=== PATIENT | male | born 1935 | race Caucasian/White ===

== ENCOUNTER 2024-11-14 14:21 | Observation (INO) | payer MEDICARE, OTHER, SELFPAY ==
[2024-11-14] VITALS (11 sets, daily range): BP systolic 178–214; BP diastolic 73–95; PULSE 60–62; RESP 16–22; TEMP 36.5–36.9; O2SAT 95–98; BMI 25.0; BMI 22.1
--- NOTE | 2024-11-14 14:29 | XR_ITS ---
FINAL REPORT CLINICAL HISTORY: CP FINDINGS: SINGLE VIEW CHEST There is mild cardiomegaly. Patient is status post median sternotomy. Left subclavian pacer is identified. There are chronic changes at the bases. The lungs are otherwise clear. There is no pneumothorax. IMPRESSION: No acute process. Reviewed, Interpreted and Dictated by Jimmie Murrell MD Transcribed by Lexi Dale Authenticated and [facility]
--- NOTE | 2024-11-14 14:29 | CT_ITS ---
FINAL REPORT TECHNIQUE: Multiple axial CT images were performed from the foramen magnum to the vertex without enhancement. Reconstructed images were obtained and reviewed. This study was performed with techniques to keep radiation doses as low as reasonably achievable, (ALARA). Individualized dose reduction techniques using automated exposure control or adjustment of mA and/or kV according to the patient's size were employed. CLINICAL HISTORY: Altered mental status FINDINGS: There is moderate atrophy with proportional ventriculomegaly. There are prominent dilated perivascular spaces in the basal ganglia.. There is no evidence of hemorrhage. No masses are identified. No extra-axial fluid is seen. The sinuses are normal. IMPRESSION: Atrophy without acute intracranial abnormality. Reviewed, Interpreted and Dictated by Jimmie Murrell MD Transcribed by Lexi Dale Authenticated and [facility]
--- NOTE | 2024-11-14 14:31 | ED_ITS ---
Discharge Plan Disposition Patient Disposition: Admitted Condition: Good Clinical Impressions Clinical Impression: Chest pain, Elevated troponin, Hx of heart artery stent, CAD (coronary artery disease), Presence of Watchman left atrial appendage closure device Discharge ED Provider: Dileep Webb Adult HPI <CAYETANO Leigh - Last Filed: 11/14/24 18:20> General Chief complaint: Nausea/Vomiting/Diarrhea Stated complaint: N/V, Chest tightness Time Seen by Provider: 11/14/24 14:21 Mode of Arrival: EMS Source of Information: Patient, Relative and EMS Limitations: No Limitations History of Present Illness HPI narrative: 89-year-old male presents to the emergency department via EMS for multitude of symptomatology, patient is somewhat of a poor historian, GCS of 14, disoriented to time, oriented to person and place, unsure of baseline as patient and family are not yet at the bedside, however additional history is obtained via EMS, patient originally called for left-sided chest pain that is nonradiating, the patient describes it as a pressure/tightness, however patient does endorse some radiation into the back , this been intermittently ongoing for the last 2 days, worsened today, describes it as a 5 out of 10, denies any shortness of breath with this, did have several episodes of nausea and vomiting today, which is new, as well as some diarrhea, denies any hematuria, hematochezia, hemoptysis, hematemesis, melena, patient denies any urinary type symptomatology, admits to abdominal pain, is any headache, fever chills, denies any lightheadedness, no dizziness. Patient denies any alcohol tobacco or drug use, patient has other past medical history upon chart review consistent with implantable pacemaker/defibrillator, hyperlipidemia, hypertension, patient takes baby aspirin daily, and was given 4 baby aspirin via EMS and route, as well as 4 mg of Zofran. Initial triage vitals are unremarkable. Also of note, EMS noted the patient to be quite hypertensive on the scene over 200 systolic. This is improved upon my examination at the patient. Note additional history obtained at the bedside via family members (daughter and ) at approximately 3:10 PM, they state that the patient is 2 years status post what sounds like bypass graft surgery, implantable defibrillator/pacemaker/watchman, for atrial fibrillation, previously on anticoagulation therapy with Xarelto, patient also has multiple coronary artery stents, approximately 4 according to at the bedside, patient noted some chest pain/back pain that started last night abruptly while playing cards , nausea vomiting and other pain persisted today as the patient and patient's family were passing through the area. Patient also has baseline ongoing memory disturbance/dementia, his current mentation is his baseline according to patient and family. Related Data Home Medications ?Medication ?Instructions ?Recorded ?Confirmed atorvastatin 40 mg tablet 20 mg PO HS 11/14/24 5 donepezil 10 mg tablet 10 mg PO HS 11/14/24 5 ezetimibe 10 mg tablet 10 mg PO DAILY 11/14/2411/05 aspirin 81 mg tablet 81 mg PO DAILY 11/15/2411/05 doxepin 10 mg capsule 10 mg PO HS 11/15/24 5 metoprolol succinate 25 mg 12.5 mg PO BID 11/15/2405/01 tablet,extended release 24 hr (Toprol XL) nitroglycerin 0.4 mg sublingual 0.4 mg sublingual Q5M PRN cp 11/15/24 11/15/24 tablet tamsulosin 0.4 mg capsule 0.4 mg PO DAILY 11/15/2405/01 Previous Rx's ?Medication ?Instructions ?Recorded clopidogrel 75 mg tablet 75 mg PO DAILY 30 days #30 t abs 11/15/24 isosorbide mononitrate 60 mg 60 mg PO DAILY 30 days #3 0 tabs 11/15/24 tablet,extended release 24 hr Allergies Allergy/AdvReac Type Severity Reaction Status Date / Time No Known Allergies Allergy Unverified 05/25/17 14:17 [facility] <CAYETANO Leigh - Last Filed: 11/14/24 18:20> [facility] Disclaimer: The information contained in this section may have been updated after the patient was seen, as this information can be updated by other users. Medical History CABG (coronary artery bypass graft) planned Family History Other No significant family history Social History Smoking Status: Never smoker alcohol intake: never current occupational status: other Travel in the last 8 weeks?: None Have you lived/traveled outside [place] in past 30 days?: No Contact w/someone who lives/traveled outside [place] past 30 days?: No Exposure to someone with infectious disease in past 14 days?: No Do you have a fever (greater than 100.4 F or 38 C)?: No Have you tested positive for COVID-19?: No Exposed to someone with COVID-19 in past 14 days?: No Do you have a sore throat?: No Do you have a cough?: No Do you have any weakness?: No Do you have any diarrhea?: No Are you experiencing any unusual bleeding?: No Do you have any muscle aches/pain?: No Do you have any abdominal pain?: No Are you experiencing loss of taste or smell?: No <CAYETANO Leigh - Last Filed: 11/14/24 18:20> ROS Obtained: Yes All systems reviewed & no additional complaints except as documented Physical Exam <CAYETANO Leigh - Last Filed: 11/14/24 18:20> General General appearance: alert and in no apparent distress Head Head exam: atraumatic and normocephalic Eye Eye exam: Present PERRL and EOMI ENT ENT exam: Present mucous membranes moist Neck Neck exam: Present normal inspection Chest Chest inspection: Present normal inspection and symmetric chest wall rise; Absent tenderness Respiratory Respiratory exam: Present normal lung sounds bilaterally; Absent respiratory distress, wheezes or stridor Cardiovascular Cardiovascular exam: Present regular rate and normal rhythm Abdominal Exam Abdominal exam: Present soft, distention and tenderness; Absent guarding, rebound or rigidity Abdominal tenderness: Present diffuse and mild Comment: Mild abdominal distention, mild diffuse abdominal pain to palpation, no focal pain to palpation Extremities Exam Extremities exam: Present normal inspection Neurological Exam Neurological exam: Present alert and other (GCS of 14, disoriented to time, oriented to person and place, unsure of baseline); Absent oriented X3 Psychiatric Psychiatric exam: Present normal affect Skin Skin exam: Present warm and dry Medical Decision Making <CAYETANO Leigh - Last Filed: 11/14/24 18:20> Medical Records Medical records reviewed: Yes I reviewed the patient's medical records. Screening: Per USPSTF and CDC recommendations, given the prevalence of disease in our region, it is our hospital?s policy to screen for HIV and viral Hepatitis for all patients aged 18 and over and those with ongoing risk factors. Zach Inquiry Pt receiving controlled substance: No Zcah was queried for this patient: No Vital Signs: 11/14/24 14:31 11/14/24 14:32 11/14/24 14:46 Temperature 98.2 F Temperature Source Oral Pulse Rate 60 60 Pulse Rate [Right Radial] 60 Respiratory Rate 21 19 22 Blood Pressure 198/89 H 195/95 H Blood Pressure [Right Arm] 192/88 H Blood Pressure Mean 128 Blood Pressure Mean [Right Arm] 122 Blood Pressure Source Blood Pressure Source [Right Arm] Automatic Cuff Blood Pressure Position Blood Pressure Position [Right Arm] Supine 02 Sat by Pulse Oximetry 97 98 95 Oxygen Delivery Method Room Air 11/14/24 15:46 11/14/24 16:01 11/14/24 16:36 Temperature Temperature Source Pulse Rate 62 60 60 Pulse Rate [Right Radial] Respiratory Rate 18 18 20 Blood Pressure 214/94 H 187/78 H 187/87 H Blood Pressure [Right Arm] Blood Pressure Mean 119 112 132 Blood Pressure Mean [Right Arm] Blood Pressure Source Blood Pressure Source [Right Arm] Blood Pressure Position Blood Pressure Position [Right Arm] 02 Sat by Pulse Oximetry 95 95 95 Oxygen Delivery Method 11/14/24 17:01 11/14/24 18:13 Temperature 98.4 F Temperature Source Oral Pulse Rate 60 60 Pulse Rate [Right Radial] Respiratory Rate 18 16 Blood Pressure 178/86 H 184/81 H Blood Pressure [Right Arm] Blood Pressure Mean 119 Blood Pressure Mean [Right Arm] Blood Pressure Source Automatic Cuff Blood Pressure Source [Right Arm] Blood Pressure Position Supine Blood Pressure Position [Right Arm] 02 Sat by Pulse Oximetry 95 Oxygen Delivery Method Room Air Lab Data Lab results reviewed: Yes I reviewed the patient's lab results. Lab Results 11/14/24 14:27: WBC 10.0, RBC 4.46 L, Hgb 15.2, Hct 43.9, MCV 98.4 H, MCH 34.1 H , MCHC 34.6, RDW 13.7, Plt Count 170, MPV 8.9, Neut % (Auto) 77.4, Lymph % (Auto) 14.9, Russell % (Auto) 6.7, Eos % (Auto) 0.4, Baso % (Auto) 0.3, Neut # (Auto) 7.7, Lymph # (Auto) 1.5, Russell # (Auto) 0.7, Eos # (Auto) 0.0, Baso # (Auto) 0.0, PT 10.6, INR 0.95, D-Dimer 0.92 H, Sodium 136, Potassium 5.0, Chloride 107, Carbon Dioxide 23, Anion Gap 11.0, BUN 22 H, Creatinine 1.30 H, Estimated Creat Clear 45, Estimated GFR 52 L, Est GFR ( Amer) 63, Glucose 146 H, Lactate 1.6, Calcium 9.0, Magnesium 2.0, Total Bilirubin 1.3, AST 66 H, ALT 51, Alkaline Phosphatase 118, Troponin I 0.05 H, NT-Pro-B Natriuret Pep 4150 H, Total Protein 8.0, Albumin 4.7, Globulin 3.3 H, Albumin/Globulin Ratio 1.4, Lipase 223 11/14/24 16:35: Urine Color Yellow, Urine Appearance Clear, Urine pH 6.0, Ur Specific [place] 1.010, Urine Protein Trace, Urine Glucose (UA) Negative, Urine Ketones Negative, Urine Blood Negative, Urine Nitrate Negative, Urine Bilirubin Negative, Urine Urobilinogen 0.2, Ur Leukocyte Esterase Negative, Urine RBC 5- 10, Urine WBC 5-10, Ur Squamous Epith Cells 3-5, Urine Bacteria Trace, Urine Mucus 1+ 11/14/24 17:27: Troponin I 0.06 H 11/15/24 06:20 11/15/24 06:20 Orders (Tests/Meds): ED MEDICATIONS Discontinued Medications Generic Name Dose Route Start Last Admin Trade Name Mumtaz PRN Reason Stop Dose Admin Aspirin 81 mg 11/15/24 11:45 11/15/24 12:13 Aspirin Ec 81mg Tablet PO 12/15/24 11:44 81 mg DAILY SUSAN Administration Atorvastatin Calcium 20 mg 11/15/24 21:00 Atorvastatin 20mg Tablet PO 12/15/24 20:59 HS [facility] Clopidogrel Bisulfate 300 mg 11/15/24 15:27 Clopidogrel 300mg Tablet PO 11/15/24 15:28 ONCE ONE Clopidogrel Bisulfate 75 mg 11/16/24 09:00 Clopidogrel 75mg Tab PO 12/16/24 08:59 DAILY [facility] Donepezil HCl 10 mg 11/15/24 21:00 Donepezil 10mg Tab PO 12/15/24 20:59 HS SUSAN Enoxaparin Sodium 80 mg 11/14/24 17:45 11/14/24 18:56 Enoxaparin 100mg/Ml Syringe 1 mg/kg (80 mg) 12/14/24 17:44 80 mg SUBCUT Administration Q12H SUSAN Enoxaparin Sodium 70 mg 11/15/24 06:00 11/15/24 06:16 Enoxaparin 80mg/0.8ml Syringe SUBCUT 12/15/24 05:59 Not Given Q12H SUSAN Enoxaparin Sodium 80 mg 11/15/24 21:00 Enoxaparin 80mg/0.8ml Syringe SUBCUT 12/15/24 20:59 Q12H SUSAN Furosemide 80 mg 11/14/24 17:45 11/14/24 18:55 Furosemide 40mg/4ml Vial IV 11/14/24 17:46 80 mg ONCE ONE Administration Iopamidol 80 ml 11/14/24 15:33 11/14/24 15:36 Iopamidol-370 (76%);100ml Bottle IV 11/14/24 15:34 80 ml ONCE ONE Administration Irbesartan 37.5 mg 11/14/24 18:25 11/14/24 18:56 Irbesartan 75mg Tablet PO 11/14/24 18:26 37.5 mg ONCE ONE Administration Isosorbide Mononitrate 60 mg 11/15/24 15:30 Isosorbide Russell 60mg Tab.Er.24h PO 12/15/24 15:29 DAILY SUSAN Labetalol HCl 20 mg 11/15/24 06:48 Labetalol 20mg/4ml Syringe IV 12/15/24 06:47 Q8HP PRN for SBP >160 Melatonin 5 mg 11/15/24 21:00 11/14/24 22:02 Melatonin 5mg Tablet PO 12/15/24 20:59 5 mg HS SUSAN Administration Methocarbamol 500 mg 11/15/24 00:03 11/15/24 00:56 Methocarbamol 500mg Tablet PO 12/15/24 08:59 500 mg BID PRN Administration spasm Methocarbamol 500 mg 11/15/24 07:11 Methocarbamol 500mg Tablet PO 12/15/24 00:02 BIDP PRN MUSCLE SPASMS Metoprolol Succinate 25 mg 06/11/25 11:45 11/15/24 12:13 Metoprolol Succinate Xl 25mg Tablet PO 12/15/24 11:44 25 mg DAILY SUSAN Administration Morphine Sulfate 2 mg 11/14/24 15:38 11/14/24 15:54 Morphine 2mg/Ml Syringe IV 11/14/24 15:39 2 mg ONCE ONE Administration Ondansetron HCl 4 mg 11/14/24 15:38 11/14/24 15:55 Ondansetron 4mg/2ml Vial IV 11/14/24 15:39 4 mg ONCE ONE Administration Ondansetron HCl 4 mg 11/15/24 06:37 11/15/24 06:43 Ondansetron 4mg/2ml Vial IV 12/15/24 06:36 4 mg Q6HP PRN Administration Nausea Sodium Chloride 40 ml 11/14/24 15:33 11/14/24 15:35 0.9 % Sodium Chloride 50 Ml Vial IV 11/14/24 15:34 40 ml ONCE ONE Administration Sodium Chloride 10 ml 11/14/24 15:33 11/14/24 15:36 Sodium Chloride 0.9% 10ml Syr (Rad Only) IV 11/14/24 15:34 10 ml ONCE ONE Administration ORDERS Category Date Time Status CT angio abdomen pelvis Stat Cat Scan 11/14/24 14:[address] head/brain wo con Stat Cat Scan 11/14/24 14:29 Completed CTA Chest [CT angio chest - dissection] Stat Cat Scan 11/14/24 14:32 Completed XR chest portable Stat Exams 11/14/24 14:29 Completed Complete Blood Count Auto Diff AMLAB Lab 11/15/24 06:20 Completed Complete Blood Count Auto Diff Stat Lab 11/14/24 14:27 Completed Comprehensive Metabolic Panel AMLAB Lab 11/15/24 06:20 Completed Comprehensive Metabolic Panel Stat Lab 11/14/24 14:27 Completed D-Dimer Stat Lab 11/14/24 14:27 Completed HIV Combo Stat Lab 11/14/24 20:51 Completed Hepatitis C Ab Qual. W/ RFX Stat Lab 11/14/24 20:51 Completed Lactic Acid Stat Lab 11/14/24 14:27 Completed Lipase Stat Lab 11/14/24 14:27 Completed Lipid Panel AMLAB Lab 11/15/24 06:20 Completed Magnesium AMLAB Lab 11/15/24 06:20 Completed Magnesium Stat Lab 11/14/24 14:27 Completed NT Pro Brain Natriuretic Pep. Stat Lab 11/14/24 14:27 Completed PT INR [Prothrombin Time INR] Stat Lab 11/14/24 14:27 Completed Troponin I Q3H Lab 11/14/24 17:27 Completed Troponin I Q3H Lab 11/14/24 20:51 Completed Troponin I Stat Lab 11/14/24 14:27 Completed Urinalysis and Microscopic Stat Lab 11/14/24 16:35 Completed ECG Request Routine Y 11/14/24 17:45 Ordered Medical Decision Narrative: 89-year-old male presents the emergency department with chest pain, nausea and vomiting, differential diagnose include but not limited to, PE, aortic dissection, AAA, pneumonia, ACS, cardiac arrhythmia, costochondritis, hypertensive urgency/emergency, small bowel obstruction, diverticulitis, pancreatitis among others. I discussed this case with attending physician Will obtain basic laboratory studies, d dimer , lactic acid level lipase level magnesium level proBNP PT/INR troponin urinalysis, EKG, CTA chest, CTA abdomen pelvis dissection protocol, CT head without contrast and chest x-ray for further evaluation/characterization. CBC is notable for mild MCV elevation at 98.4 otherwise unremarkable CBC Coags within normal limits CMP is notable for mild creatinine elevation at 1.3, mild BUN elevation at 22, no lactic acidosis, minimal AST elevation at 66, D-dimer elevated at 0.92. Troponin is minimally elevated at 0.05, proBNP is elevated at 4150 Will give patient 2 mg IV morphine and 4 mg IV Zofran additional dose. Reviewed the patient's chest x-ray along the corresponding radiologic report, no acute process. Urinalysis is unremarkable, negative nitrites negative leukocyte esterase. 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 Reviewed the patient's CT head without contrast along the corresponding radiologic report, atrophy without acute intracranial abnormality. Heart score is a 6. I discussed this patient's case with the hospitalist Dr. Chi at approximately 5:40 PM, he is agreement the current admission plan/treatment plan, for ongoing chest pain, elevated troponin, clinical reviewer consultation and possible formal echocardiogram. <Dileep Webb MD - Last Filed: 11/15/24 21:34> Vital Signs: 11/14/24 14:31 11/14/24 14:32 11/14/24 14:46 Temperature 98.2 F Temperature Source Oral Pulse Rate 60 60 Pulse Rate [Right Radial] 60 Respiratory Rate 21 19 22 Blood Pressure 198/89 H 195/95 H Blood Pressure [Right Arm] 192/88 H Blood Pressure Mean 128 Blood Pressure Mean [Right Arm] 122 Blood Pressure Source Blood Pressure Source [Right Arm] Automatic Cuff Blood Pressure Position Blood Pressure Position [Right Arm] Supine 02 Sat by Pulse Oximetry 97 98 95 Oxygen Delivery Method Room Air 11/14/24 15:46 11/14/24 16:01 11/14/24 16:36 Temperature Temperature Source Pulse Rate 62 60 60 Pulse Rate [Right Radial] Respiratory Rate 18 18 20 Blood Pressure 214/94 H 187/78 H 187/87 H Blood Pressure [Right Arm] Blood Pressure Mean 119 112 132 Blood Pressure Mean [Right Arm] Blood Pressure Source Blood Pressure Source [Right Arm] Blood Pressure Position Blood Pressure Position [Right Arm] 02 Sat by Pulse Oximetry 95 95 95 Oxygen Delivery Method 11/14/24 17:01 11/14/24 18:13 Temperature 98.4 F Temperature Source Oral Pulse Rate 60 60 Pulse Rate [Right Radial] Respiratory Rate 18 16 Blood Pressure 178/86 H 184/81 H Blood Pressure [Right Arm] Blood Pressure Mean 119 Blood Pressure Mean [Right Arm] Blood Pressure Source Automatic Cuff Blood Pressure Source [Right Arm] Blood Pressure Position Supine Blood Pressure Position [Right Arm] 02 Sat by Pulse Oximetry 95 Oxygen Delivery Method Room Air Lab Data Lab Results 11/14/24 14:27: WBC 10.0, RBC 4.46 L, Hgb 15.2, Hct 43.9, MCV 98.4 H, MCH 34.1 H , MCHC 34.6, RDW 13.7, Plt Count 170, MPV 8.9, Neut % (Auto) 77.4, Lymph % (Auto) 14.9, Russell % (Auto) 6.7, Eos % (Auto) 0.4, Baso % (Auto) 0.3, Neut # (Auto) 7.7, Lymph # (Auto) 1.5, Russell # (Auto) 0.7, Eos # (Auto) 0.0, Baso # (Auto) 0.0, PT 10.6, INR 0.95, D-Dimer 0.92 H, Sodium 136, Potassium 5.0, Chloride 107, Carbon Dioxide 23, Anion Gap 11.0, BUN 22 H, Creatinine 1.30 H, Estimated Creat Clear 45, Estimated GFR 52 L, Est GFR ( Amer) 63, Glucose 146 H, Lactate 1.6, Calcium 9.0, Magnesium 2.0, Total Bilirubin 1.3, AST 66 H, ALT 51, Alkaline Phosphatase 118, Troponin I 0.05 H, NT-Pro-B Natriuret Pep 4150 H, Total Protein 8.0, Albumin 4.7, Globulin 3.3 H, Albumin/Globulin Ratio 1.4, Lipase 223 11/14/24 16:35: Urine Color Yellow, Urine Appearance Clear, Urine pH 6.0, Ur Specific [place] 1.010, Urine Protein Trace, Urine Glucose (UA) Negative, Urine Ketones Negative, Urine Blood Negative, Urine Nitrate Negative, Urine Bilirubin Negative, Urine Urobilinogen 0.2, Ur Leukocyte Esterase Negative, Urine RBC 5- 10, Urine WBC 5-10, Ur Squamous Epith Cells 3-5, Urine Bacteria Trace, Urine Mucus 1+ 11/14/24 17:27: Troponin I 0.06 H Orders (Tests/Meds): ED MEDICATIONS Discontinued Medications Generic Name Dose Route Start Last Admin Trade Name Celestineq PRN Reason Stop Dose Admin Aspirin 81 mg 11/15/24 11:45 11/15/24 12:13 Aspirin Ec 81mg Tablet PO 12/15/24 11:44 81 mg DAILY SUSAN Administration Atorvastatin Calcium 20 mg 11/15/24 21:00 Atorvastatin 20mg Tablet PO 12/15/24 20:59 HS [facility] Clopidogrel Bisulfate 300 mg 11/15/24 15:27 Clopidogrel 300mg Tablet PO 11/15/24 15:28 ONCE ONE Clopidogrel Bisulfate 75 mg 11/16/24 09:00 Clopidogrel 75mg Tab PO 12/16/24 08:59 DAILY SUSAN Donepezil HCl 10 mg 11/15/24 21:00 Donepezil 10mg Tab PO 12/15/24 20:59 HS [facility] Enoxaparin Sodium 80 mg 11/14/24 17:45 11/14/24 18:56 Enoxaparin 100mg/Ml Syringe 1 mg/kg (80 mg) 12/14/24 17:44 80 mg SUBCUT Administration Q12H SUSAN Enoxaparin Sodium 70 mg 11/15/24 06:00 11/15/24 06:16 Enoxaparin 80mg/0.8ml Syringe SUBCUT 12/15/24 05:59 Not Given Q12H SUSAN Enoxaparin Sodium 80 mg 11/15/24 21:00 Enoxaparin 80mg/0.8ml Syringe SUBCUT 12/15/24 20:59 Q12H SUSAN Furosemide 80 mg 11/14/24 17:45 11/14/24 18:55 Furosemide 40mg/4ml Vial IV 11/14/24 17:46 80 mg ONCE ONE Administration Iopamidol 80 ml 11/14/24 15:33 11/14/24 15:36 Iopamidol-370 (76%);100ml Bottle IV 11/14/24 15:34 80 ml ONCE ONE Administration Irbesartan 37.5 mg 11/14/24 18:25 11/14/24 18:56 Irbesartan 75mg Tablet PO 11/14/24 18:26 37.5 mg ONCE ONE Administration Isosorbide Mononitrate 60 mg 11/15/24 15:30 Isosorbide Russell 60mg Tab.Er.24h PO 12/15/24 15:29 DAILY SUSAN Labetalol HCl 20 mg 11/15/24 06:48 Labetalol 20mg/4ml Syringe IV 12/15/24 06:47 Q8HP PRN for SBP >160 Melatonin 5 mg 11/15/24 21:00 11/14/24 22:02 Melatonin 5mg Tablet PO 12/15/24 20:59 5 mg HS SUSAN Administration Methocarbamol 500 mg 11/15/24 00:03 11/15/24 00:56 Methocarbamol 500mg Tablet PO 12/15/24 08:59 500 mg BID PRN Administration spasm Methocarbamol 500 mg 11/15/24 07:11 Methocarbamol 500mg Tablet PO 12/15/24 00:02 BIDP PRN MUSCLE SPASMS Metoprolol Succinate 25 mg 11/15/24 11:45 11/15/24 12:13 Metoprolol Succinate Xl 25mg Tablet PO 12/15/24 11:44 25 mg DAILY SUSAN Administration Morphine Sulfate 2 mg 11/14/24 15:38 11/14/24 15:54 Morphine 2mg/Ml Syringe IV 11/14/24 15:39 2 mg ONCE ONE Administration Ondansetron HCl 4 mg 11/14/24 15:38 11/14/24 15:55 Ondansetron 4mg/2ml Vial IV 11/14/24 15:39 4 mg ONCE ONE Administration Ondansetron HCl 4 mg 11/15/24 06:37 11/15/24 06:43 Ondansetron 4mg/2ml Vial IV 12/15/24 06:36 4 mg Q6HP PRN Administration Nausea Sodium Chloride 40 ml 11/14/24 15:33 11/14/24 15:35 0.9 % Sodium Chloride 50 Ml Vial IV 11/14/24 15:34 40 ml ONCE ONE Administration Sodium Chloride 10 ml 11/14/24 15:33 11/14/24 15:36 Sodium Chloride 0.9% 10ml Syr (Rad Only) IV 11/14/24 15:34 10 ml ONCE ONE Administration ORDERS Category Date Time Status CT angio abdomen pelvis Stat Cat Scan 11/14/24 14:[address] head/brain wo con Stat Cat Scan 11/14/24 14:29 Completed CTA Chest [CT angio chest - dissection] Stat Cat Scan 11/14/24 14:32 Completed XR chest portable Stat Exams 11/14/24 14:29 Completed Complete Blood Count Auto Diff AMLAB Lab 11/15/24 06:20 Completed Complete Blood Count Auto Diff Stat Lab 11/14/24 14:27 Completed Comprehensive Metabolic Panel AMLAB Lab 11/15/24 06:20 Completed Comprehensive Metabolic Panel Stat Lab 11/14/24 14:27 Completed D-Dimer Stat Lab 11/14/24 14:27 Completed HIV Combo Stat Lab 11/14/24 20:51 Completed Hepatitis C Ab Qual. W/ RFX Stat Lab 11/14/24 20:51 Completed Lactic Acid Stat Lab 11/14/24 14:27 Completed Lipase Stat Lab 11/14/24 14:27 Completed Lipid Panel AMLAB Lab 11/15/24 06:20 Completed Magnesium AMLAB Lab 11/15/24 06:20 Completed Magnesium Stat Lab 11/14/24 14:27 Completed NT Pro Brain Natriuretic Pep. Stat Lab 11/14/24 14:27 Completed PT INR [Prothrombin Time INR] Stat Lab 11/14/24 14:27 Completed Troponin I Q3H Lab 11/14/24 17:27 Completed Troponin I Q3H Lab 11/14/24 20:51 Completed Troponin I Stat Lab 11/14/24 14:27 Completed Urinalysis and Microscopic Stat Lab 11/14/24 16:35 Completed ECG Request Routine Y 11/14/24 17:45 Ordered Medical Decision Narrative: 89-year-old male presents the emergency department with chest pain, nausea and vomiting, differential diagnose include but not limited to, PE, aortic dissection, AAA, pneumonia, ACS, cardiac arrhythmia, costochondritis, hypertensive urgency/emergency, small bowel obstruction, diverticulitis, pancreatitis among others. I discussed this case with attending physician Will obtain basic laboratory studies, d dimer , lactic acid level lipase level magnesium level proBNP PT/INR troponin urinalysis, EKG, CTA chest, CTA abdomen pelvis dissection protocol, CT head without contrast and chest x-ray for further evaluation/characterization. CBC is notable for mild MCV elevation at 98.4 otherwise unremarkable CBC Coags within normal limits CMP is notable for mild creatinine elevation at 1.3, mild BUN elevation at 22, no lactic acidosis, minimal AST elevation at 66, D-dimer elevated at 0.92. Troponin is minimally elevated at 0.05, proBNP is elevated at 4150 Will give patient 2 mg IV morphine and 4 mg IV Zofran additional dose. Reviewed the patient's chest x-ray along the corresponding radiologic report, no acute process. Urinalysis is unremarkable, negative nitrites negative leukocyte esterase. 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 Reviewed the patient's CT head without contrast along the corresponding radiologic report, atrophy without acute intracranial abnormality. Heart score is a 6. I discussed this patient's case with the hospitalist Dr. Chi at approximately 5:40 PM, he is agreement the current admission plan/treatment plan, for ongoing chest pain, elevated troponin, clinical reviewer consultation and possible formal echocardiogram. I was consulted by the BRITTNEE, and we discussed the complexity of the problems being addressed.I approved the treatment and management plan for this patient?s care in the Emergency Department, thus performing a substantive portion of the medical decision making.Signed, Dileep Webb MD [facility] <CAYETANO Leigh - Last Filed: 11/14/24 18:20> Critical Care Time Critical Care Time: No
--- NOTE | 2024-11-14 14:32 | CT_ITS ---
FINAL REPORT TECHNIQUE: Postcontrast axial images of the chest were performed in a CTA protocol. This study was performed with techniques to keep radiation doses as low as reasonably achievable, (ALARA). Individualized dose reduction technique using automated exposure control or adjustment of mA and/or kV according to the patient's size were employed. CLINICAL HISTORY: Chest pain/back pain, N/V FINDINGS: Mediastinal wires are noted. There is a filling defect in the left atrial appendage seen on images 47-51 of series 6. Dense coronary artery calcifications are seen. The heart is normal in size. No adenopathy is identified. No pleural or pericardial effusion is identified. The thoracic aorta is normal in caliber with no focal aneurysm or dissection identified. There is no filling defect to suggest pulmonary embolism. There is chronic scarring at the lung bases. No lung infiltrate or mass is identified. IMPRESSION: No pulmonary embolism. Filling defect in the left atrial appendage. Recommend correlation with echocardiogram. Reviewed, Interpreted and Dictated by Jimmie Murrell MD Transcribed by Zora Hardin Authenticated and [facility]
--- NOTE | 2024-11-14 14:32 | CT_ITS ---
FINAL REPORT TECHNIQUE: Pre-and postcontrast images of the abdomen and pelvis were performed by computed tomography. Extensive 3-D reconstruction images were performed. A CTA was performed. This study was performed with techniques to keep radiation doses as low as reasonably achievable (ALARA). Individualized dose reduction techniques using automated exposure control or adjustment of mA and/or kV according to the patient''s size were employed. CLINICAL HISTORY: Abdominal pain, N/V, R/O dissection FINDINGS: ABDOMEN AND PELVIS: Precontrast images demonstrate no evidence of nephrolithiasis. The liver is fatty infiltrated. There is a large gallstone measuring 3.2 cm. A periampullary duodenal diverticulum is seen measuring 2.5 cm. No adrenal masses are identified. The spleen and pancreas are unremarkable. There is a small hiatal hernia. Streak artifact is seen from hip joint prosthesis. CTA: The abdominal aorta is proper caliber. Dense vascular calcification is seen at the origins of the celiac axis and SMA with high-grade stenosis present. There are patent, single renal arteries. Calcification is seen at the origin of the right renal artery and iliac vessels with less than 50% stenosis. 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 Large gallstone. No evidence of aneurysm or dissection. Reviewed, Interpreted and Dictated by Jimmie Murrell MD Transcribed by Zora Hardin Authenticated and . [facility]
--- NOTE | 2024-11-14 14:33 | ECG_ITS ---
APPROVED REPORT Exam: Resting ECG HR:62 bpm ECG Measurements Heart Rate 62 AXES QRSd 169 QRS 265 QT 504 T 73 QTc 509 Conclusion ELECTRONIC VENTRICULAR PACEMAKER ABNORMAL RHYTHM ECG UNCONFIRMED REPORT Electronically signed by : BINH PINA, 11/16/2024 01:16:47
--- OUTSIDE RECORDS SUMMARY | 2024-11-14 14:35 | XMS_ITS | Encounter Summary ---
Author Organization [facility] Address [address] [place] [address] Care Team Providers Care Kidney Trimmer Name Role Phone Mayo Kauffman MD Primary Care Provider [phone] Jason Canchola MD Primary Care Provider [phone] Mayo Kauffman MD Primary Care Provider [phone] Provider, Historical Unavailable Unavailable Francisco Reveles MD Unavailable Aidan Ferraro MD Primary Care Provider [phone] Lois Alaniz APRN Primary Care Provider [phone] Alexis Chamberlain MD Unavailable [phone] Aidan Ferraro MD Primary Care Provider [phone] Canelo Avery MD Unavailable [phone] Patricia Hernandez Unavailable Unavailable Jayla Rangel RN Unavailable Unavailable Enmanuel Kauffman DPM Unavailable [phone] Reason for Visit * Reason Onset Date Comments Other 09/30/2009 Encounter Details Date Type Department Care Team (Late st Contact Info) Description 09/30/[address] [place] [address] Mayo Kauffman MD [address] [place] [address] [phone] Other Social History Tobacco Use Types Packs/Day Years Used Date Smoking Tobacco: Never Alcohol Use Standard Drinks/Week Comments No 0 (1 standard drink = 0.6 oz pur e alcohol) Sex and Gender Information Value Date Recorded Sex Assigned at Male 09/06/2020 6:36 PM EDT Legal Sex Male 9:18 PM EST Gender Identity Male 09/06/2020 6:36 PM EDT Sexual Orientation Straight 09/06/2020 6: 36 PM EDT documented as of this encounter Miscellaneous Notes * Telephone Encounter - Sultana Hernandez - 09/30/2009 1:18 PM EDT Pt contacted and informed stress test was 05/14/10 - advised Cholesterol was 225 * Telephone Encounter - Abby Canas - 09/30/2009 1:07 PM EDT When is the date of his stress test? Also would like results of the blood work documented in this encounter Plan of Treatment Upcoming Encounters Date Type Department Care Team (Late st Contact Info) Description 12/11/2024 1:30 PM EDT Office Visit [facility] [address], [address] [place] [address] Jason Moya III, MD [address] [place] [address] Domenico Upton APRN [address] [place] [address] [place] [address] 01/11/2025 9:30 AM EDT Office Visit [facility] Care [address] [place] [address] [address], [address] [place] [address] Aidan Ferraro MD [address] [place] [address] 03/15/2025 11:00 AM EDT Office Visit [facility]IE[facility] Ferraro Alex Pinzon [address] [place] [address] [address] [place] [address] Aidan Ferraro MD [address] [place] [address] documented as of this encounter Visit Diagnoses Not on filedocumented in this encounter Additional Health Concerns Infection Onset Date Last Indicated Resolved Time Covid-19 (confirmed) Comment:Past Acute Phase 03/28/2020 03/28/2020 07/30/2020 9:22 AM EST Covid-19 (rule out) 07/03/2021 07/03/2021 07/03/19 22 9:44 PM EST Covid-19 (confirmed) 07/03/2021 07/03/2021 022 10:14 PM EDT documented as of this encounter Care Teams Kidney Trimmer Relationship Specialty Start Date End Date Mayo Kauffman MD [address] [place] [address] PCP - General 05/25/08 12/11/14 Jason Canchola MD [address] [place] [address] PCP - General 12/12/14 05/19/16 Mayo Kauffman MD [address] [place] [address] PCP - General Cardiology 05/20/16 11/01/17 Aidan Ferraro MD [address] [place] [address] PCP - General Family Medicine 11/02/17 02/22/18 Lois Alaniz APRN [address] [place] [address] PCP - General Family Practice 02/23/18 03/01/20 Aidan Ferraro MD [address] [place] [address] PCP - General Family Medicine 03/02/20 Provider, Historical 08/11/16 Francisco Reveles MD [address] [place] [address] Gastroenterology 08/17/16 Alexis Chamberlain MD [address] [place] [address] Orthopedic Surgery 09/08/18 Canelo Avery MD [address] [place] [address] Orthopedic Surgery 04/12/20 Patricia Hernandez 06/03/20 Jayla Rangel, ONI Registered Nurse Geriatric Social Work Professor 02/15/23 02/15/23 Enmanuel Kauffman DPM [address] [place] [address] Podiatry 05/25/23 documented as of this encounter
--- OUTSIDE RECORDS SUMMARY | 2024-11-14 14:35 | XMS_ITS | Encounter Summary ---
Author Organization [facility] Address [address] [place] [address] Care Team Providers Care Manager Interventional Name Role Phone Mayo Kauffman MD Primary Care Provider [phone] Jason Canchola MD Primary Care Provider [phone] Mayo Kauffman MD Primary Care Provider [phone] Provider, Historical Unavailable Unavailable Francisco Reveles MD Unavailable Aidan Ferraro MD Primary Care Provider [phone] Lois Alaniz APRN Primary Care Provider [phone] Alexis Chamberlain MD Unavailable [phone] Aidan Ferraro MD Primary Care Provider [phone] Canelo Avery MD Unavailable [phone] Patricia Hernandez Unavailable Unavailable Jayla Rangel RN Unavailable Unavailable Enmanuel Kauffman DPM Unavailable [phone] Encounter Details Date Type Department Care Team (Late st Contact Info) Description 11/15/2007 Historical Encounter Global Mayo Kauffman MD [address] [place] [address] Social History Tobacco Use Types Packs/Day Years Used Date Smoking Tobacco: Never Assessed Sex and Gender Information Value Date Recorded Sex Assigned at Male 09/06/2020 6:36 PM EDT Legal Sex Male 9:18 PM EST Gender Identity Male 09/06/2020 6:36 PM EDT Sexual Orientation Straight 09/06/2020 6: 36 PM EDT documented as of this encounter Plan of Treatment Upcoming Encounters Date Type Department Care Team (Late st Contact Info) Description 12/11/2024 1:30 PM EDT Office Visit [facility] [address] [address] Jason Moya III, MD [address] [place] [address] [phone] Domenico Upton APRN [address] [place] [address] 01/11/2025 9:30 AM EDT Office Visit [facility] [address] [address] Aidan Ferraro MD [address] [place] [address] [phone] 03/15/2025 11:00 AM EDT Office Visit [facility] [address] [address] Aidan Ferraro MD [address] [place] [address] [phone] documented as of this encounter Visit Diagnoses Not on filedocumented in this encounter Additional Health Concerns Infection Onset Date Last Indicated Resolved Time Covid-19 (confirmed) Comment:Past Acute Phase 03/28/2020 03/28/2020 07/30/2020 9:22 AM EST Covid-19 (rule out) 07/03/2021 07/03/202120 22 9:44 PM EST Covid-19 (confirmed) 07/03/2021 07/03/2021 022 10:14 PM EDT documented as of this encounter Care Teams Manager Interventional Relationship Specialty Start Date End Date Mayo Kauffman MD [address] [address] PCP - General 05/25/08 12/11/14 Jason Canchola MD [address] [place] [address] PCP - General 12/12/14 05/19/16 Mayo Kauffman MD [address] [place] [address] PCP - General Cardiology 05/20/16 11/01/17 Aidan Ferraro MD [address] [place] [address] PCP - General Family Medicine 11/02/17 02/22/18 Lois Alaniz APRN [address] [place] [address] PCP - General Family Practice 02/23/18 03/01/20 Aidan Ferraro MD [address] [place] [address] PCP - General Family Medicine 03/02/20 Provider, Historical 08/11/16 Francisco Reveles MD [address] [place] [address] Gastroenterology 08/17/16 Alexis Chamberlain MD [address] [facility] [address] [place] [address] Orthopedic Surgery 09/08/18 Canelo Avery MD [address] [address] [place] [address] Orthopedic Surgery 04/12/20 Patricia Hernandez 06/03/20 Jayla Rangel, RN Registered Nurse Reliability Manager 02/15/23 02/15/23 Enmanuel Kauffman DPM [address] [place] [address] [address] [place], [place] [phone] Podiatry 05/25/23 documented as of this encounter
--- OUTSIDE RECORDS SUMMARY | 2024-11-14 14:35 | XMS_ITS | Encounter Summary ---
Author Organization [facility] Address [address] [place] [address] Care Team Providers Care Liner Reroll Tender Name Role Phone Mayo Kauffman MD Primary Care Provider Provider, Historical Unavailable Unavailable Francisco Reveles MD Unavailable Aidan Ferraro MD Primary Care Provider Lois Alaniz APRN Primary Care Provider Alexis Chamberlain MD Unavailable [phone] Aidan Ferraro MD Primary Care Provider Canelo Avery MD Unavailable Patricia Hernandez Unavailable Unavailable Jayla Rangel RN Unavailable Unavailable Enmanuel Kauffman DPDebbie Unavailable [phone] Encounter Details Date Type Department Care Team (Late st Contact Info) Description 09/14/2016 Orders Only [facility] [place] [address] [place] [address] Mayo Kauffman MD [address] [place] [address] Enlarged prostate (Primary Dx); S/P coronary artery stent placement; Essential hypertension; Mixed hyperlipidemia Social History Tobacco Use Types Packs/Day Years Used Date Smoking Tobacco: Former Smokeless Tobacco: Never Alcohol Use Standard Drinks/Week Comments [...] Description 12/11/2024 1:30 PM EDT Office Visit [facility] [address] [address] Jason Moya III, MD [address] [place] [address] [phone] Domenico Upton APRN [address] [place] [address] [phone] 01/11/2025 9:30 AM EDT Office Visit [address] [address] Aidan Ferraro MD [address] [place] [address] [phone] 03/15/2025 11:00 AM EDT Office Visit [facility] [address] [address] Aidan Ferraro MD [address] [place] [address] [phone] documented as of this encounter Results * Lipid Panel (09/15/2016 7:04 AM EDT) [facility] Signature CHOLESTEROL 160 10 - 200 mg/dL 09/15/2016 1:57 PM EDT [facility] TRIGLYCERIDE 150 46 - 236 mg/dL 09/15/2016 1:57 PM EDT [facility] HDL 35.0 27.0 - 67.0 mg/dL 09/15/2016 1:57 PM EDT [facility] VLDL 30.0 mg/dL 09/15/2016 1:57 PM EDT [facility] LDL 95.0 mg/dL 09/15/2016 1:57 PM EDT [facility] Comment: CAP STANDARDIZED LDL-CHOLESTEROL VALUES <130-DESIRABLE 130-159 BORDERLINE/HIGH RISK >160-HIGH RISK RISK 1, MALE 4.57 09/15/2016 1:57 PM EDT [facility] Comment: TOTAL CHOL/HDL 1/2 AVERAGE 3.43 AVERAGE 4.97 2 X AVERAGE 9.55 3 X AVERAGE 23.39 RISK 2, MALE 2.71 09/15/2016 1:57 PM EDT [facility] Comment: LDL/HDL 1/2 AVERAGE 1.00 AVERAGE 3.55 2 X AVERAGE 6.25 3 X AVERAGE 7.99 RISK 1, FEMALE 4.57 09/15/2016 1:57 PM EDT [facility] Comment: TOTAL CHOL/HDL 1/2 AVERAGE 3.27 AVERAGE 4.44 2 X AVERAGE 7.05 3 X AVERAGE 11.04 RISK 2, FEMALE 2.71 09/15/2016 1:57 PM EDT [facility] Comment: LDL/HDL 1/2 AVERAGE 1.47 AVERAGE 3.22 2 X AVERAGE 5.03 3 X AVERAGE 6.14 09/15/2016 7:04 AM EDT 09/15/2016 1:31 PM EDT Narrative [facility] - 09/15/2016 1:57 PM EDT NO KNOWN ALLERGIES us Mayo Kauffman MD CHEMISTRY ORDERABLES Final Resul t [facility] [address] [place] [address] * (ABNORMAL) Comprehensive Metabolic Panel (09/15/2016 7:04 AM EDT) SODIUM 142 135 - 145 mmol/L 09/15/2016 1:57 PM EDT [facility] POTASSIUM 4.2 3.6 - 5.0 mmol/L 09/15/2016 1:57 PM EDT [facility] CHLORIDE 106 101 - 111 mmol/L 09/15/2016 1:57 PM EDT [facility] CO2 26 21 - 31 mmol/L 09/15/2016 1:57 PM EDT [facility] ANION GAP 10 09/15/2016 1:57 PM EDT [facility] GLUCOSE 103 70 - 110 mg/dL 09/15/2016 1:57 PM EDT [facility] CREATININE 1.3(H) 0.6 - 1.2 mg/dL 09/15/2016 1:57 PM EDT [facility] BUN 15 6 - 20 mg/dL 09/15/2016 1:57 PM EDT [facility] CALCIUM 9.9 8.5 - 10.5 mg/dL 09/15[facility]2016 [facility] TOTAL 7.5 6.7 - 8.2 g/dL 09/15/2016 1:57 PM EDT [facility] Albumin 4.5 3.2 - 5.0 g/dL 09/15/2016 1:57 PM EDT [facility] T BILIRUBIN 0.7 0.2 - 1.0 mg/dL 09/15/2016 1:57 PM EDT [facility] ALP 97 42 - 121 [iU]/L 09/15/2016 1:57 [facility] AST 28 10 - 42 [iU]/L 09/15/2016 1:57 PM [facility] ALT (SGPT) 30 10 - 60 [iU]/L 09/15/2016 1:57 PM [facility] OSMOLALITY 284 266 - 309 09/15/2016 1:57 PM [facility] A/G Ratio 1.5 09/15/2016 1:57 PM [facility] B/C 12 10 - 20 09/15/2016 1:57 PM [facility] ESTIMATED GFR 53 mL/min 09/15/2016 1:57 PM [facility] Comment: *The estimated Glomerular Filtration Rate(EGFR) may not be accurate for children under the age of 18 yrs. To estimate the GFR for -Americans multiply the result provided by 1.21. Stage 1 90 mL/min or greater Stage 2 60-89 mL/min Stage 3 30-59 mL/min Stage 4 15-29 mL/min Stage 5 14 mL/min or less 09/15/2016 7:04 AM EDT 09/15/2016 1:31 PM EDT Narrative [facility] - 09/15/2016 1:57 PM EDT NO KNOWN ALLERGIES us Mayo Kauffman MD CHEMISTRY ORDERABLES Final Resul t Performing Organization Address City/State/[facility] Co de Phone Number [facility] [address] [place] [address] * (ABNORMAL) CBC (09/15/2016 7:04 AM EDT) WBC 4.8 3.4 - 11.3 10*3/uL 09/15/2016 1:44 PM EDT [facility] RBC 4.23(L) 4.32 - 5.64 10*6/uL 09/15/2016 1:44 PM EDT [facility] HGB 13.7 13.0 - 16.7 g/dL 09/15/2016 1:44 PM EDT [facility] HCT 41.1 38.5 - 49.3 % 09/15/2016 1:44 PM EDT [facility] MCV 97.1(H) 82.3 - 94.1 fL 09/15/2016 1:44 PM EDT [facility] MCHC 33.4 32.6 - 34.9 g/dL 09/15/2016 1:44 PM EDT [facility] MCH 32.4(H) 27.0 - 31.1 pg 09/15/2016 1:44 PM EDT [facility] RDW 14.0 11.5 - 14.5 % 09/15/2016 1:44 PM EDT [facility] MPV 7.9 6.9 - 9.9 fL 09/15/2016 1:44 PM EDT [facility] Platelet Cnt 140(L) 146 - 374 10*3/uL 09/15/2016 1:44 PM EDT [facility] Differential Type Auto 017 1:44 PM EDT [facility] Neutrophils 56.3 48.8 - 75.9 % 09/15/2016 1:44 PM EDT [facility] Lymphocytes 33.1 16.3 - 43.9 % 09/15/2016 1:44 PM EDT [facility] Monocytes 8.7 2.1 - 13.3 % 09/15/2016 1:44 PM EDT [facility] Eosinophils 1.3 0.3 - 5.0 % 09/15/2016 1:44 PM EDT [facility] Basophils 0.6 0.0 - 1.1 % 09/15/2016 1:44 PM EDT [facility] Neutrophils Abs 2.7 1.6 - 8.5 10*3/uL 09/15/2016 1:44 PM EDT [facility] Lymphocytes Abs 1.6 0.6 - 4.9 10*3/uL 09/15/2016 1:44 PM EDT [facility] Monocytes Abs 0.4 0.0 - 1.4 10*3/uL 09/15/2016 1:44 PM EDT [facility] Eosinophils Abs 0.1 0.0 - 0.5 10*3/uL 09/15/2016 1:44 PM EDT [facility] Basophils Abs 0.0 0.0 - 0.1 10*3/uL 09/15/2016 1:44 PM EDT [facility] 09/15/2016 7:04 AM EDT 09/15/2016 1:44 PM EDT Narrative [facility] - 09/15/2016 1:44 PM EDT NO KNOWN ALLERGIES us Mayo Kauffman MD HEMATOLOGY ORDERABLES Final Resu lt Performing Organization Address City/[facility]/ZIP Co de Phone Number [facility] [address] [place] [address] * PSA, Diagnostic (09/15/2016 7:04 AM EDT) PSA <0.1 0.0 - 4.0 ng/mL 09/15/2016 3:17 PM EDT [facility] 09/15/2016 7:04 AM EDT 09/15/2016 1:41 PM EDT Narrative [facility] - 09/15/2016 3:17 PM EDT NO KNOWN ALLERGIES us Mayo Kauffman MD CHEMISTRY ORDERABLES Final Resul t Performing Organization Address City/[facility]/ZIP Co de Phone Number [facility] [address] [place] [address] documented in this encounter Visit Diagnoses Diagnosis Enlarged prostate- Primary Hypertrophy of prostate without urinary obstruction and other lower urinary tract symptoms (LUTS) S/P coronary artery stent placement Postsurgical percutaneous transluminal coronary angioplasty status Essential hypertension Unspecified essential hypertension Mixed hyperlipidemia documented in this encounter Additional Health Concerns Infection Onset Date Last Indicated Resolved Time Covid-19 (confirmed) Comment:Past Acute Phase 03/28/2020 03/28/2020 07/30/2020 9:22 AM EST Covid-19 (rule out) 07/03/2021 07/03/2021 07/03/19 22 9:44 PM EST Covid-19 (confirmed) 07/03/2021 07/03/2021 022 10:14 PM EDT documented as of this encounter Care Teams Liner Reroll Tender Relationship Specialty [place] [address] [place] [address] PCP - General Cardiology 05/20/16 11/01/17 Aidan Ferraro MD [address] [place] [address] PCP - General Family Medicine 11/02/17 02/22/18 Lois Alaniz APRN [address] [place] [address] PCP - General Family Practice 02/23/18 03/01/20 Aidan Ferraro MD [address] [place] [address] PCP - General Family Medicine 03/02/20 Provider, Historical 08/11/16 Francisco Reveles MD [address] [place] [address] Gastroenterology 08/17/16 Alexis Chamberlain MD [address] [place] [address] Orthopedic Surgery 09/08/18 Cnaelo Avery MD [address] [address] [place] [address] Orthopedic Surgery 04/12/20 Patricia Hernandez 06/03/20 Jayla Rangel RN Registered Nurse Supply Chain Associate 02/15/23 02/15/23 Enmanuel Kauffman DPM [address] [facility] [address] [place] [address] Podiatry 05/25/23 documented as of this encounter
--- OUTSIDE RECORDS SUMMARY | 2024-11-14 14:35 | XMS_ITS | Encounter Summary ---
Author Organization [facility] Address [address] [place] [address] Care Team Providers Care Fire Protection Engineering Technician Name Role Phone Provider, Historical Unavailable Unavailable Francisco Reveles MD Unavailable Alexis Chamberlain MD Unavailable [phone] Aidan Ferraro MD Primary Care Provider [phone] Canelo Avery MD Unavailable [phone] Patricia Hernandez Unavailable Unavailable Enmanuel Kauffman DPM Unavailable [phone] Reason for Visit * Reason Onset Date Comments Other 08/14/2024 WANTS DIFFERENT SLEEP MEDICATION Encounter Details Date Type Department Care Team (Late st Contact Info) Description 08/14/2024 Telephone [facility] Ferraro [address], [address] [place] [address] Aidan Ferraro MD [address] [place] [address] Other (WANTS DIFFERENT SLEEP MEDICATION ) Social History Tobacco Use Types Packs/Day Years Used Date Smoking Tobacco: Never Smokeless Tobacco: Never Alcohol Use Standard Drinks/Week Comments No 0 (1 standard drink = 0.6 oz pur e alcohol) [facility] Utilities Answer Date Recorded In the past 12 months has th e electric, gas, oil, or water company threatened to shut off services in your home? No 07/10/2024 Humiliation, Afraid, Rape, and Kick questionnair e Answer Date Recorded Within the last year, have y ou been afraid of your partner or ex-partner? No 07/10/2024 Within the last year, have y ou been humiliated or emotionally abused in other ways by your partner or ex-partner? No Within the last year, have y ou been kicked, hit, slapped, or otherwise physically hurt by your partner or ex-partner? No 07/10/2024 Within the last year, have y ou been raped or forced to have any kind of sexual activity by your partner or ex-partner? No 07/10/2024 PHQ-2 Answer Date Recorded PHQ-2 SCORE 0 07/10/2024 Hunger Vital Sign Answer Date Recorded Within the past 12 months, y ou worried that your food would run out before you got the money to buy more. Never true 07/10/19 25 Within the past 12 months, t he food you bought just didn't last and you didn't have money to get more. Never true 07/10/2024 PRAPARE - Transportation Answer Date Re corded In the past 12 months, has l ack of transportation kept you from medical appointments or from getting medications? No 08/2024 In the past 12 months, has l ack of transportation kept you from meetings, work, or from getting things needed for daily living? No 07/10/2024 Housing Stability Vital Sign Answer Roland e Recorded Unable to Pay for Housing in the Last Year Not o n file 01/06/2024 Number of Places Lived in the Last Year Not on f ile 01/06/2024 In the last 12 months, was t here a time when you did not have a steady place to sleep or slept in a long-term (including now)? No 01/06/2024 Housing Stability Vital Sign Answer Roland e Recorded In the last 12 months, was t here a time when you were not able to pay the mortgage or rent on time? No 07/10/2024 In the past 12 months, how m any times have you moved where you were living? 0 07/10/2024 At any time in the past 12 m [facility], were you homeless or living in a long-term (including now)? No 07/10/2024 Sex and Gender Information Value Date Recorded Sex Assigned at Male 09/06/2020 6:36 PM EDT Legal Sex Male 9:18 PM EST Gender Identity Male 09/06/2020 6:36 PM EDT Sexual Orientation Straight 09/06/2020 6: 36 PM EDT documented as of this encounter Miscellaneous Notes * Telephone Encounter - Aidan Ferraro MD - 08/21/2024 6:31 AM EDT Done * Telephone Encounter - Margaret Tobias MA - 08/16/2024 2:22 PM EDT Left pt a VM to call the office. * Telephone Encounter - Aidan Ferraro MD - 08/16/2024 7:01 AM EDT I will send greater dose of donepezil * Telephone Encounter - Marcos Brown - 08/14/2024 8:47 AM EDT Patient called in requesting a different sleep medication be called in, the donepezil 5mg tablet isnot helping.Would like a call back if something is called in. Thank you documented in this encounter Plan of Treatment Upcoming Encounters Date Type Department Care Team (Late st Contact Info) Description 12/11/2024 1:30 PM EDT Office Visit [facility] [address], [address] [place] [address] Jason Moya III, MD [address] [place] [address] [address] [place], [place] [id number] Domenico Upton APRN [address] [place] [address] 230 [place], [place] [id number] 01/11/2025 9:30 AM EDT Office Visit [address] [place] [address] Aidan Ferraro MD [address] [place] [id number] 03/15/2025 11:00 AM EDT Office Visit [address] [place] [address] Aidan Ferraro MD [address] [place], [place] [address] documented as of this encounter Visit Diagnoses Diagnosis 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, psychotic disturbance, mood disturbance, or anxiety ([facility]) documented in this encounter Care Teams Fire Protection Engineering Technician Relationship Specialty Start Date End Date Aidan Ferraro MD [address] [place] [address] PCP - General Family Medicine 03/02/20 Provider, Historical 08/11/16 Francisco Reveles MD [address] [place] [address] [address] [place] [address] Gastroenterology 08/17/16 Alexis Chamberlain MD [address] [place] [address] [address] [place] [address] Orthopedic Surgery 09/08/18 Canelo Avery MD 613 [address] [address] [place] [address] Orthopedic Surgery 04/12/20 Patricia Hernandez 06/03/20 Enmanuel Kauffman DPM 1000 [facility] [address] [place] [address] Podiatry 05/25/23 documented as of this encounter
--- OUTSIDE RECORDS SUMMARY | 2024-11-14 14:35 | XMS_ITS | Encounter Summary ---
Author Organization [facility] Address [address] [place] [address] Care Team Providers Care Plate Colorer Name Role Phone Mayo Kauffman MD Primary Care Provider [phone] Jason Canchola MD Primary Care Provider [phone] Mayo Kauffman MD Primary Care Provider [phone] Provider, Historical Unavailable Unavailable Francisco Reveles MD Unavailable Aidan Ferraro MD Primary Care Provider [phone] Lois Alaniz APRN Primary Care Provider [phone] Alexis Chamberlain MD Unavailable [phone] Aidan Ferraro MD Primary Care Provider [phone] Canelo Avery MD Unavailable [phone] Patricia Hernandez Unavailable Unavailable Jayla Rangel RN Unavailable Unavailable Enmanuel Kauffman DPM Unavailable [phone] Encounter Details Date Type Department Care Team (Late st Contact Info) Description 11/19/2011 Telephone [facility] [address] [place] [address] Mayo Kauffman MD [address] [address] Social History Tobacco Use Types Packs/Day Years [...] encounter Miscellaneous Notes * Telephone Encounter - Lynn Velez - 11/19/2011 9:08 AM EDT PT IS SUPPOSE TO HAVE A LIP & LFT DONE BEFORE HIS VISIT ON 11/30. COULD SOMEONE PLEASE PUT THE ORDERS IN. THANKS documented in this encounter Plan of Treatment Upcoming Encounters Date Type Department Care Team (Late st Contact Info) Description 12/11/2024 1:30 PM EDT Office Visit [facility] [address] [address] Jason Moya III, MD [address] [place] [address] Domenico Upton APRN [address] [place] [address] 01/11/2025 9:30 AM EDT Office Visit [facility] Care [address] [place] [phone] Aidan Ferraro MD [address] [place] [address] 03/15/2025 11:00 AM EDT Office Visit [facility] [address] [place] [address] 212 [place] [address] Aidan Ferraro MD [address] [place] [address] documented as of this encounter Visit Diagnoses Not on filedocumented in this encounter Additional Health Concerns Infection Onset Date Last Indicated Resolved Time Covid-19 (confirmed) Comment:Past Acute Phase 03/28/2020 03/28/2020 07/30/2020 9:22 AM EST Covid-19 (rule out) 07/03/2021 07/03/2021 07/03/19 22 9:44 PM EST Covid-19 (confirmed) 07/03/2021 07/03/2021 022 10:14 PM EDT documented as of this encounter Care Teams Plate Colorer Relationship Specialty Start Date End Date Mayo Kauffman MD [address] [place] [address] 230 [place] [address] PCP - General 05/25/08 12/11/14 Jason Canchola MD [address] [place] [address] PCP - General 12/12/14 05/19/16 Mayo Kauffman MD [address] [place] [address] PCP - General Cardiology 05/20/16 11/01/17 Aidan Ferraro MD [address] [place] [address] PCP - General Family Medicine 11/02/17 02/22/18 Lois Alaniz APRN [facility]0 [place] [address] PCP - General Family Practice 02/23/18 03/01/20 Aidan Ferraro MD [address] [facility] [place] [address] PCP - General Family Medicine 03/02/20 Provider, Historical 08/11/16 Francisco Reveles MD [address] [facility] [place] [address] Gastroenterology 08/17/16 Alexis Chamberlain MD 613 [address] [address] [place] [address] Orthopedic Surgery 09/08/18 Canelo Avery MD [address] [place] [address] [address] [place] [address] Orthopedic Surgery 04/12/20 Patricia Hernandez 06/03/20 Jayla Rangel, RN Registered Nurse Military Lawyer 02/15/23 02/15/23 Enmanuel Kauffman DPM 1000 [facility] [address] [place] [address] Podiatry 05/25/23 documented as of this encounter
--- OUTSIDE RECORDS SUMMARY | 2024-11-14 14:35 | XMS_ITS | Encounter Summary ---
Author Organization [facility] Address [address] [place] [address] Care Team Providers Care Medical Record Technician Name Role Phone Mayo Kauffman MD Primary Care Provider Provider, Historical Unavailable Unavailable Francisco Reveles MD Unavailable Aidan Ferraro MD Primary Care Provider Lois Alaniz APRN Primary Care Provider Alexis Chamberlain MD Unavailable [phone] Aidan Ferraro MD Primary Care Provider Canelo Avery MD Unavailable Patricia Hernandez Unavailable Unavailable Jayla Rangel RN Unavailable Unavailable Enmanuel Kauffman DPDebbie Unavailable [phone] Encounter Details Date Type Department Care Team (Late st Contact Info) Description 11/23/2016 Telephone [facility] [address] [place] [address] Jason Moya III, MD [address] [place] [address] Social History Tobacco Use Types Packs/Day Years [...] encounter Miscellaneous Notes * Telephone Encounter - Janina Lyons LPN - 11/23/2016 4:21 PM EDT Informed pt * Telephone Encounter - Jason Moya III, MD - 11/23/2016 4:16 PM EDT Needs to stay on both for 6 months then switch Brilinta to Plavix 75 mg daily. No aspirin * Telephone Encounter - Janina Lyons LPN - 11/23/2016 3:40 PM EDT Pt states he has noticed some blood in his saliva for the past 4 days, very lightly tinged. He had recent stent placed by , followed up with Jamari who transferred his care to you. Pt is on brilinta and Xarelto and was wondering if this is okay to cont. * Telephone Encounter - Debbie Singh - 11/23/2016 2:57 PM EDT Patient would like to speak to a concerning his medications, patient is spitting up blood. Please call to advise. documented in this encounter Plan of Treatment Upcoming Encounters Date Type Department Care Team (Late st Contact Info) Description 12/11/2024 1:30 PM EDT Office Visit [facility] [place] [address] [place] [address], [address] [place] [address] Jason Moya III, MD [address] [place] [address] [address] [place], [place] [phone] Domenico Upton APRN [address] [place] [address],[address] [place], [place] [phone] 01/11/2025 9:30 AM EDT Office Visit [facility] [address], [address] [place] [address] Aidan Ferraro MD [address] [place] [phone] 03/15/2025 11:00 AM EDT Office Visit [facility] Care [address] [place] [address], [address] [place] [phone] Aidan Ferraro MD [address] [place] [phone] documented as of this encounter Visit Diagnoses Not on filedocumented in this encounter Additional Health Concerns Infection Onset Date Last Indicated Resolved Time Covid-19 (confirmed) Comment:Past Acute Phase 03/28/2020 03/28/2020 07/30/2020 9:22 AM EST Covid-19 (rule out) 07/03/2021 07/03/2021 07/03/19 22 9:44 PM EST Covid-19 (confirmed) 07/03/2021 07/03/2021 022 10:14 PM EDT documented as of this encounter Care Teams Medical Record Technician Relationship Specialty Start Date End Date Mayo Kauffman MD [address] [place] [address] PCP - General Cardiology 05/20/16 11/01/17 Aidan Ferraro MD [address], [place] [address] PCP - General Family Medicine 11/02/17 02/22/18 Lois Alaniz APRN [address] [place] [address] PCP - General Family Practice 02/23/18 03/01/20 Aidan Ferraro MD [address], [place] [address] PCP - General Family Medicine 03/02/20 Provider, Historical 08/11/16 Francisco Reveles MD 613 [address] [address] [place] [address] Gastroenterology 08/17/16 Alexis Chamberlain MD 613 [address] [address] [place] [address] Orthopedic Surgery 09/08/18 Canelo Avery MD [address] [place] [address] [address] [place] [address] Orthopedic Surgery 04/12/20 Patricia Hernandez 06/03/20 Jayla Rangel, RN Registered Nurse Recovery Unit Operator 02/15/23 02/15/23 Enmanuel Kauffman DPM 1000 [facility] [address] [place] [address] Podiatry 05/25/23 documented as of this encounter
--- OUTSIDE RECORDS SUMMARY | 2024-11-14 14:35 | XMS_ITS | Encounter Summary ---
Author Organization [facility] Address [address] [place] [address] Care Team Providers Care Wire Stockkeeper Name Role Phone Mayo Kauffman MD Primary Care Provider [phone] Jason Canchola MD Primary Care Provider [phone] Mayo Kauffman MD Primary Care Provider [phone] Provider, Historical Unavailable Unavailable Francisco Reveles MD Unavailable Aidan Ferraro MD Primary Care Provider [phone] Lois Alaniz APRN Primary Care Provider [phone] Alexis Chamberlain MD Unavailable [phone] Aidan Ferraro MD Primary Care Provider [phone] Canelo Avery MD Unavailable [phone] Patricia Hernandez Unavailable Unavailable Jayla Rangel RN Unavailable Unavailable Enmanuel Kauffman DPM Unavailable [phone] Encounter Details Date Type Department Care Team (Late st Contact Info) Description 01/23/2005 Historical Encounter Global Mayo Kauffman MD [address] [place] [address] Social History Tobacco Use Types Packs/Day Years [...] Description 12/11/2024 1:30 PM EDT Office Visit [facility] CARDIOLOG[facility] [address] [address] Jason Moya III, MD [address] [place] [phone] Domenico Upton APRN [address] [place] [address] 01/11/2025 9:30 AM EDT Office Visit [facility] [address] [address] Aidan Ferraro MD [address] [place] [phone] 03/15/2025 11:00 AM EDT Office Visit [facility] [address] [address] Aidan Ferraro MD [address] [place] [phone] documented as of this encounter Visit Diagnoses Not on filedocumented in this encounter Additional Health Concerns Infection Onset Date Last Indicated Resolved Time Covid-19 (confirmed) Comment:Past Acute Phase 03/28/2020 03/28/2020 07/30/2020 9:22 AM EST Covid-19 (rule out) 07/03/2021 07/03/202120 22 9:44 PM EST Covid-19 (confirmed) 07/03/2021 07/03/2021 022 10:14 PM EDT documented as of this encounter Care Teams Wire Stockkeeper Relationship Specialty Start Date End Date Mayo Kauffman MD [address] [address] PCP - General 05/25/08 12/11/14 Jason Canchola MD [address] [place] [address] PCP - General 12/12/14 05/19/16 Mayo Kauffman MD [address] [place] [address] PCP - General Cardiology 05/20/16 11/01/17 Aidan Ferraro MD [address] [place] [address] PCP - General Family Medicine 11/02/17 02/22/18 Lois Alaniz APRN [address] [place] [address] PCP - General Family Practice 02/23/18 03/01/20 Aidan Ferraro MD [address] [place] [address] PCP - General Family Medicine 03/02/20 Provider, Historical 08/11/16 Francisco Reveles MD [address] [place] [address] Gastroenterology 08/17/16 Alexis Chamberlain MD [address] [facility] [address] [place] [address] Orthopedic Surgery 09/08/18 Canelo Avery MD 613 23[facility] [address] [place] [address] Orthopedic Surgery 04/12/20 Patricia Hernandez 06/03/20 Jayla Rangel, RN Registered Nurse Car Supplier 02/15/23 02/15/23 Enmanuel Kauffman DPM [address] [place] [address] [address] [place], [place] [phone] Podiatry 05/25/23 documented as of this encounter
--- OUTSIDE RECORDS SUMMARY | 2024-11-14 14:35 | XMS_ITS | Encounter Summary ---
Author Organization [facility] Address [address] [place] [address] Care Team Providers Care Welfare Eligibility Worker Name Role Phone Mayo Kauffman MD Primary Care Provider [phone] Jason Canchola MD Primary Care Provider [phone] Mayo Kauffman MD Primary Care Provider [phone] Provider, Historical Unavailable Unavailable Francisco Reveles MD Unavailable Aidan Ferraro MD Primary Care Provider [phone] Lois Alaniz APRN Primary Care Provider [phone] Alexis Chamberlain MD Unavailable [phone] Aidan Ferraro MD Primary Care Provider [phone] Canelo Avery MD Unavailable [phone] Patricia Hernandez Unavailable Unavailable Jayla Rangel RN Unavailable Unavailable Enmanuel Kauffman DPM Unavailable [phone] Encounter Details Date Type Department Care Team (Late st Contact Info) Description 06/14/2009 Telephone Oncology Spec [address] [facility] [place] [address] Jenna Harley, RT Social History Tobacco Use Types Packs/Day Years [...] encounter Miscellaneous Notes * Telephone Encounter - Jenna Harley RT - 06/17/2009 2:32 PM EST I spoke with Mr. Kauffman concerning his CXR 05/03/09. He is currently in [place] and plans to remain there until . He states that he will have a f/u CXR done there. 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 He verbalized importance of having f/u completed. documented in this encounter Plan of Treatment Upcoming Encounters Date Type Department Care Team (Late st Contact Info) Description 12/11/2024 1:30 PM EDT Office Visit [facility] CARDIOLOGY [address] [address] Jason Moya III, MD [address] [place] [address] Domenico Upton APRN [address] [place] [address] [address] [place] [address] 01/11/2025 9:30 AM EDT Office [facility] [address] [place] [address] Aidan Ferraro MD [address] [place] [address] 03/15/2025 11:00 AM EDT Office Visit [facility] Care [address] [place] [address] [address], [address] [place] [address] Aidan Ferraro MD [address] [place] [address] documented as of this encounter Visit Diagnoses Not on filedocumented in this encounter Additional Health Concerns Infection Onset Date Last Indicated Resolved Time Covid-19 (confirmed) Comment:Past Acute Phase 03/28/2020 03/28/2020 07/30/2020 9:22 AM EST Covid-19 (rule out) 07/03/2021 07/03/2021 07/03/19 9:44 PM EST Covid-19 (confirmed) 07/03/2021 07/03/2021 022 10:14 PM EDT documented as of this encounter Care Teams Welfare Eligibility Worker Relationship Specialty Start Date End Date Mayo aKuffman MD [address] [place] [address] 230 [place] [address] PCP - General 05/25/08 12/11/14 Jason Canchola MD [address] [place] [address] PCP - General 12/12/14 05/19/16 Mayo Kauffman MD [address] [place] [address] PCP - General Cardiology 05/20/16 11/01/17 Aidan Ferraro MD [address] [place] [address] PCP - General Family Medicine 11/02/17 02/22/18 Lois Alaniz APRN [address] [place] [address] PCP - General Family Practice 02/23/18 03/01/20 Aidan Ferraro MD [address] [facility] [place] [address] PCP - General Family Medicine 03/02/20 Provider, Historical 08/11/16 Francisco Reveles MD [address] [facility] [place] [address] Gastroenterology 08/17/16 Alexis Chamberlain MD 613 23[facility] [address] [place] [address] Orthopedic Surgery 09/08/18 Canelo Avery MD 613 23[facility] [address] [place] [address] Orthopedic Surgery 04/12/20 Patricia Hernandez 06/03/20 Jayla Rangel, RN Registered Nurse Heel Nail Rasper 02/15/23 02/15/23 Enmanuel Kauffman DPM 1000 [facility] [address] [place] [address] Podiatry 05/25/23 documented as of this encounter
--- OUTSIDE RECORDS SUMMARY | 2024-11-14 14:35 | XMS_ITS | Encounter Summary ---
Author Organization [facility] Address [address] [place] [address] Care Team Providers Care Off Premise Service Representative Name Role Phone Provider, Historical Unavailable Unavailable Francisco Reveles MD Unavailable Alexis Chamberlain MD Unavailable [phone] Aidan Ferraro MD Primary Care Provider [phone] Canelo Avery MD Unavailable [phone] Patricia Hernandez Unavailable Unavailable Jayla Rangel RN Unavailable Unavailable Enmanuel Kauffman DPM Unavailable [phone] Reason for Visit * Reason Onset Date Comments Results - Lab 05/13/2020 Encounter Details Date Type Department Care Team (Late st Contact Info) Description 05/13/2020 Telephone [facility] [address], [address] [place] [address] Jason Moya III, MD [address] [place] [address] [place] [address] Results - Lab Social History Tobacco Use Types Packs/Day Years [...] Orientation Straight 09/06/2020 6: 36 PM EDT COVID-19 Exposure Response Date Recorded In the last month, have you been in contact with someone who was confirmed or suspected to have Coronavirus / COVID-19? No / Unsure 04/18/2020 7:39 AM EST documented as of this encounter Miscellaneous Notes * Telephone Encounter - Tarsha Sumner RN - 05/13/2020 3:05 PM EST Patient advised labs are in normal range * Telephone Encounter - Wei Mena - 05/13/2020 12:53 PM EST Pt is calling asking for his lab results, please advise. #[phone] documented in this encounter Plan of Treatment Upcoming Encounters Date Type Department Care Team (Late st Contact Info) Description 12/11/2024 1:30 PM EDT Office Visit [facility] [address] [place] [address] Jason Moya III, MD [address] [place] [address] Domenico Upton APRN [address] [place], [place] [address] [place] [address] 01/11/2025 9:30 AM EDT Office Visit [facility] [address] [place] [address] Aidan Ferraro MD [address] [place] [address] 03/15/2025 11:00 AM EDT Office Visit [facility] [address] [place] [address], [facility] [address] [place] [address] Aidan Ferraro MD [address] [place] [address] documented as of this encounter Visit Diagnoses Not on filedocumented in this encounter Additional Health Concerns Infection Onset Date Last Indicated Resolved Time Covid-19 (confirmed) Comment:Past Acute Phase 03/28/2020 03/28/2020 07/30/2020 9:22 AM EST Covid-19 (rule out) 07/03/2021 07/03/2021 07/03/19 22 9:44 PM EST Covid-19 (confirmed) 07/03/2021 07/03/2021 022 10:14 PM EDT documented as of this encounter Care Teams Off Premise Service Representative Relationship Specialty Start Date End Date Aidan Ferraro MD [address] [place] [address] PCP - General Family Medicine 03/02/20 Provider, Historical 08/11/16 Francisco Reveles MD [address] [place] [address] Gastroenterology 08/17/16 Alxeis Chamberlain MD [address] [place] [address] Orthopedic Surgery 09/08/18 Canelo Avery MD [address] [place] [address] Orthopedic Surgery 04/12/20 Patricia Hernandez 06/03/20 Jayla Rangel, ONI Registered Nurse Hosiery Knitter 02/15/23 02/15/23 Enmanuel Kauffman DPM [address] [place] [address] Podiatry 05/25/23 documented as of this encounter
--- OUTSIDE RECORDS SUMMARY | 2024-11-14 14:35 | XMS_ITS | Encounter Summary ---
Author Organization [facility] Address [address] [place] [address] Care Team Providers Care Computer Systems Administrator Name Role Phone Provider, Historical Unavailable Unavailable Francisco Reveles MD Unavailable Alexis Chamberlain MD Unavailable [phone] Aidan Ferraro MD Primary Care Provider Canelo Avery MD Unavailable [phone] Patricia Hernandez Unavailable Unavailable Enmanuel Kauffman DPM Unavailable [phone] Encounter Details Date Type Department Care Team (Late st Contact Info) Description 10/15/2024 Treatment [facility] [address] [facility], [address] [place] [address] Wing Bella MD [address] [place] [address] [address] [place], [place] [phone] Pacemaker (Primary Dx) Social History Tobacco Use Types Packs/Day Years Used Date Smoking Tobacco: Never Smokeless Tobacco: Never Alcohol Use Standard Drinks/Week Comments No 0 (1 standard drink = 0.6 oz pur e alcohol) [facility] Utilities Answer Date Recorded In the past 12 months has [employer], [employer], or [employer] threatened to shut off services in your home? No 09/13/2024 Humiliation, Afraid, Rape, and Kick questionnair e Answer Date Recorded Within the last year, have y ou been afraid of your partner or ex-partner? No 09/13/2024 Within the last year, have y ou been humiliated or emotionally abused in other ways by your partner or ex-partner? No Within the last year, have y ou been kicked, hit, slapped, or otherwise physically hurt by your partner or ex-partner? No 09/13/2024 Within the last year, have y ou been raped or forced to have any kind of sexual activity by your partner or ex-partner? No 09/13/2024 PHQ-2 Answer Date Recorded PHQ-2 SCORE 2 09/13/2024 Hunger Vital Sign Answer Date Recorded Within the past 12 months, y ou worried that your food would run out before you got the money to buy more. Never true 09/14/19 25 Within the past 12 months, t he food you bought just didn't last and you didn't have money to get more. Never true 09/13/2024 PRAPARE - Transportation Answer Date Re corded In the past 12 months, has l ack of transportation kept you from medical appointments or from getting medications? No 02/2025 In the past 12 months, has l ack of transportation kept you from meetings, work, or from getting things needed for daily living? No 09/13/2024 Housing Stability Vital Sign Answer Roland e Recorded Unable to Pay for Housing in the Last Year Not o n file 01/06/2024 Number of Places Lived in the Last Year Not on f ile 01/06/2024 In the last 12 months, was t here a time when you did not have a steady place to sleep or slept in a [place] facility (including now)? No 01/06/2024 Housing Stability Vital Sign Answer Roland e Recorded In the last 12 months, was t here a time when you were not able to pay the mortgage or rent on time? No 09/13/2024 In the past 12 months, how m any times have you moved where you were living? 0 09/13/2024 At any time in the past 12 m [facility], were you homeless or living in a [place] facility (including now)? No 09/13/2024 Sex and Gender Information Value Date Recorded Sex Assigned at Male 09/06/2020 6:36 PM EDT Legal Sex Male 9:18 PM EST Gender Identity Male 09/06/2020 6:36 PM EDT Sexual Orientation Straight 09/06/2020 6: 36 PM EDT documented as of this encounter Progress Notes * Lou Solo LPN - 10/15/2024 11:59 PM EDT Home Remote Interrogation Device Company: [employer] Device Type: Single PPM Battery: 10.8 yr Anticoagulant: no LAAC: no Alerts: no documented in this encounter Plan of Treatment Upcoming Encounters Date Type Department Care Team (Late st Contact Info) Description 12/11/2024 1:30 PM EDT Office Visit [facility] [address] [address] Jason Moya III, MD [address] [place] [address] Domenico Upton APRN [address] [place], [place] [address] [place] [address] 01/11/2025 9:30 AM EDT Office Visit [facility] [address] [address] Aidan Ferraro MD [address] [place] [address] 03/15/2025 11:00 AM EDT Office Visit [facility] [address] [address] Aidan Ferraro MD [address] [place] [address] documented as of this encounter Visit Diagnoses Diagnosis Pacemaker- Primary Cardiac pacemaker in situ documented in this encounter Care Teams Computer Systems Administrator Relationship Specialty Start Date End Date Aidan Ferraro MD [address] [facility] [place] [address] PCP - General Family Medicine 03/02/20 Provider, Historical 08/11/16 Francisco Reveles MD [address] [place] [address] Gastroenterology 08/17/16 Alexis Chamberlain MD [address] [facility] [address] [place] [address] Orthopedic Surgery 09/08/18 Canelo Avery MD [address] [address] [place] [address] Orthopedic Surgery 04/12/20 Patricia Hernandez 06/03/20 Enmanuel Kauffman DPM [address] [place] [address] [address] [place] [address] Podiatry 05/25/23 documented as of this encounter
--- OUTSIDE RECORDS SUMMARY | 2024-11-14 14:35 | XMS_ITS | Encounter Summary ---
Author Organization [facility] Address [address] [place] [address] Care Team Providers Care Marine Welder Name Role Phone Jason Canchola MD Primary Care Provider Mayo Kauffman MD Primary Care Provider Provider, Historical Unavailable Unavailable Francisco Reveles MD Unavailable Aidan Ferraro MD Primary Care Provider [phone] Lois Alaniz APRN Primary Care Provider Alexis Chamberlain MD Unavailable [phone] Aidan Ferraro MD Primary Care Provider [phone] Canelo Avery MD Unavailable [phone] Patricia Hernandez Unavailable Unavailable Jayla Rangel RN Unavailable Unavailable Enmanuel Kauffman DPM Unavailable [phone] Encounter Details Date Type Department Care Team (Late st Contact Info) Description 09/17/2015 Telephone [facility] [place] [address] [place] [address] Mayo Kauffman MD [address] [place] [address] Social History Tobacco Use Types [...] Description 12/11/2024 1:30 PM EDT Office [facility] [address] [address] Jason Moya III, MD [address] [place] [address] [phone] Domenico Upton APRN [address] [place] [address] [phone] 01/11/2025 9:30 AM EDT Office Visit [facility] [address] [address] Aidan Ferraro MD [address] [place] [address] [phone] 03/15/2025 11:00 AM EDT Office Visit [facility] [address] [address] Aidan Ferraro MD [address] [place] [address] [phone] documented as of this encounter Visit Diagnoses Not on filedocumented in this encounter Additional Health Concerns Infection Onset Date Last Indicated Resolved Time Covid-19 (confirmed) Comment:Past Acute Phase 03/28/2020 03/28/202007/3007/30/2020 9:22 AM EST Covid-19 (rule out) 07/03/2021 07/03/2021 07/03/19 22 9:44 PM EST Covid-19 (confirmed) 07/03/2021 07/03/2021 022 10:14 PM EDT documented as of this encounter Care Teams Marine Welder Relationship Specialty Start Date End Date Jason Canchola MD [address] [place] [address] PCP - General 12/12/14 05/19/16 Mayo Kauffman MD [address] [place] [address] PCP - General Cardiology 05/20/16 11/01/17 Aidan Ferraro MD [address] [place] [address] PCP - General Family Medicine 11/02/17 02/22/18 Lois Alaniz APRN [address] [place] [address] PCP - General Family Practice 02/23/18 03/01/20 Aidan Ferraro MD [address] [place] [address] PCP - General Family Medicine 03/02/20 Provider, Historical 08/11/16 Francisco Reveles MD [address] [address] Gastroenterology 08/17/16 Alexis Chamberlain MD [address] [place] [address] [address] [place] [address] Orthopedic Surgery 09/08/18 Canelo Avery MD [address] [address] [place] [address] Orthopedic Surgery 04/12/20 Patricia Hernandez 06/03/20 Jayla Rangel RN Registered Nurse Clinical Support Manager 02/15/23 02/15/23 Enmanuel Kauffman DPM [address] [place] [address] [address] [place] [address] Podiatry 05/25/23 documented as of this encounter
--- OUTSIDE RECORDS SUMMARY | 2024-11-14 14:35 | XMS_ITS | Encounter Summary ---
Author Organization [facility] Address [address] [place] [address] Care Team Providers Care Returning Officer Name Role Phone Mayo Kauffman MD Primary Care Provider [phone] Jason Canchola MD Primary Care Provider [phone] Mayo Kauffman MD Primary Care Provider [phone] Provider, Historical Unavailable Unavailable Francisco Reveles MD Unavailable Aidan Ferraro MD Primary Care Provider [phone] Lois Alaniz APRN Primary Care Provider [phone] Alexis Chamberlain MD Unavailable [phone] Aidan Ferraro MD Primary Care Provider [phone] Canelo Avery MD Unavailable [phone] Patricia Hernandez Unavailable Unavailable Jayla Rangel RN Unavailable Unavailable Enmanuel Kauffman DPM Unavailable [phone] Reason for Visit * Reason Onset Date Comments Results - Lab 04/15/2011 Encounter Details Date Type Department Care Team (Late st Contact Info) Description 04/15/[address] [place] [address] Mayo Kauffman MD [address] [place] [address] [address] [place] [address] Results - Lab Social History Tobacco Use [...] * Telephone Encounter - Sultana Hernandez - 04/16/2011 12:12 PM EST Called home # - no answer Called cell # - [email or web address] * Telephone Encounter - Janet Rodríguez LPN - 04/16/2011 8:13 AM EST Attempted to call pt NA. * Telephone Encounter - Isabell Prakash NP - 04/16/2011 7:56 AM EST All labs are good * Telephone Encounter - Sultana Hernandez - 04/15/2011 4:13 PM EST Please advise * Telephone Encounter - María Rodríguez - 04/15/2011 3:32 PM EST Patient called for Lab results for 03/06/11 labs, documented in this encounter Plan of Treatment Upcoming Encounters Date Type Department Care Team (Late st Contact Info) Description 12/11/2024 1:30 PM EDT Office Visit [facility] [address], [address] [address] Jason Moya III, MD [address] [place] [address] Domenico Upton APRN [address] [place] [phone] 01/11/2025 9:30 AM EDT Office Visit [facility] [address] [place] [address] Aidan Ferraro MD [address] [place] [address] [phone] 03/15/2025 11:00 AM EDT Office Visit [facility] [address] [place] [address] Aidan Ferraro MD [address] [place] [address] [phone] documented as of this encounter Visit Diagnoses Not on filedocumented in this encounter Additional Health Concerns Infection Onset Date Last Indicated Resolved Time Covid-19 (confirmed) Comment:Past Acute Phase 03/28/2020 03/28/2020 07/30/2020 9:22 AM EST Covid-19 (rule out) 07/03/2021 07/03/2021 07/03/19 22 9:44 PM EST Covid-19 (confirmed) 07/03/2021 07/03/2021 022 10:14 PM EDT documented as of this encounter Care Teams Returning Officer Relationship Specialty Start Date End Date Mayo Kauffman MD [address] [place] [address] [id number] PCP - General 05/25/08 12/11/14 Jason Canchola MD [address] [place] [address] PCP - General 12/12/14 05/19/16 Mayo Kauffman MD [address] [place] [address] PCP - General Cardiology 05/20/16 11/01/17 Aidan Ferraro MD [address], [place] [address] PCP - General Family Medicine 11/02/17 02/22/18 Lois Alaniz APRN [address] [place] [address] PCP - General Family Practice 02/23/18 03/01/20 Aidan Ferraro MD [address], [place] [address] PCP - General Family Medicine 03/02/20 Provider, Historical 08/11/16 Francisco Reveles MD [address] [address] Gastroenterology 08/17/16 Alexis Chamberlain MD [address] [facility] [address] [address] Orthopedic Surgery 09/08/18 Canelo Avery MD [address] [address] Orthopedic Surgery 04/12/20 Patricia Hernandez 06/03/20 Jayla Rangel, RN Registered Nurse Cushion Worker 02/15/23 02/15/23 Enmanuel Kauffman DPM [address] [place] [address] Podiatry 05/25/23 documented as of this encounter
--- OUTSIDE RECORDS SUMMARY | 2024-11-14 14:35 | XMS_ITS | Encounter Summary ---
Author Organization [facility] Address [address] [place] [address] Care Team Providers Care Visual Journalist Name Role Phone Mayo Kauffman MD Primary Care Provider [phone] Jason Canchola MD Primary Care Provider [phone] Mayo Kauffman MD Primary Care Provider [phone] Provider, Historical Unavailable Unavailable Francisco Reveles MD Unavailable Aidan Ferraro MD Primary Care Provider [phone] Lois Alaniz APRN Primary Care Provider [phone] Alexis Chamberlain MD Unavailable [phone] Aidan Ferraro MD Primary Care Provider [phone] Canelo Avery MD Unavailable [phone] Patricia Hernandez Unavailable Unavailable Jayla Rangel RN Unavailable Unavailable Enmanuel Kauffman DPM Unavailable [phone] Encounter Details Date Type Department Care Team (Late st Contact Info) Description 01/19/2007 Historical Encounter Global Mayo Kauffman MD [address] [place] [address] Social History Tobacco Use Types Packs/Day Years [...] Description 12/11/2024 1:30 PM EDT Office Visit [facility] [address] [address] Jason Moya III, MD [address] [place] [address] [phone] Domenico Upton APRN [address] [place] [address] 01/11/2025 9:30 AM EDT Office Visit [facility] [address] [address] Aidan Ferraro MD [address] [place] [address] [phone] 03/15/2025 11:00 AM EDT Office Visit [facility] [address] [address] Aidan Ferraro MD [address] [place] [address] [phone] documented as of this encounter Visit Diagnoses Not on filedocumented in this encounter Additional Health Concerns Infection Onset Date Last Indicated Resolved Time Covid-19 (confirmed) Comment:Past Acute Phase 03/28/2020 03/28/2020 07/30/2020 9:22 AM EST Covid-19 (rule out) 07/03/2021 07/03/202120 22 9:44 PM EST Covid-19 (confirmed) 07/03/2021 07/03/2021 022 10:14 PM EDT documented as of this encounter Care Teams Visual Journalist Relationship Specialty Start Date End Date Mayo Kauffman MD [address] [address] PCP - General 05/25/08 12/11/14 Jason Canchola MD [address] [place] [address] PCP - General 12/12/14 05/19/16 Mayo Kauffman MD [address] [place] [address] PCP - General Cardiology 05/20/16 11/01/17 Aidan Ferraro MD [address] [place] [address] PCP - General Family Medicine 11/02/17 02/22/18 Lois Alaniz APRN [address] [place] [address] PCP - General Family Practice 02/23/18 03/01/20 Aidan Ferraro MD [address] [place] [address] PCP - General Family Medicine 03/02/20 Provider, Historical 08/11/16 Francisco Reveles MD [address] [place] [address] Gastroenterology 08/17/16 Alexis Chamberlain MD [address] [facility] [address] [place] [address] Orthopedic Surgery 09/08/18 Canelo Avery MD [address] [address] [place] [address] Orthopedic Surgery 04/12/20 Patricia Hernandez 06/03/20 Jayla Rangel, RN Registered Nurse Stapler Coil Unit 02/15/23 02/15/23 Enmanuel Kauffman DPM [address] [place] [address] [address] [place], [place] [phone] Podiatry 05/25/23 documented as of this encounter
--- OUTSIDE RECORDS SUMMARY | 2024-11-14 14:35 | XMS_ITS | Encounter Summary ---
Author Organization [facility] Address [address] [place] [address] Care Team Providers Care Charge Lpn Name Role Phone Mayo Kauffman MD Primary Care Provider [phone] Jason Canchola MD Primary Care Provider [phone] Mayo Kauffman MD Primary Care Provider [phone] Provider, Historical Unavailable Unavailable Francisco Reveles MD Unavailable Aidan Ferraro MD Primary Care Provider [phone] Lois Alaniz APRN Primary Care Provider [phone] Alexis Chamberlain MD Unavailable [phone] Aidan Ferraro MD Primary Care Provider [phone] Canelo Avery MD Unavailable [phone] Patricia Hernandez Unavailable Unavailable Jayla Rangel RN Unavailable Unavailable Enmanuel Kauffman DPM Unavailable [phone] Reason for Visit * Reason Onset Date Comments Medications Refill 11/20/2009 Encounter Details Date Type Department Care Team (Late st Contact Info) Description 11/20/2009 [address] [facility] [address] [place] [address] Mayo Kauffman MD [address] [place] [address] [address] [place] [address] Medications Refill Social History Tobacco Use Types Packs/Day Years [...] encounter Miscellaneous Notes * Telephone Encounter - Abby Canas - 11/22/2009 9:44 AM EDT Pt called again and he said he does not have a family Dr - said that Dr Kauffman has given them to him before - pt said that [facility] mailed 2 of the 3 but he doesn't know which ones - asked that nurse check w/ Dr. Isaac about ambien * Telephone Encounter - Reji Loo - 11/20/2009 11:42 AM EDT Will have to get ambien from family physician. Other meds sent to provider for approval. * Telephone Encounter - Abby Canas - 11/20/2009 10:37 AM EDT Refills for 90-d for the following: NADOLOL 40 mg tablet 1x plavix 75 mg 1x pravastatin (PRAVACHOL) 20 mg tablet 1x ambien generic zolpidem tartrate 10 mg documented in this encounter Plan of Treatment Upcoming Encounters Date Type Department Care Team (Late st Contact Info) Description 12/11/2024 1:30 PM EDT Office Visit [facility] [address], [address] [place] [address] Jason Moya III, MD [address] [place] [address] [phone] Domenico Upton APRN [address] [place] [address] [address] [place], [place] [phone] 01/11/2025 9:30 AM EDT Office Visit [address] [phone] Aidan Ferraro MD [address] [place], [place] [phone] 03/15/2025 11:00 AM EDT Office Visit [address] [phone] Aidan Ferraro MD [address] [place], [place] [phone] documented as of this encounter Visit Diagnoses Not on filedocumented in this encounter Additional Health Concerns Infection Onset Date Last Indicated Resolved Time Covid-19 (confirmed) Comment:Past Acute Phase 03/28/2020 03/28/2020 07/30/2020 9:22 AM EST Covid-19 (rule out) 07/03/2021 07/03/2021 07/03/19 22 9:44 PM EST Covid-19 (confirmed) 07/03/2021 07/03/2021 022 10:14 PM EDT documented as of this encounter Care Teams Charge Lpn Relationship Specialty Start Date End Date Mayo Kauffman MD [address] [place] [phone] PCP - General 05/25/08 12/11/14 Jason Canchola MD [address] [place] [address] PCP - General 12/12/14 05/19/16 [place] [address] [place] [address] PCP - General Cardiology 05/20/16 11/01/17 Aidan Ferraro MD [address] [place] [address] PCP - General Family Medicine 11/02/17 02/22/18 Lois Alaniz APRN [address] [place] [address] PCP - General Family Practice 02/23/18 03/01/20 Aidan Ferraro MD [address] [place] [address] PCP - General Family Medicine 03/02/20 Provider, Historical 08/11/16 Francisco Reveles MD [address] [place] [address] Gastroenterology 08/17/16 Alexis Chamberlain MD [address] [place] [address] Orthopedic Surgery 09/08/18 Canelo Avery MD [address] [place] [address] Orthopedic Surgery 04/12/20 Patricia Hernandez 06/03/20 Jayla Rangel, ONI Registered Nurse Data Center Technician 02/15/23 02/15/23 Enmanuel Kauffman DPM [address] [place] [address] Podiatry 05/25/23 documented as of this encounter
--- OUTSIDE RECORDS SUMMARY | 2024-11-14 14:35 | XMS_ITS | Clinical Summary ---
Author Organization [facility] 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 Social History Tobacco Use Types Packs/Day Years Used Date Smoking Tobacco: Never Assessed Sex and Gender Information Value Date Recorded Sex Assigned at Not on file Legal Sex Male 2:02 PM EST Gender Identity Not on file Sexual Orientation Not on file Last Filed Vital Signs Vital Sign Reading Time Taken Comments Blood Pressure 106/68 11/22/2018 2:22 PM EDT Pulse 59 11/22/2018 2:22 PM EDT Temperature - - Respiratory Rate - - Oxygen Saturation - - Inhaled Oxygen Concentration - - Weight 78.9 kg (174 lb) 11/22/2018 2:22 PM EDT Height 177.8 cm (5' 10 ) 11/22/2018 2:22 PM EDT Body Mass Index 24.97 11/22/2018 2:22 PM EDT Plan of Treatment Not on file Care Teams Rehab Spec Relationship Specialty Start Date End Date Mayo Kauffman MD [address] [place] [address] PCP - General 01/12/14
--- OUTSIDE RECORDS SUMMARY | 2024-11-14 14:35 | XMS_ITS ---
Author Name [facility] Organization Unknown Care Team Organization Name Specialty Phone Email Start Date End [facility]
--- OUTSIDE RECORDS SUMMARY | 2024-11-14 14:35 | XMS_ITS | Encounter Summary ---
Author Organization [facility] Address [address] [place] [address] Care Team Providers Care Cardiology Consultants Name Role Phone Mayo Kauffman MD Primary Care Provider [phone] Jason Canchola MD Primary Care Provider [phone] Mayo Kauffman MD Primary Care Provider [phone] Provider, Historical Unavailable Unavailable Francisco Reveles MD Unavailable Aidan Ferraro MD Primary Care Provider [phone] Lois Alaniz APRN Primary Care Provider [phone] Alexis Chamberlain MD Unavailable [phone] Aidan Ferraro MD Primary Care Provider [phone] Canelo Avery MD Unavailable [phone] Patricia Hernandez Unavailable Unavailable Jayla Rangel RN Unavailable Unavailable Enmanuel Kauffman DPM Unavailable [phone] Encounter Details Date Type Department Care Team (Late st Contact Info) Description 01/26/2003 Historical Encounter Global Francisco Reveles MD [address] [place] [address] Social History Tobacco Use Types Packs/Day Years [...] Description 12/11/2024 1:30 PM EDT Office Visit [facility] [address] [address] Jason Moya III, MD [address] [place] [phone] Domenico Upton APRN [address] [place] [address] 01/11/2025 9:30 AM EDT Office Visit [facility] [address] [address] Aidan Ferraro MD [address] [place] [address] 03/15/2025 11:00 AM EDT Office Visit [facility] [address] [phone] Aidan Ferraro MD [address] [place] [address] [phone] documented as of this encounter Visit Diagnoses Not on filedocumented in this encounter Additional Health Concerns Infection Onset Date Last Indicated Resolved Time Covid-19 (confirmed) Comment:Past Acute Phase 03/28/2020 03/28/2020 07/30/2020 9:22 AM EST Covid-19 (rule out) 07/03/2021 07/03/2021 07/03/19 22 9:44 PM EST Covid-19 (confirmed) 07/03/2021 07/03/2021 022 10:14 PM EDT documented as of this encounter Care Teams Cardiology Consultants Relationship Specialty Start Date End Date Mayo Kauffman MD [address] [facility] [address] [place] [address] PCP - General 05/25/08 12/11/14 Jason Canchola MD [facility] [place] [address] PCP - General 12/12/14 05/19/16 [place] [address] [place] [address] PCP - General Cardiology 05/20/16 11/01/17 Aidan Ferraro MD [address] [place] [address] PCP - General Family Medicine 11/02/17 02/22/18 Lois Alaniz APRN [address] [place] [address] PCP - General Family Practice 02/23/18 03/01/20 Aidan Ferraro MD [address] [place] [address] PCP - General Family Medicine 03/02/20 Provider, Historical 08/11/16 Francisco Reveles MD [address] [facility] [address] [place] [address] Gastroenterology 08/17/16 Alexis Chamberlain MD [address] [facility] [address] [place] [address] Orthopedic Surgery 09/08/18 Canelo Avery MD [address] [address] [place], [place] [address] Orthopedic Surgery 04/12/20 Patricia Hernandez 06/03/20 Jayla Rangel, RN Registered Nurse Skein Inspector 02/15/23 02/15/23 Enmanuel Kauffman DPM [address] [place] [address] [address] [place], [place] [phone] Podiatry 05/25/23 documented as of this encounter
--- OUTSIDE RECORDS SUMMARY | 2024-11-14 14:35 | XMS_ITS | Clinical Summary ---
Author Organization Healthcare Address [address] [place] [address] Care Team Providers Care Video Clerk Name Role Phone Mayo Kauffman MD Primary Care Provider [phone] Family History Medical History Relation Name Comments Conversions - Other Father Stroke Father Conversions - Other Mother Heart attack Mother Relation Name Status Comments Father Mother Social History Tobacco Use Types Packs/Day Years Used Date Smoking Tobacco: Never Alcohol Use Standard Drinks/Week Comments No 0 (1 standard drink = 0.6 oz pur e alcohol) Sex and Gender Information Value Date Recorded Sex Assigned at Not on file Legal Sex Male 8:52 PM EDT Gender Identity Not on file Sexual Orientation Not on file Last Filed Vital Signs Vital Sign Reading Time Taken Comments Blood Pressure - - Pulse - - Temperature - - Respiratory Rate - - Oxygen Saturation - - Inhaled Oxygen Concentration - - Weight 79 kg (174 lb 2.3 oz) 01/17/2015 11:23 AM EDT Height 177.8 cm (5' 10 ) 01/17/2015 11:23 AM EDT Body Mass Index 24.99 01/17/2015 11:23 AM EDT Plan of Treatment Not on file Care Teams Video Clerk Relationship Specialty Start Date End Date Mayo Kauffman MD [address] [address] PCP - General 10/18/20
--- OUTSIDE RECORDS SUMMARY | 2024-11-14 14:35 | XMS_ITS | Encounter Summary ---
Author Organization [facility] Address [address] [place] [address] Care Team Providers Care Stoker Erector Name Role Phone Mayo Kauffman MD Primary Care Provider [phone] Jason Canchola MD Primary Care Provider [phone] Mayo Kauffman MD Primary Care Provider [phone] Provider, Historical Unavailable Unavailable Francisco Reveles MD Unavailable Aidan Ferraro MD Primary Care Provider [phone] Lois Alaniz APRN Primary Care Provider [phone] Alexis Chamberlain MD Unavailable [phone] Aidan Ferraro MD Primary Care Provider [phone] Canelo Avery MD Unavailable [phone] Patricia Hernandez Unavailable Unavailable Jayla Rangel RN Unavailable Unavailable Enmanuel Kauffman DPM Unavailable [phone] Encounter Details Date Type Department Care Team (Late st Contact Info) Description 03/04/2006 Historical Encounter Global Mayo Kauffman MD [address] [place] [address] Social History Tobacco Use Types Packs/Day Years [...] Office Visit [facility] [address] [address] Jason Moya III, MD [address] [place] [address] [phone] Domenico Upton APRN [address] [place] [address] 01/11/2025 9:30 AM EDT Office Visit [facility] [address] [address] Aidan Ferraro MD [address] [place] [address] [phone] 03/15/2025 11:00 AM EDT Office Visit [facility] [address] [address] Aidan Ferraro MD [address] [place] [address] [phone] documented as of this encounter Visit Diagnoses Not on filedocumented in this encounter Additional Health Concerns Infection Onset Date Last Indicated Resolved Time Covid-19 (confirmed) Comment:Past Acute Phase 03/28/2020 03/28/2020 07/30/2020 9:22 AM EST Covid-19 (rule out) 07/03/2021 07/03/202120 22 9:44 PM EST Covid-19 (confirmed) 07/03/2021 07/03/2021 022 10:14 PM EDT documented as of this encounter Care Teams Stoker Erector Relationship Specialty Start Date End Date Mayo Kauffman MD [address] [address] PCP - General 05/25/08 12/11/14 Jason Canchola MD [address] [place] [address] PCP - General 12/12/14 05/19/16 Mayo Kauffman MD [address] [place] [address] PCP - General Cardiology 05/20/16 11/01/17 Aidan Ferraro MD [address] [place] [address] PCP - General Family Medicine 11/02/17 02/22/18 Lois Alaniz APRN [address] [place] [address] PCP - General Family Practice 02/23/18 03/01/20 Aidan Ferraro MD [address] [place] [address] PCP - General Family Medicine 03/02/20 Provider, Historical 08/11/16 Francisco Reveles MD [address] [place] [address] Gastroenterology 08/17/16 Alexis Chamberlain MD [address] [facility] [address] [place] [address] Orthopedic Surgery 09/08/18 Canelo Avery MD [address] [address] [place] [address] Orthopedic Surgery 04/12/20 Patricia Hernandez 06/03/20 Jayla Rangel, RN Registered Nurse Hereditary Cancer Program Coordinator 02/15/23 02/15/23 Enmanuel Kauffman DPM [address] [place] [address] [address] [place], [place] [phone] Podiatry 05/25/23 documented as of this encounter
--- OUTSIDE RECORDS SUMMARY | 2024-11-14 14:35 | XMS_ITS | Encounter Summary ---
Author Organization [facility] Address [address] [place] [address] Care Team Providers Care Nuclear Station Operator Name Role Phone Mayo Kauffman MD Primary Care Provider [phone] Provider, Historical Unavailable Unavailable Francisco Reveles MD Unavailable Aidan Ferraro MD Primary Care Provider Lois Alaniz APRN Primary Care Provider Alexis Chamberlain MD Unavailable [phone] Aidan Ferraro MD Primary Care Provider [phone] Canelo Avery MD Unavailable [phone] Patricia Hernandez Unavailable Unavailable Jayla Rangel RN Unavailable Unavailable Enmanuel Kauffman DPM Unavailable [phone] Reason for Visit * Reason Onset Date Comments Phone Advice For Symptoms 09/03/2016 Encounter Details Date Type Department Care Team (Late st Contact Info) Description 09/03/2016 Telephone [facility] [address] [place] [address] [address] [place] [address] Francisco Reveles MD [address] [place] [address] [address] [place] [address] Phone Advice For Symptoms Social History Tobacco Use Types Packs/Day Years [...] encounter Miscellaneous Notes * Telephone Encounter - Ana Martinez LPN - 09/03/2016 1:38 PM EDT Called to pharmacy. * Telephone Encounter - Elizabeth Haywood - 09/03/2016 1:28 PM EDT Please call in suprep documented in this encounter Plan of Treatment Upcoming Encounters Date Type Department Care Team (Late st Contact Info) Description 12/11/2024 1:30 PM EDT Office Visit [facility] [address] [place] [address] Jason Moya III, MD [address] [place] [address] 230 [place] [address] Domenico Upton, MAURO [address] [place], [place] [address] [place] [address] 01/11/2025 9:30 AM EDT Office Visit [facility] [address] [place] [address] Aidan Ferraro MD [address] [place] [address] 03/15/2025 11:00 AM EDT Office Visit [facility] [address] [place] [phone] Aidan Ferraro MD [address] [place] [address] documented as of this encounter Visit Diagnoses Not on filedocumented in this encounter Additional Health Concerns Infection Onset Date Last Indicated Resolved Time Covid-19 (confirmed) Comment:Past Acute Phase 03/28/2020 03/28/2020 07/30/2020 9:22 AM EST Covid-19 (rule out) 07/03/2021 07/03/2021 07/03/19 22 9:44 PM EST Covid-19 (confirmed) 07/03/2021 07/03/2021 022 10:14 PM EDT documented as of this encounter Care Teams Nuclear Station Operator Relationship Specialty Start Date End Date Mayo Kauffman MD [address] [place] [address] PCP - General Cardiology 05/20/16 11/01/17 Aidan Ferraro MD [address] [place] [address] PCP - General Family Medicine 11/02/17 02/22/18 Lois Alaniz APRN [address] [place] [address] PCP - General Family Practice 02/23/18 03/01/20 Aidan Ferraro MD [address] [place] [address] PCP - General Family Medicine 03/02/20 Provider, Historical 08/11/16 Francisco Reveles MD [address] [place], [place] [address] [address] Gastroenterology 08/17/16 Alexis Chamberlain MD [address] [place] [address] [address] [place], [place] [phone] Orthopedic Surgery 09/08/18 Canelo Avery MD [address] [place] [address] [address] [place], [place] [phone] Orthopedic Surgery 04/12/20 Patricia Hernandez 06/03/20 Jayla Rangel, ONI Registered Nurse Partner Cco 02/15/23 02/15/23 Enmanuel Kauffman DPM [address] [place] [address] [address] [place], [place] [phone] Podiatry 05/25/23 documented as of this encounter
--- OUTSIDE RECORDS SUMMARY | 2024-11-14 14:35 | XMS_ITS | Encounter Summary ---
Author Organization [facility] Address [address] [place] [address] Care Team Providers Care Neon Glass Bender Name Role Phone Provider, Historical Unavailable Unavailable Francisco Reveles MD Unavailable Alexis Chamberlain MD Unavailable [phone] Aidan Ferraro MD Primary Care Provider [phone] Canelo Avery MD Unavailable Patricia Hernandez Unavailable Unavailable Jayla Rangel RN Unavailable Unavailable Enmanuel Kauffman DPM Unavailable [phone] Reason for Visit * Reason Onset Date Comments Medications Refill 05/22/2020 JACKELINE 07/17/19 F OV None Encounter Details Date Type Department Care Team (Late st Contact Info) Description 05/22/2020 Refill [facility] [address] [place] [address] [address] [place] [address] Aidan Ferraro MD [address] [place] [address] Primary insomnia Social History Tobacco Use Types Packs/Day Years [...] have Coronavirus / COVID-19? No / Unsure 05/23/2020 9:10 AM EST documented as of this encounter Miscellaneous Notes * Telephone Encounter - Aidan Ferraro MD - 05/23/2020 7:02 AM EST His last visit with us was January 2019, and he did not show for his July follow-up. He will need appointment to discuss this medication going forward * Telephone Encounter - Aidan Ferraro MD - 05/22/2020 11:55 AM EST Need HAYLEE documented in this encounter Plan of Treatment Upcoming Encounters Date Type Department Care Team (Late st Contact Info) Description 12/11/2024 1:30 PM EDT Office Visit [facility] [address] [place] [address] Jason Moya III, MD [address] [place] [address] Domenico Upton APRN [address] [place], [place] [address] [place] [address] 01/11/2025 9:30 AM EDT Office Visit [facility] [address], [address] [place] [address] Aidan Ferraro MD [address] [place] [address] 03/15/2025 11:00 AM EDT Office Visit [facility] [address] [place] [address], [address] [place] [phone] Aidan Ferraro MD [address] [place] [address] documented as of this encounter Visit Diagnoses Diagnosis 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 documented in this encounter Additional Health Concerns Infection Onset Date Last Indicated Resolved Time Covid-19 (confirmed) Comment:Past Acute Phase 03/28/2020 03/28/2020 07/30/2020 9:22 AM EST Covid-19 (rule out) 07/03/2021 07/03/2021 07/03/19 22 9:44 PM EST Covid-19 (confirmed) 07/03/2021 07/03/2021 022 10:14 PM EDT documented as of this encounter Care Teams Neon Glass Bender Relationship Specialty Start Date End Date Aidan Ferraro MD [address] [place] [address] PCP - General Family Medicine 03/02/20 Provider, Historical 08/11/16 Francisco Reveles MD [address] [place] [address] Gastroenterology 08/17/16 Alexis Chamberlain MD [address] [place] [address] Orthopedic Surgery 09/08/18 Canelo Avery MD [address] [place] [address] Orthopedic Surgery 04/12/20 Patricia Hernandez 06/03/20 Jayla Rangel, RN Registered Nurse Firer Boiler 02/15/23 02/15/23 Enmanuel Kauffman DPM [address] [place] [address] Podiatry 05/25/23 documented as of this encounter
--- OUTSIDE RECORDS SUMMARY | 2024-11-14 14:35 | XMS_ITS | Encounter Summary ---
Author Organization [facility] Address [address] [place] [address] Care Team Providers Care Dental Hygiene Teacher Name Role Phone Provider, Historical Unavailable Unavailable Francisco Reveles MD Unavailable Alexis Chamberlain MD Unavailable [phone] Aidan Ferraro MD Primary Care Provider [phone] Canelo Avery MD Unavailable [phone] Patricia Hernandez Unavailable Unavailable Jayla Rangel RN Unavailable Unavailable Enmanuel Kauffman DPM Unavailable [phone] Encounter Details Date Type Department Care Team (Late st Contact Info) Description 05/16/2020 Orders Only Pre-Admission Testing [address] [place] [address] Evert Farnsworth LPN Pre-op testing (Primary Dx) Social History Tobacco Use Types [...] AM EST documented as of this encounter Plan of Treatment Upcoming Encounters Date Type Department Care Team (Late st Contact Info) Description 12/11/2024 1:30 PM EDT Office Visit [facility] [place] [phone] Jason Moya III, MD [address] [place] [phone] Domenico Upton APRN [address] [place] [address] 230 [place] [address] 01/11/2025 9:30 AM EDT Office Visit [facility] [place] [phone] Aidan Ferraro MD [address] [place] [address] 03/15/2025 11:00 AM EDT Office Visit [facility] [address] [phone] Aidan Ferraro MD [address] [place], [place] [phone] Scheduled Orders Name Type Priority Associated Diagnoses Orde r Schedule SARS-CoV-2, QL, PCR (Routine/Outpatien t) Microbiology Routine Pre-op testing 1 Occurrences starting 05/16/2020 until 05/16/2021 documented as of this encounter Visit Diagnoses Diagnosis Pre-op testing- Primary Preoperative examination, unspecified documented in this encounter Additional Health Concerns Infection Onset Date Last Indicated Resolved Time Covid-19 (confirmed) Comment:Past Acute Phase 03/28/2020 03/28/2020 07/30/2020 9:22 AM EST Covid-19 (rule out) 07/03/2021 07/03/2021 07/03/19 22 9:44 PM EST Covid-19 (confirmed) 07/03/2021 07/03/2021 022 10:14 PM EDT documented as of this encounter Care Teams Dental Hygiene Teacher Relationship Specialty Start Date End Date Aidan Ferraro MD [address] [place] [address] PCP - General Family Medicine 03/02/20 Provider, Historical 08/11/16 Francisco Reveles MD [address] [place] [address] Gastroenterology 08/17/16 Alexis Chamberlain MD [address] [place], [place] [address] [place] [address] Orthopedic Surgery 09/08/18 Canelo Avery MD [address] [place] [address] Orthopedic Surgery 04/12/20 Patricia Hernandez 06/03/20 Jayla Rangel, ONI Registered Nurse Industry Segment Specialist 02/15/23 02/15/23 Enmanuel Kauffman DPM [address] [place] [address] 302 [place] [address] Podiatry 05/25/23 documented as of this encounter
--- OUTSIDE RECORDS SUMMARY | 2024-11-14 14:35 | XMS_ITS | Encounter Summary ---
Author Organization [facility] Address [address] [place] [address] Care Team Providers Care Environmental Engineer Name Role Phone Mayo Kauffman MD Primary Care Provider [phone] Jason Canchola MD Primary Care Provider [phone] Mayo Kauffman MD Primary Care Provider [phone] Provider, Historical Unavailable Unavailable Francisco Reveles MD Unavailable Aidan Ferraro MD Primary Care Provider [phone] Lois Alaniz APRN Primary Care Provider [phone] Alexis Chamberlain MD Unavailable [phone] Aidan Ferraro MD Primary Care Provider [phone] Canelo Avery MD Unavailable [phone] Patricia Hernandez Unavailable Unavailable Jayla Rangel RN Unavailable Unavailable Enmanuel Kauffman DPM Unavailable [phone] Encounter Details Date Type Department Care Team (Late st Contact Info) Description 01/05/2006 Historical Encounter Global Mayo Kauffman MD [address] [place] [address] Social History Tobacco Use Types Packs/Day Years [...] Description 12/11/2024 1:30 PM EDT Office [facility] [address] [address] Jason Moya III, MD [address] [place] [address] [phone] Domenico Upton APRN [address] [place] [address] 01/11/2025 9:30 AM EDT Office Visit [facility] [address] [address] Aidan Ferraro MD [address] [place] [address] [phone] 03/15/2025 11:00 AM EDT Office Visit [facility] [address] [address] Aidan Ferraro MD [address] [place] [address] [phone] documented as of this encounter Visit Diagnoses Not on filedocumented in this encounter Additional Health Concerns Infection Onset Date Last Indicated Resolved Time Covid-19 (confirmed) Comment:Past Acute Phase 03/28/2020 03/28/2020 07/30/2020 9:22 AM EST Covid-19 (rule out) 07/03/2021 07/03/202120 22 9:44 PM EST Covid-19 (confirmed) 07/03/2021 07/03/2021 022 10:14 PM EDT documented as of this encounter Care Teams Environmental Engineer Relationship Specialty Start Date End Date Mayo Kauffman MD [address] [address] PCP - General 05/25/08 12/11/14 Jason Canchola MD [address] [place] [address] PCP - General 12/12/14 05/19/16 Mayo Kauffman MD [address] [place] [address] PCP - General Cardiology 05/20/16 11/01/17 Aidan Ferraro MD [address] [place] [address] PCP - General Family Medicine 11/02/17 02/22/18 Lois Alaniz APRN [address] [place] [address] PCP - General Family Practice 02/23/18 03/01/20 Aidan Ferraro MD [address] [place] [address] PCP - General Family Medicine 03/02/20 Provider, Historical 08/11/16 Francisco Reveles MD [address] [place] [address] Gastroenterology 08/17/16 Alexis Chamberlain MD [address] [facility] [address] [place] [address] Orthopedic Surgery 09/08/18 Canelo Avery MD [address] [address] [place] [address] Orthopedic Surgery 04/12/20 Patricia Hernandez 06/03/20 Jayla Rangel, RN Registered Nurse Director Of Informatics 02/15/23 02/15/23 Enmanuel Kauffman DPM [address] [place] [address] [address] [place], [place] [phone] Podiatry 05/25/23 documented as of this encounter
--- OUTSIDE RECORDS SUMMARY | 2024-11-14 14:35 | XMS_ITS | Encounter Summary ---
Author Organization [facility] Address [address] [place] [address] Care Team Providers Care Frame Pulley Mortising Machine Operator Name Role Phone Mayo Kauffman MD Primary Care Provider Provider, Historical Unavailable Unavailable Francisco Reveles MD Unavailable Aidan Ferraro MD Primary Care Provider [phone] Lois Alaniz APRN Primary Care Provider Alexis Chamberlain MD Unavailable [phone] Aidan Ferraro MD Primary Care Provider Canelo Avery MD Unavailable [phone] Patricia Hernandez Unavailable Unavailable Jayla Rangel RN Unavailable Unavailable Enmanuel Kauffman DPDebbie Unavailable [phone] Reason for Visit * Reason Onset Date Comments Schedule Procedure 09/14/2016 Encounter Details Date Type Department Care Team (Late st Contact Info) Description 09/14/2016 Telephone [facility] [address] [place] [address] Mayo Kauffman MD [address] [place] [address] Schedule Procedure Social History Tobacco Use Types Packs/Day Years [...] encounter Miscellaneous Notes * Telephone Encounter - Brianne Sharp LPN - 09/14/2016 9:52 AM EDT Pt informed orders placed for labs * Telephone Encounter - Tova Gutiérrez - 09/14/2016 8:23 AM EDT Patient needs an order for his bloodwork, also include checking his PSA. documented in this encounter Plan of Treatment Upcoming Encounters Date Type Department Care Team (Late st Contact Info) Description 12/11/2024 1:30 PM EDT Office Visit [facility] [address] [place] [address] Jason Moya III, MD [address] [place] [address] Domenico Upton APRN [address] [place], [place] [address] [place] [address] 01/11/2025 9:30 AM EDT Office Visit [facility] [address] [place] [address] Aidan Ferraro MD [address] [place] [address] 03/15/2025 11:00 AM EDT Office Visit [facility] [address] [place] [address] [address] [place] [address] Aidan Ferraro MD [address] [place] [address] documented as of this encounter Visit Diagnoses Not on filedocumented in this encounter Additional Health Concerns Infection Onset Date Last Indicated Resolved Time Covid-19 (confirmed) Comment:Past Acute Phase 03/28/2020 03/28/2020 07/30/2020 9:22 AM EST Covid-19 (rule out) 07/03/2021 07/03/2021 07/03/19 22 9:44 PM EST Covid-19 (confirmed) 07/03/2021 07/03/2021 022 10:14 PM EDT documented as of this encounter Care Teams Frame Pulley Mortising Machine Operator Relationship Specialty Start Date End Date Mayo Kauffman MD [address] [place] [address] PCP - General Cardiology 05/20/16 11/01/17 Aidan Ferraro MD [address] [place] [address] PCP - General Family Medicine 11/02/17 02/22/18 Lois Alaniz APRN [address] [place] [address] PCP - General Family Practice 02/23/18 03/01/20 Aidan Ferraro MD [address] [place] [address] PCP - General Family Medicine 03/02/20 Provider, Historical 08/11/16 Francisco Reveles MD [address] [place] [address] [place] [id number] Gastroenterology 08/17/16 Alexis Chamberlain MD [address] [address] [place] [address] Orthopedic Surgery 09/08/18 Canelo Avery MD [address] [address] [place], [place] [address] Orthopedic Surgery 04/12/20 Patricia Hernandez 06/03/20 Jayla Rangel, ONI Registered Nurse Synthetic Gem Press Operator 02/15/23 02/15/23 Enmanuel Kauffman DPM [address] [place] [address] 302 [place], [place] 29[address] Podiatry 05/25/23 documented as of this encounter
--- OUTSIDE RECORDS SUMMARY | 2024-11-14 14:35 | XMS_ITS | Encounter Summary ---
Author Organization [facility] Address [address] [place] [address] Care Team Providers Care Tuber Machine Operator Helper Name Role Phone Mayo Kauffman MD Primary Care Provider [phone] Jason Canchola MD Primary Care Provider [phone] Mayo Kauffman MD Primary Care Provider [phone] Provider, Historical Unavailable Unavailable Francisco Reveles MD Unavailable Aidan Ferraro MD Primary Care Provider [phone] Lois Alaniz APRN Primary Care Provider [phone] Alexis Chamberlain MD Unavailable [phone] Aidan Ferraro MD Primary Care Provider [phone] Canelo Avery MD Unavailable [phone] Patricia Hernandez Unavailable Unavailable Jayla Rangel RN Unavailable Unavailable Enmanuel Kauffman DPM Unavailable [phone] Encounter Details Date Type Department Care Team (Late st Contact Info) Description 06/04/2009 Telephone Oncology Spec [address] [facility] [place] [address] Jenna Har[place], RT Social History [...] Telephone Encounter - Jenna Harley RT - 06/04/2009 4:00 PM EST Lung Health-Certified letter was mailed to last known address to inform patient of a possible abnormal finding on their report from a CXR completed on 05/03/09 which recommended additional F/U to be considered. Assistance was offered with scheduling a F/U appointment, answering questions and/or providing support in addition to providing contact information for the Lung Health Advocate. Jenna Harley WAREHOUSE HANDLER documented in this encounter Plan of Treatment Upcoming Encounters Date Type Department Care Team (Late st Contact Info) Description 12/11/2024 1:30 PM EDT Office Visit [facility] [address] [place] [address] Jason Moya III, MD [address] [place] [address] Domenico Upton APRN [address] [place] [address],[address] [place] [address] 01/11/2025 9:30 AM EDT Office Visit [facility] [place] [address] [place] [address] 212 [place] [address] Aidan Ferraro MD [address] [place] [address] 03/15/2025 11:00 AM EDT Office Visit [facility]zon [address] [place] [address] 212 [place] [address] Aidan Ferraro MD [address] [place] [address] documented as of this encounter Visit Diagnoses Not on filedocumented in this encounter Additional Health Concerns Infection Onset Date Last Indicated Resolved Time Covid-19 (confirmed) Comment:Past Acute Phase 03/28/2020 03/28/2020 07/30/2020 9:22 AM EST Covid-19 (rule out) 07/03/2021 07/03/2021 07/03/19 9:44 PM EST Covid-19 (confirmed) 07/03/2021 07/03/2021 022 10:14 PM EDT documented as of this encounter Care Teams Tuber Machine Operator Helper Relationship Specialty Start Date End Date Mayo Kauffman MD [address] [place] [address] PCP - General 05/25/08 12/11/14 Jason Canchola MD [address] [place] [address] PCP - General 12/12/14 05/19/16 Mayo Kauffman MD [address] [place] [address] PCP - General Cardiology 05/20/16 11/01/17 Aidan Ferraro MD [address] [place] [address] PCP - General Family Medicine 11/02/17 02/22/18 Lois Alaniz APRN [facility] [place] [address] PCP - General Family Practice 02/23/18 03/01/20 Aidan Ferraro MD [address] [place] [address] PCP - General Family Medicine 03/02/20 Provider, Historical 08/11/16 Francisco Reveles MD [address] [place] [address] [address] [place] [address] Gastroenterology 08/17/16 Alexis Chamberlain MD [address] [place], [place] [address] [place] [address] Orthopedic Surgery 09/08/18 Canelo Avery MD [address] [place], [place] [address] [place] [address] Orthopedic Surgery 04/12/20 Patricia Hernandez 06/03/20 Jayla Rangel, ONI Registered Nurse Director Life Sciences 02/15/23 02/15/23 Enmanuel Kauffman DPM [address] [place] [address] [address] [place] [address] Podiatry 05/25/23 documented as of this encounter
--- OUTSIDE RECORDS SUMMARY | 2024-11-14 14:35 | XMS_ITS | Encounter Summary ---
Author Organization [facility] Address [address] [place] [address] Care Team Providers Care Outdoor Education Teacher Name Role Phone Mayo Kauffman MD Primary Care Provider Provider, Historical Unavailable Unavailable Francisco Reveles MD Unavailable Aidan Ferraro MD Primary Care Provider Lois Alaniz APRN Primary Care Provider Alexis Chamberlain MD Unavailable Aidan Ferraro MD Primary Care Provider Canelo Avery MD Unavailable Patricia Hernandez Unavailable Unavailable Jayla Rangel RN Unavailable Unavailable Enmanuel Kauffman DPDebbie Unavailable [phone] Encounter Details Date Type Department Care Team (Late st Contact Info) Description 02/05/2017 Telephone [facility] [address] [place] [address] Jason Moya III, MD [address] [place] [address] [address] [place] [address] Social History Tobacco Use Types [...] Notes * Telephone Encounter - Tarsha Sum[place] LPN - 02/09/2017 10:00 AM EDT Informed patient that he culd have labs done before next appointment * Telephone Encounter - Jason Moya III, MD - 02/09/2017 7:04 AM EDT It is ordered * Telephone Encounter - Debbie Mathur - 02/05/2017 9:32 AM EDT Pt would like to have a lipid panel ordered before seeing jvd. Please advise. documented in this encounter Plan of Treatment Upcoming Encounters Date Type Department Care Team (Late st Contact Info) Description 12/11/2024 1:30 PM EDT Office Visit [facility] [address], [address] [place] [address] Jason Moya III, MD [address] [place] [address] Domenico Upton APRN [address] [place] [address] 01/11/2025 9:30 AM EDT Office Visit [facility] [address] [place] [address] Aidan Ferraro MD [address] [place] [address] 03/15/2025 11:00 AM EDT Office Visit [facility] [address] [place] [address], [address] [place] [address] Aidan Ferraro MD [address] [place] [address] documented as of this encounter Results * Lipid Panel (02/10/2017 7:28 AM EDT) [facility] CHOLESTEROL 117 10 - 200 mg/dL 02/10/2017 1:50 PM EDT [facility] TRIGLYCERIDE 151 46 - 236 mg/dL 02/10/2017 1:50 PM EDT [facility] HDL 34.0 27.0 - 67.0 mg/dL 02/10/2017 1:50 PM EDT [facility] VLDL 30.2 mg/dL 02/10/2017 1:50 PM EDT [facility] LDL 52.8 mg/dL 02/10/2017 1:50 PM EDT [facility] Comment: CAP STANDARDIZED LDL-CHOLESTEROL VALUES <130-DESIRABLE 130-159 BORDERLINE/HIGH RISK >160-HIGH RISK RISK 1, MALE 3.44 02/10/2017 1:50 PM EDT [facility] Comment: TOTAL CHOL/HDL 1/2 AVERAGE 3.43 AVERAGE 4.97 2 X AVERAGE 9.55 3 X AVERAGE 23.39 RISK 2, MALE 1.55 02/10/2017 1:50 PM EDT [facility] Comment: LDL/HDL 1/2 AVERAGE 1.00 AVERAGE 3.55 2 X AVERAGE 6.25 3 X AVERAGE 7.99 RISK 1, FEMALE 3.44 02/10/2017 1:50 PM EDT [facility] Comment: TOTAL CHOL/HDL 1/2 AVERAGE 3.27 AVERAGE 4.44 2 X AVERAGE 7.05 3 X AVERAGE 11.04 RISK 2, FEMALE 1.55 02/10/2017 1:50 PM EDT [facility] Comment: LDL/HDL 1/2 AVERAGE 1.47 AVERAGE 3.22 2 X AVERAGE 5.03 3 X AVERAGE 6.14 02/10/2017 7:28 AM EDT 02/10/2017 1:29 PM EDT Narrative [facility] - 02/10/2017 1:50 PM EDT NO KNOWN ALLERGIES Jason Moya III, MD CHEMISTRY ORDERABLES Fi nal Result [facility] [address] [place] [address] documented in this encounter Visit Diagnoses Diagnosis Mixed hyperlipidemia- Primary documented in this encounter Additional Health Concerns Infection Onset Date Last Indicated Resolved Time Covid-19 (confirmed) Comment:Past Acute Phase 03/28/2020 03/28/2020 07/30/2020 9:22 AM EST Covid-19 (rule out) 07/03/2021 07/03/2021 07/03/19 22 9:44 PM EST Covid-19 (confirmed) 07/03/2021 07/03/2021 022 10:14 PM EDT documented as of this encounter Care Teams Outdoor Education Teacher Relationship Specialty Start Date End Date Mayo Kauffman MD [address] [place] [address] PCP - General Cardiology 05/20/16 11/01/17 Aidan Ferraro MD [address] [place] [address] PCP - General Family Medicine 11/02/17 02/22/18 Lois Alaniz APRN [address] [place] [address] PCP - General Family Practice 02/23/18 03/01/20 Aidan Ferraro MD [address] [place] [address] PCP - General Family Medicine 03/02/20 Provider, Historical 08/11/16 Francisco Reveles MD [address] [place], [place] [address] Gastroenterology 08/17/16 Alexis Chamberlain MD [address] [address] [place], [place] [address] Orthopedic Surgery 09/08/18 Canelo Avery MD [address] [address] [place] [address] Orthopedic Surgery 04/12/20 Patricia Hernandez 06/03/20 Jayla Rangel, RN Registered Nurse Periodicals Library Assistant 02/15/23 02/15/23 Enmanuel Kauffman DPM [address] [place] [address] [address] [place], [place] [address] Podiatry 05/25/23 documented as of this encounter
--- OUTSIDE RECORDS SUMMARY | 2024-11-14 14:35 | XMS_ITS | Encounter Summary ---
Author Organization [facility] Address [address] [place] [address] Care Team Providers Care Grain Elevator Operator Name Role Phone Mayo Kauffman MD Primary Care Provider [phone] Jason Canchola MD Primary Care Provider [phone] Mayo Kauffman MD Primary Care Provider [phone] Provider, Historical Unavailable Unavailable Francisco Reveles MD Unavailable Aidan Ferraro MD Primary Care Provider [phone] Lois Alaniz APRN Primary Care Provider [phone] Alexis Chamberlain MD Unavailable [phone] Aidan Ferraro MD Primary Care Provider [phone] Canelo Avery MD Unavailable [phone] Patricia Hernandez Unavailable Unavailable Jayla Rangel RN Unavailable Unavailable Enmanuel Kauffman DPM Unavailable Encounter Details Date Type Department Care Team (Late st Contact Info) Description 02/19/2003 Historical Encounter Global Mayo Kauffman MD [address] [place] [address] Social History Tobacco Use Types Packs/Day Years [...] 1:30 PM EDT Office Visit [facility] [address] [address] Jason Moya III, MD [address] [place] [address] 70[address] Domenico Upton APRN [address] [place] [address] 01/11/2025 9:30 AM EDT Office Visit [facility] [address] [address] Aidan Ferraro MD [address] [place] [phone] 03/15/2025 11:00 AM EDT Office Visit [facility] [address] [address] Aidan Ferraro MD [address] [place] [phone] documented as of this encounter Visit Diagnoses Not on filedocumented in this encounter Additional Health Concerns Infection Onset Date Last Indicated Resolved Time Covid-19 (confirmed) Comment:Past Acute Phase 03/28/2020 03/28/2020 07/30/2020 9:22 AM EST Covid-19 (rule out) 07/03/2021 07/03/202120 22 9:44 PM EST Covid-19 (confirmed) 07/03/2021 07/03/2021 022 10:14 PM EDT documented as of this encounter Care Teams Grain Elevator Operator Relationship Specialty Start Date End Date Mayo Kauffman MD [address] [address] PCP - General 05/25/08 12/11/14 Jason Canchola MD [address] [place] [address] PCP - General 12/12/14 05/19/16 Mayo Kauffman MD [address] [place] [address] PCP - General Cardiology 05/20/16 11/01/17 Aidan Ferraro MD [address] [place] [address] PCP - General Family Medicine 11/02/17 02/22/18 Lois Alaniz APRN [address] [place] [address] PCP - General Family Practice 02/23/18 03/01/20 Aidan Ferraro MD [address] [place] [address] PCP - General Family Medicine 03/02/20 Provider, Historical 08/11/16 Francisco Reveles MD [address] [place] [address] Gastroenterology 08/17/16 Alexis Chamberlain MD [address] [facility] [address] [place] [address] Orthopedic Surgery 09/08/18 Canelo Avery MD 613 [address] [address] [place] [address] Orthopedic Surgery 04/12/20 Patricia Hernandez 06/03/20 Jayla Rangel, RN Registered Nurse Pencil Maker 02/15/23 02/15/23 Enmanuel Kauffman DPM [address] [place] [address] [address] [place], [place] [address] Podiatry 05/25/23 documented as of this encounter
--- OUTSIDE RECORDS SUMMARY | 2024-11-14 14:35 | XMS_ITS | Encounter Summary ---
Author Organization [facility] Address [address] [place] [address] Care Team Providers Care Paper Cone Grader Name Role Phone Mayo Kauffman MD Primary Care Provider Provider, Historical Unavailable Unavailable Francisco Reveles MD Unavailable Aidan Ferraro MD Primary Care Provider [phone] Lois Alaniz APRN Primary Care Provider Alexis Chamberlain MD Unavailable [phone] Aidan Ferraro MD Primary Care Provider [phone] Canelo Avery MD Unavailable [phone] Patricia Hernandez Unavailable Unavailable Jayla Rangel RN Unavailable Unavailable Enmanuel Kauffman DPM Unavailable [phone] Reason for Visit * Reason Onset Date Comments Medications Refill 09/03/2016 Encounter Details Date Type Department Care Team (Late st Contact Info) Description 09/03/2016 Refill [facility] [place] [address] [place] [address] Mayo Kauffman MD [address] [place] [address] Medications Refill Social History Tobacco Use Types [...] Telephone Encounter - Brianne Sharp LPN - 09/07/2016 9:54 AM EDT Pt informed of rx sent to pharmacy * Telephone Encounter - Brianne Sharp LPN - 09/07/2016 8:47 AM EDT Phone busy * Telephone Encounter - Nevin Pagan - 09/03/2016 1:00 PM EDT Pt is calling wanting to know if the Restoril was reordered? documented in this encounter Plan of Treatment Upcoming Encounters Date Type Department Care Team (Late st Contact Info) Description 12/11/2024 1:30 PM EDT Office Visit [facility] [address], [address] [place] [address] Jason Moya III, MD [address] [place] [address] Domenico Upton APRN [address] [place], [place] [address] [place] [address] 01/11/2025 9:30 AM EDT Office Visit [facility] [address] [place] [address], [address] [place] [address] Aidan Ferraro MD [address] [place] [phone] 03/15/2025 11:00 AM EDT Office Visit [facility] [address], [address] [place] [address] Aidan Ferraro MD [address] [place] [address] documented as of this encounter Visit Diagnoses Not on filedocumented in this encounter Additional Health Concerns Infection Onset Date Last Indicated Resolved Time Covid-19 (confirmed) Comment:Past Acute Phase 03/28/2020 03/28/2020 07/30/2020 9:22 AM EST Covid-19 (rule out) 07/03/2021 07/03/2021 07/03/19 22 9:44 PM EST Covid-19 (confirmed) 07/03/2021 07/03/2021 022 10:14 PM EDT documented as of this encounter Care Teams Paper Cone Grader Relationship Specialty [place] [address] [place] [address] PCP - General Cardiology 05/20/16 11/01/17 Aidan Ferraro MD [address] [place] [address] PCP - General Family Medicine 11/02/17 02/22/18 Lois Alaniz APRN [address] [place] [address] PCP - General Family Practice 02/23/18 03/01/20 Aidan Ferraro MD [address] [place] [address] PCP - General Family Medicine 03/02/20 Provider, Historical 08/11/16 Francisco Reveles MD [address] [place] [address] [address] [place] [address] Gastroenterology 08/17/16 Alexis Chamberlain MD [address] [place] [address] [address] [place] [address] Orthopedic Surgery 09/08/18 Canelo Avery MD [address] [place], [place] [address] [place] [address] Orthopedic Surgery 04/12/20 Patricia Hernandez 06/03/20 Jayla Rangel, ONI Registered Nurse Coal Miner 02/15/23 02/15/23 Enmanuel Kauffman DPM [address] [place] [address] [address] [place] [address] Podiatry 05/25/23 documented as of this encounter
--- OUTSIDE RECORDS SUMMARY | 2024-11-14 14:35 | XMS_ITS | Encounter Summary ---
Author Organization [facility] Address [address] [place] [address] Care Team Providers Care Woodworking Machine Setter Name Role Phone Mayo Kauffman MD Primary Care Provider [phone] Jason Canchola MD Primary Care Provider [phone] Mayo Kauffman MD Primary Care Provider [phone] Provider, Historical Unavailable Unavailable Francisco Reveles MD Unavailable Aidan Ferraro MD Primary Care Provider [phone] Lois Alaniz APRN Primary Care Provider [phone] Alexis Chamberlain MD Unavailable [phone] Aidan Ferraro MD Primary Care Provider [phone] Canelo Avery MD Unavailable [phone] Patricia Hernandez Unavailable Unavailable Jayla Rangel RN Unavailable Unavailable Enmanuel Kauffman DPM Unavailable [phone] Encounter Details Date Type Department Care Team (Late st Contact Info) Description 02/26/2006 Historical Encounter Global Mayo Kauffman MD [address] [place] [address] Social History Tobacco Use Types Packs/Day Years [...] Description 12/11/2024 1:30 PM EDT Office Visit [facility] C[facility] [address] [address] Jason Moya III, MD [address] [place] [address] Domenico Upton APRN [address] [place] [address] 01/11/2025 9:30 AM EDT Office Visit [facility] [address] [address] Aidan Ferraro MD [address] [place] [address] [phone] 03/15/2025 11:00 AM EDT Office Visit [facility] [address] [address] Aidan Ferraro MD [address] [place] [address] [phone] documented as of this encounter Visit Diagnoses Not on filedocumented in this encounter Additional Health Concerns Infection Onset Date Last Indicated Resolved Time Covid-19 (confirmed) Comment:Past Acute Phase 03/28/2020 03/28/2020 07/30/2020 9:22 AM EST Covid-19 (rule out) 07/03/2021 07/03/202120 22 9:44 PM EST Covid-19 (confirmed) 07/03/2021 07/03/2021 022 10:14 PM EDT documented as of this encounter Care Teams Woodworking Machine Setter Relationship Specialty Start Date End Date Mayo Kauffman MD [address] [address] PCP - General 05/25/08 12/11/14 Jaosn Canchola MD [address] [place] [address] PCP - General 12/12/14 05/19/16 Mayo Kauffman MD [address] [place] [address] PCP - General Cardiology 05/20/16 11/01/17 Aidan Ferraro MD [address] [place] [address] PCP - General Family Medicine 11/02/17 02/22/18 Lois Alaniz APRN [address] [place] [address] PCP - General Family Practice 02/23/18 03/01/20 Aidan Ferraro MD [address] [place] [address] PCP - General Family Medicine 03/02/20 Provider, Historical 08/11/16 Francisco Reveles MD [address] [place] [address] Gastroenterology 08/17/16 Alexis Chamberlain MD [address] [facility] [address] [place] [address] Orthopedic Surgery 09/08/18 Canelo Avery MD 613 [address] [address] [place] [address] Orthopedic Surgery 04/12/20 Patricia Hernandez 06/03/20 Jayla Rangel, RN Registered Nurse Director Of Extension Work 02/15/23 02/15/23 Enmanuel Kauffman DPM [address] [place] [address] [address] [place], [place] [phone] Podiatry 05/25/23 documented as of this encounter
--- OUTSIDE RECORDS SUMMARY | 2024-11-14 14:35 | XMS_ITS | Encounter Summary ---
Author Organization [facility] Address [address] [place] [address] Care Team Providers Care Glost Kiln Placer Name Role Phone Provider, Historical Unavailable Unavailable Francisco Reveles MD Unavailable Alexis Chamberlain MD Unavailable [phone] Aidan Ferraro MD Primary Care Provider [phone] Canelo Avery MD Unavailable [phone] Patricia Hernandez Unavailable Unavailable Enmanuel Kauffman DPM Unavailable [phone] Reason for Visit * Reason Onset Date Comments Medications Refill 08/17/2024 Encounter Details Date Type Department Care Team (Late st Contact Info) Description 08/17/2024 Refill [facility] [address], [address] [place] [address] Margaret Tobias MA Benign prostatic hyperplasia with nocturia Social History Tobacco Use Types Packs/Day Years Used Date Smoking Tobacco: Never Smokeless Tobacco: Never Alcohol Use Standard Drinks/Week Comments No 0 (1 standard drink = 0.6 oz pur e alcohol) [facility] Utilities Answer Date Recorded In the past 12 months has [employer] electric, gas, oil, or water company threatened [...] place to sleep or slept in a fpc (including now)? No 01/06/2024 Housing Stability Vital Sign Answer Roland e Recorded In the last 12 months, was t here a time when you were not able to pay the mortgage or rent on time? No 07/10/2024 In the past 12 months, how m any times have you moved where you were living? 0 07/10/2024 At any time in the past [address] [facility], were you homeless or living in a fpc (including now)? No 07/10/2024 Sex and Gender [...] Visit [facility] [address] [address] Jason Moya III, MD [address] [place] [address] [phone] Domenico Upton APRN [address] [place] [address] [phone] 01/11/2025 9:30 AM EDT Office Visit [facility] [address] [phone] Aidan Ferraro MD [address] [place] [address] 03/15/2025 11:00 AM EDT Office Visit [facility] [address] [phone] Aidan Ferraro MD [address] [place] [address] documented as of this encounter Visit Diagnoses Diagnosis Benign prostatic hyperplasia with nocturia documented in this encounter Care Teams Glost Kiln Placer Relationship Specialty Start Date End Date Aidan Ferraro MD [address] [place] [address] PCP - General Family Medicine 03/02/20 Provider, Historical 08/11/16 Francisco Reveles MD [address] [place] [address] Gastroenterology 08/17/16 Alexis Chamberlain MD [address] [facility] [address] [place] [address] Orthopedic Surgery 09/08/18 Canelo Avery MD [address] [place] [address] Orthopedic Surgery 04/12/20 Patricia Hernandez 06/03/20 Enmanuel Kauffman DPM [address] [place] [address] [address] [place], [place] [id number] Podiatry 05/25/23 documented as of this encounter
--- OUTSIDE RECORDS SUMMARY | 2024-11-14 14:35 | XMS_ITS | Encounter Summary ---
Author Organization [facility] Address [address] [place] [address] Care Team Providers Care Trouble Locator Test Desk Name Role Phone Mayo Kauffman MD Primary Care Provider Provider, Historical Unavailable Unavailable Francisco Reveles MD Unavailable Aidan Ferraro MD Primary Care Provider Lois Alaniz APRN Primary Care Provider Alexis Chamberlain MD Unavailable [phone] Aidan Ferraro MD Primary Care Provider Canelo Avery MD Unavailable [phone] Patricia Hernandez Unavailable Unavailable Jayla Rangel RN Unavailable Unavailable Enmanuel Kauffman DPM Unavailable [phone] Encounter Details Date Type Department Care Team (Late st Contact Info) Description 10/27/2016 Telephone [facility] [place] [address] [place] [address] Mayo Kauffman MD [address] [place] [address] Social History Tobacco Use Types [...] Telephone Encounter - Brianne Sharp LPN - 10/27/2016 9:04 AM EDT [facility] 20 mg daily D/c corgard , and plavix- per susan ov note * Telephone Encounter - Debbie Singh - 10/27/2016 8:56 AM EDT Patient needs to speak to Alex, states [facility] and he's at the pharmacy and no meds were called in. Please call patient to let him know what medication was [facility] and if it was called in. documented in this encounter Plan of Treatment Upcoming Encounters Date Type Department Care Team (Late st Contact Info) Description 12/11/2024 1:30 PM EDT Office Visit [facility] [address], [address] [place] [address] Jason Moya III, MD [address] [place] [address] [phone] Domenico Upton APRN [address] [place] [address] [place] [address] 01/11/2025 9:30 AM EDT Office Visit [facility] [address], [address] [place] [address] Aidan Ferraro MD [address] [place] [address] 03/15/2025 11:00 AM EDT Office Visit [facility] [address] [place] [address], [address] [place] [address] Aidan Ferraro MD [address] [place], [place] [phone] documented as of this encounter Visit Diagnoses Not on filedocumented in this encounter Additional Health Concerns Infection Onset Date Last Indicated Resolved Time Covid-19 (confirmed) Comment:Past Acute Phase 03/28/2020 03/28/2020 07/30/2020 9:22 AM EST Covid-19 (rule out) 07/03/2021 07/03/2021 07/03/19 22 9:44 PM EST Covid-19 (confirmed) 07/03/2021 07/03/2021 022 10:14 PM EDT documented as of this encounter Care Teams Trouble Locator Test Desk Relationship Specialty Start Date End Date Mayo Kauffman MD [address] [place] [address] PCP - General Cardiology 05/20/16 11/01/17 Aidan Ferraro MD [address] [place] [address] PCP - General Family Medicine 11/02/17 02/22/18 Lois Alaniz APRN [address] [place] [address] PCP - General Family Practice 02/23/18 03/01/20 Aidan Ferraro MD [address] [place] [address] PCP - General Family Medicine 03/02/20 Provider, Historical 08/11/16 Francisco Reveles MD [address] [place] [address] Gastroenterology 08/17/16 Alexis Chamberlain MD [address] [place] [address] [address] [place] [address] Orthopedic Surgery 09/08/18 Canelo Avery MD [address] [place] [address] [address] [place] [address] Orthopedic Surgery 04/12/20 Patricia Hernandez 06/03/20 Jayla Rangel, ONI Registered Nurse Pierogi Maker 02/15/23 02/15/23 Enmanuel Kauffman DPM [address] [place] [address] [address] [place] [address] Podiatry 05/25/23 documented as of this encounter
--- OUTSIDE RECORDS SUMMARY | 2024-11-14 14:35 | XMS_ITS | Clinical Summary ---
Author Organization [facility] Address [address] [place] [address] Care Team Providers Care Nut Sheller Name Role Phone Provider, Historical Unavailable Unavailable Francisco Reveles MD Unavailable Alexis Chamberlain MD Unavailable [phone] Aidan Ferraro MD Primary Care Provider Canelo Avery MD Unavailable [phone] Patricia Hernandez Unavailable Unavailable Enmanuel Kauffman DPM Unavailable [phone] Allergies No known active allergies Medications aspirin 81 mg chewable tablet Take 1 Tab by mouth Daily. 30 Tab 3 Active tamsulosin (FLOMAX) 0.4 mg capsuleIndications :Benign prostatic hyperplasia with nocturia Take 1 Capsule by mouth Once Daily. 90 Capsule 3 03/25/20 23 Active metoprolol (TOPROL-XL) 25 mg XL tabletIndications: Coronary artery disease involving emmonak coronary artery of emmonak heart without angina pectoris,S/P CABG x 2 Take 0.5 Tabs by mouth Twice a day. 90 Tablet 3 12/14/19 24 Active nitroglycerin (NITROSTAT) 0.4 mg SL tablet Take 1 Tablet sublingually Every 5 minutes as needed for Chest pain. X 3 DOSES 25 Tablet 1 12/14/19 24 Active Donepezil (ARICEPT) 10 mg TabIndications:Mod erate vascular dementia without behavioral disturbance, psychotic disturbance, mood disturbance, or anxiety (CMS/HCC) Take 10 mg by mouth At bedtime. 90 Tablet 3 08/22/19 25 Active atorvastatin (LIPITOR) 40 mg tabletIndications: Mixed hyperlipidemia Take 0.5 Tabs by mouth At bedtime. 90 Tablet 3 09/05/19 25 Active ezetimibe (ZETIA) 10 mg tablet Take 1 Tablet by mouth Once Daily. 30 Tablet 5 09/05/19 25 Active doxepin (SINEQUAN) 10 mg capsuleIndications :Primary insomnia Take 1 Capsule by mouth At bedtime. For sleep 90 Capsule 1 09/14/19 25 Active Active Problems Problem Noted Date Diagnosed Date S/P CABG x2, DICKINSON-LAD, SVG-O M; left atrial appendage ligation with atricure clip EF 62% (01/10/23) 01/10/2023 NSTEMI (non-ST elevated myocardial infarction) 0 01/07/2023 Assessment & Plan (01/10/2023 12:46 PM EDT): Description of the Problem/Progression: severe. Trops >9k Sustained VT. Second episode of VT overnight. amio given x1. Tele personally reviewed with family. pAfib Plan: - [facility] performed, severe disease. CT surgery consulted. Surgery planned for tomorrow - tele - EP / cards consulted - heparin gtt - amio bolus given. amio gtt held due to bradycardia after - nitro gtt on A/c diastolic hf. cxr with mild pulm edema. On 4L O2 - iv lasix 20 qd for now per ct surgery - na restriction - nephrology on as well ckd 3b. Creat improved some to 1.2. used ivf around [facility]. - nephrology involved given above Assessment & Plan (01/09/2023 11:27 AM EDT): Description of the Problem/Progression: severe. Trops >9k Sustained VT. Second episode of VT overnight. amio given x1. Tele personally reviewed with family. pAfib Plan: - [facility] performed, severe disease. CT surgery consulted. Surgery planned wednesday - tele - EP / cards consulted - heparin gtt - amio bolus given. amio gtt held due to bradycardia after - nitro gtt on A/c diastolic hf. cxr with mild pulm edema. On 4L O2 - iv lasix 20 qd for now per ct surgery - na restriction - nephrology on as well ckd 3b. Creat increased 1.4 today - ivf - repeat creat stat - nephrology involved given above Assessment & Plan (01/08/2023 10:08 AM EDT): Description of the Problem/Progression: severe. Trops >9k Sustained VT pAfib Plan: - [facility] today - tele - EP / cards consulted - heparin gtt ckd 3b. 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 Continue PT/OT/rehabilitation options. garage worker involved. Symptomatic pain and nausea control. Tolerating physical therapy well and wanted to go home today Coronary artery disease-on aspirin and statin. EKG reviewed. Continue telemetry Persistent atrial fibrillation-oral anti-coagulation restarted as per orthopedics. EKG reviewed. Will monitor for slow ventricular response. Patient was advised to follow-up with cardiology after the discharge in regards to adjustment of his medications if necessary. Currently patient says that he is doing fine without any dizziness or palpitations Hypertension-stable on home medications. Will monitor for any hypotension episodes.. Chronic kidney disease stage III-Will monitor daily labs. Currently on IV fluids. Seems to be dehydrated advised to drink fluids more and continue fluids until the time of the discharge later today Dizziness-as per patient he is not having any episodes right now . continue Antivert and IV fluids. Fall precautions. Denies any chest discomfort or pleuritic type of discomfort or calf tenderness. Will need to follow with cardiology as an outpatient. If dizziness persists will get echocardiogram. currently patient says that he does not have any dizzy spells. Advised to follow with Dr. Moya as an outpatient with his regular appointment Medically stable for discharge and DC med reconciliation done Assessment & Plan (07/30/2020 3:22 PM EST): . 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 Coronary artery disease Resolved Problems Problem Noted Date Diagnosed Date Resolved Date PAF (paroxysmal atrial fibrillation) 11/18/2016 05/05/2018 Myalgia and myositis 10/01/2015 016 Drug side effects 10/01/2015 05/05/2018 Symptomatic hypotension 11/07/201404/08 Elevated troponin 11/07/2014 05/05/2018 Syncope and collapse 11/07/2014 018 Macrocytic anemia 11/07/2014 05/05/2018 Heart attack 05/05/2018 Overview (09/19/2009): [facility] High Cholesterol 05/05/2018 Enlarged prostate 05/05/2018 Overview (09/19/2009): FREQUENCY Coronary stent 05/05/2018 Encounters Date Type Department Care Team Description 10/15/2024 Treatment [facility] [place] [id number] [place] [address], [address] [place] [address] Wing Bella MD Pacemaker (Primary Dx) 09/13/2024 11:45 AM EDT Office Visit [facility] [address], [address] [place] [address] Aidan Ferraro MD Erectile dysfunction, unspecified erectile dysfunction type (Primary Dx); Essential hypertension; Mixed hyperlipidemia; Coronary artery disease involving emmonak coronary artery of emmonak heart without angina pectoris; 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, psychotic disturbance, mood disturbance, or anxiety; Primary insomnia 09/13/2024 Travel 09/04/2024 1:30 PM EDT Office Visit [facility] [place] [address] [place] [address], [address] [place] [address] Jason Moya III, MD Davis, Brian, APRN PAF (paroxysmal atrial fibrillation) (Primary Dx); Coronary artery disease involving emmonak coronary artery of emmonak heart without angina pectoris; S/P CABG x2, DICKINSON-LAD, SVG-OM; left atrial appendage ligation with atricure clip EF 62% (01/10/23); S/P coronary artery stent placement; SSS (sick sinus syndrome); Cardiac pacemaker in situ; Essential hypertension; Mixed hyperlipidemia 09/04/2024 Travel 08/17/2024 Refill [facility] [address] [place] [address], [address] [place] [address] Margaret Tobias MA Benign prostatic hyperplasia with nocturia 08/14/2024 Telephone [facility] [address], [address] [place] [address] Aidan Ferraro MD Other (WANTS DIFFERENT SLEEP MEDICATION ) from Last 3 Months Immunizations Immunization Administration Dates Next Due 20-VALENT Pneumococcal CONJUGATE 01/06/2024 LZG214 Fluzone 0.7ml QS Flu Vaccine 65yr+ Sds High-dose 04/03/2021 Influenza (whole) 03/07/2018 Moderna SARS-COV-2 Vaccination Full Dose 021,06/22/2020 Moderna SARS-COV-2 Vaccine Booster Half Dose 0.2 5mL 04/12/2021 Family History Medical History Relation Name Comments Stroke Father Ulcer Father Tuberculosis Maternal Aunt Heart Attack Maternal Grandfather Tuberculosis Maternal Grandmother Heart Attack Mother Heart Disease Mother Heart Attack Paternal Grandfather Alzheimer's Disease Paternal Grandmother Relation Name Status Comments Father Maternal Aunt Maternal Grandfather Maternal Grandmother Mother Paternal Grandfather Paternal Grandmother Social History Tobacco Use Types Packs/Day Years Used Date Smoking Tobacco: Never Smokeless Tobacco: Never Tobacco Cessation:Counseling Given: Not Answered Alcohol Use Standard Drinks/Week Comments No 0 (1 standard drink = 0.6 oz pur e alcohol) [facility] Utilities Answer Date Recorded In the past 12 months has th e [employer], gas, oil, or water [employer] threatened to shut off services in your [...] place to sleep or slept in a detention (including now)? No 01/06/2024 Housing Stability Vital Sign Answer Roland e Recorded In the last 12 months, was t here a time when you were not able to pay the mortgage or rent on time? No 09/13/2024 In the past 12 months, how m any times have you moved where you were living? 0 09/13/2024 At any time in the past 12 [facility], were you homeless or living in a detention (including now)? No 09/13/2024 Sex and Gender Information Value Date Recorded Sex Assigned at Male 09/06/2020 6:36 PM EDT Legal Sex Male 9:18 PM EST Gender Identity Male 09/06/2020 6:36 PM EDT Sexual Orientation Straight 09/06/2020 6: 36 PM EDT Last Filed Vital Signs Vital Sign Reading Time Taken Comments Blood Pressure 138/76 09/13/2024 11:37 AM EDT Pulse 60 09/13/2024 11:37 AM EDT Temperature 36.4 C (97.5 F) 09/13/2024 11:37 AM EDT Respiratory Rate 18 09/13/2024 11:37 AM EDT Oxygen Saturation 97% 09/13/2024 11:37 AM EDT Inhaled Oxygen Concentration - - Weight 73.9 kg (163 lb) 09/13/2024 11:37 AM EDT Height 177.8 cm (5' 10 ) 09/13/2024 11:37 AM EDT Body Mass Index 23.39 09/13/2024 11:37 AM EDT Plan of Treatment Upcoming Encounters Date Type Department Care Team (Late st Contact Info) Description 12/11/2024 1:30 PM EDT Office Visit [facility] [address], [address] [place] [address] Jason Moya III, MD [address] [place] [address] [address] [place], [place] [phone] Domenico Upton APRN [address] [place] [address],[address] [place] [address] 01/11/2025 9:30 AM EDT Office Visit [address], [address] [address] Aidan Ferraro MD [address] [place] [address] 03/15/2025 11:00 AM EDT Office Visit [facility] [address] [place] [address], [address] [place] [address] Aidan Ferraro MD [address] [place] [address] Health Maintenance Due Date Last Done Comments DTAP/TDAP/TD VACCINE (1 - Tdap) 1954 Shingles Vaccine (Shingrix) (1 of 2) 1987 COVID-19 Vaccine ( season) 2024 04/12/2021, 07/20/2020, 06/22/2020 ANNUAL WELLNESS EXAM 01/06/2025 01/06/2024 INFLUENZA VACCINE (Season Ended) 2025 04/03/2021, 04/10/2019, 03/21/2018, Additional history exists PNEUMOCOCCAL VACCINE 65+ YEARS Completed 01/06/2024, 05/14/2015 HEP A VACCINE Aged Out No longer elig ible based on patient's age to complete this topic HIB VACCINE Aged Out No longer eligi ble based on patient's age to complete this topic ROTOVIRUS VACCINE Aged Out No longer eligible based on patient's age to complete this topic Medical Devices Implanted Type Area Elementary Tutor Device Identifier Shelf Expiration Date Model / Serial / Lot Size 6 Accolade Ii 132 Deg Implanted:Qty: 1 on 07/30/2020 by Canelo Avery MD at [facility] Left: Hip ANSELMO 02/07/2025 [id number] / / [id number] Cocr Lfit Head 36mm/0 Implanted:Qty: 1 on 07/30/2020 by Canelo Avery MD at [facility] Left: Hip ANSELMO 03/11/2024 [id number] / / [id number] Trident Ii Clusterhole Briggs 52e 742-11-52e Implanted:Qty: 1 on 07/30/2020 by Canelo Avery MD at [facility] Left: Hip ANSELMO 08/11/2023 742-11-52E / / [id number] Trident 0 X3 Insert 36mm Id Implanted:Qty: 1 on 07/30/2020 by Canelo Avery MD at [facility] Left: Hip ANSELMO 04/11/2025 623-00-36E / / [id number] 6.5mm Low Profile Hex Screw 25 Ancillary Bone Screws Implanted:Qty: 1 on 07/30/2020 by Canelo Avery MD at [facility] Left: Hip ANSELMO 01/26/2024 [id number] / / [id number] Ligaclip Titan Extra Med Lg Pkg/6 - S- Implanted:Qty: 2 on 01/10/2023 by Ameya Mora MD at [facility] N/A: Chest ETHICON 05/06/2027 LT300 / - / [id number] Suture Stainless Steel Sternum #6 Ms/4 Oh Bx/12 - S- Implanted:Qty: 2 on 01/10/2023 by Ameya Mora MD at [facility] N/A: Chest ETHICON 05/06/2027 [id number] / - / [id number] Pledget - S- Implanted:Qty: 2 on 01/10/2023 by Ameya Mora MD at [facility] N/A: Chest TELEFLEX 10/06/2024 L705 / - / [id number] Atriclip Flex Handle 35mm Clip [id number] - S- Implanted:Qty: 1 on 01/10/2023 by Ameya Mora MD at [facility] N/A: Chest ATRICURE 09/05/2025 [id number] / - / [id number] Hemostase Bx5 - S- Implanted:Qty: 1 on 01/10/2023 by Ameya Mora MD at [facility] N/A: Chest MEDISAFE 06/03/2027 [id number] / - / [id number] Nuknit Surgicel 3x4 Abs Hemo Cs/24 - S- Implanted:Qty: 1 on 01/10/2023 by Ameya Mora MD at [facility] N/A: Chest DEPUY 01/04/2026 1943 / - / [id number] Surgifoam Gel Sponge 1974 Bx/6 - S- Implanted:Qty: 1 on 01/10/2023 by Ameya Mora MD at [facility] N/A: Chest ETHICON 09/17/2026 1974 / - / [id number] Pacing Myowire 2-0 24mm 06/08 Or Bx/24 - S- Implanted:Qty: 2 on 01/10/2023 by Ameya Mora MD at [facility] N/A: Chest ARTERIAL VASCULAR 05/07/2026 025-200 / - / [id number] Ligating Clip Cartridge Small - S- Implanted:Qty: 3 on 01/10/2023 by Ameya Mora MD at [facility] N/A: Chest ETHICON ENDO 11/05/2027 LT102 / - / [id number] Ligating Clip Cartridge Med - S- Implanted:Qty: 2 on 01/10/2023 by Ameya Mora MD at [facility] N/A: Chest ETHICON ENDO 10/05/2027 LT202 / - / [id number] Assurity Mri Pacemaker - [id number] Implanted:Qty: 1 on 01/15/2023 by Wing Bella MD at [facility] GAYLE [id number] / [id number] / Tendril Rv Lead /58 - [id number] Implanted:Qty: 1 on 01/15/2023 by Wing Bella MD at [facility] / 8 / [id number] / Insurance MEDICARE Member Subscriber Plan / Payer (Ef fective 2002-Present) Name:Gabino Kauffman Member ID:[id number] Relation to Subscriber:Self Name:Gabino Kauffman Subscriber ID:[id number] Payer ID:Not on file Group ID:Not on file Type:Not on file Address: [address] [place] MEDICARE Member Subscriber Plan / Payer ( fective 2002-Present) Name:Gabino Kauffman Member ID:[id number] Relation to Subscriber:Self Name:Gabino Kauffman Subscriber ID:[id number] Payer ID:Not on file Group ID:Not on file Type:Not on file Address: [address] [place] MEDICARE [employer] [place] [employer] [place] MED[employer] MUTUAL KIRK ANDERS Advance Directives * Full Code (Latest Code Status on File) Date Activated Date Inactivated Comments 01/07/2023 3:19 PM 01/17/2023 5:41 PM * Full Code Date Activated Date Inactivated Comments 07/30/2020 7:00 AM 07/31/2020 9:44 PM * Full Code Date Activated Date Inactivated Comments 11/04/2016 7:46 PM 11/06/2016 2:39 PM * Full Code Date Activated Date Inactivated Comments 11/25/2010 7:06 AM 11/25/2010 5:33 PM Care Teams Nut Sheller Relationship Specialty Start Date End Date Aidan Ferraro MD [address] [address] PCP - General Family Medicine 03/02/20 Provider, Historical 08/11/16 Francisco Reveles MD [address] [address] [facility] [place] [address] Gastroenterology 08/17/16 Alexis Chamberlain MD 613 [address] [address] [place] [address] Orthopedic Surgery 09/08/18 Canelo Avery MD [address] [place] [address] [address] [place] [address] Orthopedic Surgery 04/12/20 Patricia Hrenandez 06/03/20 Enmanuel Kauffman DPM [address] [place] [address] [address] [place] [address] Podiatry 05/25/23
--- OUTSIDE RECORDS SUMMARY | 2024-11-14 14:35 | XMS_ITS | Encounter Summary ---
Author Organization [facility] Address [address] [place] [address] Care Team Providers Care Clinical Resource Coordinator Name Role Phone Mayo Kauffman MD Primary Care Provider [phone] Jason Canchola MD Primary Care Provider [phone] Mayo Kauffman MD Primary Care Provider [phone] Provider, Historical Unavailable Unavailable Francisco Reveles MD Unavailable Aidan Ferraro MD Primary Care Provider [phone] Lois Alaniz APRN Primary Care Provider [phone] Alexis Chamberlain MD Unavailable [phone] Aidan Ferraro MD Primary Care Provider [phone] Canelo Avery MD Unavailable [phone] Patricia Hernandez Unavailable Unavailable Jayla Rangel RN Unavailable Unavailable Enmanuel Kauffman DPM Unavailable Encounter Details Date Type Department Care Team (Late st Contact Info) Description 01/16/2004 Historical Encounter Global Mayo Kauffman MD [address] [place] [address] Social History Tobacco Use Types Packs/Day Years [...] Description 12/11/2024 1:30 PM EDT Office Visit [facility] [address] [address] Jason Moya III, MD [address] [place] [address] Domenico Upton APRN [address] [place] [address] 01/11/2025 9:30 AM EDT Office Visit [facility] [address] [address] Aidan Ferraro MD [address] [place] [address] [phone] 03/15/2025 11:00 AM EDT Office Visit [facility] [address] [address] Aidan Ferraro MD [address] [place] [address] [phone] documented as of this encounter Visit Diagnoses Not on filedocumented in this encounter Additional Health Concerns Infection Onset Date Last Indicated Resolved Time Covid-19 (confirmed) Comment:Past Acute Phase 03/28/2020 03/28/2020 07/30/2020 9:22 AM EST Covid-19 (rule out) 07/03/2021 07/03/202120 22 9:44 PM EST Covid-19 (confirmed) 07/03/2021 07/03/2021 022 10:14 PM EDT documented as of this encounter Care Teams Clinical Resource Coordinator Relationship Specialty Start Date End Date Mayo Kauffman MD [address] [address] PCP - General 05/25/08 12/11/14 Jason Canchola MD [address] [place] [address] PCP - General 12/12/14 05/19/16 Mayo Kauffman MD [address] [place] [address] PCP - General Cardiology 05/20/16 11/01/17 Aidan Ferraro MD [address] [place] [address] PCP - General Family Medicine 11/02/17 02/22/18 Lois Alaniz APRN [address] [place] [address] PCP - General Family Practice 02/23/18 03/01/20 Aidan Ferraro MD [address] [place] [address] PCP - General Family Medicine 03/02/20 Provider, Historical 08/11/16 Francisco Reveles MD [address] [place] [address] Gastroenterology 08/17/16 Alexis Chamberlain MD [address] [facility] [address] [place] [address] Orthopedic Surgery 09/08/18 Canelo Avery MD [address] [facility] [address] [place] [address] Orthopedic Surgery 04/12/20 Patricia Hernandez 06/03/20 Jayla Rangel, RN Registered Nurse Paper Cone Grader 02/15/23 02/15/23 Enmanuel Kauffman DPM [address] [place] [address] [address] [place], [place] [phone] Podiatry 05/25/23 documented as of this encounter
--- OUTSIDE RECORDS SUMMARY | 2024-11-14 14:35 | XMS_ITS | Encounter Summary ---
Author Organization [facility] Address [address] [place] [address] Care Team Providers Care Negative Notcher Name Role Phone Mayo Kauffman MD Primary Care Provider [phone] Jason Canchola MD Primary Care Provider [phone] Mayo Kauffman MD Primary Care Provider [phone] Provider, Historical Unavailable Unavailable Francisco Reveles MD Unavailable Aidan Ferraro MD Primary Care Provider [phone] Lois Alaniz APRN Primary Care Provider [phone] Alexis Chamberlain MD Unavailable [phone] Aidan Ferraro MD Primary Care Provider [phone] Canelo Avery MD Unavailable [phone] Patricia Hernandez Unavailable Unavailable Jayla Rangel RN Unavailable Unavailable Enmanuel Kauffman DPM Unavailable [phone] Encounter Details Date Type Department Care Team (Late st Contact Info) Description 10/08/2004 Historical Encounter Global Kyle Logan MD [address] [id number] Social History Tobacco Use Types Packs/Day Years [...] Description 12/11/2024 1:30 PM EDT Office Visit [facility] [address] [address] Jason Moya III, MD [address] [place] [address] [phone] Domenico Upton APRN [address] [place] [address] 01/11/2025 9:30 AM EDT Office Visit [facility] [address] [phone] Aidan Ferraro MD [address] [place] [address] 03/15/2025 11:00 AM EDT Office Visit [facility] [address] [phone] Aidan Ferraro MD [address] [place] [address] documented as of this encounter Visit Diagnoses Not on filedocumented in this encounter Additional Health Concerns Infection Onset Date Last Indicated Resolved Time Covid-19 (confirmed) Comment:Past Acute Phase 03/28/2020 03/28/2020 07/30/2020 9:2 2 AM EST Covid-19 (rule out) 07/03/2021 07/03/2021 01/27/20 22 9:44 PM EST Covid-19 (confirmed) 07/03/2021 07/03/2021 022 10:14 PM EDT documented as of this encounter Care Teams Negative Notcher Relationship Specialty Start Date End Date Mayo Kauffman MD [address] [address] PCP - General 05/25/08 12/11/14 Jason Canchola MD [address] [place] [address] PCP - General 12/12/14 05/19/16 [place] [address] [place] [address] PCP - General Cardiology 05/20/16 11/01/17 Aidan Ferraro MD [address] [place] [address] PCP - General Family Medicine 11/02/17 02/22/18 Lois Alaniz APRN [address] [place] [address] PCP - General Family Practice 02/23/18 03/01/20 Aidan Ferraro MD [address] [place] [address] PCP - General Family Medicine 03/02/20 Provider, Historical 08/11/16 Francisco Reveles MD [address] [address] Gastroenterology 08/17/16 Alexis Chamberlain MD [address] [address] [place] [address] Orthopedic Surgery 09/08/18 Canelo Avery MD [address] [address] [place] [address] Orthopedic Surgery 04/12/20 Patricia Hernandez 06/03/20 Jayla Rangel, RN Registered Nurse City Route Driver 02/15/23 02/15/23 Enmanuel Kauffman DPM [address] [place] [address] [address] [place], [place] [phone] Podiatry 05/25/23 documented as of this encounter
--- OUTSIDE RECORDS SUMMARY | 2024-11-14 14:35 | XMS_ITS | Encounter Summary ---
Author Organization [facility] Address [address] [place] [address] Care Team Providers Care Forming Machine Operator Name Role Phone Mayo Kauffman MD Primary Care Provider [phone] Jason Canchola MD Primary Care Provider [phone] Mayo Kauffman MD Primary Care Provider [phone] Provider, Historical Unavailable Unavailable Francisco Reveles MD Unavailable Aidan Ferraro MD Primary Care Provider [phone] Lois Alaniz APRN Primary Care Provider [phone] Alexis Chamberlain MD Unavailable Aidan Ferraro MD Primary Care Provider [phone] Canelo Avery MD Unavailable [phone] Patricia Hernandez Unavailable Unavailable Jayla Rangel RN Unavailable Unavailable Enmanuel Kauffman DPM Unavailable [phone] Encounter Details Date Type Department Care Team (Late st Contact Info) Description 12/13/2003 Historical Encounter Global Mayo Kauffman MD [address] [place] [address] Social History Tobacco Use Types Packs/Day Years [...] Description 12/11/2024 1:30 PM EDT Office Visit [facility] [address] [address] Jason Moya III, MD [address] [place] [address] [phone] Domenico Upton APRN [address] [place] [address] 01/11/2025 9:30 AM EDT Office Visit [facility] [address] [address] Aidan Ferraro MD [address] [place] [address] [phone] 03/15/2025 11:00 AM EDT Office Visit [facility] [address] [address] Aidan Ferraro MD [address] [place] [address] [phone] documented as of this encounter Visit Diagnoses Not on filedocumented in this encounter Additional Health Concerns Infection Onset Date Last Indicated Resolved Time Covid-19 (confirmed) Comment:Past Acute Phase 03/28/2020 03/28/2020 07/30/2020 9:22 AM EST Covid-19 (rule out) 07/03/2021 07/03/202120 22 9:44 PM EST Covid-19 (confirmed) 07/03/2021 07/03/2021 022 10:14 PM EDT documented as of this encounter Care Teams Forming Machine Operator Relationship Specialty Start Date End Date Mayo Kauffman MD [address] [address] PCP - General 05/25/08 12/11/14 Jason Canchola MD [address] [place] [address] PCP - General 12/12/14 05/19/16 Mayo Kauffman MD [address] [place] [address] PCP - General Cardiology 05/20/16 11/01/17 Aidan Ferraro MD [address] [place] [address] PCP - General Family Medicine 11/02/17 02/22/18 oLis Alaniz APRN [address] [place] [address] PCP - General Family Practice 02/23/18 03/01/20 Aidan Ferraro MD [address] [place] [address] PCP - General Family Medicine 03/02/20 Provider, Historical 08/11/16 Francisco Reveles MD [address] [place] [address] Gastroenterology 08/17/16 Alexis Chamberlain MD [address] [facility] [address] [place] [address] Orthopedic Surgery 09/08/18 Canelo Avery MD [address] [address] [place] [address] Orthopedic Surgery 04/12/20 Patricia Hernandez 06/03/20 Jayla Rangel, RN Registered Nurse Partition Assembler 02/15/23 02/15/23 Enmanuel Kauffman DPM [address] [place] [address] [address] [place], [place] [phone] Podiatry 05/25/23 documented as of this encounter
--- OUTSIDE RECORDS SUMMARY | 2024-11-14 14:35 | XMS_ITS | Encounter Summary ---
Author Organization [facility] Address [address] [place] [address] Care Team Providers Care Intern Product Marketing Manager Name Role Phone Mayo Kauffman MD Primary Care Provider [phone] Jason Canchola MD Primary Care Provider [phone] Mayo Kauffman MD Primary Care Provider [phone] Provider, Historical Unavailable Unavailable Francisco Reveles MD Unavailable Aidan Ferraro MD Primary Care Provider [phone] Lois Alaniz APRN Primary Care Provider [phone] Alexis Chamberlain MD Unavailable [phone] Aidan Ferraro MD Primary Care Provider [phone] Canelo Avery MD Unavailable [phone] Patricia Hernandez Unavailable Unavailable Jayla Rangel RN Unavailable Unavailable Enmanuel Kauffman DPM Unavailable [phone] Encounter Details Date Type Department Care Team (Late st Contact Info) Description 01/30/2002 Historical Encounter Global Mayo Kauffman MD [address] [place] [address] Social History Tobacco Use Types Packs/Day Years [...] Description 12/11/2024 1:30 PM EDT Office Visit [facility] [address] [address] Jason Moya III, MD [address] [place] [address] [phone] Domenico Upton APRN [address] [place] [address] 01/11/2025 9:30 AM EDT Office Visit [facility] [address] [address] Aidan Ferraro MD [address] [place] [address] [phone] 03/15/2025 11:00 AM EDT Office Visit [facility] [address] [address] Aidan Ferraro MD [address] [place] [address] [phone] documented as of this encounter Visit Diagnoses Not on filedocumented in this encounter Additional Health Concerns Infection Onset Date Last Indicated Resolved Time Covid-19 (confirmed) Comment:Past Acute Phase 03/28/2020 03/28/2020 07/30/2020 9:22 AM EST Covid-19 (rule out) 07/03/2021 07/03/202120 22 9:44 PM EST Covid-19 (confirmed) 07/03/2021 07/03/2021 022 10:14 PM EDT documented as of this encounter Care Teams Intern Product Marketing Manager Relationship Specialty Start Date End Date Mayo Kauffman MD [address] [address] PCP - General 05/25/08 12/11/14 Jason Canchola MD [address] [place] [address] PCP - General 12/12/14 05/19/16 Mayo Kauffman MD [address] [place] [address] PCP - General Cardiology 05/20/16 11/01/17 Aidan Ferraro MD [address] [place] [address] PCP - General Family Medicine 11/02/17 02/22/18 Lois Alaniz APRN [address] [place] [address] PCP - General Family Practice 02/23/18 03/01/20 Aidan Ferraro MD [address] [place] [address] PCP - General Family Medicine 03/02/20 Provider, Historical 08/11/16 Francisco Reveles MD [address] [place] [address] Gastroenterology 08/17/16 Alexis Chamberlain MD [address] [facility] [address] [place] [address] Orthopedic Surgery 09/08/18 Canelo Avery MD [address] [address] [place] [address] Orthopedic Surgery 04/12/20 Patricia Hrenandez 06/03/20 Jayla Rangel, RN Registered Nurse Sleeve Ironer 02/15/23 02/15/23 Enmanuel Kauffman DPM [address] [place] [address] [address] [place], [place] [phone] Podiatry 05/25/23 documented as of this encounter
--- OUTSIDE RECORDS SUMMARY | 2024-11-14 14:35 | XMS_ITS | Encounter Summary ---
Author Organization [facility] Address [address] [place] [address] Care Team Providers Care Biodiesel Plant Operations Engineer Name Role Phone Provider, Historical Unavailable Unavailable Francisco Reveles MD Unavailable Alexis Chamberlain MD Unavailable [phone] Aidan Ferraro MD Primary Care Provider [phone] Canelo Avery MD Unavailable [phone] Patricia Hernandez Unavailable Unavailable Jayla Rangel RN Unavailable Unavailable Enmanuel Kauffman DPM Unavailable [phone] Reason for Referral * Auth/Cert (Routine) - New Request Specialty Diagnoses / Procedures Referred By Ranjeet t Referred To Contact Diagnoses Arthritis of left hip Procedures Surgical Case Request: LEFT TOTAL HIP ARTHROPLASTY, ANSELMO MA TOTAL HIP ARTHROPLASTY Canelo Avery MD [address] [place] [id number] Phone: tel: fax: Referral ID Status Reason Start Date Expiration Date V isits Requested Visits Authorized [id number] New Request 04/29/2020 04/29/2021 1 1 Encounter Details Date Type Department Care Team (Latest Contact Info) Description 04/29/2020 Transcribe Orders [facility] [address] [place] [address] [address] [place] [address] Canelo Avery MD [address] [place] [address] [address] [place], [place] [phone] Arthritis of left hip (Primary Dx) Social History Tobacco Use Types [...] Encounters Date Type Department Care Team (Late Contact Info) Description 12/11/2024 1:30 PM EDT Office Visit [facility] [address], [address] [place] [address] Jason Moya III, MD [address] [place] [address] [address] [place], [place] [phone] Domenico Upton APRN [address] [place], [place] [address] [place] [address] 01/11/2025 9:30 AM EDT [facility] [address] [place] [address], [address] [place] [address] Aidan Ferraro MD [address] [place] [address] 03/15/2025 11:00 AM EDT Office Visit [facility] [address] [place] [address], [facility] [address] [place] [address] Aidan Ferraro MD [address] [place] [address] documented as of this encounter Visit Diagnoses Diagnosis Arthritis of left hip- Primary documented in this encounter Additional Health Concerns Infection Onset Date Last Indicated Resolved Time Covid-19 (confirmed) Comment:Past Acute Phase 03/28/2020 03/28/2020 07/30/2020 9:22 AM EST Covid-19 (rule out) 07/03/2021 07/03/2021 07/03/19 22 9:44 PM EST Covid-19 (confirmed) 07/03/2021 07/03/2021 022 10:14 PM EDT documented as of this encounter Care Teams Biodiesel Plant Operations Engineer Relationship Specialty Start Date End Date Aidan Ferraro MD [address] [place] [address] PCP - General Family Medicine 03/02/20 Provider, Historical 08/11/16 Francisco Reveles MD [address] [place] [address] Gastroenterology 08/17/16 Alexis Chamberlain MD [address] [place] [address] Orthopedic Surgery 09/08/18 Canelo Avery MD [address] [place] [address] Orthopedic Surgery 04/12/20 Patricia Hernandez 06/03/20 Jayla Rangel, ONI Registered Nurse Stranding Machine Operator Helper 02/15/23 02/15/23 Enmanuel Kauffman DPM [address] [place] [address] Podiatry 05/25/23 documented as of this encounter
[2024-11-14 14:36] LABS: Basophils % 0.3 % (0.1-2.0); Eosinophils % 0.4 % (0.1-12.0); Hematocrit 43.9 % (42.0-52.0); Hemoglobin 15.2 g/dL (14.1-18.0); Immature Granulocytes # 0.03 10^3uL; Immature Granulocytes % 0.3 %; Lymphocytes # 1.5 K/mm3 (0.7-4.5); Lymphocytes % 14.9 % (10-50); Mean Corpuscular HGB Conc 34.6 g/dL (31.8-35.4); Mean Corpuscular Hemoglobin 34.1 pg (27.0-31.2); Mean Corpuscular Volume 98.4 fl (80-94); Mean Platelet Volume 8.9 fl (7.4-10.4); Monocytes # 0.7 K/mm3 (0.1-1.0); Monocytes % 6.7 % (1.7-9.3); Neutrophils # 7.7 K/mm3 (1.8-7.8); Neutrophils % 77.4 % (37.0-80.0); Nucleated Red Blood Cells # 0 10^3/uL; Nucleated Red Blood Cells % 0 %; Platelet Count 170 K/mm3 (142-424); Red Blood Count 4.46 M/mm3 (4.60-6.20); Red Cell Distribution Width 13.7 % (11.5-17.5)
--- OUTSIDE RECORDS SUMMARY | 2024-11-14 14:36 | XMS_ITS | Encounter Summary ---
Author Organization [facility] Address [address] [place] [address] Care Team Providers Care Furniture Dipper Name Role Phone Provider, Historical Unavailable Unavailable Francisco Reveles MD Unavailable Lois Alaniz APRN Primary Care Provider [phone] Alexis Chamberlain MD Unavailable [phone] Aidan Ferraro MD Primary Care Provider [phone] Canelo Avery MD Unavailable [phone] Patricia Hernandez Unavailable Unavailable Jayla Rangel RN Unavailable Unavailable Enmanuel Kauffman DPM Unavailable [phone] Encounter Details Date Type Department Care Team (Late st Contact Info) Description 01/17/2020 Orders Only [facility] [address], [address] [place] [address] Tarsha Marquez RN Dizziness; Postural dizziness with presyncope; PAF (paroxysmal atrial fibrillation) Social History Tobacco Use Types Packs/Day Years [...] Description 12/11/2024 1:30 PM EDT Office Visit [facility] [address] [address] Jason Moya III, MD [address] [place] [address] Domenico Upton APRN [address] [place] [address] 01/11/2025 9:30 AM EDT Office Visit [facility] [address] [phone] Aidan Ferraro MD [address] [place] [address] 03/15/2025 11:00 AM EDT Office Visit [facility] [address] [phone] Aidan Ferraro MD [address] [place] [address] documented as of this encounter Procedures Procedure Name Priority Date/Time Associated Diagnosis Comments CARDIAC EVENT MONITOR Routine 01/22/2020 12:35 PM EDT Dizziness Postural dizziness with presyncope PAF (paroxysmal atrial fibrillation) documented in this encounter Results * Cardiac Event Monitor (01/22/2020 12:35 PM EDT) Anatomical Region Laterality Modality Other Impressions 01/22/2020 12:35 PM EDT : Atrial fibrillation with predominately controlled ventricular response and several pauses up to 2.9 seconds during waking hours. JOB #[id number] JV/ac Narrative 01/22/2020 12:35 PM EDT 12-DAY MOBILE CARDIAC TELEMETRY FINDINGS: Patient was monitored from 01/02/2028 to 01/14/2020. Predominant rhythm was atrial fibrillation with controlled ventricular response. Slowest rate was 35 beats per minute and fastest rate was 121 beats per minute. Large majority of heart rates were less than 100 beats per minute. There were several pauses in the patient's atrial fibrillation up to 2.9 seconds at 11:20 in the morning. Ventricular ectopy was rare. There were five brief runs of accelerated idioventricular rhythm. The longest was 10 beats at 9:15 a.m. at a rate of about 80 beats per minute. There were rare ventricular couplets and no true ventricular tachycardia. Domenico Upton APRN CARD NONINVASIVE ORDERABLES F inal Result documented in this encounter Visit Diagnoses Diagnosis Dizziness Dizziness and giddiness Postural dizziness with presyncope PAF (paroxysmal atrial fibrillation) Atrial fibrillation documented in this encounter Additional Health Concerns Infection Onset Date Last Indicated Resolved Time Covid-19 (confirmed) Comment:Past Acute Phase 03/28/2020 03/28/2020 07/30/2020 9:22 AM EST Covid-19 (rule out) 07/03/2021 07/03/2021 07/03/19 22 9:44 PM EST Covid-19 (confirmed) 07/03/2021 07/03/2021 022 10:14 PM EDT documented as of this encounter Care Teams Furniture Dipper Relationship Specialty Start Date End Date Lois Alaniz APRN [address] [place] [address] PCP - General Family Practice 02/23/18 03/01/20 Aidan Ferraro MD [address] [place] [address] PCP - General Family Medicine 03/02/20 Provider, Historical 08/11/16 Francisco Reveles MD [address] [place] [address] Gastroenterology 08/17/16 Alexis Chamberlain MD [address] [place] [address] [address] [place] [address] Orthopedic Surgery 09/08/18 Canelo Avery MD [address] [place] [address] [address] [place], [place] [phone] Orthopedic Surgery 04/12/20 Patricia Hernandez 06/03/20 Jayla Rangel, ONI Registered Nurse Party Plan Sales Unit Advisor 02/15/23 02/15/23 Enmanuel Kauffman DPM [address] [place] [address] 302 [place], [place] [phone] Podiatry 05/25/23 documented as of this encounter
--- OUTSIDE RECORDS SUMMARY | 2024-11-14 14:36 | XMS_ITS | Encounter Summary ---
Author Organization [facility] Address [address] [place] [address] Care Team Providers Care Fuel Technician Name Role Phone Mayo Kauffman MD Primary Care Provider [phone] Jason Canchola MD Primary Care Provider [phone] Mayo Kauffman MD Primary Care Provider [phone] Provider, Historical Unavailable Unavailable Francisco Reveles MD Unavailable Aidan Ferraro MD Primary Care Provider [phone] Lois Alaniz APRN Primary Care Provider [phone] Alexis Chamberlain MD Unavailable [phone] Aidan Ferraro MD Primary Care Provider [phone] Canelo Avery MD Unavailable [phone] Patricia Hernandez Unavailable Unavailable Jayla Rangel RN Unavailable Unavailable Enmanuel Kauffman DPM Unavailable Reason for Visit * Reason Onset Date Comments Medications Refill 10/12/2014 Encounter Details Date Type Department Care Team (Late st Contact Info) Description 10/12/2014 Telephone [facility] [address] [place] [address] Mayo Kauffman MD [address] [place] [address] Medications Refill Social History Tobacco Use Types [...] encounter Miscellaneous Notes * Telephone Encounter - Loren Porter - 10/12/2014 9:11 AM EDT Patient wants Dr Kauffman to call him in [facility], States Dr Kauffman prescribes a sleep aide alreadyfor him. He wants it called into [facility]. Please call [phone]. documented in this encounter Plan of Treatment Upcoming Encounters Date Type Department Care Team (Late st Contact Info) Description 12/11/2024 1:30 PM EDT Office Visit [facility] [address] [address] Jason Moya III, MD [address] [place] [address] Domenico Upton APRN [address] [place], [place] [address] [place] [address] 01/11/2025 9:30 AM EDT Office Visit [facility] Ferraro [address] [address] Aidan Ferraro MD [address] [place] [phone] 03/15/2025 11:00 AM EDT Office Visit [facility] [address] [place] [address] 212 [place] [address] Aidan Ferraro MD [address] [place] [address] documented as of this encounter Visit Diagnoses Not on filedocumented in this encounter Additional Health Concerns Infection Onset Date Last Indicated Resolved Time Covid-19 (confirmed) Comment:Past Acute Phase 03/28/2020 03/28/2020 07/30/2020 9:22 AM EST Covid-19 (rule out) 07/03/2021 07/03/2021 07/03/19 22 9:44 PM EST Covid-19 (confirmed) 07/03/2021 07/03/2021 022 10:14 PM EDT documented as of this encounter Care Teams Fuel Technician Relationship Specialty Start Date End Date Mayo Kauffman MD [address] [place] [address] PCP - General 05/25/08 12/11/14 Jason Canchola MD [facility] [place] [address] PCP - General 12/12/14 05/19/16 Mayo Kauffman MD [address] [place] [address] PCP - General Cardiology 05/20/16 11/01/17 Aidan Ferraro MD [address] [place] [address] PCP - General Family Medicine 11/02/17 02/22/18 Lois Alaniz APRN [address] [place] [address] PCP - General Family Practice 02/23/18 03/01/20 Aidan Ferraro MD 617 [address] [place] [address] PCP - General Family Medicine 03/02/20 Provider, Historical 08/11/16 Francisco Reveles MD 613 [address] [address] [place] [address] Gastroenterology 08/17/16 Alexis Chamberlain MD [address] [place] [address] [address] [place] [address] Orthopedic Surgery 09/08/18 Canelo Avery MD [address] [place] [address] [address] [place] [address] Orthopedic Surgery 04/12/20 Patricia Hernandez 06/03/20 Jayla Rangel, RN Registered Nurse Manager Storage 02/15/23 02/15/23 Enmanuel Kauffman DPM [address] [place] [address] 302 [place] [address] Podiatry 05/25/23 documented as of this encounter
--- OUTSIDE RECORDS SUMMARY | 2024-11-14 14:36 | XMS_ITS | Encounter Summary ---
Author Organization [facility] Address [address] [place] [address] Care Team Providers Care Paint Supervisor Name Role Phone Jason Canchola MD Primary Care Provider Mayo Kauffman MD Primary Care Provider Provider, Historical Unavailable Unavailable Francisco Reveles MD Unavailable Aidan Ferraro MD Primary Care Provider [phone] Lois Alaniz APRN Primary Care Provider Alexis Chamberlain MD Unavailable [phone] Aidan Ferraro MD Primary Care Provider [phone] Canelo Avery MD Unavailable [phone] Patricia Hernandez Unavailable Unavailable Jayla Rangel RN Unavailable Unavailable Enmanuel Kauffman DPM Unavailable [phone] Encounter Details Date Type Department Care Team (Late st Contact Info) Description 04/24/2016 Telephone [facility] [address] [place] [address] Mayo Kauffman MD [address] [place] [address] Social History Tobacco Use Types [...] Telephone Encounter - Brianne Sharp LPN - 04/27/2016 8:09 AM EST Called informed lab orders placed - voiced understanding * Telephone Encounter - Nevin Pagan - 04/24/2016 2:48 PM EST Pt is calling to see if Dr. Kauffman will put in orders so he can get his Cholesterol check, and some other blood work done. He was told by another dr to contact his PCP but pt states he does not haveone and he wants Dr. Kauffman to put this in for him. He would like a call back as soon as possible. documented in this encounter Plan of Treatment Upcoming Encounters Date Type Department Care Team (Late st Contact Info) Description 12/11/2024 1:30 PM EDT Office Visit [facility] [address] [place] [address] Jason Moya III, MD [address] [place] [address] [place] [address] Domenico Upton APRN [address] [place] [address],[address] [place] [address] 01/11/2025 9:30 AM EDT Office Visit [facility] [address], [address] [address] Aidan Ferraro MD [address] [place] [phone] 03/15/2025 11:00 AM EDT Office Visit [facility] [address] [place] [address], [address] [address] Aidan Ferraro MD [address] [place] [address] documented as of this encounter Visit Diagnoses Not on filedocumented in this encounter Additional Health Concerns Infection Onset Date Last Indicated Resolved Time Covid-19 (confirmed) Comment:Past Acute Phase 03/28/2020 03/28/2020 07/30/2020 9:22 AM EST Covid-19 (rule out) 07/03/2021 07/03/2021 07/03/19 22 9:44 PM EST Covid-19 (confirmed) 07/03/2021 07/03/2021 022 10:14 PM EDT documented as of this encounter Care Teams Paint Supervisor Relationship Specialty Start Date End Date Jason Canchola MD [address] [place] [address] PCP - General 12/12/14 05/19/16 Mayo Kauffman MD [address] [place] [address] PCP - General Cardiology 05/20/16 11/01/17 Aidan Ferraro MD [address] [place] [address] PCP - General Family Medicine 11/02/17 02/22/18 Lois Alaniz APRN [address] [place], [place] [address] PCP - General Family Practice 02/23/18 03/01/20 Aidan Ferraro MD [address] [place] [address] PCP - General Family Medicine 03/02/20 Provider, Historical 08/11/16 Francisco Reveles MD [address] [place] [address] 430 [place] [address] Gastroenterology 08/17/16 Alexis Chamberlain MD [address] [place], [place] [address] [place] [address] Orthopedic Surgery 09/08/18 Canelo Avery MD [address] [place], [place] [address] [place] [address] Orthopedic Surgery 04/12/20 Patricia Hernandez 06/03/20 Jayla Rangel, ONI Registered Nurse Solar Project Manager 02/15/23 02/15/23 Enmanuel Kauffman DPM [address] [place] [address] 302 [place] [address] Podiatry 05/25/23 documented as of this encounter
--- OUTSIDE RECORDS SUMMARY | 2024-11-14 14:36 | XMS_ITS | Encounter Summary ---
Author Organization [facility] Address [address] [place] [address] Care Team Providers Care Out Of Town Collection Clerk Name Role Phone Mayo Kauffman MD Primary Care Provider [phone] Jason Canchola MD Primary Care Provider [phone] Mayo Kauffman MD Primary Care Provider [phone] Provider, Historical Unavailable Unavailable Francisco Reveles MD Unavailable Aidan Ferraro MD Primary Care Provider [phone] Lois Alaniz APRN Primary Care Provider [phone] Alexis Chamberlain MD Unavailable [phone] Aidan Ferraro MD Primary Care Provider [phone] Canelo Avery MD Unavailable [phone] Patricia Hernandez Unavailable Unavailable Jayla Rangel RN Unavailable Unavailable Enmanuel Kauffman DPM Unavailable [phone] Encounter Details Date Type Department Care Team (Late st Contact Info) Description 09/12/2014 Transcribe Orders [facility] [address] [place] [address] [place], [place] [phone] Prostate cancer (Primary Dx) Social History Tobacco Use Types [...] Description 12/11/2024 1:30 PM EDT Office Visit [facility] [address] [address] Jason Moya III, MD [address] [place] [phone] Domenico Upton APRN [address] [place] [address] 01/11/2025 9:30 AM EDT Office Visit [address] [address] Aidan Ferraro MD [address] [place] [phone] 03/15/2025 11:00 AM EDT Office Visit [facility] [address] [address] Aidan Ferraro MD [address] [place] [address] documented as of this encounter Results * PSA Screening (09/12/2014 7:10 AM EDT) PSA SCREENING <0.1 0.0 - 4.0 ng/mL 09/12/2014 3:06 PM EDT [facility] 09/12/2014 7:10 AM EDT 09/12/2014 2:18 PM EDT Narrative [facility] - 09/12/2014 3:06 PM EDT fx [phone] [facility] CHEMISTRY ORDERABLES Final Result [facility] [address] [place] [address] documented in this encounter Visit Diagnoses Diagnosis Prostate cancer- Primary Malignant neoplasm of prostate documented in this encounter Additional Health Concerns Infection Onset Date Last Indicated Resolved Time Covid-19 (confirmed) Comment:Past Acute Phase 03/28/2020 03/28/2020 07/30/2020 9:22 AM EST Covid-19 (rule out) 07/03/2021 07/03/2021 07/03/19 22 9:44 PM EST Covid-19 (confirmed) 07/03/2021 07/03/2021 022 10:14 PM EDT documented as of this encounter Care Teams Out Of Town Collection Clerk Relationship Specialty Start Date End Date Mayo Kauffman MD [address] [place] [address] PCP - General 05/25/08 12/11/14 Jason Canchola MD [address] [place] [address] PCP - General 12/12/14 05/19/16 [place] [address] [place] [address] PCP - General Cardiology 05/20/16 11/01/17 Aidan Ferraro MD [address] [place] [address] PCP - General Family Medicine 11/02/17 02/22/18 Lois Alaniz APRN [address] [place] [address] PCP - General Family Practice 02/23/18 03/01/20 Aidan Ferraro MD [address] [place] [address] PCP - General Family Medicine 03/02/20 Provider, Historical 08/11/16 Francisco Reveles MD [address] [place] [address] Gastroenterology 08/17/16 Alexis Chamberlain MD [address] [place] [address] Orthopedic Surgery 09/08/18 Canelo Avery MD [address] [place] [address] Orthopedic Surgery 04/12/20 Patricia Hernandez 06/03/20 Jayla Rangel, ONI Registered Nurse Vehicle Damage Appraiser 02/15/23 02/15/23 Enmanuel Kauffman DPM [address] [place] [address] Podiatry 05/25/23 documented as of this encounter
--- OUTSIDE RECORDS SUMMARY | 2024-11-14 14:36 | XMS_ITS | Encounter Summary ---
Author Organization [facility] Address [address] [place] [address] Care Team Providers Care Coupon Clerk Name Role Phone Provider, Historical Unavailable Unavailable Francisco Reveles MD Unavailable Alexis Chamberlain MD Unavailable [phone] Aidan Ferraro MD Primary Care Provider Canelo Avery MD Unavailable Patricia Hernandez Unavailable Unavailable Jayla Rangel RN Unavailable Unavailable Enmanuel Kauffman DPM Unavailable [phone] Encounter Details Date Type Department Care Team (Late st Contact Info) Description 03/26/2020 Telephone [facility] [address], [address] [place] [address] Jason Moya III, MD [address] [place] [address] [place] [address] Social History Tobacco Use Types Packs/Day [...] or suspected to have Coronavirus / COVID-19? Yes 03/26/2020 4:56 PM EDT documented as of this encounter Miscellaneous Notes * Telephone Encounter - Huma Duque - 03/26/2020 10:17 AM EDT Pt called stating he needs PSA added to his lab order. Please advise. [phone] documented in this encounter Plan of Treatment Upcoming Encounters Date Type Department Care Team (Late st Contact Info) Description 12/11/2024 1:30 PM EDT Office Visit [facility] [address] [phone] Jason Moya III, MD [address] [place] [address] Domenico Upton APRN [address] [place] [address] 01/11/2025 9:30 AM EDT Office Visit [facility] [address] [address] Aidan Ferraro MD [address] [place] [address] 03/15/2025 11:00 AM EDT Office Visit [facility] [address] [address] Aidan Ferraro MD [address] [place] [address] documented as of this encounter Results * PSA Screening (04/18/2020 7:41 AM EST) PSA SCREENING 0.1 0.0 - 4.0 ng/mL 04/18/2020 3:49 PM EST [facility] 04/18/2020 7:41 AM EST 04/18/2020 2:16 PM EST Narrative [facility] - 04/18/2020 3:49 PM EST NO KNOWN ALLERGIES us Shirley Porter THREAT ANALYST CHEMISTRY ORDERABLES Final Result [facility] [address] [place] [address] [facility] [address] [place] [address] documented in this encounter Visit Diagnoses Diagnosis H/O prostate cancer- Primary documented in this encounter Additional Health Concerns Infection Onset Date Last Indicated Resolved Time Covid-19 (confirmed) Comment:Past Acute Phase 03/28/2020 03/28/2020 07/30/2020 9:22 AM EST Covid-19 (rule out) 07/03/2021 07/03/2021 07/03/19 22 9:44 PM EST Covid-19 (confirmed) 07/03/2021 07/03/2021 022 10:14 PM EDT documented as of this encounter Care Teams Coupon Clerk Relationship Specialty Start Date End Date Aidan Ferraro MD [address] [place] [address] PCP - General Family Medicine 03/02/20 Provider, Historical 08/11/16 Francisco Reveles MD [address] [address] Gastroenterology 08/17/16 Alexis Chamberlain MD 613 [address] [address] [place] [address] Orthopedic Surgery 09/08/18 Canelo Avery MD [address] [place] [address] [address] [place] [address] Orthopedic Surgery 04/12/20 Patricia Hernandez 06/03/20 Jayla Rangel RN Registered Nurse Willower 02/15/23 02/15/23 Enmanuel Kauffman DPM [address] [place] [address] 302 [place] [address] Podiatry 05/25/23 documented as of this encounter
--- OUTSIDE RECORDS SUMMARY | 2024-11-14 14:36 | XMS_ITS | Encounter Summary ---
Author Organization [facility] Address [address] [place] [address] Care Team Providers Care Steam Pipe Fitter Name Role Phone Provider, Historical Unavailable Unavailable Francisco Reveles MD Unavailable Lois Alaniz APRN Primary Care Provider [phone] Alexis Chamberlain MD Unavailable [phone] Aidan Ferraro MD Primary Care Provider [phone] Canelo Avery MD Unavailable [phone] Patricia Hernandez Unavailable Unavailable Jayla Rangel RN Unavailable Unavailable Enmanuel Kauffman DPDebbie Unavailable [phone] Reason for Visit * Reason Onset Date Comments Medications Refill 03/23/2019 Encounter Details Date Type Department Care Team (Late st Contact Info) Description 03/23/2019 Refill [facility] [address] [place] [address] Shirley Christensen, ONI Medications Refill Social History Tobacco Use Types [...] Description 12/11/2024 1:30 PM EDT Office Visit [facility] [address] [address] Jason Moya III, MD [address] [place] [address] Domenico Upton APRN [address] [place] [address] 01/11/2025 9:30 AM EDT Office Visit [facility] [address] [address] Aidan Ferraro MD [address] [place] [address] 03/15/2025 11:00 AM EDT Office Visit [facility] [address] [address] Aidan Ferraro MD [address] [place] [address] documented as of this encounter Visit Diagnoses Diagnosis PAF (paroxysmal atrial fibrillation) Atrial fibrillation documented in this encounter Additional Health Concerns Infection Onset Date Last Indicated Resolved Time Covid-19 (confirmed) Comment:Past Acute Phase 03/28/2020 03/28/2020 07/30/2020 9:22 AM EST Covid-19 (rule out) 07/03/2021 07/03/2021 07/03/19 9:44 PM EST Covid-19 (confirmed) 07/03/2021 07/03/2021 022 10:14 PM EDT documented as of this encounter Care Teams Steam Pipe Fitter Relationship Specialty Start Date End Date Lois Alaniz APRN [address] [place] [phone] PCP - General Family Practice 02/23/18 03/01/20 Aidan Ferraro MD [address] [place] [address] PCP - General Family Medicine 03/02/20 Provider, Historical 08/11/16 Francisco Reveles MD [address] [place] [address] Gastroenterology 08/17/16 Alexis Chamberlain MD [address] [place] [address] Orthopedic Surgery 09/08/18 Canelo Avery MD [address] [place] [address] Orthopedic Surgery 04/12/20 Patricia Hernandez 06/03/20 Jayla Rangel, ONI Registered Nurse Surface Grinder 02/15/23 02/15/23 Enmanuel Kauffman DPM [address] [place] [address] 302 [place] [address] Podiatry 05/25/23 documented as of this encounter
--- OUTSIDE RECORDS SUMMARY | 2024-11-14 14:36 | XMS_ITS | Encounter Summary ---
Author Organization [facility] Address [address] [place] [address] Care Team Providers Care Youth Nutritional Monitor Name Role Phone Mayo Kauffman MD Primary Care Provider [phone] Jason Canchola MD Primary Care Provider [phone] Mayo Kauffman MD Primary Care Provider [phone] Provider, Historical Unavailable Unavailable Francisco Reveles MD Unavailable Aidan Ferraro MD Primary Care Provider [phone] Lois Alaniz APRN Primary Care Provider [phone] Alexis Chamberlain MD Unavailable [phone] Aidan Ferraro MD Primary Care Provider [phone] Canelo Avery MD Unavailable [phone] Patricia Hernandez Unavailable Unavailable Jayla Rangel RN Unavailable Unavailable Enmanuel Kauffman DPM Unavailable [phone] Encounter Details Date Type Department Care Team (Late st Contact Info) Description 10/12/2014 Orders Only Cardiac Power Hammer Operator [address] [place] [address] Mayo Kauffman MD [address] [place] [address] Social History Tobacco Use Types Packs/Day Years [...] Description 12/11/2024 1:30 PM EDT Office Visit [facility] [address] [phone] Jason Moya III, MD [address] [place] [phone] Domenico Upton APRN [address] [place] [address] [phone] 01/11/2025 9:30 AM EDT Office Visit [facility] [address] [address] Aidan Ferraro MD [address] [place] [phone] 03/15/2025 11:00 AM EDT Office Visit [facility] [address] [address] Aidan Ferraro MD [address] [place] [address] [phone] documented as of this encounter Visit Diagnoses Not on filedocumented in this encounter Additional Health Concerns Infection Onset Date Last Indicated Resolved Time Covid-19 (confirmed) Comment:Past Acute Phase 03/28/2020 03/28/2020 07/30/2020 9:22 AM EST Covid-19 (rule out) 07/03/2021 07/03/2021 07/03/19 22 9:44 PM EST Covid-19 (confirmed) 07/03/2021 07/03/2021 022 10:14 PM EDT documented as of this encounter Care Teams Youth Nutritional Monitor Relationship Specialty Start Date End Date Mayo Kauffman MD [address] [place] [address] PCP - General 05/25/08 12/11/14 Jason Canchola MD [address] [place] [address] PCP - General 12/12/14 05/19/16 Mayo Kauffman MD [address] [place], [place] [phone] PCP - General Cardiology 05/20/16 11/01/17 Aidan Ferraro MD [address] [place] [address] PCP - General Family Medicine 11/02/17 02/22/18 Lois Alaniz APRN [address] [place] [address] PCP - General Family Practice 02/23/18 03/01/20 Aidan Ferraro MD [address] [place] [address] PCP - General Family Medicine 03/02/20 Provider, Historical 08/11/16 Francisco Reveles MD [address] [place] [address] [place], [place] [phone] Gastroenterology 08/17/16 Alexis Chamberlain MD [address] [place] [address] [address] [place] [address] Orthopedic Surgery 09/08/18 Canelo Avery MD [address] [place] [address] [address] [place], [place] [phone] Orthopedic Surgery 04/12/20 Patricia Hernandez 06/03/20 Jayla Rangel, ONI Registered Nurse Electrical Instrumentation Technician 02/15/23 02/15/23 Enmanuel Kauffman DPM [address] [place] [address] 302 [place], [place] [phone] Podiatry 05/25/23 documented as of this encounter
--- OUTSIDE RECORDS SUMMARY | 2024-11-14 14:36 | XMS_ITS | Encounter Summary ---
Author Organization [facility] Address [address] [place] [address] Care Team Providers Care Oracle Fusion Developer Name Role Phone Jason Canchola MD Primary Care Provider [phone] Mayo Kauffman MD Primary Care Provider [phone] Provider, Historical Unavailable Unavailable Francisco Reveles MD Unavailable Aidan Ferraro MD Primary Care Provider [phone] Lois Alaniz APRN Primary Care Provider Alexis Chamberlain MD Unavailable [phone] Aidan Ferraro MD Primary Care Provider [phone] Canelo Avery MD Unavailable [phone] Patricia Hernandez Unavailable Unavailable Jayla Rangel RN Unavailable Unavailable Enmanuel Kauffman DPDebbie Unavailable [phone] Reason for Visit * Reason Onset Date Comments Other 04/27/2016 Encounter Details Date Type Department Care Team (Late st Contact Info) Description 04/27/2016 Telephone [facility] [place] [address] [place] [address] Mayo Kauffman MD [address] [place] [address] Other Social History Tobacco Use Types Packs/Day [...] encounter Miscellaneous Notes * Telephone Encounter - Debbie Sinhg - 04/27/2016 9:55 AM EST Patient wants to know if Dr Kauffman will put in an order for a PSA to be done on the same day as his other labs. Please call patient to let him know if the order was OK'd and put in. documented in this encounter Plan of Treatment Upcoming Encounters Date Type Department Care Team (Late st Contact Info) Description 12/11/2024 1:30 PM EDT Office Visit [facility] [address] [address] Jason Moya III, MD [address] [place] [address] Domenico Upton APRN [address] [place], [place] [address] [place] [address] 01/11/2025 9:30 AM EDT Office Visit [facility] [address] [phone] Aidan Ferraro MD [address] [place] [address] 03/15/2025 11:00 AM EDT Office Visit MATTHIEU Ferraro [facility] [address] [place] [address], [address] [place] [address] Aidan Ferraro MD [address] [place] [address] documented as of this encounter Visit Diagnoses Not on filedocumented in this encounter Additional Health Concerns Infection Onset Date Last Indicated Resolved Time Covid-19 (confirmed) Comment:Past Acute Phase 03/28/2020 03/28/2020 07/30/2020 9:22 AM EST Covid-19 (rule out) 07/03/2021 07/03/2021 07/03/19 9:44 PM EST Covid-19 (confirmed) 07/03/2021 07/03/2021 022 10:14 PM EDT documented as of this encounter Care Teams Oracle Fusion Developer Relationship Specialty Start Date End Date Jason Canchola MD [address] [place] [address] PCP - General 12/12/14 05/19/16 Mayo Kauffman MD [address] [place] [address] PCP - General Cardiology 05/20/16 11/01/17 Aidan Ferraro MD [address] [place] [address] PCP - General Family Medicine 11/02/17 02/22/18 Lois Alaniz APRN [address] [place] [address] PCP - General Family Practice 02/23/18 03/01/20 Aidan Ferraro MD [address] [place] [address] PCP - General Family Medicine 03/02/20 Provider, Historical 08/11/16 Francisco Reveles MD [address] [place] [address] [address] [place] [address] Gastroenterology 08/17/16 Alexis Chamberlain MD [address] [place], [place] [address] [place] [address] Orthopedic Surgery 09/08/18 Canelo Avery MD [address] [place], [place] [address] [place] [address] Orthopedic Surgery 04/12/20 Patricia Hernandez 06/03/20 Jayla Rangel RN Registered Nurse Air Traffic Coordinator 02/15/23 02/15/23 Enmanuel Kauffman DPM [address] [place] [address] [address] [place] [address] Podiatry 05/25/23 documented as of this encounter
--- OUTSIDE RECORDS SUMMARY | 2024-11-14 14:36 | XMS_ITS | Encounter Summary ---
Author Organization [facility] Address [address] [place] [address] Care Team Providers Care Network Architect Manager Name Role Phone Provider, Historical Unavailable Unavailable Francisco Reveles MD Unavailable Alexis Chamberlain MD Unavailable [phone] Aidan Ferraro MD Primary Care Provider [phone] Canelo Avery MD Unavailable [phone] Patricia Hernandez Unavailable Unavailable Enmanuel Kauffman DPM Unavailable [phone] Encounter Details Date Type Department Care Team (Late st Contact Info) Description 02/23/[address], [address] [place] [address] Ameya Mora MD [address] [place] [address] [address] [place] [address] Social History Tobacco Use Types Packs/Day Years Used Date Smoking Tobacco: Never Smokeless Tobacco: Never Alcohol Use Standard Drinks/Week Comments No 0 (1 standard drink = 0.6 oz pur e alcohol) Humiliation, Afraid, Rape, and Kick questionnair e Answer Date Recorded Within the last year, have y ou been afraid of your partner or ex-partner? No 01/07/2023 Emotionally Abused Not on file 01/07/2023 Physically Abused Not on file 01/07/2023 Sexually Abused Not on file 01/07/2023 Hunger Vital Sign Answer Date Recorded Worried About Running Out of Food in the Last Ye ar Not on file 01/07/2023 Within the past 12 months, t he food you bought just didn't last and you didn't have money to get more. Never true 01/07/2023 PRAPARE - Transportation Answer Date Re corded In the past 12 months, has l ack of transportation kept you from medical appointments or from getting medications? No 01/07/2023 Lack of Transportation (Non-Medical) Not on file 01/07/2023 Housing Stability Vital Sign Answer Roland e Recorded Unable to Pay for Housing in the Last Year Not o n file 01/07/2023 Number of Places Lived in the Last Year Not on f ile 01/07/2023 In the last 12 months, was t here a time when you did not have a steady place to sleep or slept in a retirement (including now)? No 01/07/2023 Sex and Gender Information Value Date Recorded Sex Assigned at Male 09/06/2020 6:36 PM EDT Legal Sex Male 9:18 PM EST Gender Identity Male 09/06/2020 6:36 PM EDT Sexual Orientation Straight 09/06/2020 6: 36 PM EDT documented as of this encounter Miscellaneous Notes * Telephone Encounter - Nika Albarado - 02/23/2023 11:39 AM EDT Michelle the home health nurse called to make Dr. Mora aware that she will be discharging patient from home health today. Due to him no longer being homebound. She stated concerns about the patient driving with some issues the patient had including dizzy spells , Low BP/ HR. He is oriented but still has some confusion. She was just wanting to make the dr aware. She is not requesting a call back however if the dr wishes to speak to her please call [phone] documented in this encounter Plan of Treatment Upcoming Encounters Date Type Department Care Team (Late st Contact Info) Description 12/11/2024 1:30 PM EDT Office Visit [facility] [place] [phone] Jason Moya III, MD [address] [place] [address] [phone] Domenico Upton APRN [address] [place] [phone] 01/11/2025 9:30 AM EDT Office Visit [facility] [address] [address] Aidan Ferraro MD [address] [place], [place] [phone] 03/15/2025 11:00 AM EDT Office Visit [facility] [address] [address] Aidan Ferraro MD [address] [place] [phone] documented as of this encounter Visit Diagnoses Not on filedocumented in this encounter Care Teams Network Architect Manager Relationship Specialty Start Date End Date Aidan Ferraro MD [address] [place] [address] PCP - General Family Medicine 03/02/20 Provider, Historical 08/11/16 Francisco Reveles MD [address] [place] [address] Gastroenterology 08/17/16 Alexis Chamberlain MD [address] [address] [place] [address] Orthopedic Surgery 09/08/18 Canelo Avery MD [address] [address] [place] [address] Orthopedic Surgery 04/12/20 Patricia Hernandez 06/03/20 Enmanuel Kauffman DPM [address] [place] [address] [address] [place], [place] [id number] Podiatry 05/25/23 documented as of this encounter
--- OUTSIDE RECORDS SUMMARY | 2024-11-14 14:36 | XMS_ITS | Encounter Summary ---
Author Organization [facility] Address [address] [place] [address] Care Team Providers Care Pipe Fitter Gas Pipe Name Role Phone Jason Canchola MD Primary Care Provider Mayo Kauffman MD Primary Care Provider [phone] Provider, Historical Unavailable Unavailable Francisco Reveles MD Unavailable Aidan Ferraro MD Primary Care Provider [phone] Lois Alaniz APRN Primary Care Provider Alexis Chamberlain MD Unavailable [phone] Aidan Ferraro MD Primary Care Provider [phone] Canelo Avery MD Unavailable [phone] Patricia Hernandez Unavailable Unavailable Jayla Rangel RN Unavailable Unavailable Enmanuel Kauffman DPM Unavailable [phone] Encounter Details Date Type Department Care Team (Late st Contact Info) Description 05/12/2016 Telephone [facility] [place] [address] [place] [address] Mayo Kauffman MD [address] [place] [address] Social History Tobacco Use Types [...] Telephone Encounter - Brianne Sharp LPN - 05/12/2016 2:16 PM EST Pt informed order placed documented in this encounter Plan of Treatment Upcoming Encounters Date Type Department Care Team (Late st Contact Info) Description 12/11/2024 1:30 PM EDT Office Visit [facility] [address] [address] Jason Moya III, MD [address] [place] [phone] Domenico Upton APRN [address] [place] [address] 01/11/2025 9:30 AM EDT Office Visit [facility] [address] [address] Aidan Ferraro MD [address] [place] [address] 03/15/2025 11:00 AM EDT Office Visit [facility] [address] [address] Aidan Ferraro MD [address] [place] [address] documented as of this encounter Visit Diagnoses Not on filedocumented in this encounter Additional Health Concerns Infection Onset Date Last Indicated Resolved Time Covid-19 (confirmed) Comment:Past Acute Phase 03/28/2020 03/28/2020 07/30/2020 9:22 AM EST Covid-19 (rule out) 07/03/2021 07/03/2021 07/03/19 22 9:44 PM EST Covid-19 (confirmed) 07/03/2021 07/03/2021 022 10:14 PM EDT documented as of this encounter Care Teams Pipe Fitter Gas Pipe Relationship Specialty Start Date End Date Jason Canchola MD [facility] [place] [address] PCP - General 12/12/14 05/19/16 Mayo Kauffman MD [address] [place] [address] PCP - General Cardiology 05/20/16 11/01/17 Aidan Ferraro MD [address] [place] [address] PCP - General Family Medicine 11/02/17 02/22/18 Lois Alaniz APRN [address] [place] [address] PCP - General Family Practice 02/23/18 03/01/20 Aidan Ferraro MD [address] [place] [address] PCP - General Family Medicine 03/02/20 Provider, Historical 08/11/16 Francisco Reveles MD [address] [place] [address] [phone] Gastroenterology 08/17/16 Alexis Chamberlain MD 613 [address] [address] [place] [address] Orthopedic Surgery 09/08/18 Canelo Avery MD 613 [address] [address] [place] [address] Orthopedic Surgery 04/12/20 Patricia Hernandez 06/03/20 Jayla Rangel, RN Registered Nurse Senior Software Architect 02/15/23 02/15/23 Enmanuel Kauffman DPM [address] [place] [address] [address] [place] [address] Podiatry 05/25/23 documented as of this encounter
--- OUTSIDE RECORDS SUMMARY | 2024-11-14 14:36 | XMS_ITS | Encounter Summary ---
Author Organization [facility] Address [address] [place] [address] Care Team Providers Care Security Analyst Name Role Phone Mayo Kauffman MD Primary Care Provider [phone] Jason Canchola MD Primary Care Provider [phone] Mayo Kauffman MD Primary Care Provider [phone] Provider, Historical Unavailable Unavailable Francisco Reveles MD Unavailable Aidan Ferraro MD Primary Care Provider [phone] Lois Alaniz APRN Primary Care Provider [phone] Alexis Chamberlain MD Unavailable [phone] Aidan Ferraro MD Primary Care Provider [phone] Canelo Avery MD Unavailable [phone] Patricia Hernandez Unavailable Unavailable Jayla Rangel RN Unavailable Unavailable Enmanuel Kauffman DPM Unavailable [phone] Reason for Visit * Reason Onset Date Comments Phone Advice For Symptoms 11/05/2014 Encounter Details Date Type Department Care Team (Late st Contact Info) Description 11/05/2014 Telephone [facility] [place] [address] [place] [address] Mayo Kauffman MD [address] [place] [address] Phone Advice For Symptoms Social History Tobacco [...] Telephone Encounter - Brianne Sharp LPN - 11/05/2014 2:59 PM EDT Called and informed pt of orders placed * Telephone Encounter - Brianne Sharp LPN - 11/05/2014 2:58 PM EDT Orders placed for fasting lipid panel & CMP ----- Message ----- From: Brianne Sharp LPN Sent: 11/05/2014 2:24 PM To: Mayo Kauffman MD * Telephone Encounter - Brianne Sharp LPN - 11/05/2014 2:24 PM EDT appt 11/13/14 * Telephone Encounter - Debbie Mathur - 11/05/2014 2:13 PM EDT PT CALLED LIKE TO HAVE A LIPID PANEL ENTERED INTO [email or web address]. PLEASE ADVISE. documented in this encounter Plan of Treatment Upcoming Encounters Date Type Department Care Team (Late st Contact Info) Description 12/11/2024 1:30 PM EDT Office Visit [facility] [address], [address] [place] [address] Jason Moya III, MD [address] [place] [address] Domenico Upton APRN [address] [place], [place] [address] [place] [address] [phone] 01/11/2025 9:30 AM EDT Office Visit [facility] [address] [address] Aidan Ferraro MD [address] [place] [phone] 03/15/2025 11:00 AM EDT Office Visit [facility] [address] [address] Aidan Ferraro MD [address] [place] [address] [phone] documented as of this encounter Visit Diagnoses Not on filedocumented in this encounter Additional Health Concerns Infection Onset Date Last Indicated Resolved Time Covid-19 (confirmed) Comment:Past Acute Phase 03/28/2020 03/28/2020 07/30/2020 9:22 AM EST Covid-19 (rule out) 07/03/2021 07/03/2021 07/03/19 22 9:44 PM EST Covid-19 (confirmed) 07/03/2021 07/03/2021 022 10:14 PM EDT documented as of this encounter Care Teams Security Analyst Relationship Specialty Start Date End Date Mayo Kauffman MD [address] [place] [id number] PCP - General 05/25/08 12/11/14 Jason Canchola MD [address] [place] [address] PCP - General 12/12/14 05/19/16 Mayo Kauffman MD [address] [place] [address] PCP - General Cardiology 05/20/16 11/01/17 Aidan Ferraro MD [address] [address] PCP - General Family Medicine 11/02/17 02/22/18 Lois Alaniz APRN [address] [place] [address] PCP - General Family Practice 02/23/18 03/01/20 Aidan Ferraro MD [address] [address] PCP - General Family Medicine 03/02/20 Provider, Historical 08/11/16 Francisco Reveles MD [address] [place] [address] Gastroenterology 08/17/16 Alexis Chamberlain MD [address] [facility] [address] [address] Orthopedic Surgery 09/08/18 Canelo Avery MD [address] [address] Orthopedic Surgery 04/12/20 Patricia Hernandez 06/03/20 Jayla Rangel, RN Registered Nurse Geriatric Care Manager 02/15/23 02/15/23 Enmanuel Kauffman DPM [address] [place] [address] Podiatry 05/25/23 documented as of this encounter
--- OUTSIDE RECORDS SUMMARY | 2024-11-14 14:36 | XMS_ITS | Encounter Summary ---
Author Organization [facility] Address [address] [place] [address] Care Team Providers Care Computer Builder Name Role Phone Mayo Kauffman MD Primary Care Provider [phone] Jason Canchola MD Primary Care Provider [phone] Mayo Kauffman MD Primary Care Provider [phone] Provider, Historical Unavailable Unavailable Francisco Reveles MD Unavailable Aidan Ferraro MD Primary Care Provider [phone] Lois Alaniz APRN Primary Care Provider [phone] Alexis Chamberlain MD Unavailable [phone] Aidan Ferraro MD Primary Care Provider [phone] Canelo Avery MD Unavailable [phone] Patricia Hernandez Unavailable Unavailable Jayla Rangel RN Unavailable Unavailable Enmanuel Kauffman DPM Unavailable [phone] Encounter Details Date Type Department Care Team (Late st Contact Info) Description 11/03/2012 Telephone MED ASSESSMENT SUITE Jacklyn Mallory, RN Social History Tobacco Use Types Packs/Day Years [...] encounter Miscellaneous Notes * Telephone Encounter - Jacklyn Mallory RN - 11/03/2012 3:45 PM EDT Attempted call pertaining to cardiac procedure. Unavailable, (not home.) documented in this encounter Plan of Treatment Upcoming Encounters Date Type Department Care Team (Late st Contact Info) Description 12/11/2024 1:30 PM EDT Office Visit [facility] [address] [address] Jason Moya III, MD [address] [place] [address] Domenico Upton APRN [address] [place], [place] [address] [place] [address] 01/11/2025 9:30 AM EDT Office Visit [facility] [address] [address] Aidan Ferraro MD [address] [place] [address] 03/15/2025 11:00 AM EDT Office Visit [facility] [address] [address] Aidan Ferraro MD [address] [place] [address] documented as of this encounter Visit Diagnoses Not on filedocumented in this encounter Additional Health Concerns Infection Onset Date Last Indicated Resolved Time Covid-19 (confirmed) Comment:Past Acute Phase 03/28/2020 03/28/2020 07/30/2020 9:22 AM EST Covid-19 (rule out) 07/03/2021 07/03/2021 07/03/19 22 9:44 PM EST Covid-19 (confirmed) 07/03/2021 07/03/2021 022 10:14 PM EDT documented as of this encounter Care Teams Computer Builder Relationship Specialty Start Date End Date Mayo Kauffman MD [address] [address] PCP - General 05/25/08 12/11/14 Jason Canchola MD [address] [place] [address] PCP - General 12/12/14 05/19/16 Mayo Kauffman MD [address] [place] [address] PCP - General Cardiology 05/20/16 11/01/17 Aidan Ferarro MD [address] [place] [address] PCP - General Family Medicine 11/02/17 02/22/18 Lois Alaniz APRN [address] [place] [address] PCP - General Family Practice 02/23/18 03/01/20 Aidan Ferraro MD [address] [place] [address] PCP - General Family Medicine 03/02/20 Provider, Historical 08/11/16 Francisco Reveles MD [address] [place] [address] Gastroenterology 08/17/16 Alexis Chamberlain MD [address] [facility] [address] [place] [address] Orthopedic Surgery 09/08/18 Canelo Avery MD [address] [address] [place] [address] Orthopedic Surgery 04/12/20 Patricia Hernandez 06/03/20 Jayla Rangel, RN Registered Nurse Broom Maker 02/15/23 02/15/23 Enmanuel Kauffman DPM [address] [place] [address] [address] [place], [place] [phone] Podiatry 05/25/23 documented as of this encounter
--- OUTSIDE RECORDS SUMMARY | 2024-11-14 14:36 | XMS_ITS | Encounter Summary ---
Author Organization [facility] Address [address] [place] [address] Care Team Providers Care Magazine Designer Name Role Phone Provider, Historical Unavailable Unavailable Francisco Reveles MD Unavailable Alexis Chamberlain MD Unavailable [phone] Aidan Ferraro MD Primary Care Provider Canelo Avery MD Unavailable [phone] Patricia Hernandez Unavailable Unavailable Jayla Rangel RN Unavailable Unavailable Enmanuel Kauffman DPM Unavailable Encounter Details Date Type Department Care Team (Late st Contact Info) Description 06/03/2020 Telephone [facility] Orthopedics 613 [address], [address] [place] [address] Patricia Hernandez Social History Tobacco Use Types Packs/Day Years [...] encounter Miscellaneous Notes * Telephone Encounter - Patricia Hernandez - 06/03/2020 2:39 PM EST Patients sx (total) on 06/11/20 was cx due to hospital not allowing patients to be admitted after sx at this time. Once the hospital lifts this policy we will put him back on the sx schedule. documented in this encounter Plan of Treatment Upcoming Encounters Date Type Department Care Team (Late st Contact Info) Description 12/11/2024 1:30 PM EDT Office Visit [facility] [address] [address] Jason Moya III, MD [address] [place] [address] Domenico Upton APRN [address] [place] [address] 01/11/2025 9:30 AM EDT Office Visit [facility] [place] [address] [phone] Aidan Ferraro MD [address] [place] [address] 03/15/2025 11:00 AM EDT Office Visit [facility] [place] [address] [address] Aidan Ferraro MD [address] [place] [address] documented as of this encounter Visit Diagnoses Not on filedocumented in this encounter Additional Health Concerns Infection Onset Date Last Indicated Resolved Time Covid-19 (confirmed) Comment:Past Acute Phase 03/28/2020 03/28/2020 07/30/2020 9:22 AM EST Covid-19 (rule out) 07/03/2021 07/03/2021 07/03/19 22 9:44 PM EST Covid-19 (confirmed) 07/03/2021 07/03/2021 022 10:14 PM EDT documented as of this encounter Care Teams Magazine Designer Relationship Specialty Start Date End Date Aidan Ferraro MD [address] [address] PCP - General Family Medicine 03/02/20 Provider, Historical 08/11/16 Francisco Reveles MD [address] [place] [address] [address] [place] [address] Gastroenterology 08/17/16 Alexis Chamberlain MD [address] [place] [address] Orthopedic Surgery 09/08/18 Canelo Avery MD [address] [place] [address] Orthopedic Surgery 04/12/20 Patricia Hernandez 06/03/20 Jayla Rangel, RN Registered Nurse Icer Machine 02/15/23 02/15/23 Enmanuel Kauffman DPM [address] [place] [address] [address] [place] [address] Podiatry 05/25/23 documented as of this encounter
--- OUTSIDE RECORDS SUMMARY | 2024-11-14 14:36 | XMS_ITS | Encounter Summary ---
Author Organization [facility] Address [address] [place] [address] Care Team Providers Care Interactive Account Manager Name Role Phone Mayo Kauffman MD Primary Care Provider [phone] Jason Canchola MD Primary Care Provider [phone] Mayo Kauffman MD Primary Care Provider [phone] Provider, Historical Unavailable Unavailable Francisco Reveles MD Unavailable Aidan Ferraro MD Primary Care Provider [phone] Lois Alaniz APRN Primary Care Provider [phone] Alexis Chamberlain MD Unavailable [phone] Aidan Ferraro MD Primary Care Provider [phone] Canelo Avery MD Unavailable [phone] Patricia Hernandez Unavailable Unavailable Jayla Rangel RN Unavailable Unavailable Enmanuel Kauffman DPM Unavailable [phone] Encounter Details Date Type Department Care Team (Latest Contact Info) Description 11/28/2013 Transcribe Orders [facility] [address] [place] [address] Chano Villeda MD [address] [place] [address] Abnormal PSA (Primary Dx) Social History Tobacco Use Types [...] 1:30 PM EDT Office Visit [facility] [address] [address] Jason Moya III, MD [address] [place] [address] [phone] Domenico Upton APRN [address] [place] [address] 01/11/2025 9:30 AM EDT Office Visit [facility] [address] [address] Aidan Ferraro MD [address] [place] [address] [phone] 03/15/2025 11:00 AM EDT Office Visit [facility] [address] [address] Aidan Ferraro MD [address] [place] [address] documented as of this encounter Results * (ABNORMAL) PSA, Diagnostic (11/28/2013 7:15 AM EDT) PSA 8.1(H) 0.0 - 4.0 ng/mL 11/28/2013 2:32 PM EDT [facility] 11/28/2013 7:15 AM EDT 11/28/2013 1:53 PM EDT Narrative [facility] - 11/28/2013 2:32 PM EDT Fax to [phone] us Chano Villeda MD CHEMISTRY ORDERABLES Fi nal Result [facility] [address] [place] [address] documented in this encounter Visit Diagnoses Diagnosis Abnormal PSA- Primary Elevated prostate specific antigen (PSA) documented in this encounter Additional Health Concerns Infection Onset Date Last Indicated Resolved Time Covid-19 (confirmed) Comment:Past Acute Phase 03/28/2020 03/28/2020 07/30/2020 9:22 AM EST Covid-19 (rule out) 07/03/2021 07/03/2021 07/03/19 22 9:44 PM EST Covid-19 (confirmed) 07/03/2021 07/03/2021 022 10:14 PM EDT documented as of this encounter Care Teams Interactive Account Manager Relationship Specialty Start Date End Date Mayo Kauffman MD [address] [place] [address] PCP - General 05/25/08 12/11/14 Jason Canchola MD [facility] [place] [address] PCP - General 12/12/14 05/19/16 Mayo Kauffman MD [address] [place] [address] PCP - General Cardiology 05/20/16 11/01/17 Aidan Ferraro MD [address], [place] [address] PCP - General Family Medicine 11/02/17 02/22/18 Lois Alaniz APRN [address] [place] [address] PCP - General Family Practice 02/23/18 03/01/20 Aidan Ferraro MD [address] [place] [address] PCP - General Family Medicine 03/02/20 Provider, Historical 08/11/16 Francisco Reveles MD [address] [address] [place] [address] Gastroenterology 08/17/16 Alexis Chamberlain MD [address] [place] [address] [address] [place] [address] Orthopedic Surgery 09/08/18 Canelo Avery MD [address] [place], [place] [address] [place] [address] Orthopedic Surgery 04/12/20 Patricia Hernandez 06/03/20 Jayla Rangel, RN Registered Nurse Physicist Acoustics 02/15/23 02/15/23 Enmanuel Kauffman DPM 1000 [facility] 302 [place] [address] Podiatry 05/25/23 documented as of this encounter
--- OUTSIDE RECORDS SUMMARY | 2024-11-14 14:36 | XMS_ITS | Encounter Summary ---
Author Organization [facility] Address [address] [place] [address] Care Team Providers Care Mechanical Door Repairer Name Role Phone Jason Canchola MD Primary Care Provider [phone] Mayo Kauffman MD Primary Care Provider [phone] Provider, Historical Unavailable Unavailable Francisco Reveles MD Unavailable Aidan Ferraro MD Primary Care Provider [phone] Lois Alnaiz APRN Primary Care Provider Alexis Chamberlain MD Unavailable [phone] Aidan Ferraro MD Primary Care Provider [phone] Canelo Avery MD Unavailable [phone] Patricia Hernandez Unavailable Unavailable Jayla Rangel RN Unavailable Unavailable Enmanuel Kauffman DPM Unavailable [phone] Reason for Visit * Reason Onset Date Comments Results - Lab 10/08/2015 told pt his cret up. send to evelio [id number] Encounter Details Date Type Department Care Team (Late st Contact Info) Description 10/08/2015 Telephone [facility] [address] [place] [address] [place] [address] Rafael Mcbride MD [address] [place] [address] Results - Lab (told pt his cret up. send to hugo [id number]) Social History Tobacco Use Types Packs/Day Years [...] Description 12/11/2024 1:30 PM EDT Office Visit [facility] [address] [address] Jason Moya III, MD [address] [place] [address] Domenico Upton APRN [address] [place] [address] 01/11/2025 9:30 AM EDT Office Visit [facility] [address] [address] Aidan Ferraro MD [address] [place] [address] [phone] 03/15/2025 11:00 AM EDT Office Visit [facility] [place] [address] [phone] Aidan Ferraro MD [address] [place] [address] [phone] documented as of this encounter Visit Diagnoses Not on filedocumented in this encounter Additional Health Concerns Infection Onset Date Last Indicated Resolved Time Covid-19 (confirmed) Comment:Past Acute Phase 03/28/2020 03/28/2020 07/30/2020 9:22 AM EST Covid-19 (rule out) 07/03/2021 07/03/2021 07/03/19 22 9:44 PM EST Covid-19 (confirmed) 07/03/2021 07/03/2021 022 10:14 PM EDT documented as of this encounter Care Teams Mechanical Door Repairer Relationship Specialty Start Date End Date Jason Canchola MD [facility] [place] [address] PCP - General 12/12/14 05/19/16 [place] [address] [place] [address] PCP - General Cardiology 05/20/16 11/01/17 Aidan Ferraro MD [address] [place] [address] PCP - General Family Medicine 11/02/17 02/22/18 Lois Alaniz APRN [address] [place] [address] PCP - General Family Practice 02/23/18 03/01/20 Aidan Ferraro MD [address] [place] [address] PCP - General Family Medicine 03/02/20 Provider, Historical 08/11/16 Francisco Reveles MD [address] [address] Gastroenterology 08/17/16 Alexis Chamberlain MD 613 [address] [address] [place], [place] [phone] Orthopedic Surgery 09/08/18 Canelo Avery MD [address] [place] [address] Orthopedic Surgery 04/12/20 Patricia Hernandez 06/03/20 Jayla Rangel, RN Registered Nurse Adult Specialist 02/15/23 02/15/23 Enmanuel Kauffman DPM [address] [place] [address] [address] [place], [place] [phone] Podiatry 05/25/23 documented as of this encounter
--- OUTSIDE RECORDS SUMMARY | 2024-11-14 14:36 | XMS_ITS | Encounter Summary ---
Author Organization [facility] Address [address] [place] [address] Care Team Providers Care Spreader Box Operator Name Role Phone Jason Canchola MD Primary Care Provider [phone] Mayo Kauffman MD Primary Care Provider [phone] Provider, Historical Unavailable Unavailable Francisco Reveles MD Unavailable Aidan Ferraro MD Primary Care Provider [phone] Lois Alaniz APRN Primary Care Provider Alexis Chamberlain MD Unavailable [phone] Aidan Ferraro MD Primary Care Provider [phone] Canelo Avery MD Unavailable [phone] Patricia Hernandez Unavailable Unavailable Jayla Rangel RN Unavailable Unavailable Enmanuel Kauffman DPM Unavailable [phone] Encounter Details Date Type Department Care Team (Late st Contact Info) Description 05/12/2016 Orders Only [facility] [place] [address] [place] [address] Mayo Kauffman MD [address] [place] [address] Enlarged prostate (Primary Dx) Social History Tobacco Use Types [...] Description 12/11/2024 1:30 PM EDT Office Visit [facility] [address] [address] Jason Moya III, MD [address] [place] [address] [phone] Domenico Upton APRN [address] [place] [address] [phone] 01/11/2025 9:30 AM EDT Office Visit [facility] [address] [address] Aidan Ferraro MD [address] [place] [address] [phone] 03/15/2025 11:00 AM EDT Office Visit [facility] [address] Aidan Ferraro MD [address] [place] [address] documented as of this encounter Results * PSA, Diagnostic (05/13/2016 7:04 AM EST) PSA <0.1 0.0 - 4.0 ng/mL 05/13/2016 3:12 PM EST [facility] 05/13/2016 7:04 AM EST 05/13/2016 2:32 PM EST Narrative [facility] - 05/13/2016 3:12 PM EST NO KNOWN ALLERGIES Mayo Kauffman MD CHEMISTRY ORDERABLES Final Resul t Performing Organization Address [facility] de Phone Number [facility] [address] [place] [address] * PSA Free (05/13/2016 7:04 AM EST) PSA, TOTAL <0.1 0.0 - 4.0 ng/mL 05/13/2016 4:53 PM EST [facility] PSA, FREE 0.0 ng/mL 05/13/2016 4:53 PM EST [facility] Comment: Ratio is not calculated because clinical usefulness is not defined except in the range of total PSA 4-10 ng/mL. Corrected result;Previously reported as 0.0, by JRA at 16:53 on 05/13/16 05/13/2016 7:04 AM EST 05/13/2016 2:32 PM EST Narrative [facility] - 05/13/2016 4:53 PM EST NO KNOWN ALLERGIES Mayo Kauffman MD LAB SEND OUT ORDERABLES Edited R esult - Final Performing Organization Address [facility] de Phone Number [facility] [address] [place] [address] documented in this encounter Visit Diagnoses Diagnosis Enlarged prostate- Primary Hypertrophy of prostate without urinary obstruction and other lower urinary tract symptoms (LUTS) documented in this encounter Additional Health Concerns Infection Onset Date Last Indicated Resolved Time Covid-19 (confirmed) Comment:Past Acute Phase 03/28/2020 03/28/2020 07/30/2020 9:22 AM EST Covid-19 (rule out) 07/03/2021 07/03/2021 07/03/19 22 9:44 PM EST Covid-19 (confirmed) 07/03/2021 07/03/202108/21/ 022 10:14 PM EDT documented as of this encounter Care Teams Spreader Box Operator Relationship Specialty Start Date End Date Jason Canchola MD [address] [place] [address] PCP - General 12/12/14 05/19/16 [place] [address] [place] [address] PCP - General Cardiology 05/20/16 11/01/17 Aidan Ferraro MD [address] [place] [address] PCP - General Family Medicine 11/02/17 02/22/18 Lois Alaniz APRN [address] [place] [address] PCP - General Family Practice 02/23/18 03/01/20 Aidan Ferraro MD [address] [address] PCP - General Family Medicine 03/02/20 Provider, Historical 08/11/16 Francisco Reveles MD 613 [address] [address] [place] [address] Gastroenterology 08/17/16 Alexis Chamberlain MD [address] [address] [address] Orthopedic Surgery 09/08/18 Canelo Avery MD [address] [address] Orthopedic Surgery 04/12/20 Patricia Hernandez 06/03/20 Jayla Rangel, ONI Registered Nurse Manager Mechanical Maintenance 02/15/23 02/15/23 Enmanuel Kauffman DPM [address] [place] [address] Podiatry 05/25/23 documented as of this encounter
--- OUTSIDE RECORDS SUMMARY | 2024-11-14 14:36 | XMS_ITS | Encounter Summary ---
Author Organization [facility] Address [address] [place] [address] Care Team Providers Care Process Project Engineer Name Role Phone Jason Canchola MD Primary Care Provider [phone] Mayo Kauffman MD Primary Care Provider [phone] Provider, Historical Unavailable Unavailable Francisco Reveles MD Unavailable Aidan Ferraro MD Primary Care Provider [phone] Lois Alaniz APRN Primary Care Provider Alexis Chamberlain MD Unavailable [phone] Aidan Ferraro MD Primary Care Provider [phone] Canelo Avery MD Unavailable [phone] Patricia Hernandez Unavailable Unavailable Jayla Rangel RN Unavailable Unavailable Enmanuel Kauffman DPDebbie Unavailable [phone] Encounter Details Date Type Department Care Team (Late st Contact Info) Description 04/27/2016 Orders Only [facility] [place] [address] [place] [address] Isabell Prakash, FERNY 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) Social History Tobacco Use Types [...] Description 12/11/2024 1:30 PM EDT Office Visit [facility] [address] [address] Jason Moya III, MD [address] [place] [address] [phone] Domenico Upton APRN [address] [place] [address] 01/11/2025 9:30 AM EDT Office Visit [facility] [address] Aidan Ferraro MD [address] [place] [address] 03/15/2025 11:00 AM EDT Office Visit [facility] [address] [address] Aidan Ferraro MD [address] [place] [address] [phone] documented as of this encounter Visit Diagnoses Diagnosis Benign non-nodular prostatic hyperplasia with lower urinary tract symptoms- Primary documented in this encounter Additional Health Concerns Infection Onset Date Last Indicated Resolved Time Covid-19 (confirmed) Comment:Past Acute Phase 03/28/2020 03/28/2020 07/30/2020 9:22 AM EST Covid-19 (rule out) 07/03/2021 07/03/2021 07/03/19 22 9:44 PM EST Covid-19 (confirmed) 07/03/2021 07/03/2021 022 10:14 PM EDT documented as of this encounter Care Teams Process Project Engineer Relationship Specialty Start Date End Date Jason Canchola MD [address] [place] [address] PCP - General 12/12/14 05/19/16 [place] [address] [place] [address] PCP - General Cardiology 05/20/16 11/01/17 Aidan Ferraro MD [address] [place] [address] PCP - General Family Medicine 11/02/17 02/22/18 Lois Alaniz APRN [address] [place] [address] PCP - General Family Practice 02/23/18 03/01/20 Aidan Ferraro MD [address] [address] PCP - General Family Medicine 03/02/20 Provider, Historical 08/11/16 Francisco Reveles MD [address] [address] Gastroenterology 08/17/16 Alexis Chamberlain MD [address] [facility] [address] [place] [address] Orthopedic Surgery 09/08/18 Canelo Avery MD 613 [address] [address] [place], [place] [phone] Orthopedic Surgery 04/12/20 Patricia Hernandez 06/03/20 Jayla Rangel RN Registered Nurse Dealer Card Room 02/15/23 02/15/23 Enmanuel Kauffman DPM [address] [place] [address] [address] [place], [place] [phone] Podiatry 05/25/23 documented as of this encounter
--- OUTSIDE RECORDS SUMMARY | 2024-11-14 14:36 | XMS_ITS | Encounter Summary ---
Author Organization [facility] Address [address] [place] [address] Care Team Providers Care Grocery Deliverer Name Role Phone Jason Canchola MD Primary Care Provider [phone] Mayo Kauffman MD Primary Care Provider [phone] Provider, Historical Unavailable Unavailable Francisco Reveles MD Unavailable Aidan Ferraro MD Primary Care Provider [phone] Lois Alaniz APRN Primary Care Provider Alexis Chamberlain MD Unavailable [phone] Aidan Ferraro MD Primary Care Provider [phone] Canelo Avery MD Unavailable [phone] Patricia Hernandez Unavailable Unavailable Jayla Rangel RN Unavailable Unavailable Enmanuel Kauffman DPDebbie Unavailable [phone] Reason for Visit * Reason Onset Date Comments Medications Refill 04/08/2015 Encounter Details Date Type Department Care Team (Late st Contact Info) Description 04/08/2015 Refill [facility] [address] [place] [address] Rosita Nolen LPN Medications Refill Social History Tobacco Use Types [...] [facility] [address] [address] Jason Moya III, MD [address] [place] [address] Domenico Upton APRN [address] [place] [address] 01/11/2025 9:30 AM EDT Office Visit [facility] [address] [phone] Aidan Ferraro MD [address] [place] [address] 03/15/2025 11:00 AM EDT Office Visit [facility] [address] [place] [phone] Aidan Ferraro MD [address] [place] [phone] documented as of this encounter Visit Diagnoses Not on filedocumented in this encounter Additional Health Concerns Infection Onset Date Last Indicated Resolved Time Covid-19 (confirmed) Comment:Past Acute Phase 03/28/2020 03/28/2020 07/30/2020 9:22 AM EST Covid-19 (rule out) 07/03/2021 07/03/2021 07/03/19 22 9:44 PM EST Covid-19 (confirmed) 07/03/2021 07/03/2021 022 10:14 PM EDT documented as of this encounter Care Teams Grocery Deliverer Relationship Specialty Start Date End Date Jason Canchola MD [address] [place] [address] PCP - General 12/12/14 05/19/16 Mayo Kauffman MD [address] [place] [address] PCP - General Cardiology 05/20/16 11/01/17 Aidan Ferraro MD [address] [address] PCP - General Family Medicine 11/02/17 02/22/18 Lois Alaniz APRN [address] [place] [address] PCP - General Family Practice 02/23/18 03/01/20 Aidan Ferraro MD [address] [address] PCP - General Family Medicine 03/02/20 Provider, Historical 08/11/16 Francisco Reveles MD [address] [address] Gastroenterology 08/17/16 Alexis Chamberlain MD [address] [facility] [address] [place] [address] Orthopedic Surgery 09/08/18 Canelo Avery MD [address] 23[facility] [address] [place], [place] 20[address] Orthopedic Surgery 04/12/20 Patricia Hernandez 06/03/20 Jayla Rangel RN Registered Nurse Sap Director 02/15/23 02/15/23 Enmanuel Kauffman DPM [address] [place] [address] [address] [place], [place] [phone] Podiatry 05/25/23 documented as of this encounter
--- OUTSIDE RECORDS SUMMARY | 2024-11-14 14:36 | XMS_ITS | Encounter Summary ---
Author Organization [facility] Address [address] [place] [address] Care Team Providers Care Retort Loader Name Role Phone Jason Canchola MD Primary Care Provider [phone] Mayo Kauffman MD Primary Care Provider Provider, Historical Unavailable Unavailable Francisco Reveles MD Unavailable Aidan Ferraro MD Primary Care Provider [phone] Lois Alaniz APRN Primary Care Provider Alexis Chamberlain MD Unavailable [phone] Aidan Ferraro MD Primary Care Provider [phone] Canelo Avery MD Unavailable [phone] Patricia Hernandez Unavailable Unavailable Jayla Rangel RN Unavailable Unavailable Enmanuel Kauffman DPDebbie Unavailable [phone] Encounter Details Date Type Department Care Team (Late st Contact Info) Description 04/24/2016 Orders Only [facility] [address] [place] [address] Mayo Kauffman MD [address] [place] [address] Coronary artery disease involving [place] coronary artery of [place] heart without angina pectoris; Mixed hyperlipidemia; Essential hypertension Social History Tobacco Use Types Packs/Day Years [...] Description 12/11/2024 1:30 PM EDT Office Visit [facility] [address] [address] Jason Moya III, MD [address] [place] [address] [phone] Domenico Upton APRN [address] [place] [address] 01/11/2025 9:30 AM EDT Office Visit [address] [address] Aidan Ferraro MD [address] [place] [address] [phone] 03/15/2025 11:00 AM EDT Office Visit [address] [address] Aidan Ferraro MD [address] [place] [address] [phone] documented as of this encounter Results * (ABNORMAL) Lipid Panel (05/13/2016 7:04 AM EST) CHOLESTEROL 250(H) 10 - 200 mg/dL 05/13/2016 2:51 PM EST [facility] TRIGLYCERIDE 356(H) 46 - 236 mg/dL 05/13/2016 2:51 PM EST [facility] HDL 35.0 27.0 - 67.0 mg/dL 05/13/2016 2:51 PM EST [facility] VLDL 71.2 mg/dL 05/13/2016 2:51 PM EST [facility] LDL 143.8 mg/dL 05/13/2016 2:51 PM EST [facility] Comment: CAP STANDARDIZED LDL-CHOLESTEROL VALUES <130-DESIRABLE 130-159 BORDERLINE/HIGH RISK >160-HIGH RISK RISK 1, MALE 7.14 05/13/2016 2:51 PM EST [facility] Comment: TOTAL CHOL/HDL 1/2 AVERAGE 3.43 AVERAGE 4.97 2 X AVERAGE 9.55 3 X AVERAGE 23.39 RISK 2, MALE 4.11 05/13/2016 2:51 PM EST [facility] Comment: LDL/HDL 1/2 AVERAGE 1.00 AVERAGE 3.55 2 X AVERAGE 6.25 3 X AVERAGE 7.99 RISK 1, FEMALE 7.14 05/13/2016 2:51 PM EST [facility] Comment: TOTAL CHOL/HDL 1/2 AVERAGE 3.27 AVERAGE 4.44 2 X AVERAGE 7.05 3 X AVERAGE 11.04 RISK 2, FEMALE 4.11 05/13/2016 2:51 PM EST [facility] Comment: LDL/HDL 1/2 AVERAGE 1.47 AVERAGE 3.22 2 X AVERAGE 5.03 3 X AVERAGE 6.14 05/13/2016 7:04 AM EST 05/13/2016 2:32 PM EST Narrative [facility] - 05/13/2016 2:51 PM EST NO KNOWN ALLERGIES us Mayo Kauffman MD CHEMISTRY ORDERABLES Final Resul t [facility] [address] [place] [address] * (ABNORMAL) Comprehensive Metabolic Panel (05/13/2016 7:04 AM EST) SODIUM 141 135 - 145 mmol/L 05/13/2016 2:51 PM EST [facility] POTASSIUM 4.4 3.6 - 5.0 mmol/L 05/13/2016 2:51 PM EST [facility] CHLORIDE 104 101 - 111 mmol/L 05/13/2016 2:51 PM EST [facility] CO2 29 21 - 31 mmol/L 05/13/2016 2:51 PM EST [facility] ANION GAP 8 05/13/2016 2:51 PM EST [facility] GLUCOSE 103 70 - 110 mg/dL 05/13/2016 2:51 PM EST [facility] CREATININE 1.3(H) 0.6 - 1.2 mg/dL 05/13/2016 2:51 PM EST [facility] BUN 16 6 - 20 mg/dL 05/13/2016 2:51 PM EST [facility] CALCIUM 9.9 8.5 - 10.5 mg/dL 05/13/2016 2:51 PM EST [facility] PROTEIN TOTAL 7.3 6.7 - 8.2 g/dL 05/13/2016 2:51 PM EST [facility] Albumin 4.3 3.2 - 5.0 g/dL 05/13/2016 2:51 PM EST [facility] T BILIRUBIN 0.4 0.2 - 1.0 mg/dL 05/13/2016 2:51 PM EST [facility] ALP 109 42 - 121 [iU]/L 05/13/2016 2:51 PM EST [facility] AST 29 10 - 42 [iU]/L 05/13/2016 2:51 PM EST [facility] ALT (SGPT) 47 10 - 60 [iU]/L 05/13/2016 2:51 PM EST [facility] OSMOLALITY 283 266 - 309 05/13/2016 2:51 PM EST [facility] A/G Ratio 1.4 05/13/2016 2:51 PM EST [facility] B/C 12 10 - 20 05/13/2016 2:51 PM EST [facility] ESTIMATED GFR 53 mL/min 05/13/2016 2:51 PM EST [facility] Comment: *The estimated Glomerular Filtration Rate(EGFR) may not be accurate for children under the age of 18 yrs. To estimate the GFR for -Americans multiply the result provided by 1.21. Stage 1 90 mL/min or greater Stage 2 60-89 mL/min Stage 3 30-59 mL/min Stage 4 15-29 mL/min Stage 5 14 mL/min or less 05/13/2016 7:04 AM EST 05/13/2016 2:32 PM EST Narrative [facility] - 05/13/2016 2:51 PM EST NO KNOWN ALLERGIES us Mayo Kauffman MD CHEMISTRY ORDERABLES Final Resul t [facility] [address] [place] [address] * (ABNORMAL) CBC (05/13/2016 7:04 AM EST) WBC 4.6 3.4 - 11.3 10*3/uL 05/13/2016 2:40 PM EST [facility] RBC 4.11(L) 4.32 - 5.64 10*6/uL 05/13/2016 2:40 PM EST [facility] HGB 13.7 13.0 - 16.7 g/dL 05/13/2016 2:40 PM EST [facility] HCT 39.8 38.5 - 49.3 % 05/13/2016 2:40 PM EST [facility] MCV 96.8(H) 82.3 - 94.1 fL 05/13/2016 2:40 PM EST [facility] MCHC 34.5 32.6 - 34.9 g/dL 05/13/2016 2:40 PM EST [facility] MCH 33.4(H) 27.0 - 31.1 pg 05/13/2016 2:40 PM EST [facility] RDW 13.2 11.5 - 14.5 % 05/13/2016 2:40 PM EST [facility] MPV 7.2 6.9 - 9.9 fL 05/13/2016 2:40 PM EST [facility] Platelet Cnt 197 146 - 374 10*3/uL 05/13/2016 2:40 PM EST [facility] Differential Type Auto 016 2:40 PM EST [facility] Neutrophils 48.0(L) 48.8 - 75.9 % 05/13/2016 2:40 PM EST [facility] Lymphocytes 38.6 16.3 - 43.9 % 05/13/2016 2:40 PM EST [facility] Monocytes 10.0 2.1 - 13.3 % 05/13/2016 2:40 PM EST [facility] Eosinophils 2.7 0.3 - 5.0 % 05/13/2016 2:40 PM EST [facility] Basophils 0.7 0.0 - 1.1 % 05/13/2016 2:40 PM EST [facility] Neutrophils Abs 2.2 1.6 - 8.5 10*3/uL 05/13/2016 2:40 PM EST [facility] Lymphocytes Abs 1.8 0.6 - 4.9 10*3/uL 05/13/2016 2:40 PM EST [facility] Monocytes Abs 0.5 0.0 - 1.4 10*3/uL 05/13/2016 2:40 PM EST [facility] Eosinophils Abs 0.1 0.0 - 0.5 10*3/uL 05/13/2016 2:40 PM EST [facility] Basophils Abs 0.0 0.0 - 0.1 10*3/uL 05/13/2016 2:40 PM EST [facility] 05/13/2016 7:04 AM EST 05/13/2016 2:32 PM EST Narrative [facility] - 05/13/2016 2:40 PM EST NO KNOWN ALLERGIES us Mayo Kauffman MD HEMATOLOGY ORDERABLES Final Resu lt [facility] [address] [place] [address] documented in this encounter Visit Diagnoses Diagnosis Coronary artery disease involving [place] coronary artery of [place] heart without angina pectoris Mixed hyperlipidemia Essential hypertension Unspecified essential hypertension documented in this encounter Additional Health Concerns Infection Onset Date Last Indicated Resolved Time Covid-19 (confirmed) Comment:Past Acute Phase 03/28/2020 03/28/2020 07/30/2020 9:22 AM EST Covid-19 (rule out) 07/03/2021 07/03/2021 07/03/19 22 9:44 PM EST Covid-19 (confirmed) 07/03/2021 07/03/2021 022 10:14 PM EDT documented as of this encounter Care Teams Retort Loader Relationship Specialty Start Date End Date Jason Canchola MD [address] [place] [address] PCP - General 12/12/14 05/19/16 Mayo Kauffman MD [address] [place] [address] PCP - General Cardiology 05/20/16 11/01/17 Aidan Ferraro MD [address], [place] [address] PCP - General Family Medicine 11/02/17 02/22/18 Lois Alaniz APRN [address] [place] [address] PCP - General Family Practice 02/23/18 03/01/20 Aidan Ferraro MD [address], [place] [address] PCP - General Family Medicine 03/02/20 Provider, Historical 08/11/16 Francisco Reveles MD [address] [address] Gastroenterology 08/17/16 Alexis Chamberlain MD [address] [place] [address] Orthopedic Surgery 09/08/18 Canelo Avery MD [address] [place] [address] Orthopedic Surgery 04/12/20 Patricia Hernandez 06/03/20 Jayla Rangel, ONI Registered Nurse Real Estate Photographer 02/15/23 02/15/23 Enmanuel Kauffman DPM [address] [place] [address] Podiatry 05/25/23 documented as of this encounter
--- OUTSIDE RECORDS SUMMARY | 2024-11-14 14:36 | XMS_ITS | Encounter Summary ---
Author Organization [facility] Address [address] [place] [address] Care Team Providers Care Bridal Sales Consultant Name Role Phone Provider, Historical Unavailable Unavailable Francisco Reveles MD Unavailable Lois Alaniz APRN Primary Care Provider [phone] Alexis Chamberlain MD Unavailable [phone] Aidan Ferraro MD Primary Care Provider [phone] Canelo Avery MD Unavailable [phone] Patricia Hernandez Unavailable Unavailable Jayla Rangel RN Unavailable Unavailable Enmanuel Kauffman DPDebbie Unavailable [phone] Encounter Details Date Type Department Care Team (Late st Contact Info) Description 09/04/2019 Refill [facility] [address], [address] [place] [address] Brianne Sharp LPN Social History Tobacco Use Types Packs/Day Years [...] Description 12/11/2024 1:30 PM EDT Office Visit [facility] [address] [address] Jason Moya III, MD [address] [place] [address] Domenico Upton APRN [address] [place] [address] [phone] 01/11/2025 9:30 AM EDT Office Visit [facility] [address] [address] Aidan Ferraro MD [address] [place] [address] 03/15/2025 11:00 AM EDT Office Visit [facility] [address] [phone] Aidan Ferraro MD [address] [place] [address] [phone] documented as of this encounter Visit Diagnoses Diagnosis Essential hypertension Unspecified essential hypertension documented in this encounter Additional Health Concerns Infection Onset Date Last Indicated Resolved Time Covid-19 (confirmed) Comment:Past Acute Phase 03/28/2020 03/28/2020 07/30/2020 9:22 AM EST Covid-19 (rule out) 07/03/2021 07/03/2021 07/03/19 22 9:44 PM EST Covid-19 (confirmed) 07/03/2021 07/03/202108/21/ 022 10:14 PM EDT documented as of this encounter Care Teams Bridal Sales Consultant Relationship Specialty Start Date End Date Lois Alaniz APRN [facility] [place] [address] PCP - General Family Practice 02/23/18 03/01/20 Aidan Ferraro MD [address] [address] PCP - General Family Medicine 03/02/20 Provider, Historical 08/11/16 Francisco Reveles MD 613 [address] [address] [place] [address] Gastroenterology 08/17/16 Alexis Chamberlain MD [address] [place] [address] Orthopedic Surgery 09/08/18 Canelo Avery MD [address] [place] [address] Orthopedic Surgery 04/12/20 Patricia Hernnadez 06/03/20 Jayla Rangel, ONI Registered Nurse Mover 02/15/23 02/15/23 Enmanuel Kauffman DPM [address] [place] [address] [address] [place] [address] Podiatry 05/25/23 documented as of this encounter
--- OUTSIDE RECORDS SUMMARY | 2024-11-14 14:36 | XMS_ITS | Encounter Summary ---
Author Organization [facility] Address [address] [place] [address] Care Team Providers Care Help Desk Associate Name Role Phone Mayo Kauffman MD Primary Care Provider [phone] Jason Canchola MD Primary Care Provider [phone] Mayo Kauffman MD Primary Care Provider [phone] Provider, Historical Unavailable Unavailable Francisco Reveles MD Unavailable Aidan Ferraro MD Primary Care Provider [phone] Lois Alaniz APRN Primary Care Provider [phone] Alexis Chamberlain MD Unavailable [phone] Aidan Ferraro MD Primary Care Provider [phone] Canelo Avery MD Unavailable [phone] Patricia Hernandez Unavailable Unavailable Jayla Rangel RN Unavailable Unavailable Enmanuel Kauffman DPM Unavailable [phone] Encounter Details Date Type Department Care Team (Latest Contact Info) Description 11/28/2013 Transcribe Orders [facility] [address] [place] [address] Chano Villeda MD [address] [place] [address] Abnormal PSA (Primary Dx) Social History Tobacco [...] Description 12/11/2024 1:30 PM EDT Office Visit [facility] [address] [address] Jason Moya III, MD [address] [place] [address] [phone] Domenico Upton APRN [address] [place] [address] 01/11/2025 9:30 AM EDT Office Visit [facility] [address] [address] Aidan Ferraro MD [address] [place] [address] [phone] 03/15/2025 11:00 AM EDT [facility] [address] [address] Aidan Ferraro MD [address] [place] [address] documented as of this encounter Visit Diagnoses Diagnosis Abnormal PSA- Primary Elevated prostate specific antigen (PSA) documented in this encounter Additional Health Concerns Infection Onset Date Last Indicated Resolved Time Covid-19 (confirmed) Comment:Past Acute Phase 03/28/2020 03/28/2020 07/30/2020 9:22 AM EST Covid-19 (rule out) 07/03/2021 07/03/2021 07/03/19 22 9:44 PM EST Covid-19 (confirmed) 07/03/2021 07/03/2021 022 10:14 PM EDT documented as of this encounter Care Teams Help Desk Associate Relationship Specialty Start Date End Date Mayo Kauffman MD [address] [place] [address] PCP - General 05/25/08 12/11/14 Jason Canchola MD [address] [place] [address] PCP - General 12/12/14 05/19/16 [place] [address] [place] [address] PCP - General Cardiology 05/20/16 11/01/17 Aidan Ferraro MD [address] [place] [address] PCP - General Family Medicine 11/02/17 02/22/18 Lois Alaniz APRN [facility] [place] [address] PCP - General Family Practice 02/23/18 03/01/20 Aidan Ferraro MD [address] [place] [address] PCP - General Family Medicine 03/02/20 Provider, Historical 08/11/16 Francisco Reveles MD [address] [place], [place] [phone] Gastroenterology 08/17/16 Alexis Chamberlain MD [address] [address] [place], [place] [phone] Orthopedic Surgery 09/08/18 Canelo Avery MD [address] [place] [address] [address] [place] [address] Orthopedic Surgery 04/12/20 Patricia Hernandez 06/03/20 Jayla Rangel, RN Registered Nurse Optical Designer 02/15/23 02/15/23 Enmanuel Kauffman DPM [address] [place] [address] [address] [place], [place] [phone] Podiatry 05/25/23 documented as of this encounter
--- OUTSIDE RECORDS SUMMARY | 2024-11-14 14:36 | XMS_ITS | Encounter Summary ---
Author Organization [facility] Address [address] [place] [address] Care Team Providers Care Photo Producer Name Role Phone Provider, Historical Unavailable Unavailable Francisco Reveles MD Unavailable Lois Alaniz APRN Primary Care Provider [phone] Alexis Chamberlain MD Unavailable [phone] Aidan Ferraro MD Primary Care Provider [phone] Canelo Avery MD Unavailable [phone] Patricia Hernandez Unavailable Unavailable Jayla Rangel RN Unavailable Unavailable Enmanuel Kauffman DPDebbie Unavailable [phone] Reason for Visit * Reason Onset Date Comments Other 01/17/2019 Encounter Details Date Type Department Care Team (Late st Contact Info) Description 01/17/2019 Telephone [facility] [address], [address] [place] [address] Jason Moya III, MD [address] [place] [address] [address] [place] [address] Other Social History Tobacco Use [...] Telephone Encounter - Tarsha Sumner LPN - 01/19/2019 3:37 PM EDT Faxed to ortho - attempted to call patient - no answer * Telephone Encounter - Wei Mena - 01/17/2019 4:16 PM EDT Pt is calling asking about holding medication, pt is having hip surgery 01/24, Pt needs to know if he can have cardiac clearance and which medications he needs to hold and for how long. Dr. Barrett isdoing the procedure. Please advise. Pt # [phone] documented in this encounter Plan of Treatment Upcoming Encounters Date Type Department Care Team (Late st Contact Info) Description 12/11/2024 1:30 PM EDT Office Visit [facility] [address] [place] [address] Jason Moya III, MD [address] [place] [address] Domenico Upton APRN [address] [place], [place] [address] [address] [place] [address] 01/11/2025 9:30 AM EDT Office Visit [facility]IE[facility] Ferraro [address] [place] [address] Aidan Ferraro MD [address] [place] [address] [phone] 03/15/2025 11:00 AM EDT Office Visit [facility] [address] [place] [address], [address] [place] [address] Aidan Ferraro MD [address] [place] [address] documented as of this encounter Visit Diagnoses Not on filedocumented in this encounter Additional Health Concerns Infection Onset Date Last Indicated Resolved Time Covid-19 (confirmed) Comment:Past Acute Phase 03/28/2020 03/28/2020 07/30/2020 9:2 2 AM EST Covid-19 (rule out) 07/03/2021 07/03/2021 07/03/19 22 9:44 PM EST Covid-19 (confirmed) 07/03/2021 07/03/2021 022 10:14 PM EDT documented as of this encounter Care Teams Photo Producer Relationship Specialty Start Date End Date Lois Alaniz APRN [address] [place] [address] PCP - General Family Practice 02/23/18 03/01/20 Aidan Ferraro MD [address] [place] [address] PCP - General Family Medicine 03/02/20 Provider, Historical 08/11/16 Francisco Reveles MD [address] [place] [address] [address] [place] [address] Gastroenterology 08/17/16 Alexis Chamberlain MD [address] [place] [address] [address] [place] [address] Orthopedic Surgery 09/08/18 Canelo Avery MD [address] [address] [place] [address] Orthopedic Surgery 04/12/20 Patricia Hernandez 06/03/20 Jayla Rangel, RN Registered Nurse Dryerman/Woman 02/15/23 02/15/23 Enmanuel Kaufmfan DPM [address] [place] [address] [address] [place], [place] [phone] Podiatry 05/25/23 documented as of this encounter
--- OUTSIDE RECORDS SUMMARY | 2024-11-14 14:36 | XMS_ITS | Encounter Summary ---
Author Organization [facility] Address [address] [place] [address] Care Team Providers Care Patient Office Rep Name Role Phone Provider, Historical Unavailable Unavailable Francisco Reveles MD Unavailable Alexis Chamberlain MD Unavailable [phone] Aidan Ferraro MD Primary Care Provider [phone] Canelo Avery MD Unavailable [phone] Patricia Hernandez Unavailable Unavailable Jayla Rangel RN Unavailable Unavailable Enmanuel Kauffman DPM Unavailable [phone] Reason for Visit * Reason Onset Date Comments Results - Lab 02/11/2023 Encounter Details Date Type Department Care Team (Late st Contact Info) Description 02/11/2023 Telephone [facility] [address], [address] [place] [address] Kanchan Bee LPN Results - Lab Social History Tobacco Use [...] place to sleep or slept in a custodial (including now)? No 01/07/2023 Sex and Gender Information Value Date Recorded Sex Assigned at Male 09/06/2020 6:36 PM EDT Legal Sex Male 9:18 PM EST Gender Identity Male 09/06/2020 6:36 PM EDT Sexual Orientation Straight 09/06/2020 6: 36 PM EDT documented as of this encounter Miscellaneous Notes * Telephone Encounter - Nory Coelho LPN - 02/11/2023 2:49 PM EDT Patient's daughter advised of providers recommendations; voiced understanding. * Telephone Encounter - Aidan Ferraro MD - 02/11/2023 2:32 PM EDT He needs to take 40 mg Lasix today and then st art daily weights as discussed during our office visit today * Telephone Encounter - Kanchan Bee LPN - 02/11/2023 2:26 PM EDT Gabino Kauffman Test Name: BNP Results: 551 02/11/2023 Time: 142 Received from: Anabelle Cardoza/Amarilis by: kanchan bee Physician: Dr. Ferraro notified 02/11/2023 Time: 1428 Notified: yes documented in this encounter Plan of Treatment Upcoming Encounters Date Type Department Care Team (Late st Contact Info) Description 12/11/2024 1:30 PM EDT Office Visit [facility] C[facility]IOLOG[facility] [address] [address] Jason Moya III, MD [address] [place] [address] [phone] Domenico Upton APRN [address] [place] [address] [phone] 01/11/2025 9:30 AM EDT [facility] [address] [address] Aidan Ferraro MD [address] [place] [address] 03/15/2025 11:00 AM EDT Office Visit [facility] [address] [address] Aidan Ferraro MD [address] [place] [address] documented as of this encounter Visit Diagnoses Not on filedocumented in this encounter Care Teams Patient Office Rep Relationship Specialty Start Date End Date Aidan Ferraro MD [address] [place] [address] PCP - General Family Medicine 03/02/20 Provider, Historical 08/11/16 Francisco Reveles MD [address] [address] [place] [address] Gastroenterology 08/17/16 Alexis Chamberlain MD [address] [address] [place] [address] Orthopedic Surgery 09/08/18 Canelo Avery MD [address] [place], [place] [address] [place] [address] Orthopedic Surgery 04/12/20 Patricia Hernandez 06/03/20 Jayla Rangel, ONI Registered Nurse Engineer [employer] 02/15/23 02/15/23 Enmanuel Kauffman DPM [address] [place] [address] [address] [place], [place] [phone] Podiatry 05/25/23 documented as of this encounter
--- OUTSIDE RECORDS SUMMARY | 2024-11-14 14:36 | XMS_ITS | Encounter Summary ---
Author Organization [facility] Address [address] [place] [address] Care Team Providers Care Senior Bi Architect Name Role Phone Provider, Historical Unavailable Unavailable Francisco Reveles MD Unavailable Alexis Chamberlain MD Unavailable [phone] Aidan Ferraro MD Primary Care Provider [phone] Canelo Avery MD Unavailable [phone] Patricia Hernandez Unavailable Unavailable Jayla Rangel RN Unavailable Unavailable Enmanuel Kauffman DPM Unavailable [phone] Reason for Visit * Reason Onset Date Comments Medications Refill 03/18/2020 Encounter Details Date Type Department Care Team (Late st Contact Info) Description 03/18/2020 Refill [facility] [address], [address] [place] [address] Phuong Hayden, RN Medications Refill Social History Tobacco Use Types [...] Description 12/11/2024 1:30 PM EDT Office Visit [facility] [place] [address] [place] [phone] Jason Moya III, MD [address] [place] [address] [phone] Domenico Upton APRN [address] [place] [address] [phone] 01/11/2025 9:30 AM EDT Office Visit [facility] [address] [phone] Aidan Ferraro MD [address] [place] [address] 03/15/2025 11:00 AM EDT Office Visit [facility] [address] [phone] Aidan Ferraro MD [address] [place] [address] documented as of this encounter Visit Diagnoses Diagnosis Essential hypertension Unspecified essential hypertension documented in this encounter Additional Health Concerns Infection Onset Date Last Indicated Resolved Time Covid-19 (confirmed) Comment:Past Acute Phase 03/28/2020 03/28/2020 07/30/2020 9:22 AM EST Covid-19 (rule out) 07/03/2021 07/03/2021 07/03/19 22 9:44 PM EST Covid-19 (confirmed) 07/03/2021 07/03/202108/21/ 022 10:14 PM EDT documented as of this encounter Care Teams Senior Bi Architect Relationship Specialty Start Date End Date Detherage, Aidan M, MD [address] [facility] [address] PCP - General Family Medicine 03/02/20 Provider, Historical 08/11/16 Francisco Reveles MD [address] [facility] [place] [address] Gastroenterology 08/17/16 Alexis Chamberlain MD [address] [facility] [address] [place] [address] Orthopedic Surgery 09/08/18 Canelo Avery MD 613 [address] [address] [place] [address] Orthopedic Surgery 04/12/20 Patricia Hernandez 06/03/20 Jayla Rangel, RN Registered Nurse Telephone Service Adviser 02/15/23 02/15/23 Enmanuel Kauffman DPM [address] [place] [address] [address] [place] [address] Podiatry 05/25/23 documented as of this encounter
--- OUTSIDE RECORDS SUMMARY | 2024-11-14 14:36 | XMS_ITS | Encounter Summary ---
Author Organization [facility] Address [address] [place] [address] Care Team Providers Care Part Time Flexible Clerk Name Role Phone Mayo Kauffman MD Primary Care Provider [phone] Jason Canchola MD Primary Care Provider [phone] Mayo Kauffman MD Primary Care Provider [phone] Provider, Historical Unavailable Unavailable Francisco Reveles MD Unavailable Aidan Ferraro MD Primary Care Provider [phone] Lois Alaniz APRN Primary Care Provider [phone] Alexis Chamberlain MD Unavailable [phone] Aidan Ferraro MD Primary Care Provider [phone] Canelo Avery MD Unavailable [phone] Patricia Hernandez Unavailable Unavailable Jayla Rangel RN Unavailable Unavailable Enmanuel Kauffman DPM Unavailable [phone] Reason for Visit * Reason Onset Date Comments Other 09/19/2014 Encounter Details Date Type Department Care Team (Late st Contact Info) Description 09/19/2014 Telephone [facility] [address] [place] [phone] Danielle Rodriguez LPN Other Social History Tobacco Use Types Packs/Day [...] encounter Miscellaneous Notes * Telephone Encounter - Yesi Mandujano LPN - 09/19/2014 10:35 AM EDT Pt called and needed me to fax lab results to [facility] to dr. West. At . Got confirmation fax was received. documented in this encounter Plan of Treatment Upcoming Encounters Date Type Department Care Team (Late st Contact Info) Description 12/11/2024 1:30 PM EDT Office Visit [facility] [address] [address] Jason Moya III, MD [address] [place] [address] Domenico Upton APRN [address] [place], [place] [address] [place] [address] 01/11/2025 9:30 AM EDT Office Visit [facility] [address] [place] [phone] Aidan Ferraro MD [address] [place] [address] 03/15/2025 11:00 AM EDT Office Visit [facility] [address] [place] [address] [address] [place] [address] Aidan Ferraro MD [address] [place] [address] documented as of this encounter Visit Diagnoses Not on filedocumented in this encounter Additional Health Concerns Infection Onset Date Last Indicated Resolved Time Covid-19 (confirmed) Comment:Past Acute Phase 03/28/2020 03/28/2020 07/30/2020 9:22 AM EST Covid-19 (rule out) 07/03/2021 07/03/2021 07/03/19 9:44 PM EST Covid-19 (confirmed) 07/03/2021 07/03/2021 022 10:14 PM EDT documented as of this encounter Care Teams Part Time Flexible Clerk Relationship Specialty Start Date End Date Mayo Kauffman MD [address] [place] [address] 230 [place] [address] PCP - General 05/25/08 12/11/14 Jason Canchola MD [address] [place] [address] PCP - General 12/12/14 05/19/16 Mayo Kauffman MD [address] [place] [address] PCP - General Cardiology 05/20/16 11/01/17 Aidan Ferraro MD [address] [place] [address] PCP - General Family Medicine 11/02/17 02/22/18 Lois Alaniz APRN [address] [place] [address] PCP - General Family Practice 02/23/18 03/01/20 Aidan Ferraro MD [address] [facility] [place] [phone] PCP - General Family Medicine 03/02/20 Provider, Historical 08/11/16 Francisco Reveles MD [address] [facility] [address] Gastroenterology 08/17/16 Alexis Chamberlain MD [address] [address] [place] [address] Orthopedic Surgery 09/08/18 Canelo Avery MD [address] [facility] [address] [place] [address] Orthopedic Surgery 04/12/20 Patricia Hernandez 06/03/20 Jayla Rangel, RN Registered Nurse Dining Room Attendant Cafeteria 02/15/23 02/15/23 Enmanuel Kauffman DPM [address] [place] [address] [address] [place] [address] Podiatry 05/25/23 documented as of this encounter
--- OUTSIDE RECORDS SUMMARY | 2024-11-14 14:36 | XMS_ITS | Encounter Summary ---
Author Organization [facility] Address [address] [place] [address] Care Team Providers Care Parts Room Assistant Name Role Phone Mayo Kauffman MD Primary Care Provider [phone] Jason Canchola MD Primary Care Provider [phone] Mayo Kauffman MD Primary Care Provider [phone] Provider, Historical Unavailable Unavailable Francisco Reveles MD Unavailable Aidan Ferraro MD Primary Care Provider [phone] Lois Alaniz APRN Primary Care Provider [phone] Alexis Chamberlain MD Unavailable [phone] Aidan Ferraro MD Primary Care Provider [phone] Canelo Avery MD Unavailable [phone] Patricia Hernandez Unavailable Unavailable Jayla Rangel RN Unavailable Unavailable Enmanuel Kauffman DPM Unavailable [phone] Encounter Details Date Type Department Care Team (Late st Contact Info) Description 11/05/2014 Orders Only [facility] [place] [address] [place] [address] Mayo Kauffman MD [address] [address] CAD (coronary artery disease) (Primary Dx); High Cholesterol; HTN (hypertension) Social History Tobacco Use Types Packs/Day Years [...] Upcoming Encounters Date Type Department Care Team ([facility] Contact Info) Description 12/11/2024 1:30 PM EDT Office Visit [facility] [address] [phone] Jason Moya III, MD [address] [place] [address] [phone] Domenico Upton APRN [address] [place] [address] [phone] 01/11/2025 9:30 AM EDT Office Visit [address] [address] Aidan Ferraro MD [address] [place] [address] [phone] 03/15/2025 11:00 AM EDT Office Visit [address] [address] Aidan Ferraro MD [address] [place] [address] [phone] documented as of this encounter Results * Comprehensive Metabolic Panel (11/15/2014 7:13 AM EDT) SODIUM 140 135 - 145 mmol/L 11/15/2014 2:08 PM EDT [facility] POTASSIUM 4.0 3.6 - 5.0 mmol/L 11/15/2014 2:08 PM EDT [facility] CHLORIDE 106 101 - 111 mmol/L 11/15/2014 2:08 PM EDT [facility] CO2 27 21 - 31 mmol/L 11/15/2014 2:08 PM EDT [facility] ANION GAP 7 11/15/2014 2:08 PM EDT [facility] GLUCOSE 95 70 - 110 mg/dL 11/15/2014 2:08 PM EDT [facility] CREATININE 1.2 0.6 - 1.2 mg/dL 11/15/2014 2:08 PM EDT [facility] BUN 19 6 - 20 mg/dL 11/15/2014 2:08 PM EDT [facility] CALCIUM 9.4 8.5 - 10.5 mg/dL 11/15/2014 2:08 PM EDT [facility] PROTEIN TOTAL 6.9 6.7 - 8.2 g/dL 11/15/2014 2:08 PM EDT [facility] Albumin 4.1 3.2 - 5.0 g/dL 11/15/2014 2:08 PM EDT [facility] T BILIRUBIN 0.7 0.2 - 1.0 mg/dL 11/15/2014 2:08 PM EDT [facility] ALP 89 42 - 121 [iU]/L 11/15/2014 2:08 PM EDT [facility] AST 28 10 - 42 [iU]/L 11/15/2014 2:08 PM EDT [facility] ALT (SGPT) 34 10 - 60 [iU]/L 11/15/2014 2:08 PM EDT [facility] OSMOLALITY 281 266 - 309 11/15/2014 2:08 PM EDT [facility] A/G Ratio 1.5 11/15/2014 2:08 PM EDT [facility] B/C 16 10 - 20 11/15/2014 2:08 PM EDT [facility] ESTIMATED GFR 59 mL/min 11/15/2014 2:08 PM EDT [facility] Comment: *The estimated Glomerular Filtration Rate(EGFR) may not be accurate for children under the age of 18 yrs. To estimate the GFR for -Americans multiply the result provided by 1.21. Stage 1 90 mL/min or greater Stage 2 60-89 mL/min Stage 3 30-59 mL/min Stage 4 15-29 mL/min Stage 5 14 mL/min or less 11/15/2014 7:13 AM EDT 11/15/2014 1:38 PM EDT us Mayo Kauffman MD CHEMISTRY ORDERABLES Final Resul t [facility] [address] [place] [address] * Lipid Panel (11/15/2014 7:13 AM EDT) CHOLESTEROL 164 10 - 200 mg/dL 11/15/2014 2:08 PM EDT [facility] TRIGLYCERIDE 183 46 - 236 mg/dL 11/15/2014 2:08 PM EDT [facility] HDL 33.0 27.0 - 67.0 mg/dL 11/15/2014 2:08 PM EDT [facility] VLDL 36.6 mg/dL 11/15/2014 2:08 PM EDT [facility] LDL 94.4 mg/dL 11/15/2014 2:08 PM EDT [facility] Comment: CAP STANDARDIZED LDL-CHOLESTEROL VALUES <130-DESIRABLE 130-159 BORDERLINE/HIGH RISK >160-HIGH RISK RISK 1, MALE 4.97 11/15/2014 2:08 PM EDT [facility] Comment: TOTAL CHOL/HDL 1/2 AVERAGE 3.43 AVERAGE 4.97 2 X AVERAGE 9.55 3 X AVERAGE 23.39 RISK 2, MALE 2.86 11/15/2014 2:08 PM EDT [facility] Comment: LDL/HDL 1/2 AVERAGE 1.00 AVERAGE 3.55 2 X AVERAGE 6.25 3 X AVERAGE 7.99 RISK 1, FEMALE 4.97 11/15/2014 2:08 PM EDT [facility] Comment: TOTAL CHOL/HDL 1/2 AVERAGE 3.27 AVERAGE 4.44 2 X AVERAGE 7.05 3 X AVERAGE 11.04 RISK 2, FEMALE 2.86 11/15/2014 2:08 PM EDT [facility] Comment: LDL/HDL 1/2 AVERAGE 1.47 AVERAGE 3.22 2 X AVERAGE 5.03 3 X AVERAGE 6.14 11/15/2014 7:13 AM EDT 11/15/2014 1:38 PM EDT Mayo Kauffman MD CHEMISTRY ORDERABLES Final Resul t [facility] [address] [place] [phone] documented in this encounter Visit Diagnoses Diagnosis CAD (coronary artery disease)- Primary Coronary atherosclerosis of unspecified type of vessel, [place] or graft High Cholesterol Pure hypercholesterolemia HTN (hypertension) Unspecified essential hypertension documented in this encounter Additional Health Concerns Infection Onset Date Last Indicated Resolved Time Covid-19 (confirmed) Comment:Past Acute Phase 03/28/2020 03/28/2020 07/30/2020 9:22 AM EST Covid-19 (rule out) 07/03/2021 07/03/2021 07/03/19 22 9:44 PM EST Covid-19 (confirmed) 07/03/2021 07/03/2021 022 10:14 PM EDT documented as of this encounter Care Teams Parts Room Assistant Relationship Specialty Start Date End Date Mayo Kauffman MD [address] [place] [address] PCP - General 05/25/08 12/11/14 Jason Canchola MD [address] [place] [address] PCP - General 12/12/14 05/19/16 Mayo Kauffman MD [address] [place] [phone] PCP - General Cardiology 05/20/16 11/01/17 Aidan Ferraro MD [address] [place] [address] PCP - General Family Medicine 11/02/17 02/22/18 Lois Alaniz APRN [address] [place] [address] PCP - General Family Practice 02/23/18 03/01/20 Aidan Ferraro MD [address] [facility] [place] [address] PCP - General Family Medicine 03/02/20 Provider, Historical 08/11/16 Francisco Reveles MD [address] [place] [address] Gastroenterology 08/17/16 Alexis Chamberlain MD [address] [address] [place] [address] Orthopedic Surgery 09/08/18 Canelo Avery MD [address] [address] [place] [address] Orthopedic Surgery 04/12/20 Patricia Hernandez 06/03/20 Jayla Rangel, RN Registered Nurse Title I Coordinator 02/15/23 02/15/23 Enmanuel Kauffman DPM [address] [place] [address] [address] [place] [address] Podiatry 05/25/23 documented as of this encounter
--- OUTSIDE RECORDS SUMMARY | 2024-11-14 14:36 | XMS_ITS | Encounter Summary ---
Author Organization [facility] Address [address] [place] [address] Care Team Providers Care Catshovel Driver Name Role Phone Provider, Historical Unavailable Unavailable Francisco Reveles MD Unavailable Lois Alaniz APRN Primary Care Provider [phone] Alexis Chamberlain MD Unavailable [phone] Aidan Ferraro MD Primary Care Provider [phone] Canelo Avery MD Unavailable [phone] Patricia Hernandez Unavailable Unavailable Jayla Rangel RN Unavailable Unavailable Enmanuel Kauffman DPDebbie Unavailable [phone] Reason for Visit * Reason Onset Date Comments Medications Refill 09/06/2019 Encounter Details Date Type Department Care Team (Late st Contact Info) Description 09/06/2019 Refill [facility] [address], [address] [place] [address] Jason Moya III, MD [address] [place] [address] [address] [place] [address] Medications Refill Social History Tobacco [...] Description 12/11/2024 1:30 PM EDT Office Visit [facility] [address] [address] Jason Moya III, MD [address] [place] [address] [phone] Domenico Upton APRN [address] [place] [address] 01/11/2025 9:30 AM EDT Office [facility] Det[facility] [address] [address] Aidan Ferraro MD [address] [place] [address] [phone] 03/15/2025 11:00 AM EDT Office Visit [facility] [address] [address] Aidan Ferraro MD [address] [place] [address] [phone] documented as of this encounter Visit Diagnoses Diagnosis PAF (paroxysmal atrial fibrillation) Atrial fibrillation Essential hypertension Unspecified essential hypertension Mixed hyperlipidemia documented in this encounter Additional Health Concerns Infection Onset Date Last Indicated Resolved Time Covid-19 (confirmed) Comment:Past Acute Phase 03/28/2020 03/28/2020 07/30/2020 9:22 AM EST Covid-19 (rule out) 07/03/2021 07/03/2021 07/03/19 22 9:44 PM EST Covid-19 (confirmed) 07/03/2021 07/03/2021 022 10:14 PM EDT documented as of this encounter Care Teams Catshovel Driver Relationship Specialty Start Date End Date Lois Alaniz APRN [address] [place] [address] PCP - General Family Practice 02/23/18 03/01/20 Aidan Ferraro MD [address], [place] [address] PCP - General Family Medicine 03/02/20 Provider, Historical 08/11/16 Francisco Rveeles MD [address] [place] [address] Gastroenterology 08/17/16 Alexis Chamberlain MD [address] [place] [address] Orthopedic Surgery 09/08/18 Canelo Avery MD [address] [place] [address] Orthopedic Surgery 04/12/20 Patricia Hernandez 06/03/20 Jayla Rangel, RN Registered Nurse Credit Support Specialist 02/15/23 02/15/23 Enmanuel Kauffman DPM [address] [place] [address] Podiatry 05/25/23 documented as of this encounter
--- OUTSIDE RECORDS SUMMARY | 2024-11-14 14:36 | XMS_ITS | Encounter Summary ---
Author Organization [facility] Address [address] [place] [address] Care Team Providers Care Senior Advisory Name Role Phone Provider, Historical Unavailable Unavailable Francisco Reveles MD Unavailable Alexis Chamberlain MD Unavailable [phone] Aidan Ferraro MD Primary Care Provider Canelo Avery MD Unavailable Patricia Hernandez Unavailable Unavailable Jayla Rangel RN Unavailable Unavailable Enmanuel Kauffman DPM Unavailable [phone] Encounter Details Date Type Department Care Team (Late st Contact Info) Description 06/14/2020 Orders Only [facility] [address] [place] [address] Aidan Ferraro MD [address] [place] [address] Social History Tobacco Use Types [...] 1:30 PM EDT Office Visit [facility] [address] [address] Jason Moya III, MD [address] [place] [address] Domenico Upton APRN [address] [place] [address] 01/11/2025 9:30 AM EDT Office Visit [facility] Dether[facility] [address] [phone] Aidan Ferraro MD [address] [place] [address] 03/15/2025 11:00 AM EDT Office Visit [facility] Det[facility] Care [address] [place] [phone] Aidan Ferraro MD [address] [place] [address] documented as of this encounter Visit Diagnoses Not on filedocumented in this encounter Additional Health Concerns Infection Onset Date Last Indicated Resolved Time Covid-19 (confirmed) Comment:Past Acute Phase 03/28/2020 03/28/2020 07/30/2020 9:22 AM EST Covid-19 (rule out) 07/03/2021 07/03/2021 07/03/19 22 9:44 PM EST Covid-19 (confirmed) 07/03/2021 07/03/2021 022 10:14 PM EDT documented as of this encounter Care Teams Senior Advisory Relationship Specialty Start Date End Date Aidan Ferraro MD [address] [facility] [place] [address] PCP - General Family Medicine 03/02/20 Provider, Historical 08/11/16 Francisco Reveles MD [address] [place] [address] Gastroenterology 08/17/16 Alexis Chamberlain MD [address] [address] [place] [address] Orthopedic Surgery 09/08/18 Canelo Avery MD [address] [place] [address] [address] [place] [address] Orthopedic Surgery 04/12/20 Patricia Hernandez 06/03/20 Jayla Rangel, RN Registered Nurse Marzipan Molder 02/15/23 02/15/23 Enmanuel Kauffman DPM [address] [place] [address] [address] [place] [address] Podiatry 05/25/23 documented as of this encounter
--- OUTSIDE RECORDS SUMMARY | 2024-11-14 14:36 | XMS_ITS | Encounter Summary ---
Author Organization [facility] Address [address] [place] [address] Care Team Providers Care Tinning Equipment Tender Name Role Phone Provider, Historical Unavailable Unavailable Francisco Reveles MD Unavailable Lois Alaniz APRN Primary Care Provider [phone] Alexis Chamberlain MD Unavailable [phone] Aidan Ferraro MD Primary Care Provider [phone] Canelo Avery MD Unavailable [phone] Patricia Hernandez Unavailable Unavailable Jayla Rangel RN Unavailable Unavailable Enmanuel Kauffman DPDebbie Unavailable [phone] Reason for Visit * Reason Onset Date Comments Other 01/01/2020 Encounter Details Date Type Department Care Team (Late st Contact Info) Description 01/01/2020 Telephone [facility] [address], [address] [place] [address] Jason Moya III, MD [address] [place] [address] [address] [place] [address] Other Social History Tobacco Use [...] Telephone Encounter - Tarsha Sumner LPN - 01/01/2020 11:10 AM EDT Attempted to call patient - line is still busy * Telephone Encounter - Jason Correia MD - 01/01/2020 10:40 AM EDT Needs to go to ER or urgent care. EP clinic is not a walk in service * Telephone Encounter - Wei Mena - 01/01/2020 8:17 AM EDT Pt is calling stating that he's vomiting, dizziness and pain in his right arm. We advised him to see his family doctor, pt states that he wants to see Dr [place] wyman. Please advise. # [phone] documented in this encounter Plan of Treatment Upcoming Encounters Date Type Department Care Team (Late st Contact Info) Description 12/11/2024 1:30 PM EDT Office Visit [facility] [address], [address] [place] [address] Jason Moya III, MD [address] [place] [address] [phone] Domenico Upton APRN [address] [place] [address],[address] [place] [address] 01/11/2025 9:30 AM EDT Office Visit MATTHIEU Ferraro [facility] Care [address] [place] [phone] Aidan Ferraro MD [address] [place] [address] [phone] 03/15/2025 11:00 AM EDT Office Visit MATTHIEU Ferraro [facility] Care [address] [place] [phone] Aidan Ferraro MD [address] [place] [address] documented as of this encounter Visit Diagnoses Not on filedocumented in this encounter Additional Health Concerns Infection Onset Date Last Indicated Resolved Time Covid-19 (confirmed) Comment:Past Acute Phase 03/28/2020 03/28/2020 07/30/2020 9:22 AM EST Covid-19 (rule out) 07/03/2021 07/03/2021 07/03/19 22 9:44 PM EST Covid-19 (confirmed) 07/03/2021 07/03/2021 022 10:14 PM EDT documented as of this encounter Care Teams Tinning Equipment Tender Relationship Specialty Start Date End Date Lois Alaniz APRN [address] [place] [address] PCP - General Family Practice 02/23/18 03/01/20 Aidan Ferraro MD [address] [place] [address] PCP - General Family Medicine 03/02/20 Provider, Historical 08/11/16 Francisco Reveles MD [address] [place] [address] Gastroenterology 08/17/16 Alexis Chamberlain MD [address] [facility] [address] [place], [place] [phone] Orthopedic Surgery 09/08/18 Canelo Avery MD [address] [place], [place] [phone] Orthopedic Surgery 04/12/20 Patricia Hernandez 06/03/20 Jayla Rangel, RN Registered Nurse Field Adjuster 02/15/23 02/15/23 Enmanuel Kauffman DPM [address] [place] [address] [address] [place], [place] [phone] Podiatry 05/25/23 documented as of this encounter
--- OUTSIDE RECORDS SUMMARY | 2024-11-14 14:36 | XMS_ITS | Encounter Summary ---
Author Organization [facility] Address [address] [place] [address] Care Team Providers Care Manager Internet Retails Sales Name Role Phone Mayo Kauffman MD Primary Care Provider [phone] Provider, Historical Unavailable Unavailable Francisco Reveles MD Unavailable Aidan Ferraro MD Primary Care Provider Lois Alaniz APRN Primary Care Provider Alexsi Chamberlain MD Unavailable [phone] Aidan Ferraro MD Primary Care Provider Canelo Avery MD Unavailable [phone] Patricia Hernandez Unavailable Unavailable Jayla Rangel RN Unavailable Unavailable Enmanuel Kauffman DPM Unavailable [phone] Reason for Visit * Reason Onset Date Comments Schedule Procedure 08/17/2016 Encounter Details Date Type Department Care Team (Late st Contact Info) Description 08/17/2016 Telephone [facility] [address] [place] [address] 350 [place] [address] Francisco Reveles MD [address] [place] [address] [address] [place] [address] Schedule Procedure Social History Tobacco [...] encounter Miscellaneous Notes * Telephone Encounter - Rosibel Martinez - 09/01/2016 4:56 PM EDT Patient scheduled for colonoscopy on 09/09/16. Patient notified. * Telephone Encounter - Rosibel Martinez - 08/19/2016 4:29 PM EDT No answer. * Telephone Encounter - Elizabeth Haywood - 08/17/2016 1:09 PM EDT Patient would like a call to schedule screening colonoscopy documented in this encounter Plan of Treatment Upcoming Encounters Date Type Department Care Team ([facility] st Contact Info) Description 12/11/2024 1:30 PM EDT Office Visit [facility] [address], [address] [place] [phone] Jason Moya III, MD [address] [place] [address] Domenico Upton APRN [address] [place], [place] [address] [place] [address] 01/11/2025 9:30 AM EDT Office Visit [facility] [address] [place], [address] [place] [address] Aidan Ferraro MD [address] [place], [place] [phone] 03/15/2025 11:00 AM EDT Office Visit [facility] [address], [address] [address] Aidan Ferraro MD [address] [place] [phone] documented as of this encounter Visit Diagnoses Not on filedocumented in this encounter Additional Health Concerns Infection Onset Date Last Indicated Resolved Time Covid-19 (confirmed) Comment:Past Acute Phase 03/28/2020 03/28/2020 07/30/2020 9:22 AM EST Covid-19 (rule out) 07/03/2021 07/03/2021 07/03/19 22 9:44 PM EST Covid-19 (confirmed) 07/03/2021 07/03/2021 022 10:14 PM EDT documented as of this encounter Care Teams Manager Internet Retails Sales Relationship Specialty [place] [address] [place] [address] PCP - General Cardiology 05/20/16 11/01/17 Aidan Ferraro MD [address] [place] [address] PCP - General Family Medicine 11/02/17 02/22/18 Lois Alaniz APRN [address] [place] [address] PCP - General Family Practice 02/23/18 03/01/20 Aidan Ferraro MD [address] [place] [address] PCP - General Family Medicine 03/02/20 Provider, Historical 08/11/16 Francisco Reveles MD [address] [place] [address] [address] [place] [address] Gastroenterology 08/17/16 Alexis Chamberlain MD [address] [place] [address] [address] [place] [address] Orthopedic Surgery 09/08/18 Canelo Avery MD [address] [place], [place] [address] [place] [address] Orthopedic Surgery 04/12/20 Patricia Hernandez 06/03/20 Jayla Rangel, ONI Registered Nurse Community Center Coordinator 02/15/23 02/15/23 Enmanuel Kauffman DPM [address] [place] [address] 302 [place] [address] Podiatry 05/25/23 documented as of this encounter
--- OUTSIDE RECORDS SUMMARY | 2024-11-14 14:36 | XMS_ITS | Encounter Summary ---
Author Organization [facility] Address [address] [place] [address] Care Team Providers Care Technical Support Specialist Name Role Phone Mayo Kauffman MD Primary Care Provider Provider, Historical Unavailable Unavailable Francisco Reveles MD Unavailable Aidan Ferraro MD Primary Care Provider Lois Alaniz APRN Primary Care Provider Alexis Chamberlain MD Unavailable [phone] Aidan Ferraro MD Primary Care Provider [phone] Canelo Avery MD Unavailable [phone] Patricia Hernandez Unavailable Unavailable Jayla Rangel RN Unavailable Unavailable Enmanuel Kauffman DPM Unavailable [phone] Reason for Visit * Reason Onset Date Comments Medications Refill 09/01/2016 Encounter Details Date Type Department Care Team (Late st Contact Info) Description 09/01/2016 Refill [facility] [place] [address] [place] [address] Mayo Kauffman MD [address] [place] [address] Medications Refill Social History Tobacco [...] Description 12/11/2024 1:30 PM EDT Office Visit [facility] [address] [address] Jason Moya III, MD [address] [place] [address] [phone] Domenico Upton APRN [address] [place] [phone] 01/11/2025 9:30 AM EDT Office Visit [facility] [address] [address] Aidan Ferraro MD [address] [place] [phone] 03/15/2025 11:00 AM EDT Office Visit [facility] [address] [address] Aidan Ferraro MD [address] [place] [address] [phone] documented as of this encounter Visit Diagnoses Diagnosis Insomnia, unspecified type- Primary documented in this encounter Additional Health Concerns Infection Onset Date Last Indicated Resolved Time Covid-19 (confirmed) Comment:Past Acute Phase 03/28/2020 03/28/2020 07/30/2020 9:22 AM EST Covid-19 (rule out) 07/03/2021 07/03/2021 07/03/19 9:44 PM EST Covid-19 (confirmed) 07/03/2021 07/03/2021 022 10:14 PM EDT documented as of this encounter Care Teams Technical Support Specialist Relationship Specialty [place] [address] [place] [address] PCP - General Cardiology 05/20/16 11/01/17 Aidan Ferraro MD [address] [place] [address] PCP - General Family Medicine 11/02/17 02/22/18 Lois Alaniz APRN [address] [place] [address] PCP - General Family Practice 02/23/18 03/01/20 Aidan Ferraro MD [address] [place] [address] PCP - General Family Medicine 03/02/20 Provider, Historical 08/11/16 Francisco Reveles MD [address] [place] [address] Gastroenterology 08/17/16 Alexis Chamberlain MD [address] [place] [address] Orthopedic Surgery 09/08/18 Canelo Avery MD [address] [place] [address] Orthopedic Surgery 04/12/20 Patricia Hernandez 06/03/20 Jayla Rangel, RN Registered Nurse Floral Assistant 02/15/23 02/15/23 Enmanuel Kauffman DPM [address] [place] [address] Podiatry 05/25/23 documented as of this encounter
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
--- OUTSIDE RECORDS SUMMARY | 2024-11-14 14:36 | XMS_ITS | Encounter Summary ---
Author Organization [facility] Address [address] [place] [address] Care Team Providers Care Sr. Vendor Management Associate Name Role Phone Mayo Kauffman MD Primary Care Provider [phone] Jason Canchola MD Primary Care Provider [phone] Mayo Kauffman MD Primary Care Provider [phone] Provider, Historical Unavailable Unavailable Francisco Reveles MD Unavailable Aidan Ferraro MD Primary Care Provider [phone] Lois Alaniz APRN Primary Care Provider [phone] Alexis Chamberlain MD Unavailable [phone] Aidan Ferraro MD Primary Care Provider [phone] Canelo Avery MD Unavailable [phone] Patricia Hernandez Unavailable Unavailable Jayla Rangel RN Unavailable Unavailable Enmanuel Kauffman DPM Unavailable [phone] Encounter Details Date Type Department Care Team (Late st Contact Info) Description 10/17/2012 Orders Only [facility] [address] [place] [phone] Isabell Prakash NP CAD (coronary artery disease); High Cholesterol Social History Tobacco Use Types Packs/Day Years [...] Description 12/11/2024 1:30 PM EDT Office Visit [facility] CARDIOLOGY [address] [address] aJson Moya III, MD [address] [place] [address] [phone] Domenico Upton APRN [address] [place] [address] [phone] 01/11/2025 9:30 AM EDT Office [facility] [address] [address] Aidan Ferraro MD [address] [place] [address] [phone] 03/15/2025 11:00 AM EDT Office Visit [facility] [address] [address] Aidan Ferraor MD [address] [place] [address] [phone] documented as of this encounter Results * Hepatic Function Panel (11/10/2012 8:05 AM EDT) [facility] T BILIRUBIN 0.8 0.2 - 1.0 MG/DL [facility] D BILIRUBIN 0.0 0.0 - 0.2 MG/DL [facility] Albumin 3.7 3.2 - 5.0 G/DL [facility] ALT (SGPT) 31 10 - 60 IU/L [facility] AST 30 10 - 42 IU/L [facility] ALP 98 42 - 121 IU/L [facility] PROTEIN TOTAL 6.7 6.7 - 8.2 G/DL [facility] 11/10/2012 8:05 AM EDT 11/10/2012 1:23 PM EDT Isabell Prakash RESTAURANT DELIVERY DRIVER CHEMISTRY ORDERABLES Final Resu lt [facility] [address] [phone] * (ABNORMAL) Lipid Panel (11/10/2012 8:05 AM EDT) CHOLESTEROL 211(H) 10 - 200 MG/DL [facility] TRIGLYCERIDE 276(H) 46 - 236 MG/DL [facility] HDL 32.0 27.0 - 67.0 MG/DL [facility] VLDL 55.2 MG/DL [facility] LDL 123.8 MG/DL [facility] Comment: CAP STANDARDIZED LDL-CHOLESTEROL VALUES <130-DESIRABLE 130-159 BORDERLINE/HIGH RISK >160-HIGH RISK RISK 1, MALE 6.59 [facility] Comment: TOTAL CHOL/HDL 1/2 AVERAGE 3.43 AVERAGE 4.97 2 X AVERAGE 9.55 3 X AVERAGE 23.39 RISK 2, MALE 3.87 [facility] Comment: LDL/HDL 1/2 AVERAGE 1.00 AVERAGE 3.55 2 X AVERAGE 6.25 3 X AVERAGE 7.99 RISK 1, FEMALE 6.59 [facility] Comment: TOTAL CHOL/HDL 1/2 AVERAGE 3.27 AVERAGE 4.44 2 X AVERAGE 7.05 3 X AVERAGE 11.04 RISK 2, FEMALE 3.87 [facility] Comment: LDL/HDL 1/2 AVERAGE 1.47 AVERAGE 3.22 2 X AVERAGE 5.03 3 X AVERAGE 6.14 11/10/2012 8:05 AM EDT 11/10/2012 1:23 PM EDT Isabell Prakash RESTAURANT DELIVERY DRIVER CHEMISTRY ORDERABLES Final Resu lt [facility] [address] [place] [address] documented in this encounter Visit Diagnoses Diagnosis CAD (coronary artery disease) Coronary atherosclerosis of unspecified type of vessel, [place] or graft High Cholesterol Pure hypercholesterolemia documented in this encounter Additional Health Concerns Infection Onset Date Last Indicated Resolved Time Covid-19 (confirmed) Comment:Past Acute Phase 03/28/2020 03/28/2020 07/30/2020 9:22 AM EST Covid-19 (rule out) 07/03/2021 07/03/2021 07/03/19 9:44 PM EST Covid-19 (confirmed) 07/03/2021 07/03/2021 022 10:14 PM EDT documented as of this encounter Care Teams Sr. Vendor Management Associate Relationship Specialty Start Date End Date Mayo Kauffman MD [address] [place] [address] PCP - General 05/25/08 12/11/14 Jason Canchola MD [address] [place] [address] PCP - General 12/12/14 05/19/16 Mayo Kauffman MD [address] [place] [address] PCP - General Cardiology 05/20/16 11/01/17 Aidan Ferraro MD [address], [place] [address] PCP - General Family Medicine 11/02/17 02/22/18 Lois Alaniz APRN [address] [place] [address] PCP - General Family Practice 02/23/18 03/01/20 Aidan Ferraro MD [address] [facility] [place] [address] PCP - General Family Medicine 03/02/20 Provider, Historical 08/11/16 Francisco Reveles MD [address] [facility] [place] [address] Gastroenterology 08/17/16 Alexis Chamberlain MD 613 [address] [address] [place] [address] Orthopedic Surgery 09/08/18 Canelo Avery MD [address] [place] [address] [address] [place] [address] Orthopedic Surgery 04/12/20 Patricia Hernandez 06/03/20 Jayla Rangel, RN Registered Nurse Base Ply Hand 02/15/23 02/15/23 Enmanuel Kauffman DPM [address] [place] [address] [address] [place] [address] Podiatry 05/25/23 documented as of this encounter
--- OUTSIDE RECORDS SUMMARY | 2024-11-14 14:37 | XMS_ITS | Encounter Summary ---
Author Organization [facility] Address [address] [place] [address] Care Team Providers Care Therapy Administrative Assistant Name Role Phone Provider, Historical Unavailable Unavailable Francisco Reveles MD Unavailable Lois Alaniz APRN Primary Care Provider [phone] Alexis Chamberlain MD Unavailable [phone] Aidan Ferraro MD Primary Care Provider [phone] Canelo Avery MD Unavailable [phone] Patricia Hernandez Unavailable Unavailable Jayla Rangel RN Unavailable Unavailable Enmanuel Kauffman DPM Unavailable [phone] Reason for Visit * Reason Onset Date Comments Medications Refill 02/23/2018 Encounter Details Date Type Department Care Team (Late st Contact Info) Description 02/23/2018 Telephone [facility] [address] [place] [address], [address] [place] [address] Aidan Ferraro MD [address] [place] [address] Medications Refill Social History Tobacco Use Types [...] encounter Miscellaneous Notes * Telephone Encounter - Tiara Schneider LPN - 03/01/2018 3:37 PM EDT Restoril 15 mg called in to [facility]. Patient advised. * Telephone Encounter - Agnes Brown - 03/01/2018 7:24 AM EDT Patient is out of med and [facility] will not fill a 30 day supply. Can this be phoned in to [facility]? * Telephone Encounter - Janina Nieves LPN - 02/24/2018 10:27 AM EDT Advised patient and verbalized understanding * Telephone Encounter - Lois Alaniz APRN - 02/24/2018 8:47 AM EDT Haylee reviewed and consistent. Script refilled. Can only do 30 days at at time. * Telephone Encounter - Jae Golden - 02/23/2018 8:46 AM EDT JACKELINE : 11/02/17 NOV : 05/05/18 HAYLEE : [id number] documented in this encounter Plan of Treatment Upcoming Encounters Date Type Department Care Team (Late st Contact Info) Description 12/11/2024 1:30 PM EDT Office Visit [facility] C[facility]IOLOGY [address], [address] [address] Jason Moya III, MD [address] [place] [address] Domenico Upton APRN [address] [place] [address] 01/11/2025 9:30 AM EDT Office Visit [facility] [address] [address] Aidan Ferraro MD [address] [place] [phone] 03/15/2025 11:00 AM EDT Office Visit [facility] [address] [place] [phone] Aidan Ferraro MD [address] [place] [address] [phone] documented as of this encounter Visit Diagnoses [...] documented as of this encounter Care Teams Therapy Administrative Assistant Relationship Specialty Start Date End Date Lois Alaniz APRN [address] [place] [address] PCP - General Family Practice 02/23/18 03/01/20 Aidan Ferraro MD [address] [place] [address] PCP - General Family Medicine 03/02/20 Provider, Historical 08/11/16 Francisco Reveles MD [address] [place] [address] Gastroenterology 08/17/16 Alexis Chamberlain MD [address] [place], [place] [address] [place] [address] Orthopedic Surgery 09/08/18 Canelo Avery MD [address] [place], [place] [address] [place] [address] Orthopedic Surgery 04/12/20 Patricia Hernandez 06/03/20 Jayla Rangel, RN Registered Nurse Coater Carbon Paper 02/15/23 02/15/23 Enmanuel Kauffman DPM [address] [place] [address] 302 [place] [address] Podiatry 05/25/23 documented as of this encounter
--- OUTSIDE RECORDS SUMMARY | 2024-11-14 14:37 | XMS_ITS | Encounter Summary ---
Author Organization [facility] Address [address] [place] [address] Care Team Providers Care Credit Card Clerk Name Role Phone Provider, Historical Unavailable Unavailable Francisco Reveles MD Unavailable Alexis Chamberlain MD Unavailable [phone] Aidan Ferraro MD Primary Care Provider [phone] Canelo Avery MD Unavailable [phone] Patricia Hernandez Unavailable Unavailable Jayla Rangel RN Unavailable Unavailable Enmanuel Kauffman DPM Unavailable [phone] Reason for Visit * Reason Onset Date Comments Medications Refill 06/13/2021 Encounter Details Date Type Department Care Team (Late st Contact Info) Description 06/13/2021 Refill [facility] [address] [place] [address], [address] [place] [address] Aidan Ferraro MD [address] [place], [place] [phone] Primary insomnia Social History Tobacco Use Types [...] Telephone Encounter - Aidan Ferraro MD - 06/13/2021 1:25 PM EST HAYLEE reviewed Script sent * Telephone Encounter - Maryellen Michael - 06/13/2021 1:22 PM EST Walking Kiana to you now * Telephone Encounter - Aidan Ferraro MD - 06/13/2021 1:11 PM EST Need HAYLEE * Telephone Encounter - Aguilar Alvarenga - 06/13/2021 12:20 PM EST ?? Refill due: yes ?? Primary Care Provider is: [facility] ?? Pharmacy verified: yes ?? Refill requested for 30 days ?? Last appointment 04/03/21. Next appointment 07/21/21. Patient is currently out of medication: no Special circumstances communicated by the patient: none Refill read back and confirmed with patient: yes documented in this encounter Plan of Treatment Upcoming Encounters Date Type Department Care Team (Late st Contact Info) Description 12/11/2024 1:30 PM EDT Office Visit [facility] [address], [address] [place] [address] Jason Moya III, MD [address] [place] [address] 230 [place] [address] Domenico Upton APRN [address] [place] [address],[address] [place] [address] 01/11/2025 9:30 AM EDT Office Visit [facility] Ferraro [address] [place] [address] Aidan Ferraro MD [address] [place], [place] [phone] 03/15/2025 11:00 AM EDT [facility] [place] [address] Aidan Ferraro MD [address] [place] [address] documented as of this encounter Visit Diagnoses Diagnosis 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 documented in this encounter Additional Health Concerns Infection Onset Date Last Indicated Resolved Time Covid-19 (rule out) 07/03/2021 07/03/2021 07/03/19 22 9:44 PM EST Covid-19 (confirmed) 07/03/2021 07/03/2021 022 10:14 PM EDT documented as of this encounter Care Teams Credit Card Clerk Relationship Specialty Start Date End Date Aidan Ferraro MD [address] [place] [address] PCP - General Family Medicine 03/02/20 Provider, Historical 08/11/16 Francisco Reveles MD [address] [place] [address] Gastroenterology 08/17/16 Alexis Chamberlain MD [address] [place] [address] [address] [place], [place] [phone] Orthopedic Surgery 09/08/18 Canelo Avery MD [address] [address] [place] [phone] Orthopedic Surgery 04/12/20 Patricia Hernandez 06/03/20 Jayla Rangel RN Registered Nurse Hydraulics Engineer 02/15/23 02/15/23 Enmanuel Kauffman DPM [address] [facility] [address] [place] [address] Podiatry 05/25/23 documented as of this encounter
--- OUTSIDE RECORDS SUMMARY | 2024-11-14 14:37 | XMS_ITS | Encounter Summary ---
Author Organization [facility] Address [address] [place] [address] Care Team Providers Care Fig Washer Name Role Phone Mayo Kauffman MD Primary Care Provider [phone] Jason Canchola MD Primary Care Provider [phone] Mayo Kauffman MD Primary Care Provider [phone] Provider, Historical Unavailable Unavailable Francisco Reveles MD Unavailable Aidan Ferraro MD Primary Care Provider [phone] Lois Alaniz APRN Primary Care Provider [phone] Alexis Chamberlain MD Unavailable [phone] Aidan Ferraro MD Primary Care Provider [phone] Canelo Avery MD Unavailable [phone] Patricia Hernandez Unavailable Unavailable Jayla Rangel RN Unavailable Unavailable Enmanuel Kauffman DPM Unavailable [phone] Encounter Details Date Type Department Care Team (Late st Contact Info) Description 12/16/2012 Orders Only [facility] [place] [address] [place] [phone] Mayo Kauffman MD [address] [place] [address] Coronary artery disease; Other and unspecified angina pectoris Social History Tobacco Use Types Packs/Day Years [...] Description 12/11/2024 1:30 PM EDT Office Visit [facility] [address] [address] Jason Moya III, MD [address] [place] [address] Domenico Upton APRN [address] [place] [address] 01/11/2025 9:30 AM EDT Office Visit [address] [address] Aidan Ferraro MD [address] [place] [address] 03/15/2025 11:00 AM EDT Office Visit [facility] [address] [address] Aidan Ferraro MD [address] [place] [address] documented as of this encounter Visit Diagnoses Diagnosis Coronary artery disease Coronary atherosclerosis of unspecified type of vessel, [place] or graft Other and unspecified angina pectoris documented in this encounter Additional Health Concerns Infection Onset Date Last Indicated Resolved Time Covid-19 (confirmed) Comment:Past Acute Phase 03/28/2020 03/28/2020 07/30/2020 9:22 AM EST Covid-19 (rule out) 07/03/2021 07/03/2021 07/03/19 22 9:44 PM EST Covid-19 (confirmed) 07/03/2021 07/03/2021 022 10:14 PM EDT documented as of this encounter Care Teams Fig Washer Relationship Specialty Start Date End Date Mayo Kauffman MD [address] [address] PCP - General 05/25/08 12/11/14 Jason Canchola MD [address] [place] [address] PCP - General 12/12/14 05/19/16 [place] [address] [place] [address] PCP - General Cardiology 05/20/16 11/01/17 Aidan Ferraro MD [address] [place] [address] PCP - General Family Medicine 11/02/17 02/22/18 Lois Alaniz APRN [address] [place] [address] PCP - General Family Practice 02/23/18 03/01/20 Aidan Ferraro MD [address] [place] [address] PCP - General Family Medicine 03/02/20 Provider, Historical 08/11/16 Francisco Reveles MD [address] [place], [place] [address] Gastroenterology 08/17/16 Alexis Chamberlain MD 613 [facility] [address] [place], [place] [address] Orthopedic Surgery 09/08/18 Canelo Avery MD [address] [place] [address] [address] [place] [address] Orthopedic Surgery 04/12/20 Patricia Hernandez 06/03/20 Jayla Rangel, RN Registered Nurse Rocket Assembly Operator 02/15/23 02/15/23 Enmanuel Kauffman DPM [address] [place] [address] [address] [place], [place] [id number] Podiatry 05/25/23 documented as of this encounter
--- OUTSIDE RECORDS SUMMARY | 2024-11-14 14:37 | XMS_ITS | Encounter Summary ---
Author Organization [facility] Address [address] [place] [address] Care Team Providers Care Silk Folder Name Role Phone Mayo Kauffman MD Primary Care Provider [phone] Jason Canchola MD Primary Care Provider [phone] Mayo Kauffman MD Primary Care Provider [phone] Provider, Historical Unavailable Unavailable Francisco Reveles MD Unavailable Aidan Ferraro MD Primary Care Provider [phone] Lois Alaniz APRN Primary Care Provider [phone] Alexis Chamberlain MD Unavailable [phone] Aidan Ferraro MD Primary Care Provider [phone] Canelo Avery MD Unavailable [phone] Patricia Hernandez Unavailable Unavailable Jayla Rangel RN Unavailable Unavailable Enmanuel Kauffman DPM Unavailable [phone] Encounter Details Date Type Department Care Team (Late st Contact Info) Description 12/18/2011 Telephone [facility] [place] [address] [place] [address] Mayo Kauffman MD [address], [place] [address] Social History Tobacco Use Types Packs/Day Years [...] Telephone Encounter - Brianne Sharp LPN - 12/18/2011 2:59 PM EDT Pt called and he wants to check with daughter before he decides which vaccine to receive and for usto hold on to the script * Telephone Encounter - Brianne Sharp LPN - 12/18/2011 2:18 PM EDT Tried to call and inform pt script approved awaiting signature to hard copy * Telephone Encounter - Brianne Sharp LPN - 12/18/2011 2:14 PM EDT Script written and awaiting signature to script then needs to call pt when completed * Telephone Encounter - Isabell Prakash NP - 12/18/2011 1:47 PM EDT That is fine * Telephone Encounter - Lynn Velez - 12/18/2011 12:51 PM EDT Pt would like to have a prescription to get the shingles vacine please. Please advise [phone] documented in this encounter Plan of Treatment Upcoming Encounters Date Type Department Care Team (Late st Contact Info) Description 12/11/2024 1:30 PM EDT Office Visit [facility] [place] [address] [place] [phone] Jason Moya III, MD [address] [place] [address] [phone] Domenico Upton APRN [address] [place] [address] [phone] 01/11/2025 9:30 AM EDT Office Visit [facility] [address] [phone] Aidan Ferraro MD [address] [place] [address] 03/15/2025 11:00 AM EDT Office Visit [facility] [address] [address] Aidan Ferraro MD [address] [place] [phone] documented as of this encounter Visit Diagnoses Not on filedocumented in this encounter Additional Health Concerns Infection Onset Date Last Indicated Resolved Time Covid-19 (confirmed) Comment:Past Acute Phase 03/28/2020 03/28/2020 07/30/2020 9:22 AM EST Covid-19 (rule out) 07/03/2021 07/03/2021 07/03/19 9:44 PM EST Covid-19 (confirmed) 07/03/2021 07/03/202108/21/ 022 10:14 PM EDT documented as of this encounter Care Teams Silk Folder Relationship Specialty Start Date End Date Mayo Kauffman MD [address] [facility] 230 [place] [address] PCP - General 05/25/08 12/11/14 Jason Canchola MD [address] [place] [address] PCP - General 12/12/14 05/19/16 Mayo Kauffman MD [address] [place] [address] PCP - General Cardiology 05/20/16 11/01/17 Aidan Ferraro MD 617 [address] [address] PCP - General Family Medicine 11/02/17 02/22/18 Lois Alaniz APRN [address] [place] [address] PCP - General Family Practice 02/23/18 03/01/20 Aidan Ferraro MD [address] [place] [address] PCP - General Family Medicine 03/02/20 Provider, Historical 08/11/16 Francisco Reveles MD [address] [place] [address] Gastroenterology 08/17/16 Alexis Chamberlain MD [address] [facility] [address] [place] [address] Orthopedic Surgery 09/08/18 Canelo Avery MD [address] [place] [address] Orthopedic Surgery 04/12/20 Patricia Hernandez 06/03/20 Jayla Rangel, RN Registered Nurse Photographer Still 02/15/23 02/15/23 Enmanuel Kauffman DPM [address] [facility] [address] [place] [address] Podiatry 05/25/23 documented as of this encounter
--- OUTSIDE RECORDS SUMMARY | 2024-11-14 14:37 | XMS_ITS | Encounter Summary ---
Author Organization [facility] Address [address] [place] [address] Care Team Providers Care Lamination Builder Name Role Phone Mayo Kauffman MD Primary Care Provider [phone] Provider, Historical Unavailable Unavailable Francisco Reveles MD Unavailable Aidan Ferraro MD Primary Care Provider Lois Alaniz APRN Primary Care Provider Alexis Chamberlain MD Unavailable [phone] Aidan Ferraro MD Primary Care Provider [phone] Canelo Avery MD Unavailable [phone] Patricia Hernandez Unavailable Unavailable Jayla Rangel RN Unavailable Unavailable Enmanuel Kauffman DPM Unavailable [phone] Reason for Visit * Reason Onset Date Comments Phone Advice For Symptoms 09/13/2017 Encounter Details Date Type Department Care Team (Late st Contact Info) Description 09/13/2017 Telephone [facility] [address], [address] [place] [address] Jason Moya III, MD [address] [place] [address] [address] [place] [address] Phone Advice For Symptoms Social [...] encounter Miscellaneous Notes * Telephone Encounter - BrockEditha - 09/13/2017 8:15 AM EDT The pt is saying he always has blood work done before his appt to check his cholesterol and PSA. The doctor's last note does not say anything about blood work being done. Please inform the patient either way. documented in this encounter Plan of Treatment Upcoming Encounters Date Type Department Care Team (Late st Contact Info) Description 12/11/2024 1:30 PM EDT Office Visit [facility] [address] [address] Jaosn Moya III, MD [address] [place] [address] Domenico Upton APRN [address] [place], [place] [address] [place] [address] 01/11/2025 9:30 AM EDT Office Visit [facility] [address] [phone] Aidan Ferraro MD [address] [place] [address] 03/15/2025 11:00 AM EDT Office [facility] [address] [place] [address] Aidan Ferraro MD [address] [place] [address] documented as of this encounter Visit Diagnoses Not on filedocumented in this encounter Additional Health Concerns Infection Onset Date Last Indicated Resolved Time Covid-19 (confirmed) Comment:Past Acute Phase 03/28/2020 03/28/2020 07/30/2020 9:22 AM EST Covid-19 (rule out) 07/03/2021 07/03/2021 07/03/19 9:44 PM EST Covid-19 (confirmed) 07/03/2021 07/03/2021 022 10:14 PM EDT documented as of this encounter Care Teams Lamination Builder Relationship Specialty Start Date End Date Mayo Kauffman MD [address] [place] [address] PCP - General Cardiology 05/20/16 11/01/17 Aidan Ferraro MD [address] [place] [address] PCP - General Family Medicine 11/02/17 02/22/18 Lois Alaniz APRN [address] [place] [address] PCP - General Family Practice 02/23/18 03/01/20 Aidan Ferraro MD [address] [place] [address] PCP - General Family Medicine 03/02/20 Provider, Historical 08/11/16 Francisco Reveles MD [address] [place] [address] Gastroenterology 08/17/16 Alexis Chamberlain MD [address] [facility] [address] [place], [place] [phone] Orthopedic Surgery 09/08/18 Canelo Avery MD [address] [place], [place] [address] Orthopedic Surgery 04/12/20 Patricia Hernandez 06/03/20 Jayla Rangel, RN Registered Nurse Production Control Coordinating Clerk 02/15/23 02/15/23 Enmanuel Kauffman DPM [address] [place] [address] [address] [place], [place] [address] Podiatry 05/25/23 documented as of this encounter
--- OUTSIDE RECORDS SUMMARY | 2024-11-14 14:37 | XMS_ITS | Encounter Summary ---
Author Organization [facility] Address [address] [place] [address] Care Team Providers Care Customer Service Advisor Name Role Phone Provider, Historical Unavailable Unavailable Francisco Reveles MD Unavailable Alexis Chamberlain MD Unavailable [phone] Aidan Ferraro MD Primary Care Provider [phone] Canelo Avery MD Unavailable [phone] Patricia Hernandez Unavailable Unavailable Jayla Rangel RN Unavailable Unavailable Enmanuel Kauffman DPM Unavailable [phone] Reason for Visit * Reason Onset Date Comments Medications Refill 11/22/2020 refill Encounter Details Date Type Department Care Team (Late st Contact Info) Description 11/22/2020 Refill [facility] [address] [place] [address] [address] [place] [address] Aidan Ferraro MD [address] [place] [address] Primary insomnia Social History Tobacco Use [...] Telephone Encounter - Nory Coelho LPN - 11/22/2020 12:14 PM EDT Pt advised. * Telephone Encounter - Aidan Ferraro MD - 11/22/2020 11:18 AM EDT Not due until 12/11 * Telephone Encounter - Nory Coelho LPN - 11/22/2020 10:51 AM EDT HAYLEE printed and placed in POC area. * Telephone Encounter - Debbie Paz - 11/22/2020 9:09 AM EDT ?? Refill due: yes ?? Primary Care Provider is: Dr Ferraro ?? Pharmacy verified: yes ?? Refill requested for 90 days ?? Last appointment 09/11/20. Next appointment 12/26/20. Appointment offered to patient if last office visit > 6 months to 1 year. yes ??? Patient is currently out of medication: yes ??? Special circumstances communicated by the patient: none Refill read back and confirmed with patient: yes documented in this encounter Plan of Treatment Upcoming Encounters Date Type Department Care Team (Late st Contact Info) Description 12/11/2024 1:30 PM EDT Office Visit [facility] [address], [address] [place] [address] Jason Moya III, MD [address] [place] [address] 230 [place] [address] Domenico Upton APRN [address] [place] [address],[facility] 230 [place], [place] [address] 01/11/2025 9:30 AM EDT Office Visit [address] [place] [address] Aidan Ferraro MD [address] [place], [place] [address] 03/15/2025 11:00 AM EDT Office Visit [address] [address] Aidan Ferraro MD [address] [place], [place] [address] documented as of this encounter Visit Diagnoses Diagnosis 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 documented in this encounter Additional Health Concerns Infection Onset Date Last Indicated Resolved Time Covid-19 (rule out) 07/03/2021 07/03/2021 07/03/19 22 9:44 PM EST Covid-19 (confirmed) 07/03/2021 07/03/2021 022 10:14 PM EDT documented as of this encounter Care Teams Customer Service Advisor Relationship Specialty Start Date End Date Aidan Ferraro MD [address] [place] [address] [phone] PCP - General Family Medicine 03/02/20 Provider, Historical 08/11/16 Francisco Reveles MD [address] [place] [address] Gastroenterology 08/17/16 lAexis Chamberlain MD [address] [facility] [address] [place], [place] 8[address]01 Orthopedic Surgery 09/08/18 Canelo Avery MD [address] [place], [place] 2529[address] Orthopedic Surgery 04/12/20 Patricia Hernandez 06/03/20 Jayla Rangel, RN Registered Nurse Head Operator Sulfide 02/15/23 02/15/23 Enmanuel Kauffman DPM [address] [place] [address] [address] [place], [place] [phone] Podiatry 05/25/23 documented as of this encounter
--- OUTSIDE RECORDS SUMMARY | 2024-11-14 14:37 | XMS_ITS | Encounter Summary ---
Author Organization [facility] Address [address] [place] [address] Care Team Providers Care Electrical Assembly Supervisor Name Role Phone Mayo Kauffman MD Primary Care Provider [phone] Jason Canchola MD Primary Care Provider [phone] Mayo Kauffman MD Primary Care Provider [phone] Provider, Historical Unavailable Unavailable Francisco Reveles MD Unavailable Aidan Ferraro MD Primary Care Provider [phone] Lois Alaniz APRN Primary Care Provider [phone] Alexis Chamberlain MD Unavailable [phone] Aidan Ferraro MD Primary Care Provider [phone] Canelo Avery MD Unavailable [phone] Patricia Hernandez Unavailable Unavailable Jayla Rangel RN Unavailable Unavailable Enmanuel Kauffman DPM Unavailable [phone] Encounter Details Date Type Department Care Team (Late st Contact Info) Description 01/29/2012 Telephone [facility] [place] [address] [place] [address] Mayo Kauffman MD [address] [phone] Social History Tobacco Use Types Packs/Day Years [...] Telephone Encounter - Brianne Sharp LPN - 01/29/2012 2:28 PM EDT Script written and placed on desk for signature * Telephone Encounter - Joshua Umana - 01/29/2012 1:58 PM EDT Pt needs refills on: Nadolol 40 mg, Simvastatin 40mg. Needs 90 day with 3 refills. Uses [facility] [place] [address] . documented in this encounter Plan of Treatment Upcoming Encounters Date Type Department Care Team (Late st Contact Info) Description 12/11/2024 1:30 PM EDT Office Visit [facility] [address] [phone] Jason Moya III, MD [address] [place] [address] Domenico Upton APRN [address] [place] [address] 01/11/2025 9:30 AM EDT Office Visit [facility] [address] [place] [address], [facility] [address] [place] [address] Aidan Ferraro MD [address] [place] [address] 75107[address] 03/15/2025 11:00 AM EDT Office Visit [facility] [address] [place] [address], [address] [address] Aidan Ferraro MD [address] [place] [phone] documented as of this encounter Visit Diagnoses Not on filedocumented in this encounter Additional Health Concerns Infection Onset Date Last Indicated Resolved Time Covid-19 (confirmed) Comment:Past Acute Phase 03/28/2020 03/28/2020 07/30/2020 9:22 AM EST Covid-19 (rule out) 07/03/2021 07/03/2021 07/03/19 22 9:44 PM EST Covid-19 (confirmed) 07/03/2021 07/03/2021 022 10:14 PM EDT documented as of this encounter Care Teams Electrical Assembly Supervisor Relationship Specialty Start Date End Date Mayo Kauffman MD [address] [place] [address] PCP - General 05/25/08 12/11/14 Jason Canchola MD [address] [place] [address] PCP - General 12/12/14 05/19/16 Mayo Kauffman MD [address] [place] [address] PCP - General Cardiology 05/20/16 11/01/17 Aidan Ferraro MD [address] [place] [address] PCP - General Family Medicine 11/02/17 02/22/18 Lois Alaniz APRN [facility] [place] [address] PCP - General Family Practice 02/23/18 03/01/20 Aidan Ferraro MD [address] [address] PCP - General Family Medicine 03/02/20 Provider, Historical 08/11/16 Francisco Reveles MD 613 23[facility] [address] [place] [address] Gastroenterology 08/17/16 Alexis Chamberlain MD [address] [place] [address] [address] [place] [address] Orthopedic Surgery 09/08/18 Canelo Avery MD [address] [place] [address] [address] [place] [address] Orthopedic Surgery 04/12/20 Patricia Hernandez 06/03/20 Jayla Rangel, ONI Registered Nurse Rehabilitation Services Manager 02/15/23 02/15/23 Enmanuel Kauffman DPM [address] [facility] [address] [place] [address] Podiatry 05/25/23 documented as of this encounter
--- OUTSIDE RECORDS SUMMARY | 2024-11-14 14:37 | XMS_ITS | Encounter Summary ---
Author Organization [facility] Address [address] [place] [address] Care Team Providers Care Roving Technician Name Role Phone Mayo Kauffman MD Primary Care Provider [phone] Jason Canchola MD Primary Care Provider [phone] Mayo Kauffman MD Primary Care Provider [phone] Provider, Historical Unavailable Unavailable Francisco Reveles MD Unavailable Aidan Ferraro MD Primary Care Provider [phone] Lois Alaniz APRN Primary Care Provider [phone] Alexis Chamberlain MD Unavailable [phone] Aidan Ferraro MD Primary Care Provider [phone] Canelo Avery MD Unavailable [phone] Patricia Hernandez Unavailable Unavailable Jayla Rangel RN Unavailable Unavailable Enmanuel Kauffman DPM Unavailable Encounter Details Date Type Department Care Team (Late st Contact Info) Description 12/28/2012 Telephone [facility] [place] [address] [place] [address] Mayo Kauffman MD [address] [place] [address] Social History Tobacco Use Types Packs/Day Years [...] Telephone Encounter - Brianne Sharp LPN - 12/29/2012 9:21 AM EDT Script written and placed on desk for signature then will fax to [facility] * Telephone Encounter - Clarissa Finn - 12/28/2012 3:49 PM EDT Pt is needing refills on his isisosorbide 60 mg (90 day) we are needing to send this to his mail order pharmacy which is [facility] NOT [facility], (I couldn't get it to accept the right [facility]) so here is the # [phone] to call them and see if you can get the right one put in his pharmacy box.. Also, he would like to get a prescription for his sleeping medicine. Last prescription was written in 2010 Zolpidel 5 mg. 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 this for him Call back # [phone] Thank you documented in this encounter Plan of Treatment Upcoming Encounters Date Type Department Care Team ([facility] st Contact Info) Description 12/11/2024 1:30 PM EDT Office Visit [facility] [address], [address] [place] [address] Jason Moya III, MD [address] [place] [address] 230 [place], [place] [address] Domenico Upton APRN [address] [place], [place] [address] [place] [address] 01/11/2025 9:30 AM EDT Office Visit [facility] [address] [place] [address] Aidan Ferraro MD [address] [place] [address] [phone] 03/15/2025 11:00 AM EDT Office Visit [address] [phone] Aidan Ferraro MD [address] [place] [address] [phone] documented as of this encounter Visit Diagnoses Not on filedocumented in this encounter Additional Health Concerns Infection Onset Date Last Indicated Resolved Time Covid-19 (confirmed) Comment:Past Acute Phase 03/28/2020 03/28/2020 07/30/2020 9:22 AM EST Covid-19 (rule out) 07/03/2021 07/03/2021 07/03/19 22 9:44 PM EST Covid-19 (confirmed) 07/03/2021 07/03/2021 022 10:14 PM EDT documented as of this encounter Care Teams Roving Technician Relationship Specialty Start Date End Date Mayo Kauffman MD [address] [place] [address] PCP - General 05/25/08 12/11/14 Jason Canchola MD [address] [place] [address] PCP - General 12/12/14 05/19/16 [place] [address] [place] [address] PCP - General Cardiology 05/20/16 11/01/17 Aidan Ferraro MD [address] [place] [address] PCP - General Family Medicine 11/02/17 02/22/18 Lois Alaniz APRN [address] [place] [address] PCP - General Family Practice 02/23/18 03/01/20 Aidan Ferraro MD [address] [place] [address] PCP - General Family Medicine 03/02/20 Provider, Historical 08/11/16 Francisco Reveles MD [address] [place] [address] Gastroenterology 08/17/16 Alexis Chamberlain MD [address] [place] [address] Orthopedic Surgery 09/08/18 Canelo Avery MD [address] [place] [address] Orthopedic Surgery 04/12/20 Patricia Hernandez 06/03/20 Jayla Rangel, ONI Registered Nurse Pipelines Superintendent 02/15/23 02/15/23 Enmanuel Kauffman DPM [address] [place] [address] Podiatry 05/25/23 documented as of this encounter
--- OUTSIDE RECORDS SUMMARY | 2024-11-14 14:37 | XMS_ITS | Encounter Summary ---
Author Organization [facility] Address [address] [place] [address] Care Team Providers Care Rn Ed Name Role Phone Mayo Kauffman MD Primary Care Provider [phone] Provider, Historical Unavailable Unavailable Francisco Reveles MD Unavailable Aidan Ferraro MD Primary Care Provider [phone] Lois Alaniz APRN Primary Care Provider Alexis Chamberlain MD Unavailable [phone] Aidan Ferraro MD Primary Care Provider Canelo Avery MD Unavailable Patricia Hernandez Unavailable Unavailable Jayla Rangel RN Unavailable Unavailable Enmanuel Kauffman DPDebbie Unavailable [phone] Encounter Details Date Type Department Care Team (Late st Contact Info) Description 09/06/2017 Telephone [facility] [address] [place] [address] Jason Moya III, MD [address] [place] [address] [address] [place] [address] Social History Tobacco Use Types [...] Telephone Encounter - Tarsha Sumner LPN - 09/06/2017 3:37 PM EDT I may be wrong but I dont think Griffin follows this? * Telephone Encounter - Tova Gutiérrez - 09/06/2017 2:36 PM EDT The patient is calling to get an order for his blood work. He wants to have it done in [place] tomorrow if possible. documented in this encounter Plan of Treatment Upcoming Encounters Date Type Department Care Team (Late st Contact Info) Description 12/11/2024 1:30 PM EDT Office Visit [facility] [address] [place] [address] Jason Moya III, MD [address] [place] [address] [address] [place] [address] Domenico Upton APRN [address] [place], [place] [address] [place] [address] 01/11/2025 9:30 AM EDT Office Visit [facility] [address] [place] [address] Aidan Ferraro MD [address] [place] [address] 03/15/2025 11:00 AM EDT Office Visit [facility] [address] [place] [address] [address] [place] [address] Aidan Ferraro MD [address] [place], [place] [phone] documented as of this encounter Visit Diagnoses Not on filedocumented in this encounter Additional Health Concerns Infection Onset Date Last Indicated Resolved Time Covid-19 (confirmed) Comment:Past Acute Phase 03/28/2020 03/28/2020 07/30/2020 9:22 AM EST Covid-19 (rule out) 07/03/2021 07/03/2021 07/03/19 9:44 PM EST Covid-19 (confirmed) 07/03/2021 07/03/2021 022 10:14 PM EDT documented as of this encounter Care Teams Rn Ed Relationship Specialty [place] [address] [place] [address] PCP - General Cardiology 05/20/16 11/01/17 Aidan Ferraro MD [address] [place] [address] PCP - General Family Medicine 11/02/17 02/22/18 Lois Alaniz APRN [address] [place] [address] PCP - General Family Practice 02/23/18 03/01/20 Aidan Ferraro MD [address] [place] [address] PCP - General Family Medicine 03/02/20 Provider, Historical 08/11/16 Francisco Reveles MD [address] [place] [address] [address] [facility] [place] [address] Gastroenterology 08/17/16 Alexis Chamberlain MD [address] [place] [address] [address] [place] [address] Orthopedic Surgery 09/08/18 Canelo Avery MD [address] [place] [address] [address] [place] [address] Orthopedic Surgery 04/12/20 Patricia Hernandez 06/03/20 Jayla Rangel, RN Registered Nurse Freelance Patternmaker 02/15/23 02/15/23 Enmanuel Kauffman DPM [address] [place] [address] [address] [place] [address] Podiatry 05/25/23 documented as of this encounter
--- OUTSIDE RECORDS SUMMARY | 2024-11-14 14:37 | XMS_ITS | Encounter Summary ---
Author Organization [facility] Address [address] [place] [address] Care Team Providers Care Clerk Telegraph Service Name Role Phone Provider, Historical Unavailable Unavailable Francisco Reveles MD Unavailable Lois Alaniz APRN Primary Care Provider [phone] Alexis Chamberlain MD Unavailable [phone] Aidan Ferraro MD Primary Care Provider [phone] Canelo Avery MD Unavailable [phone] Patricia Hernandez Unavailable Unavailable Jayla Rangel RN Unavailable Unavailable Enmanuel Kauffman DPDebbie Unavailable [phone] Encounter Details Date Type Department Care Team (Late st Contact Info) Description 09/27/2018 Telephone [facility] [address] [place] [address] Jason Moya III, MD [address] [place] [address] [address] [place] [address] Social History Tobacco Use Types [...] PM EDT Office Visit [facility] [address] [address] Jason Moya III, MD [address] [place] [address] Domenico Upton APRN [address] [place] [address] 01/11/2025 9:30 AM EDT Office Visit [facility] [address] [address] Aidan Ferraro MD [address] [place], [place] [phone] 03/15/2025 11:00 AM EDT Office Visit [facility] [address] [phone] Aidan Ferraro MD [address] [place] [address] documented as of this encounter Visit Diagnoses Not on filedocumented in this encounter Additional Health Concerns Infection Onset Date Last Indicated Resolved Time Covid-19 (confirmed) Comment:Past Acute Phase 03/28/2020 03/28/2020 07/30/2020 9:22 AM EST Covid-19 (rule out) 07/03/2021 07/03/2021 07/03/19 9:44 PM EST Covid-19 (confirmed) 07/03/2021 07/03/2021 022 10:14 PM EDT documented as of this encounter Care Teams Clerk Telegraph Service Relationship Specialty Start Date End Date Lois Alaniz APRN [address] [place] [address] PCP - General Family Practice 02/23/18 03/01/20 Aidan Ferraro MD [address] [facility] [place] [address] PCP - General Family Medicine 03/02/20 Provider, Historical 08/11/16 Francisco Reveles MD [address] [place] [address] [address] [place] [address] Gastroenterology 08/17/16 Alexis Chamberlain MD [address] [place] [address] [address] [place] [address] Orthopedic Surgery 09/08/18 Canelo Avery MD [address] [place], [place] [address] [place] [address] Orthopedic Surgery 04/12/20 Patricia Hernandez 06/03/20 Jayla Rangel, ONI Registered Nurse City Driver 02/15/23 02/15/23 Enmanuel Kauffman DPM [address] [facility] 302 [place] [address] Podiatry 05/25/23 documented as of this encounter
--- OUTSIDE RECORDS SUMMARY | 2024-11-14 14:37 | XMS_ITS | Encounter Summary ---
Author Organization [facility] Address [address] [place] [address] Care Team Providers Care Wireline Supervisor Name Role Phone Provider, Historical Unavailable Unavailable Francisco Reveles MD Unavailable Lois Alaniz APRN Primary Care Provider [phone] Alexis Chamberlain MD Unavailable [phone] Aidan Ferraro MD Primary Care Provider [phone] Canelo Avery MD Unavailable [phone] Patricia Hernandez Unavailable Unavailable Jayla Rangel RN Unavailable Unavailable Enmanuel Kauffman DPDebbie Unavailable [phone] Encounter Details Date Type Department Care Team (Latest Contact Info) Description 01/16/2019 Transcribe Orders [facility] [address] [place] [address] iVck Kaiser MD [address] [place] [address] Pre-operative laboratory examination (Primary Dx); Other specified pre-operative examination Social History Tobacco Use Types Packs/Day Years [...] 12/11/2024 1:30 PM EDT Office Visit [facility] [address] [address] Jason Moya III, MD [address] [place] [phone] Domenico Upton APRN [address] [place] [address] 01/11/2025 9:30 AM EDT Office Visit [facility] [address] [address] Aidan Ferraro MD [address] [place] [address] 03/15/2025 11:00 AM EDT Office Visit [facility] [address] [address] Aidan Ferraro MD [address] [place] [address] documented as of this encounter Visit Diagnoses Diagnosis Pre-operative laboratory examination- Primary Pre-procedural laboratory examination Other specified pre-operative examination documented in this encounter Additional Health Concerns Infection Onset Date Last Indicated Resolved Time Covid-19 (confirmed) Comment:Past Acute Phase 03/28/2020 03/28/2020 07/30/2020 9:22 AM EST Covid-19 (rule out) 07/03/2021 07/03/2021 07/03/19 22 9:44 PM EST Covid-19 (confirmed) 07/03/2021 07/03/2021 022 10:14 PM EDT documented as of this encounter Care Teams Wireline Supervisor Relationship Specialty Start Date End Date Lois Alaniz APRN [address] [place] [address] PCP - General Family Practice 02/23/18 03/01/20 Aidan Ferraro MD [address] [place] [address] PCP - General Family Medicine 03/02/20 Provider, Historical 08/11/16 Francisco Reveles MD [address] [facility] [place] [address] Gastroenterology 08/17/16 Alexis Chamberlain MD 613 [address] [address] [place] [address] Orthopedic Surgery 09/08/18 Canelo Avery MD 613 [address] [address] [place] [address] Orthopedic Surgery 04/12/20 Patricia Hernandez 06/03/20 Jayla Rangel, RN Registered Nurse Plate Worker 02/15/23 02/15/23 Enmanuel Kauffman DPM 1000 [facility] [address] [place] [address] Podiatry 05/25/23 documented as of this encounter
--- OUTSIDE RECORDS SUMMARY | 2024-11-14 14:37 | XMS_ITS | Encounter Summary ---
Author Organization [facility] Address [address] [place] [address] Care Team Providers Care Activity Aide Name Role Phone Mayo Kauffman MD Primary Care Provider Provider, Historical Unavailable Unavailable Francisco Reveles MD Unavailable Aidan Ferraro MD Primary Care Provider Lois Alaniz APRN Primary Care Provider Alexis Chamberlain MD Unavailable [phone] Aidan Ferraro MD Primary Care Provider Canelo Avery MD Unavailable Patricia Hernandez Unavailable Unavailable Jayla Rangel RN Unavailable Unavailable Enmanuel Kauffman DPDebbie Unavailable [phone] Encounter Details Date Type Department Care Team (Late st Contact Info) Description 10/18/2017 Telephone [facility] [address] [place] [address] Jason Moya III, MD [address] [place] [address] [address] [place] [address] Social History Tobacco Use Types [...] Telephone Encounter - Tarsha Sumner LPN - 10/19/2017 12:01 PM EDT Left patient a message stating that labs are normal * Telephone Encounter - Roderick Pradhan - 10/18/2017 3:31 PM EDT Pt is wanting to talk to a nurse and go over his cholesterol blood work. documented in this encounter Plan of Treatment Upcoming Encounters Date Type Department Care Team (Late st Contact Info) Description 12/11/2024 1:30 PM EDT Office Visit [facility] [address] [address] Jason Moya III, MD [address] [place] [address] Domenico Upton APRN [address] [place], [place] [address] [place] [address] 01/11/2025 9:30 AM EDT Office Visit [facility] [address] [place] [address] Aidan Ferraro MD [address] [place] [address] 03/15/2025 11:00 AM EDT Office Visit [facility] [address] [place] [address] Aidan Ferraro MD [address] [place] [address] documented as of this encounter Visit Diagnoses Not on filedocumented in this encounter Additional Health Concerns Infection Onset Date Last Indicated Resolved Time Covid-19 (confirmed) Comment:Past Acute Phase 03/28/2020 03/28/2020 07/30/2020 9:2 2 AM EST Covid-19 (rule out) 07/03/2021 07/03/2021 07/03/19 9:44 PM EST Covid-19 (confirmed) 07/03/2021 07/03/2021 022 10:14 PM EDT documented as of this encounter Care Teams Activity Aide Relationship Specialty Start Date End Date Mayo Kauffman MD [address] [place] [address] PCP - General Cardiology 05/20/16 11/01/17 Aidan Ferraro MD [address] [place] [address] PCP - General Family Medicine 11/02/17 02/22/18 Lois Alaniz APRN [address] [place] [address] PCP - General Family Practice 02/23/18 03/01/20 Aidan Ferraro MD [address] [place] [address] PCP - General Family Medicine 03/02/20 Provider, Historical 08/11/16 Francisco Reveles MD [address] [place] [address] [place] [phone] Gastroenterology 08/17/16 Alexis Chamberlain MD 613 [address] [address] [place] [address] Orthopedic Surgery 09/08/18 Canelo Avery MD 613 [address] [address] [place], [place] [address] Orthopedic Surgery 04/12/20 Patricia Hernandez 06/03/20 Jayla Rangel, ONI Registered Nurse Communications Maintainer 02/15/23 02/15/23 Enmanuel Kauffman DPM [address] [place] [address] [address] [place], [place] [address] Podiatry 05/25/23 documented as of this encounter
--- OUTSIDE RECORDS SUMMARY | 2024-11-14 14:37 | XMS_ITS | Encounter Summary ---
Author Organization [facility] Address [address] [place] [address] Care Team Providers Care Ladies Suit Operator Name Role Phone Mayo Kauffman MD Primary Care Provider [phone] Jason Canchola MD Primary Care Provider [phone] Mayo Kauffman MD Primary Care Provider [phone] Provider, Historical Unavailable Unavailable Francisco Reveles MD Unavailable Aidan Ferraro MD Primary Care Provider [phone] Lois Alaniz APRN Primary Care Provider [phone] Alexis Chamberlain MD Unavailable [phone] Aidan Ferraro MD Primary Care Provider [phone] Canelo Avery MD Unavailable [phone] Patricia Hernandez Unavailable Unavailable Jayla Rangel RN Unavailable Unavailable Enmanuel Kauffman DPM Unavailable [phone] Reason for Visit * Reason Onset Date Comments Medications Refill 11/18/2012 Encounter Details Date Type Department Care Team (Late st Contact Info) Description 11/18/2012 Refill [facility] [address] [place] [address] Brianne Sharp LPN Medications Refill Social History Tobacco Use [...] Description 12/11/2024 1:30 PM EDT Office Visit [facility] [address] [address] Jason Moya III, MD [address] [place] [phone] Domenico Upton APRN [address] [place] [phone] 01/11/2025 9:30 AM EDT Office Visit [facility] [address] [address] Aidan Ferraro MD [address] [place] [phone] 03/15/2025 11:00 AM EDT Office Visit [facility] [address] [address] Aidan Ferraro MD [address] [place] [phone] documented as of this encounter Visit Diagnoses Not on filedocumented in this encounter Additional Health Concerns Infection Onset Date Last Indicated Resolved Time Covid-19 (confirmed) Comment:Past Acute Phase 03/28/2020 03/28/2020 07/30/2020 9:22 AM EST Covid-19 (rule out) 07/03/2021 07/03/2021 07/03/19 22 9:44 PM EST Covid-19 (confirmed) 07/03/2021 07/03/202108/21/ 022 10:14 PM EDT documented as of this encounter Care Teams Ladies Suit Operator Relationship Specialty Start Date End Date Mayo Kauffman MD [address] [place] [address] PCP - General 05/25/08 12/11/14 Jason Canchola MD [address] [place] [address] PCP - General 12/12/14 05/19/16 Mayo Kauffman MD [address] [place] [address] PCP - General Cardiology 05/20/16 11/01/17 Aidan Ferraro MD [address] [place] [address] PCP - General Family Medicine 11/02/17 02/22/18 Lois Alaniz APRN [address] [place] [address] PCP - General Family Practice 02/23/18 03/01/20 Aidan Ferraro MD [address] [place] [address] PCP - General Family Medicine 03/02/20 Provider, Historical 08/11/16 Francisco Reveles MD [address] [place] [address] Gastroenterology 08/17/16 Alexis Chamberlain MD [address] [address] [place] [address] Orthopedic Surgery 09/08/18 Canelo Avery MD 613 [address] [address] [place] [address] Orthopedic Surgery 04/12/20 Patricia Hernandez 06/03/20 Jayla Rangel, RN Registered Nurse Automotive Lube Technician 02/15/23 02/15/23 Enmanuel Kauffman DPM [address] [place] [address] [address] [place] [address] Podiatry 05/25/23 documented as of this encounter
--- OUTSIDE RECORDS SUMMARY | 2024-11-14 14:37 | XMS_ITS | Encounter Summary ---
Author Organization [facility] Address [address] [place] [address] Care Team Providers Care Strap Maker Name Role Phone Provider, Historical Unavailable Unavailable Francisco Reveles MD Unavailable Lois Alaniz APRN Primary Care Provider [phone] Alexis Chamberlain MD Unavailable [phone] Aidan Ferraro MD Primary Care Provider [phone] Canelo Avery MD Unavailable [phone] Patricia Hernandez Unavailable Unavailable Jayla Rangel RN Unavailable Unavailable Enmanuel Kauffman DPDebbie Unavailable [phone] Reason for Visit * Reason Onset Date Comments Medications Refill 09/02/2018 Encounter Details Date Type Department Care Team (Late st Contact Info) Description 09/02/2018 Refill [facility] [address], [address] [place] [address] Jason Lerner LPN Medications Refill Social History Tobacco Use [...] 1:30 PM EDT Office Visit [facility] [address] [address] Jason Moya III, MD [address] [place] [address] Domenico Upton APRN [address] [place] [address] 01/11/2025 9:30 AM EDT Office Visit [facility] [address] [address] Aidan Ferraro MD [address] [place] [address] 03/15/2025 11:00 AM EDT Office Visit [facility] [address] [address] Aidan Ferraro MD [address] [place] [address] documented as of this encounter Visit Diagnoses Diagnosis Mixed hyperlipidemia- Primary documented in this encounter Additional Health Concerns Infection Onset Date Last Indicated Resolved Time Covid-19 (confirmed) Comment:Past Acute Phase 03/28/2020 03/28/2020 07/30/2020 9:22 AM EST Covid-19 (rule out) 07/03/2021 07/03/2021 07/03/19 22 9:44 PM EST Covid-19 (confirmed) 07/03/2021 07/03/2021 022 10:14 PM EDT documented as of this encounter Care Teams Strap Maker Relationship Specialty Start Date End Date Lois Alaniz APRN [address] [place] [phone] PCP - General Family Practice 02/23/18 03/01/20 Aidan Ferraro MD [address] [place] [address] PCP - General Family Medicine 03/02/20 Provider, Historical 08/11/16 Francisco Reveles MD [address] [place] [address] Gastroenterology 08/17/16 Alexis Chamberlain MD [address] [place] [address] Orthopedic Surgery 09/08/18 Canelo Avery MD [address] [place] [address] Orthopedic Surgery 04/12/20 Patricia Hernandez 06/03/20 Jayla Rangel, ONI Registered Nurse Clinical Therapist 02/15/23 02/15/23 Enmanuel Kauffman DPM [address] [place] [address] Podiatry 05/25/23 documented as of this encounter
--- OUTSIDE RECORDS SUMMARY | 2024-11-14 14:37 | XMS_ITS | Encounter Summary ---
Author Organization [facility] Address [address] [place] [address] Care Team Providers Care Disaster Response Director Name Role Phone Provider, Historical Unavailable Unavailable Francisco Reveles MD Unavailable Lois Alaniz APRN Primary Care Provider [phone] Alexis Chamberlain MD Unavailable Aidan Ferraro MD Primary Care Provider [phone] Canelo Avery MD Unavailable [phone] Patricia Hernandez Unavailable Unavailable Jayla Rangel RN Unavailable Unavailable Enmanuel Kauffman DPM Unavailable [phone] Reason for Visit * Reason Onset Date Comments Other 01/13/2019 ABN firing for P T/APTT/INR Encounter Details Date Type Department Care Team (Late st Contact Info) Description 01/13/2019 Telephone [facility] [address] [place] [address], [address] [place] [address] Lois Alaniz APRN [facility] [place] [address] Other (ABN firing for PT/APTT/INR) Social History Tobacco Use Types Packs/Day Years [...] Telephone Encounter - Aidan Ferraro MD - 01/13/2019 1:40 PM EDT Done * Telephone Encounter - Maryellen Michael - 01/13/2019 11:36 AM EDT Patient went to the imaging center to get the blood drawn that was ordered yesterday. They had a ABN fire on the PT/APTT/INR - please review to see if we can get another code for this. documented in this encounter Plan of Treatment Upcoming Encounters Date Type Department Care Team (Late st Contact Info) Description 12/11/2024 1:30 PM EDT [facility] [address] [place] [address] Jason Moya III, MD [address] [place] [address] Domenico Upton APRN [address] [place], [place] [address] [place] [address] 01/11/2025 9:30 AM EDT Office Visit [facility] [address] [place] [address] Aidan Ferraro MD [address] [place] [address] 03/15/2025 11:00 AM EDT Office Visit [facility] [address] [place] [address], [address] [place] [address] Aidan Ferraro MD [address] [place] [address] documented as of this encounter Results * (ABNORMAL) PT/APTT/INR (01/16/2019 10:59 AM EDT) PROTIME 15.8(H) 10.6 - 13.8 s 01/16/2019 12:[address] [facility] INR 1.3(H) 0.9 - 1.1 01/16/2019 12:[address] [facility] Comment: LEVEL OF THERAPY INDICATIONS TARGET INR RANGE STANDARD DOSE TREATMENT OF VENOUS THROMBOSIS 2.0-3.0 TREATMENT OF PULMONARY EMBOLUS PROPHYLAXIS AGAINST VENOUS THROMBOSIS BY SYSTEMIC EMBOLIZATION . HIGH DOSE HIGH RISK PATIENTS WITH 2.5-3.5 MECHANICAL HEART VALVES APTT 37.9(H) 23.5 - 36.7 s 01/16/2019 12:[address] [facility] 01/16/2019 10:5 9 AM EDT 01/16/2019 12:08 PM EDT Narrative [facility] - 01/16/2019 12:19 PM EDT NO KNOWN ALLERGIES us Aidan Ferraro MD HEMATOLOGY ORDERABLES Final Result [facility] [address] [place] [address] [facility] [address] [place] [address] documented in this encounter Visit Diagnoses Diagnosis Pre-operative laboratory examination- Primary Pre-procedural laboratory examination Acute pain of right knee Coronary artery disease involving [place] heart without angina pectoris, unspecified vessel or lesion type Atrial fibrillation, persistent documented in this encounter Additional Health Concerns Infection Onset Date Last Indicated Resolved Time Covid-19 (confirmed) Comment:Past Acute Phase 03/28/2020 03/28/2020 07/30/2020 9:22 AM EST Covid-19 (rule out) 07/03/2021 07/03/2021 07/03/19 22 9:44 PM EST Covid-19 (confirmed) 07/03/2021 07/03/2021 022 10:14 PM EDT documented as of this encounter Care Teams Disaster Response Director Relationship Specialty Start Date End Date Lois Alaniz APRN [address] [place] [address] PCP - General Family Practice 02/23/18 03/01/20 Aidan Ferraro MD [address] [place] [address] PCP - General Family Medicine 03/02/20 Provider, Historical 08/11/16 Francisco Reveles MD [address] [place] [address] Gastroenterology 08/17/16 Alexis Chamberlain MD [address] [place] [address] Orthopedic Surgery 09/08/18 Canelo Avery MD [address] [place] [address] Orthopedic Surgery 04/12/20 Patricia Hernandez 06/03/20 Jayla Rangel, RN Registered Nurse Card Grader 02/15/23 02/15/23 Enmanuel Kauffman DPM [address] [place] [address] Podiatry 05/25/23 documented as of this encounter
--- OUTSIDE RECORDS SUMMARY | 2024-11-14 14:37 | XMS_ITS | Encounter Summary ---
Author Organization [facility] Address [address] [place] [address] Care Team Providers Care Head Housekeeper Name Role Phone Mayo Kauffman MD Primary Care Provider [phone] Jason Canchola MD Primary Care Provider [phone] Mayo Kauffman MD Primary Care Provider [phone] Provider, Historical Unavailable Unavailable Francisco Reveles MD Unavailable Aidan Ferraro MD Primary Care Provider [phone] Lois Alaniz APRN Primary Care Provider [phone] Alexis Chamberlain MD Unavailable [phone] Aidan Ferraro MD Primary Care Provider [phone] Canelo Avery MD Unavailable [phone] Patricia Hernandez Unavailable Unavailable Jayla Rangel RN Unavailable Unavailable Enmanuel Kauffman DPM Unavailable [phone] Encounter Details Date Type Department Care Team (Late st Contact Info) Description 12/23/2011 Telephone [facility] [address] [place] [address] Mayo Kauffman MD [address] [phone] Social History Tobacco Use Types Packs/Day Years [...] Telephone Encounter - Brianne Sharp LPN - 12/23/2011 1:24 PM EDT Script written and signed and mailed to pt for zostavax * Telephone Encounter - Joshua Umana - 12/23/2011 1:14 PM EDT Please call patient concerning a shingles shot---[phone]. documented in this encounter Plan of Treatment Upcoming Encounters Date Type Department Care Team (Late st Contact Info) Description 12/11/2024 1:30 PM EDT Office Visit [facility] [address] [address] Jason Moya III, MD [address] [place] [phone] Domenico Upton APRN [address] [place] [address] [phone] 01/11/2025 9:30 AM EDT Office Visit [facility] Ferraro [address] [address] Aidan Ferraro MD [address] [place] [address] 03/15/2025 11:00 AM EDT Office Visit [facility] [address] [place] [address], [address] [place] [address] Aidan Ferraro MD [address] [place] [address] documented as of this encounter Visit Diagnoses Not on filedocumented in this encounter Additional Health Concerns Infection Onset Date Last Indicated Resolved Time Covid-19 (confirmed) Comment:Past Acute Phase 03/28/2020 03/28/2020 07/30/2020 9:22 AM EST Covid-19 (rule out) 07/03/2021 07/03/2021 07/03/19 22 9:44 PM EST Covid-19 (confirmed) 07/03/2021 07/03/2021 022 10:14 PM EDT documented as of this encounter Care Teams Head Housekeeper Relationship Specialty Start Date End Date Mayo Kauffman MD [address] [place], [place] [address] PCP - General 05/25/08 12/11/14 Jason Canchola MD [address] [place] [address] PCP - General 12/12/14 05/19/16 Mayo Kauffman MD [address] [place] [address] PCP - General Cardiology 05/20/16 11/01/17 Aidan Ferraro MD [address] [place] [address] PCP - General Family Medicine 11/02/17 02/22/18 Lois Alaniz APRN [address] [place] [address] PCP - General Family Practice 02/23/18 03/01/20 Aidan Ferraro MD 617 [address] [place] [address] PCP - General Family Medicine 03/02/20 Provider, Historical 08/11/16 Francisco Reveles MD 613 [address] [address] [place] [address] Gastroenterology 08/17/16 Alexis Chamberlain MD [address]64[address] [place] [address] Orthopedic Surgery 09/08/18 Canelo Avery MD [address] [place], [place] [address] [place] [address] Orthopedic Surgery 04/12/20 Patricia Hernandez 06/03/20 Jayla Rangel, ONI Registered Nurse Tester Operator 02/15/23 02/15/23 Enmanuel Kauffman DPM [address] [place] [address] [address] [place] [address] Podiatry 05/25/23 documented as of this encounter
--- OUTSIDE RECORDS SUMMARY | 2024-11-14 14:37 | XMS_ITS | Encounter Summary ---
Author Organization [facility] Address [address] [place] [address] Care Team Providers Care Insurance Auditor Name Role Phone Mayo Kauffman MD Primary Care Provider [phone] Jason Canchola MD Primary Care Provider [phone] Mayo Kauffman MD Primary Care Provider [phone] Provider, Historical Unavailable Unavailable Francisco Reveles MD Unavailable Aidan Ferraro MD Primary Care Provider [phone] Lois Alaniz APRN Primary Care Provider [phone] Alexis Chamberlain MD Unavailable [phone] Aidan Ferraro MD Primary Care Provider [phone] Canelo Avery MD Unavailable [phone] Patricia Hernandez Unavailable Unavailable Jayla Rangel RN Unavailable Unavailable Enmanuel Kauffman DPM Unavailable [phone] Reason for Visit * Reason Onset Date Comments Medications Refill 11/29/2012 Encounter Details Date Type Department Care Team (Late st Contact Info) Description 11/29/2012 Telephone [facility] [address] [place] [address] Brianne Sharp LPN Medications Refill [...] Telephone Encounter - Brianne Sharp LPN - 11/29/2012 12:54 PM EDT Took information to inocencio and she is going to take care of this * Telephone Encounter - Brianne Sharp LPN - 11/29/2012 8:10 AM EDT [facility] does not offer welchol and pt is needing another medication that f9or cholesterol -please advise and we will fax script documented in this encounter Plan of Treatment Upcoming Encounters Date Type Department Care Team (Late st Contact Info) Description 12/11/2024 1:30 PM EDT Office Visit [facility] [address], [address] [place] [address] Jason Moya III, MD [address] [place] [address] [phone] Domenico Upton APRN [address] [place], [place] [address] [place] [address] 01/11/2025 9:30 AM EDT Office Visit MATTHIEU Ferraro [address], [address] [place] [address] Aidan Ferraro MD [address] [place] [address] 03/15/2025 11:00 AM EDT Office Visit [facility] Essie[facility] Pinzon [address] [place] [address], [address] [place] [address] Aidan Ferraro MD [address] [place] [address] documented as of this encounter Visit Diagnoses Not on filedocumented in this encounter Additional Health Concerns Infection Onset Date Last Indicated Resolved Time Covid-19 (confirmed) Comment:Past Acute Phase 03/28/2020 03/28/2020 07/30/2020 9:22 AM EST Covid-19 (rule out) 07/03/2021 07/03/2021 07/03/19 22 9:44 PM EST Covid-19 (confirmed) 07/03/2021 07/03/2021 022 10:14 PM EDT documented as of this encounter Care Teams Insurance Auditor Relationship Specialty Start Date End Date Mayo Kauffman MD [address] [place] [address] PCP - General 05/25/08 12/11/14 Jason Canchola MD [facility] [place] [address] PCP - General 12/12/14 05/19/16 Mayo Kauffman MD [address] [place] [address] PCP - General Cardiology 05/20/16 11/01/17 Aidan Ferraro MD [address] [place] [address] PCP - General Family Medicine 11/02/17 02/22/18 Lois Alaniz APRN [facility] [place] [address] PCP - General Family Practice 02/23/18 03/01/20 Aidan Ferraro MD [address] [address] PCP - General Family Medicine 03/02/20 Provider, Historical 08/11/16 Francisco Reveles MD [address] [address] Gastroenterology 08/17/16 Alexis Chamberlain MD [address] [place] [address] Orthopedic Surgery 09/08/18 Canelo Avery MD [address] [place] [address] Orthopedic Surgery 04/12/20 Patricia Hernandez 06/03/20 Jayla Rangel, ONI Registered Nurse Motion Graphics Artist 02/15/23 02/15/23 Enmanuel Kauffman DPM [address] [place] [address] Podiatry 05/25/23 documented as of this encounter
--- OUTSIDE RECORDS SUMMARY | 2024-11-14 14:37 | XMS_ITS | Encounter Summary ---
Author Organization [facility] Address [address] [place] [address] Care Team Providers Care Melting Operator Name Role Phone Mayo Kauffman MD Primary Care Provider Provider, Historical Unavailable Unavailable Francisco Reveles MD Unavailable Aidan Ferraro MD Primary Care Provider Lois Alaniz APRN Primary Care Provider Alexis Chamberlain MD Unavailable [phone] Aidan Ferraro MD Primary Care Provider Canelo Avery MD Unavailable Patricia Hernandez Unavailable Unavailable Jayla Rangel RN Unavailable Unavailable Enmanuel Kauffman DPDebbie Unavailable [phone] Encounter Details Date Type Department Care Team (Late st Contact Info) Description 09/08/2017 Telephone [facility] [address] [place] [address] Jason Moya III, MD [address] [place] [address] [address] [place] [address] Social History Tobacco Use Types [...] Telephone Encounter - Brianne Sharp LPN - 09/15/2017 10:18 AM EDT Pt informed * Telephone Encounter - Tarsha Sumner LPN - 09/08/2017 4:45 PM EDT He says that Dr Kauffman always orders this * Telephone Encounter - Nevin Pagan - 09/08/2017 3:37 PM EDT Pt is calling wanting to know if the lab work can be ordered for PSA blood work. States that he hasbeen calling for a couple days now. He wants to get this done. Please give the pt call. He is upsetthat this has not been taken care of. documented in this encounter Plan of Treatment Upcoming Encounters Date Type Department Care Team (Late st Contact Info) Description 12/11/2024 1:30 PM EDT Office Visit [facility] [address], [address] [place] [address] Jason Moya III, MD [address] [place] [address] Domenico Upton APRN [address] [place] [address],[address] [place] [address] 01/11/2025 9:30 AM EDT Office Visit [facility] Ferraro [facility] [address] [place] [address], [address] [address] Aidan Ferraro MD [address] [place] [address] 03/15/2025 11:00 AM EDT Office Visit [facility] Ferraro [address], [address] [place] [address] Aidan Ferraro MD [address] [place] [address] documented as of this encounter Visit Diagnoses Not on filedocumented in this encounter Additional Health Concerns Infection Onset Date Last Indicated Resolved Time Covid-19 (confirmed) Comment:Past Acute Phase 03/28/2020 03/28/2020 07/30/2020 9:22 AM EST Covid-19 (rule out) 07/03/2021 07/03/2021 07/03/19 22 9:44 PM EST Covid-19 (confirmed) 07/03/2021 07/03/2021 022 10:14 PM EDT documented as of this encounter Care Teams Melting Operator Relationship Specialty Start Date End Date Mayo Kauffman MD [address] [place] [address] PCP - General Cardiology 05/20/16 11/01/17 Aidan Ferraro MD [address] [place] [address] PCP - General Family Medicine 11/02/17 02/22/18 Lois Alaniz APRN [facility] [place] [address] PCP - General Family Practice 02/23/18 03/01/20 Aidan Ferraro MD [address] [facility] [place] [address] PCP - General Family Medicine 03/02/20 Provider, Historical 08/11/16 Francisco Reveles MD [address] [place] [address] Gastroenterology 08/17/16 Alexis Chamberlain MD 613 [address] [address] [place] [address] Orthopedic Surgery 09/08/18 Caenlo Avery MD [address] [place] [address] [address] [place] [address] Orthopedic Surgery 04/12/20 Patricia Hernandez 06/03/20 Jayla Rangel, ONI Registered Nurse Computer Teacher 02/15/23 02/15/23 Enmanuel Kauffman DPM [address] [place] [address] [address] [place] [address] Podiatry 05/25/23 documented as of this encounter
--- OUTSIDE RECORDS SUMMARY | 2024-11-14 14:37 | XMS_ITS | Encounter Summary ---
Author Organization [facility] Address [address] [place] [address] Care Team Providers Care Functional Tester Name Role Phone Provider, Historical Unavailable Unavailable Francisco Reveles MD Unavailable Lois Alaniz APRN Primary Care Provider [phone] Alexis Chamberlain MD Unavailable Aidan Ferraro MD Primary Care Provider [phone] Canelo Avery MD Unavailable [phone] Patricia Hernandez Unavailable Unavailable Jayla Rangel RN Unavailable Unavailable Enmanuel Kauffman DPDebbie Unavailable [phone] Encounter Details Date Type Department Care Team (Late st Contact Info) Description 08/03/2018 [facility] [address], [address] [place] [address] Lois Alaniz APRN [address] [place] [address] Social History Tobacco Use Types Packs/Day Years [...] 12/11/2024 1:30 PM EDT Office Visit [facility] [address] [address] Jason Moya III, MD [address] [place] [address] 7[address]501 Domenico Upton APRN [address] [place] [address] 01/11/2025 9:30 AM EDT Office Visit [facility] [address] [phone] Aidan Ferraro MD [address] [place] [address] [phone] 03/15/2025 11:00 AM EDT Office Visit [facility] [address] [address] Aidan Ferraro MD [address] [place] [address] documented as of this encounter Visit Diagnoses Not on filedocumented in this encounter Additional Health Concerns Infection Onset Date Last Indicated Resolved Time Covid-19 (confirmed) Comment:Past Acute Phase 03/28/2020 03/28/2020 07/30/2020 9:22 AM EST Covid-19 (rule out) 07/03/2021 07/03/2021 07/03/19 9:44 PM EST Covid-19 (confirmed) 07/03/2021 07/03/2021 022 10:14 PM EDT documented as of this encounter Care Teams Functional Tester Relationship Specialty Start Date End Date Lois Alaniz APRN [address] [place] [address] PCP - General Family Practice 02/23/18 03/01/20 Aidan Ferraro MD 617 [address] [place] [address] PCP - General Family Medicine 03/02/20 Provider, Historical 08/11/16 Francisco Reveles MD 613 [address] [address] [place] [address] Gastroenterology 08/17/16 Alexis Chamberlain MD [address] [place] [address] [address] [place] [address] Orthopedic Surgery 09/08/18 Caenlo Avery MD [address] [place] [address] [address] [place] [address] Orthopedic Surgery 04/12/20 Patricia Hernandez 06/03/20 Jayla Rangel, RN Registered Nurse Mountain Or Glacier Guide 02/15/23 02/15/23 Enmanuel Kauffman DPM [address] [facility] [address] [place] [address] Podiatry 05/25/23 documented as of this encounter
--- OUTSIDE RECORDS SUMMARY | 2024-11-14 14:37 | XMS_ITS | Encounter Summary ---
Author Organization [facility] Address [address] [place] [address] Care Team Providers Care Farm Machinery Erector Name Role Phone Mayo Kauffman MD Primary Care Provider [phone] Jason Canchola MD Primary Care Provider [phone] Mayo Kauffman MD Primary Care Provider [phone] Provider, Historical Unavailable Unavailable Francisco Reveles MD Unavailable Aidan Ferraro MD Primary Care Provider [phone] Lois Alaniz APRN Primary Care Provider [phone] Alexis Chamberlain MD Unavailable [phone] Aidan Ferraro MD Primary Care Provider [phone] Canelo Avery MD Unavailable [phone] Patricia Hernandez Unavailable Unavailable Jayla Rangel RN Unavailable Unavailable Enmanuel Kauffman DPM Unavailable [phone] Encounter Details Date Type Department Care Team (Late st Contact Info) Description 10/14/2012 Telephone [facility] [address] [place] [address] Mayo Kauffman MD [address] [address] Social History Tobacco Use Types Packs/Day Years [...] encounter Miscellaneous Notes * Telephone Encounter - Oscar Finna - 10/14/2012 3:26 PM EDT Pt is scheduled for 11-18-12 would like to have BW done b4 he comes. He stated that Dr. Kauffman usually has his cholesterol checked wasn't for sure what else he might want to check. Can we put orders in for him? Thank you documented in this encounter Plan of Treatment Upcoming Encounters Date Type Department Care Team (Late st Contact Info) Description 12/11/2024 1:30 PM EDT Office Visit [facility] [address] [address] Jason Moya III, MD [address] [place] [address] Domenico Upton APRN [address] [place] [address] 01/11/2025 9:30 AM EDT Office Visit [facility] Ferraro [address] [phone] Aidan Ferraro MD [address] [place] [address] 03/15/2025 11:00 AM EDT Office Visit [facility] [address] [place] [address] 212 [place] [address] Aidan Ferraro MD [address] [place] [address] documented as of this encounter Visit Diagnoses Not on filedocumented in this encounter Additional Health Concerns Infection Onset Date Last Indicated Resolved Time Covid-19 (confirmed) Comment:Past Acute Phase 03/28/2020 03/28/2020 07/30/2020 9:22 AM EST Covid-19 (rule out) 07/03/2021 07/03/2021 07/03/19 22 9:44 PM EST Covid-19 (confirmed) 07/03/2021 07/03/2021 022 10:14 PM EDT documented as of this encounter Care Teams Farm Machinery Erector Relationship Specialty Start Date End Date Mayo Kauffman MD [address] [place] [address] PCP - General 05/25/08 12/11/14 Jason Canchola MD [address] [place] [address] PCP - General 12/12/14 05/19/16 Mayo Kauffman MD [address] [place] [address] PCP - General Cardiology 05/20/16 11/01/17 Aidan Ferraro MD [address] [place] [address] PCP - General Family Medicine 11/02/17 02/22/18 Lois Alaniz APRN [address] [place] [place] [address] PCP - General Family Practice 02/23/18 03/01/20 Aidan Ferraro MD [address] [place] [address] [place] [address] PCP - General Family Medicine 03/02/20 Provider, Historical 08/11/16 Francisco Reveles MD [address] [place] [address] [address] [place] [address] Gastroenterology 08/17/16 Alexis Chamberlain MD [address] [place], [place] [address] [place] [address] Orthopedic Surgery 09/08/18 Canelo Avery MD [address] [place], [place] [address] [place] [address] Orthopedic Surgery 04/12/20 Patricia Hernandez 06/03/20 Jayla Rangel, ONI Registered Nurse Design Drafter 02/15/23 02/15/23 Enmanuel Kauffman DPM [address] [place] [address] 302 [place] [address] Podiatry 05/25/23 documented as of this encounter
--- OUTSIDE RECORDS SUMMARY | 2024-11-14 14:37 | XMS_ITS | Encounter Summary ---
Author Organization [facility] Address [address] [place] [address] Care Team Providers Care Traveling Crane Operator Name Role Phone Mayo Kauffman MD Primary Care Provider Provider, Historical Unavailable Unavailable Francisco Reveles MD Unavailable Aidan Ferraro MD Primary Care Provider [phone] Lois Alaniz APRN Primary Care Provider Alexis Chamberlain MD Unavailable [phone] Aidan Ferraro MD Primary Care Provider Canelo Avery MD Unavailable Patricia Hernandez Unavailable Unavailable Jayla Rangel RN Unavailable Unavailable Enmanuel Kauffman DPDebbie Unavailable [phone] Encounter Details Date Type Department Care Team (Late st Contact Info) Description 09/03/2017 Telephone [facility] [address] [place] [address] Jason Moya III, MD [address] [place] [address] [address] [place] [address] Social History Tobacco Use Types [...] encounter Miscellaneous Notes * Telephone Encounter - Nadine Alvarenga LPN - 09/03/2017 10:00 AM EDT Can you order labs for this patient? (See note below) * Telephone Encounter - Debbie Mathur - 09/03/2017 7:54 AM EDT Please put labwork orders including PSA in epic for pt. Has appt next . Please advise. documented in this encounter Plan of Treatment Upcoming Encounters Date Type Department Care Team (Late st Contact Info) Description 12/11/2024 1:30 PM EDT Office Visit [facility] [address] [place] [address] Jason Moya III, MD [address] [place] [address] [address] [place] [address] Domenico Upton APRN [address] [place], [place] [address] [place] [address] 01/11/2025 9:30 AM EDT Office Visit [facility] Ferraro [address] [place] [address] Aidan Ferraro MD [address] [place] [address] 03/15/2025 11:00 AM EDT Office Visit [facility] [address] [place] [phone] Aidan Ferraro MD [address] [place] [address] documented as of this encounter Visit Diagnoses Not on filedocumented in this encounter Additional Health Concerns Infection Onset Date Last Indicated Resolved Time Covid-19 (confirmed) Comment:Past Acute Phase 03/28/2020 03/28/2020 07/30/2020 9:22 AM EST Covid-19 (rule out) 07/03/2021 07/03/2021 07/03/19 22 9:44 PM EST Covid-19 (confirmed) 07/03/2021 07/03/2021 022 10:14 PM EDT documented as of this encounter Care Teams Traveling Crane Operator Relationship Specialty Start Date End Date Mayo Kauffman MD [address] [place] [address] PCP - General Cardiology 05/20/16 11/01/17 Aidan Ferraro MD [address] [place] [address] PCP - General Family Medicine 11/02/17 02/22/18 Lois Alaniz APRN [address] [place] [address] PCP - General Family Practice 02/23/18 03/01/20 Aidan Ferraro MD [address] [place] [address] PCP - General Family Medicine 03/02/20 Provider, Historical 08/11/16 Francisco Reveles MD [address] [place] [address] [place] [address] Gastroenterology 08/17/16 Alexis Chamberlain MD [address] [place] [address] [address] [place] [address] Orthopedic Surgery 09/08/18 Canelo Avery MD [address] [place] [address] [address] [place] [address] Orthopedic Surgery 04/12/20 Patricia Hernandez 06/03/20 Jayla Rangel, ONI Registered Nurse Soils Engineer 02/15/23 02/15/23 Enmanuel Kauffman DPM [address] [place] [address] [address] [place], [place] [phone] Podiatry 05/25/23 documented as of this encounter
--- OUTSIDE RECORDS SUMMARY | 2024-11-14 14:37 | XMS_ITS | Encounter Summary ---
Author Organization [facility] Address [address] [place] [address] Care Team Providers Care Manufacturing Machine Operator Name Role Phone Mayo Kauffman MD Primary Care Provider [phone] Provider, Historical Unavailable Unavailable Francisco Reveles MD Unavailable Aidan Ferraro MD Primary Care Provider Lois Alaniz APRN Primary Care Provider Alexis Chamberlain MD Unavailable [phone] Aidan Ferraro MD Primary Care Provider [phone] Canelo Avery MD Unavailable [phone] Patricia Hernandez Unavailable Unavailable Jayla Rangel RN Unavailable Unavailable Enmanuel Kauffman DPM Unavailable [phone] Encounter Details Date Type Department Care Team (Late st Contact Info) Description 09/15/2017 Orders Only [facility] [address], [address] [place] [address] Gale Jones, RN Enlarged prostate (Primary Dx) Social History Tobacco [...] 1:30 PM EDT Office Visit [facility] C[facility]Y [address], [address] [address] Jason Moya III, MD [address] [place] [address] 230 [place], [place] [id number] Domenico Upton APRN [address] [place] [address] 230 [place] [address] 01/11/2025 9:30 AM EDT Office Visit [facility] [address] [address] Aidan Ferraro MD [address] [place] [address] [phone] 03/15/2025 11:00 AM EDT Office Visit [facility] [address] [phone] Aidan Ferraro MD [address] [place] [address] documented as of this encounter Results * PSA, Diagnostic (09/16/2017 7:14 AM EDT) PSA 0.1 0.0 - 4.0 ng/mL 09/16/2017 2:36 PM EDT [facility] 09/16/2017 7:14 AM EDT 09/16/2017 1:51 PM EDT Narrative [facility] - 09/16/2017 2:36 PM EDT NO KNOWN ALLERGIES us Mayo Kauffman MD CHEMISTRY ORDERABLES Final Resul t [facility] [address] [place] [address] documented in this encounter Visit Diagnoses Diagnosis [...] documented as of this encounter Care Teams Manufacturing Machine Operator Relationship Specialty Start Date End Date Mayo Kauffman MD [address] [place] [address] PCP - General Cardiology 05/20/16 11/01/17 Aidan Ferraro MD [address] [place] [address] PCP - General Family Medicine 11/02/17 02/22/18 Lois Alaniz APRN [address] [place] [address] PCP - General Family Practice 02/23/18 03/01/20 Aidan Ferraro MD [address] [place] [address] PCP - General Family Medicine 03/02/20 Provider, Historical 08/11/16 Francisco Reveles MD [address] [place] [id number] Gastroenterology 08/17/16 Alexis Chamberlain MD [address] [place] [address] [address] [place], [place] [phone] Orthopedic Surgery 09/08/18 Canelo Avery MD 613 [address] [address] [place], [place] [phone] Orthopedic Surgery 04/12/20 Patricia Hernandez 06/03/20 Jayla Rangel, ONI Registered Nurse Employee Communications Coordinator 02/15/23 02/15/23 Enmanuel Kauffman DPM [address] [place] [address] [address] [place], [place] [phone] Podiatry 05/25/23 documented as of this encounter
--- OUTSIDE RECORDS SUMMARY | 2024-11-14 14:37 | XMS_ITS | Encounter Summary ---
Author Organization [facility] Address [address] [place] [address] Care Team Providers Care Highway Maintenance Worker Name Role Phone Mayo Kauffman MD Primary Care Provider [phone] Jason Canchola MD Primary Care Provider [phone] Mayo Kauffman MD Primary Care Provider [phone] Provider, Historical Unavailable Unavailable Francisco Reveles MD Unavailable Aidan Ferraro MD Primary Care Provider [phone] Lois Alaniz APRN Primary Care Provider [phone] Alexis Chamberlain MD Unavailable [phone] Aidan Ferraro MD Primary Care Provider [phone] Canelo Avery MD Unavailable [phone] Patricia Hernandez Unavailable Unavailable Jayla Rangel RN Unavailable Unavailable Enmanuel Kauffman DPM Unavailable [phone] Encounter Details Date Type Department Care Team (Late st Contact Info) Description 11/18/2012 Orders Only Cardiac [facility]re Fielder [address] [place] [address] Mayo Kauffman MD [address] [place] [address] High Cholesterol; CAD (coronary artery disease) Social History Tobacco Use Types Packs/Day Years [...] Office Visit [facility] CARDIOLOGY [address] [address] Jason Moya III, MD [address] [place] [address] [phone] Domenico Upton APRN [address] [place] [address] [phone] 01/11/2025 9:30 AM EDT Office Visit [facility] [address] [address] Aidan Ferraro MD [address] [place] [address] [phone] 03/15/2025 11:00 AM EDT Office Visit [facility] [address] [address] Aidan Ferraro MD [address] [place] [address] documented as of this encounter Visit Diagnoses Diagnosis High Cholesterol Pure hypercholesterolemia CAD (coronary artery disease) Coronary atherosclerosis of unspecified type of vessel, oneida or graft documented in this encounter Additional Health Concerns Infection Onset Date Last Indicated Resolved Time Covid-19 (confirmed) Comment:Past Acute Phase 03/28/2020 03/28/2020 07/30/2020 9:22 AM EST Covid-19 (rule out) 07/03/2021 07/03/2021 07/03/19 22 9:44 PM EST Covid-19 (confirmed) 07/03/2021 07/03/2021 022 10:14 PM EDT documented as of this encounter Care Teams Highway Maintenance Worker Relationship Specialty Start Date End Date Mayo Kauffman MD [address] [address] PCP - General 05/25/08 12/11/14 Jason Canchola MD [address] [place] [address] PCP - General 12/12/14 05/19/16 Mayo Kauffman MD [address] [place] [address] PCP - General Cardiology 05/20/16 11/01/17 Aidan Ferraro MD [address] [place] [address] PCP - General Family Medicine 11/02/17 02/22/18 Lois Alaniz APRN [address] [place] [address] PCP - General Family Practice 02/23/18 03/01/20 Aidan Ferraro MD [address] [place] [address] PCP - General Family Medicine 03/02/20 Provider, Historical 08/11/16 Francisco Reveles MD [address] [place] [address] Gastroenterology 08/17/16 Alexis Chamberlain MD 613 23[facility] [address] [place] [address] Orthopedic Surgery 09/08/18 Canelo Avery MD [address] [place] [address] Orthopedic Surgery 04/12/20 Patricia Hernandez 06/03/20 Jayla Rangel, RN Registered Nurse Laundry Laborer 02/15/23 02/15/23 Enmanuel Kauffman DPM [address] [place] [address] [address] [place] [address] Podiatry 05/25/23 documented as of this encounter
--- OUTSIDE RECORDS SUMMARY | 2024-11-14 14:37 | XMS_ITS | Encounter Summary ---
Author Organization [facility] Address [address] [place] [address] Care Team Providers Care Mechanical Maintenance Instructor Name Role Phone Provider, Historical Unavailable Unavailable Francisco Reveles MD Unavailable Lois Alaniz APRN Primary Care Provider [phone] Alexis Chamberlain MD Unavailable [phone] Aidan Ferraro MD Primary Care Provider [phone] Canelo Avery MD Unavailable [phone] Patricia Hernandez Unavailable Unavailable Jayla Rangel RN Unavailable Unavailable Enmanuel Kauffman DPM Unavailable [phone] Reason for Visit * Reason Onset Date Comments Medications Refill 08/02/2018 Encounter Details Date Type Department Care Team (Late st Contact Info) Description 08/02/2018 Refill [facility] [address] [place] [address], [address] [place] [address] Lois Alaniz APRN [address] [place] [address] Primary insomnia Social History Tobacco Use Types [...] encounter Miscellaneous Notes * Telephone Encounter - Lois Alaniz APRN - 08/03/2018 12:15 PM EST Zach consistent and medication refilled. * Telephone Encounter - Marlee Alex - 08/03/2018 12:03 PM EST zach scanned * Telephone Encounter - Lois Alaniz APRN - 08/03/2018 11:30 AM EST I need a zach please. * Telephone Encounter - Marlee Alex - 08/02/2018 8:33 AM EST JACKELINE: 05/05/2018 NOV: 08/11/2018 90 Day Supply documented in this encounter Plan of Treatment Upcoming Encounters Date Type Department Care Team (Late st Contact Info) Description 12/11/2024 1:30 PM EDT Office Visit [facility] [address], [address] [place] [address] Jason Moya III, MD [address] [place] [address] [address] [place] [address] Domenico Upton APRN [address] [place] [address],[address] [place] [address] 01/11/2025 9:30 AM EDT Office Visit [facility] [address] [address] Aidan Ferraro MD [address] [place] [address] 03/15/2025 11:00 AM EDT Office Visit [facility] [address] [address] Aidan Ferraro MD [address] [place] [address] documented as of this encounter Visit [...] as of this encounter Care Teams Mechanical Maintenance Instructor Relationship Specialty Start Date End Date Lois Alaniz APRN [address] [place] [address] PCP - General Family Practice 02/23/18 03/01/20 Aidan Ferraro MD [address] [place] [address] [phone] PCP - General Family Medicine 03/02/20 Provider, Historical 08/11/16 Francisco Reveles MD [address] [place] [id number] Gastroenterology 08/17/16 Alexis Chamberlain MD [address] [place] [address] [address] [place], [place] [phone] Orthopedic Surgery 09/08/18 Canelo Avery MD 613 23[facility] [address] [place] [address] Orthopedic Surgery 04/12/20 Patricia Hernandez 06/03/20 Jalya Rangel, ONI Registered Nurse Thermite Welder 02/15/23 02/15/23 Enmanuel Kauffman DPM [address] [place] [address] [address] [place], [place] [phone] Podiatry 05/25/23 documented as of this encounter
--- OUTSIDE RECORDS SUMMARY | 2024-11-14 14:37 | XMS_ITS | Encounter Summary ---
Author Organization [facility] Address [address] [place] [address] Care Team Providers Care Biostatistics Teacher Name Role Phone Provider, Historical Unavailable Unavailable Francisco Reveles MD Unavailable Alexis Chamberlain MD Unavailable [phone] Aidan Ferraro MD Primary Care Provider [phone] Canelo Avery MD Unavailable [phone] Patricia Hernandez Unavailable Unavailable Jayla Rangel RN Unavailable Unavailable Enmanuel Kauffman DPM Unavailable [phone] Reason for Visit * Reason Onset Date Comments Medications Refill 12/10/2020 Encounter Details Date Type Department Care Team (Late st Contact Info) Description 12/10/2020 Refill [facility] [address] [place] [address], [address] [place] [address] Aidan Ferraro MD [address] [place], [place] [phone] Primary insomnia Social History Tobacco Use Types [...] Telephone Encounter - Aidan Ferraro MD - 12/10/2020 9:40 AM EDT HAYLEE reviewed Script sent * Telephone Encounter - Adeel Sifuentes - 12/10/2020 9:04 AM EDT Patient called to check on this, would like a call back once it is ordered. Please advise, thank you. * Telephone Encounter - Nory Coelho LPN - 12/10/2020 8:41 AM EDT HAYLEE printed and placed in POC area. * Telephone Encounter - Marilia Avalos - 12/10/2020 7:17 AM EDT ?? Refill due: yes ?? Primary Care Provider is: Dr. Ferraro ?? Pharmacy verified: yes ?? Refill requested for 30 days ?? Last appointment 09-11-20. Next appointment 12-26-20. Appointment offered to patient if last officevisit > 6 months to 1 year. yes ??? Patient is currently out of medication: yes ??? Special circumstances communicated by the patient: none Refill read back and confirmed with patient: yes documented in this encounter Plan of Treatment Upcoming Encounters Date Type Department Care Team (Late st Contact Info) Description 12/11/2024 1:30 PM EDT Office Visit [facility] CARDIOLOGY [address], [address] [place] [address] Jason Moya III, MD [address] [place] [address] 230 [place], [place] [phone] Domenico Upton APRN [address] [place] [address],[address] [place], [place] [phone] 01/11/2025 9:30 AM EDT Office Visit [address] [place] [address] Aidan Ferraro MD [address] [place], [place] [phone] 03/15/2025 11:00 AM EDT Office Visit [facility] [address] [address] Aidan Ferraro MD [address] [place] [address] documented as of this encounter Visit Diagnoses Diagnosis 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 documented in this encounter Additional Health Concerns Infection Onset Date Last Indicated Resolved Time Covid-19 (rule out) 07/03/2021 07/03/2021 07/03/19 22 9:44 PM EST Covid-19 (confirmed) 07/03/2021 07/03/202108/21/ 022 10:14 PM EDT documented as of this encounter Care Teams Biostatistics Teacher Relationship Specialty Start Date End Date Aidan Ferraro MD [address] [place] [phone] PCP - General Family Medicine 03/02/20 Provider, Historical 08/11/16 Francisco Reveles MD [address] [place] [address] Gastroenterology 08/17/16 Alexis Chamberlain MD 613 [address] [address] [place] [address] Orthopedic Surgery 09/08/18 Canelo Avery MD 613 23[facility] [address] [place], [place] [phone] Orthopedic Surgery 04/12/20 Madi Hernandezmy 06/03/20 Jayla Rangel, RN Registered Nurse Pigment And Lacquer Mixer 02/15/23 02/15/23 Enmanuel Kauffman DPM [address] [place] [address] [address] [place], [place] [address] Podiatry 05/25/23 documented as of this encounter
--- OUTSIDE RECORDS SUMMARY | 2024-11-14 14:37 | XMS_ITS | Encounter Summary ---
Author Organization [facility] Address [address] [place] [address] Care Team Providers Care Color Corrector Name Role Phone Provider, Historical Unavailable Unavailable Francisco Reveles MD Unavailable Lois Alaniz APRN Primary Care Provider [phone] Alexis Chamberlain MD Unavailable [phone] Aidan Ferraro MD Primary Care Provider [phone] Canelo Avery MD Unavailable [phone] Patricia Hernandez Unavailable Unavailable Jayla Rangel RN Unavailable Unavailable Enmanuel Kauffman DPDebbie Unavailable [phone] Encounter Details Date Type Department Care Team (Latest Contact Info) Description 01/13/2019 Transcribe Orders [facility] [address] [place] [address] Vick Kaiser MD [address] [place] [address] Pre-operative laboratory examination (Primary Dx) Social History Tobacco Use Types [...] Description 12/11/2024 1:30 PM EDT Office Visit [facility] CARDIOLOGY [address] [address] Jason Moya III, MD [address] [place] [phone] Domenico Upton APRN [address] [place] [address] 01/11/2025 9:30 AM EDT Office Visit [facility] [address] [address] Aidan Ferraro MD [address] [place] [address] 03/15/2025 11:00 AM EDT Office Visit [facility] [address] [address] Aidan Ferraro MD [address] [place] [address] documented as of this encounter Visit Diagnoses Diagnosis Pre-operative laboratory examination- Primary Pre-procedural laboratory examination documented in this encounter Additional Health Concerns Infection Onset Date Last Indicated Resolved Time Covid-19 (confirmed) Comment:Past Acute Phase 03/28/2020 03/28/2020 07/30/2020 9:22 AM EST Covid-19 (rule out) 07/03/2021 07/03/2021 07/03/19 9:44 PM EST Covid-19 (confirmed) 07/03/2021 07/03/2021 022 10:14 PM EDT documented as of this encounter Care Teams Color Corrector Relationship Specialty Start Date End Date Lois Alaniz APRN [address] [place] [address] PCP - General Family Practice 02/23/18 03/01/20 Aidan Ferraro MD 617 23[facility] [place] [address] PCP - General Family Medicine 03/02/20 Provider, Historical 08/11/16 Francisco Reveles MD 613 23[facility] [address] [place] [address] Gastroenterology 08/17/16 Alexis Chamberlain MD 613 23[facility] [address] [place] [address] Orthopedic Surgery 09/08/18 Canelo Avery MD [address] [place] [address] [address] [place] [address] Orthopedic Surgery 04/12/20 Patricia Hernandez 06/03/20 Jayla Rangel, RN Registered Nurse Dining Car Steward 02/15/23 02/15/23 Enmanuel Kauffman DPM [address] [facility] [address] [place] [address] Podiatry 05/25/23 documented as of this encounter
--- OUTSIDE RECORDS SUMMARY | 2024-11-14 14:37 | XMS_ITS | Encounter Summary ---
Author Organization [facility] Address [address] [place] [address] Care Team Providers Care Rubber Covering Machine Operator Name Role Phone Provider, Historical Unavailable Unavailable Francisco Reveles MD Unavailable Lois Alaniz APRN Primary Care Provider [phone] Alexis Chamberlain MD Unavailable [phone] Aidan Ferraro MD Primary Care Provider [phone] Canelo Avery MD Unavailable [phone] Patricia Hernandez Unavailable Unavailable Jayla Rangel RN Unavailable Unavailable Enmanuel Kauffman DPM Unavailable Reason for Visit * Reason Onset Date Comments Medications Refill 08/04/2018 Encounter Details Date Type Department Care Team (Late st Contact Info) Description 08/04/2018 Refill [facility] [address] [place] [address], [address] [place] [address] Aidan Ferraro MD [address] [place] [address] Primary insomnia Social History Tobacco Use [...] Telephone Encounter - Aidan Ferraro MD - 08/04/2018 5:42 PM EST Brianna LEACH reviewed Script printed * Telephone Encounter - Maryellen Michael - 08/04/2018 8:50 AM EST Patient is requesting for 90 day supply - to be sent to [facility] [phone] will be scanned into media documented in this encounter Plan of Treatment Upcoming Encounters Date Type Department Care Team (Late st Contact Info) Description 12/11/2024 1:30 PM EDT Office Visit [facility] [address] [address] Jason Moya III, MD [address] [place] [address] Domenico Upton APRN [address] [place] [address],[address] [place] [address] 01/11/2025 9:30 AM EDT Office Visit [facility] Ferraro [address] [address] Aidan Ferraro MD [address] [place] [address] 03/15/2025 11:00 AM EDT Office Visit [facility] [address] [place] [address] Aidan Ferraro MD [address] [place] [address] documented as of this encounter Visit Diagnoses [...] documented as of this encounter Care Teams Rubber Covering Machine Operator Relationship Specialty Start Date End Date Lois Alaniz APRN [address] [place] [address] PCP - General Family Practice 02/23/18 03/01/20 Aidan Ferraro MD [address] [place] [address] PCP - General Family Medicine 03/02/20 Provider, Historical 08/11/16 Francisco Reveles MD [address] [place] [address] Gastroenterology 08/17/16 Alexis Chamberlain MD [address] [place] [address] Orthopedic Surgery 09/08/18 Canelo Avery MD [address] [place] [address] Orthopedic Surgery 04/12/20 Patricia Hernandez 06/03/20 Jayla Rangel, RN Registered Nurse Medication Aid 02/15/23 02/15/23 Enmanuel Kauffman DPM 1000 [facility] 302 [place] [address] Podiatry 05/25/23 documented as of this encounter
--- OUTSIDE RECORDS SUMMARY | 2024-11-14 14:37 | XMS_ITS | Encounter Summary ---
Author Organization [facility] Address [address] [place] [address] Care Team Providers Care Executive Sales Assistant Name Role Phone Provider, Historical Unavailable Unavailable Francisco Reveles MD Unavailable Lois Alaniz APRN Primary Care Provider [phone] Alexis Chamberlain MD Unavailable [phone] Aidan Ferraro MD Primary Care Provider [phone] Canelo Avery MD Unavailable [phone] Patricia Hernandez Unavailable Unavailable Jayla Rangel RN Unavailable Unavailable Enmanuel Kauffman DPDebbie Unavailable [phone] Reason for Visit * Reason Onset Date Comments Medications Refill 04/07/2018 Encounter Details Date Type Department Care Team (Late st Contact Info) Description 04/07/2018 Refill [facility] [address], [address] [place] [address] Shirley Christensen, ONI Medications Refill Social History [...] Description 12/11/2024 1:30 PM EDT Office Visit [facility] CARDIOLOG[facility] [address] [address] Jason Moya III, MD [address] [place] [address] Domenico Upton APRN [address] [place] [address] 01/11/2025 9:30 AM EDT Office Visit [facility] [address] [address] Aidan Ferraro MD [address] [place] [address] 03/15/2025 11:00 AM EDT Office Visit [facility] [address] [address] Aidan Ferraro MD [address] [place] [address] documented as of this encounter Visit Diagnoses Diagnosis Essential hypertension Unspecified essential hypertension documented in this encounter Additional Health Concerns Infection Onset Date Last Indicated Resolved Time Covid-19 (confirmed) Comment:Past Acute Phase 03/28/2020 03/28/2020 07/30/2020 9:22 AM EST Covid-19 (rule out) 07/03/2021 07/03/2021 07/03/19 22 9:44 PM EST Covid-19 (confirmed) 07/03/2021 07/03/202108/21/ 022 10:14 PM EDT documented as of this encounter Care Teams Executive Sales Assistant Relationship Specialty Start Date End Date Lois Alaniz APRN [address] [place] [address] PCP - General Family Practice 02/23/18 03/01/20 Aidan Ferraro MD [address] [place] [address] PCP - General Family Medicine 03/02/20 Provider, Historical 08/11/16 Francisco Reveles MD [address] [place] [address] Gastroenterology 08/17/16 Alexis Chamberlain MD [address] [place] [address] Orthopedic Surgery 09/08/18 Canelo Avery MD [address] [place] [address] Orthopedic Surgery 04/12/20 Patricia Hernandez 06/03/20 Jayla Rangel, ONI Registered Nurse Flat Lock Machine Operator 02/15/23 02/15/23 Enmanuel Kauffman DPM [address] [address] Podiatry 05/25/23 documented as of this encounter
--- NOTE | 2024-11-14 14:40 | PC.NURSE ---
warm blanket provided at this time.
[2024-11-14 14:49] LABS: INR 0.95 (0.9-1.1); Prothrombin Time 10.6 seconds (10.1-12.5)
[2024-11-14 14:55] LABS: Alanine Aminotransferase 51 U/L (12-78); Albumin Level 4.7 g/dl (3.5-5.0); Albumin/Globulin Ratio 1.4 (1.1-1.8); Alkaline Phosphatase 118 U/L (38-126); Aspartate Amino Transferase 66 U/L (17-59); Bilirubin,Total 1.3 mg/dl (0.2-1.3); Blood Urea Nitrogen 22 mg/dl (9-20); Carbon Dioxide 23 mmol/L (22.0-30.0); Chloride 107 mmol/L (98-107); Creatinine Clearance Estimated 45 mL/min (50-200); Estimated Glomerular Filt Rate 52 ml/min (>60); GFR (African American) 63 ML/MIN (>60); Globulin 3.3 g/dL (1.3-3.2); Glucose 146 mg/dl (74-100); Lipase 223 U/L (23-300); Sodium 136 mmol/L (136-145)
[2024-11-14 14:56] LABS: Lactic Acid 1.6 mmol/L (0.7-2.1)
[2024-11-14 14:59] LABS: D-Dimer 0.92 ug/mL (0.0-0.5)
[2024-11-14 15:08] LABS: NT Pro Brain Natriuretic Pep. 4150 pg/mL (0-450); Troponin I 0.05 ng/ml (0.00-0.034)
[2024-11-14] MEDS: 0.9 % SODIUM CHLORIDE 50 ML VIAL 40 ML IV (15:35)
[2024-11-14] MEDS: IOPAMIDOL-370 (76%);100ML BOTTLE 80 ML IV (15:36)
[2024-11-14] MEDS: SODIUM CHLORIDE 0.9% 10ML SYR (RAD ONLY) 10 ML IV (15:36)
[2024-11-14] MEDS: MORPHINE 2MG/ML SYRINGE 2 MG IV (15:54)
[2024-11-14] MEDS: ONDANSETRON 4MG/2ML VIAL 4 MG IV (15:55)
[2024-11-14 16:42] LABS: Microscopic, Urine URINE MICROSCOPIC (MICROSCOPIC)
[2024-11-14 16:44] LABS: Appearance,Urine CLEAR (Clear); Bilirubin,Urine Negative (Negative); Blood, Urine Negative (Negative); Color,Urine YELLOW (Yellow); Glucose,Urine (UA) Negative (Negative); Ketones,Urine Negative (Negative); Leukocyte Esterase,Urine Negative (Negative); Nitrate,Urine Negative (Negative); Protein,Urine TRACE (Negative); Urobilinogen,Urine 0.2 EU/dl (0.2)
--- NOTE | 2024-11-14 17:01 | PC.NURSE ---
patient provided warm blanket at this time.
[2024-11-14 17:07] LABS: Bacteria,Urine Trace /lpf; Mucus,Urine 1+ /lpf
--- NOTE | 2024-11-14 17:47 | PC.NURSE ---
CHOPPED STRAND OPERATOR NOTIFIED OF ADMISSION
--- NOTE | 2024-11-14 17:48 | EXP.HP ---
History of Present Illness *Admission Date: 11/14/24 *Reason for visit:: Chest pressure *History of present illness: Mr. Kauffman is an 89-year-old male with history of CABG, CAD, hypertension. Concern for some mild cognitive impairment and family. Patient presented to the ER via EMS due to complaint of chest pain radiating to his back. Initially left-sided was nonradiating but patient is a poor historian and his symptoms change. Described the pain as pressure-like. Denies any shortness of breath worse than baseline. States he is very active, does gardening. Did have an episode of some nausea and vomiting. Denies any diarrhea or blood in his stool. Workup in the ER, found to be hypertensive with systolics in the 180s. Labs with normal white count. Kidney function appears to be baseline with BUN 22, creatinine 1.3. Initial troponin detectable at 0.05. BNP elevated at 4100. Chest imaging obtained that shows some pulmonary congestion. EKG obtained with no STEMI. Medicine consulted for admission and further management. Patient complains of having some nausea and vomiting prior to coming in. Received Zofran in the ED, felt better. Stable on room air. Family helped supplement history in the ED. Not present at bedside upon arrival to the floor. [facility] Disclaimer: The information contained in this section may have been updated after the patient was seen, as this information can be updated by other users. Medical History (Updated 11/14/24 @ 21:06 by Aidan Chi MD) CABG (coronary artery bypass graft) planned Family History Other No significant family history Social History Smoking Status: Never smoker alcohol intake: never current occupational status: other Travel in the last 8 weeks?: None Have you lived/traveled outside US in past 30 days?: No Contact w/someone who lives/traveled outside US past 30 days?: No Exposure to someone with infectious disease in past 14 days?: No Do you have a fever (greater than 100.4 F or 38 C)?: No Have you tested positive for COVID-19?: No Exposed to someone with COVID-19 in past 14 days?: No Do you have a sore throat?: No Do you have a cough?: No Do you have any weakness?: No Do you have any diarrhea?: No Are you experiencing any unusual bleeding?: No Do you have any muscle aches/pain?: No Do you have any abdominal pain?: No Are you experiencing loss of taste or smell?: No Review of Systems Review of Systems Review of systems (narrative): 14 point review of systems performed, pertinent positives and negatives as per [facility] Meds Home Medications and Allergies Home Medications ?Medication ?Instructions ?Recorded ?Confirmed ?Type atorvastatin 40 mg tablet 40 mg PO HS 11/14/24 11/14/24 History donepezil 10 mg tablet 10 mg PO HS 11/14/24 11/14/24 History ezetimibe 10 mg tablet 10 mg PO DAILY 11/14/24 11/14/24 History New Prescriptions to Start Prescriptions: Allergies Allergy/AdvReac Type Severity Reaction Status Date / Time No Known Allergies Allergy Unverified 05/25/17 14:17 Exam Data for Last 24 hours Vital signs and Labs for Last 24 Hours: Temp Pulse Resp BP Pulse Ox O2 Del Method 98.2 F 60 18 178/86 H 95 Room Air 11/14/24 14:32 11/14/24 17:01 11/14/24 17:01 11/14/24 17:01 11/14/24 17:01 11/14/24 14:32 Laboratory Results - last 24 hr 11/14/24 14:27: WBC 10.0, RBC 4.46 L, Hgb 15.2, Hct 43.9, MCV 98.4 H, MCH 34.1 H, MCHC 34.6, RDW 13.7, Plt Count 170, MPV 8.9, Neut % (Auto) 77.4, Lymph % (Auto) 14.9, [place] % (Auto) 6.7, Eos % (Auto) 0.4, Baso % (Auto) 0.3, Neut # (Auto) 7.7, Lymph # (Auto) 1.5, [place] # (Auto) 0.7, Eos # (Auto) 0.0, Baso # (Auto) 0.0, PT 10.6, INR 0.95, D-Dimer 0.92 H, Sodium 136, Potassium 5.0, Chloride 107, Carbon Dioxide 23, Anion Gap 11.0, BUN 22 H, Creatinine 1.30 H, Estimated Creat Clear 45, Estimated GFR 52 L, Est GFR ( Amer) 63, Glucose 146 H, Lactate 1.6, Calcium 9.0, Magnesium 2.0, Total Bilirubin 1.3, AST 66 H, ALT 51, Alkaline Phosphatase 118, Troponin I 0.05 H, NT-Pro-B Natriuret Pep 4150 H, Total Protein 8.0, Albumin 4.7, Globulin 3.3 H, Albumin/Globulin Ratio 1.4, Lipase 223 11/14/24 16:35: Urine Color Yellow, Urine Appearance Clear, Urine pH 6.0, Ur Specific [place] 1.010, Urine Protein Trace, Urine Glucose (UA) Negative, Urine Ketones Negative, Urine Blood Negative, Urine Nitrate Negative, Urine Bilirubin Negative, Urine Urobilinogen 0.2, Ur Leukocyte Esterase Negative, Urine RBC 5-10, Urine WBC 5-10, Ur Squamous Epith Cells 3-5, Urine Bacteria Trace, Urine Mucus 1+ I & O for Last 24 hours: Intake & Output 11/11/24 11/12/24 11/13/24 11/14/24 23:59 23:59 23:59 23:59 Weight 78.925 kg Constitutional Constitutional: no acute distress, average body habitus and cooperative *Routine HEENT Exam Head: Present normocephalic Eye: Present EOMI and PERRL ENT: Present mucous membranes moist *Routine Neck Exam Neck: Present supple; Absent lymphadenopathy Routine Chest/Breast/Axilla Exam Comments: Well-healed sternotomy scar *Routine Respiratory Exam Respiratory: Present crackles (Diffuse bilaterally, worse in right lung field posteriorly) and normal respiratory effort; Absent accessory muscle use, rhonchi or wheezes *Routine Cardiovascular Exam Cardiovascular: Present RRR *Routine Abdominal Exam Abdominal: Present soft and normoactive bowel sounds; Absent tenderness *Routine Rectal Exam Rectal:: deferred *Routine Genitalia Exam Genitalia:: deferred *Routine Extremities Exam Extremities: Absent cyanosis, clubbing or edema *Routine Skin Exam Skin: Present warm; Absent rash *Routine Neurological Exam Neurological: Present alert, oriented X3 and moving all extremities; Absent altered mental status Assessment and Plan *Assessment and plan (1) Angina at rest: Status: Acute Category: Medical Code(s): I20.89 - Other forms of angina pectoris (2) Elevated troponin: Status: Acute Category: Medical Code(s): R79.89 - Other specified abnormal findings of blood chemistry (3) Presence of Watchman left atrial appendage closure device: Status: Acute Category: Medical Code(s): Z95.818 - Presence of other cardiac implants and grafts (4) CAD (coronary artery disease): Status: Acute Category: Medical Code(s): I25.10 - Atherosclerotic heart disease of [place] coronary artery without angina pectoris (5) Hx of heart artery stent: Status: Acute Category: Surgical Code(s): Z95.5 - Presence of coronary angioplasty implant and graft (6) CABG (coronary artery bypass graft) planned: Status: Chronic Category: Medical Code(s): Z78.9 - Other specified health status (7) HTN (hypertension): Status: Acute Category: Medical Code(s): I10 - Essential (primary) hypertension Plan 89-year-old male with history of CABG and CAD who presents with chest pain. Waxing and waning. Workup in the ED with detectable troponin. Discussed case with ER physician, request admission for serial troponins and cardiology eval. I agreed to admit for further care. N.p.o. at midnight, possible heart cath in the morning. Monitor on telemetry. Problems addressed as follows: Un-Stable angina NSTEMI CAD history of CABG -Initial troponin 0.05. EKG per my review with no STEMI. - Serial troponin pending. - Administer Lovenox 1 mg/kg once - Monitor on telemetry overnight. Cardiology consulted to evaluate the morning - Heart score of 6. Potential for heart cath in the morning -BNP elevated 4100. Troponin review shows pulmonary congestion. Peripheral edema. - Repeat CBC, CMP, magnesium ordered for the morning. -White count normal at 10, kidney function normal with BUN 22, creatinine 1.3 Hypertension - Due to elevated BNP. Will administer Lasix 80 mg IV once. Initiate irbesartan 37.5 mg tonight. Increase to 75 mg in the morning given elevated blood pressure with systolic 180 on presentation - Reevaluate GDMT in the morning Continue Lipitor 40 mg nightly. Lipid panel ordered for the morning Continue home donepezil 10 mg nightly for mild cognitive impairment Full code Lovenox 1 mg/kg once Cardiac diet, n.p.o. at midnight
[2024-11-14 18:12] LABS: Troponin I 0.06 ng/ml (0.00-0.034)
[2024-11-14] MEDS: FUROSEMIDE 40MG/4ML VIAL 80 MG IV (18:55)
[2024-11-14] MEDS: IRBESARTAN 75MG TABLET 37.5 MG PO (18:56)
[2024-11-14] MEDS: ENOXAPARIN 100MG/ML SYRINGE 80 MG SUBCUT (18:56)
--- NOTE | 2024-11-14 20:34 | PC.NURSE ---
patient reported falling at home, has received lasix and has urgency and frequency of urination, unsteady gait, and a hx of dementia - patient safely requires a bed alarm and standby assistance with ambulation - patient declined bed alarm at beginning of shift and was granted his wish - however, 5 minutes later patient was in room, naked from the waist down, soaked in urine, and unsteadily standing with tele box in hand trying to get wet pants back on - patient was assisted in cleaning up and helped back to bed - bed alarm in place and patient educated on why alarm is on - charge came to bedside to help explain the safety risk to the patient as well - urinal at bedside and hat in the toilet to monitor UOP - patient has had some unmeasured UOP at no fault of the staff, measuring UOP to the best of our ability. Patient is requiring frequent interventions. Patient was placed on tele around 193, looked concerning, unable to see a original EKG from admission - obtained a new EKG for a baseline in case there are further changes t/o the admission- Oleksandr notified. patient denies SOA, CP, or any other pain.
--- NOTE | 2024-11-14 20:36 | ECG_ITS ---
APPROVED REPORT Exam: Resting ECG HR:64 bpm ECG Measurements Heart Rate 64 AXES QRSd 138 QRS -63 QT 441 T 119 QTc 450 Conclusion UNCERTAIN IRREGULAR RHYTHM ELECTRONIC VENTRICULAR PACEMAKER -- CONTOUR ANALYSIS BASED ON INTRINSIC RHYTHM LEFT AXIS DEVIATION [QRS AXIS < -30] RIGHT BUNDLE BRANCH BLOCK [120+ ms QRS DURATION, UPRIGHT V1, 40+ ms S IN I/aVL/V4/V5/V6] LEFT VENTRICULAR HYPERTROPHY AND ST-T CHANGE [VOLTAGE CRITERIA PLUS ST/T ABNORMALITY] POSSIBLE ANTERIOR MYOCARDIAL INFARCTION , OF INDETERMINATE AGE [30 ms Q WAVE IN V3/V4, OR R < 0.2 mV IN V4] ABNORMAL ECG UNCONFIRMED REPORT Electronically signed by : Pierre Pond MD 11/15/2024 08:43:00
--- NOTE | 2024-11-14 20:57 | PC.NURSE ---
unable to fully obtain medication list because patient and patient unaware of dosing - external only showed a few medications and patients states he takes more than listed - can call PCP (Dakota Ferraro - [phone]) tomorrow during business hours to hopefully obtain an updated medication list. is no longer at bedside to clarify which pharmacy they would like to use - will update when arrived tomorrow.
[2024-11-14 21:25] LABS: Troponin I 0.06 ng/ml (0.00-0.034)
[2024-11-14] MEDS: MELATONIN 5MG TABLET 5 MG PO (22:02)
[2024-11-14 23:20] LABS: HIV Combo NEGATIVE (Negative)
[2024-11-14 23:28] LABS: Hepatitis C Ab Qual. W/ RFX NEGATIVE (Negative)
[2024-11-15] VITALS: BP 146/81; PULSE 60; PULSE 61; RESP 17; TEMP 36.7; O2SAT 95
[2024-11-15] MEDS: METHOCARBAMOL 500MG TABLET 500 MG PO (00:56)
[2024-11-15 04:00] VITALS: BP 151/79; PULSE 63; PULSE 70; RESP 16; TEMP 36.4; O2SAT 94; BMI 24.4
[2024-11-15 04:02] LABS: Troponin I 0.08 ng/ml (0.00-0.034)
--- NOTE | 2024-11-15 06:28 | PC.NURSE ---
Pt. slept off and on throughout night with confusion. Pt. was medicated per aug.
[2024-11-15] MEDS: ONDANSETRON 4MG/2ML VIAL 4 MG IV (06:43)
--- NOTE | 2024-11-15 06:47 | PC.NURSE ---
Pt. started vomiting. Pt. was diaphoretic, shaky. Vitals were obtained, BP was 210/96, HR 60, 93% 02 RA. Pt. glucose level was 149 no c/o chest pain. Pt. was given zofran. Dr. Leggett was notified.
[2024-11-15 06:53] LABS: Basophils # 0.1 K/mm3 (0-0.2); Basophils % 0.4 % (0.1-2.0); Eosinophils % 0.1 % (0.1-12.0); Hematocrit 49.9 % (42.0-52.0); Hemoglobin 16.4 g/dL (14.1-18.0); Immature Granulocytes # 0.05 10^3uL; Immature Granulocytes % 0.4 %; Lymphocytes # 2.5 K/mm3 (0.7-4.5); Lymphocytes % 18.4 % (10-50); Mean Corpuscular HGB Conc 32.9 g/dL (31.8-35.4); Mean Corpuscular Hemoglobin 32.9 pg (27.0-31.2); Mean Corpuscular Volume 100.2 fl (80-94); Mean Platelet Volume 9.4 fl (7.4-10.4); Monocytes # 0.5 K/mm3 (0.1-1.0); Neutrophils # 10.3 K/mm3 (1.8-7.8); Neutrophils % 76.7 % (37.0-80.0); Nucleated Red Blood Cells # 0 10^3/uL; Nucleated Red Blood Cells % 0 %; Platelet Count 186 K/mm3 (142-424); Red Blood Count 4.98 M/mm3 (4.60-6.20); Red Cell Distribution Width 13.9 % (11.5-17.5); Red Cell Distribution Width-SD 50.9 fL; White Blood Count 13.5 K/mm3 (4.8-10.8)
[2024-11-15 06:56] LABS: POC Glucose,Bedside 149 (70-110)
[2024-11-15 07:11] LABS: Albumin Level 5.3 g/dl (3.5-5.0); Chloride 101 mmol/L (98-107); Potassium 4.2 mmoL/L (3.5-5.1); Sodium 141 mmol/L (136-145)
[2024-11-15 07:13] LABS: Alanine Aminotransferase 60 U/L (12-78); Aspartate Amino Transferase 70 U/L (17-59); Blood Urea Nitrogen 24 mg/dl (9-20); Creatinine Clearance Estimated 36 mL/min (50-200); Estimated Glomerular Filt Rate 41 ml/min (>60); GFR (African American) 50 ML/MIN (>60)
[2024-11-15 07:14] LABS: Albumin/Globulin Ratio 1.3 (1.1-1.8); Alkaline Phosphatase 113 U/L (38-126); Anion Gap 17.2 mEq/L (5-15); Bilirubin,Total 1.7 mg/dl (0.2-1.3); Calcium 9.8 mg/dl (8.4-10.2); Carbon Dioxide 27 mmol/L (22.0-30.0); Chol/HDL Ratio 5.8 (1-3.5); Cholesterol 197 mg/dl (140-200); Globulin 4.2 g/dL (1.3-3.2); Glucose 165 mg/dl (74-100); HDL Cholesterol 34 mg/dl (40-60); Total Protein,Serum 9.5 g/dl (6.3-8.2); Triglycerides 269 mg/dl (30-150); VLDL Cholesterol 54 mg/dL (0-40)
[2024-11-15 07:25] LABS: Direct LDL Cholesterol 80.23 mg/dL (100-129)
[2024-11-15 08:00] VITALS: PULSE 80; O2SAT 95
--- NOTE | 2024-11-15 11:17 | EXP.CARD.CON ---
History of Present Illness History of Present Illness Consult date: 11/15/24 Chief complaint: CP, NV, AMS History of present illness: 89-year-old white male with significant altered mental status. There is no family bedside and no answer at any of the phone numbers listed on file so my history is gathered from the chart. It appears that Mr. Kauffman has a history of CAD status post CABG and ICD as well as history of watchman left atrial appendage closure device and coronary stenting. His baseline functional status is unknown. He reportedly presented to the emergency room with complaints of worsening episodes of chest pain a single episode of nausea vomiting and elevated blood pressure 180. ER workup included troponin 0.05, 0.06, 0.08. EKG shows V-paced rhythm with ectopy and possibly underlying atrial fibrillation. proBNP is 4000. CTA chest no effusion or edema. His 2D echo is pending. Home meds include only Lipitor Zetia and donepezil. He is not on any aspirin, anticoagulation, beta-mai. At this time he is on Lovenox statin and labetalol as an inpatient. He is in no distress but cannot provide any meaningful history. [facility] Disclaimer: The information contained in this section may have been updated after the patient was seen, as this information can be updated by other users. Medical History CABG (coronary artery bypass graft) planned Family History Other No significant family history Social History Smoking Status: Never smoker alcohol intake: never current occupational status: other Travel in the last 8 weeks?: None Have you lived/traveled outside US in past 30 days?: No Contact w/someone who lives/traveled outside US past 30 days?: No Exposure to someone with infectious disease in past 14 days?: No Do you have a fever (greater than 100.4 F or 38 C)?: No Have you tested positive for COVID-19?: No Exposed to someone with COVID-19 in past 14 days?: No Do you have a sore throat?: No Do you have a cough?: No Do you have any weakness?: No Do you have any diarrhea?: No Are you experiencing any unusual bleeding?: No Do you have any muscle aches/pain?: No Do you have any abdominal pain?: No Are you experiencing loss of taste or smell?: No Review of Systems Review of Systems Review of systems:: unable to obtain Exam Data for Last 24 hours Vital signs and Labs for Last 24 Hours: Temp Pulse Resp BP Pulse Ox O2 Del Method 97.5 F L 80 16 151/79 H 94 L Room Air 11/15/24 04:00 11/15/24 08:00 11/15/24 04:00 11/15/24 04:00 11/15/24 04:00 11/15/24 07:00 Laboratory Results - last 24 hr 11/14/24 14:27: WBC 10.0, RBC 4.46 L, Hgb 15.2, Hct 43.9, MCV 98.4 H, MCH 34.1 H, MCHC 34.6, RDW 13.7, Plt Count 170, MPV 8.9, Neut % (Auto) 77.4, Lymph % (Auto) 14.9, [place] % (Auto) 6.7, Eos % (Auto) 0.4, Baso % (Auto) 0.3, Neut # (Auto) 7.7, Lymph # (Auto) 1.5, [place] # (Auto) 0.7, Eos # (Auto) 0.0, Baso # (Auto) 0.0, PT 10.6, INR 0.95, D-Dimer 0.92 H, Sodium 136, Potassium 5.0, Chloride 107, Carbon Dioxide 23, Anion Gap 11.0, BUN 22 H, Creatinine 1.30 H, Estimated Creat Clear 45, Estimated GFR 52 L, Est GFR ( Amer) 63, Glucose 146 H, Lactate 1.6, Calcium 9.0, Magnesium 2.0, Total Bilirubin 1.3, AST 66 H, ALT 51, Alkaline Phosphatase 118, Troponin I 0.05 H, NT-Pro-B Natriuret Pep 4150 H, Total Protein 8.0, Albumin 4.7, Globulin 3.3 H, Albumin/Globulin Ratio 1.4, Lipase 223 11/14/24 16:35: Urine Color Yellow, Urine Appearance Clear, Urine pH 6.0, Ur Specific [place] 1.010, Urine Protein Trace, Urine Glucose (UA) Negative, Urine Ketones Negative, Urine Blood Negative, Urine Nitrate Negative, Urine Bilirubin Negative, Urine Urobilinogen 0.2, Ur Leukocyte Esterase Negative, Urine RBC 5-10, Urine WBC 5-10, Ur Squamous Epith Cells 3-5, Urine Bacteria Trace, Urine Mucus 1+ 11/14/24 17:27: Troponin I 0.06 H 11/14/24 20:51: Troponin I 0.06 H, HCV Ab LILLIAM w/Rflx PCR Qn Negative, HIV Ag/Ab Combo Qual Negative 11/15/24 03:25: Troponin I 0.08 H 11/15/24 06:20: WBC 13.5 H D, RBC 4.98, Hgb 16.4, Hct 49.9, MCV 100.2 H, MCH 32.9 H, MCHC 32.9, RDW 13.9, Plt Count 186, MPV 9.4, Neut % (Auto) 76.7, Lymph % (Auto) 18.4, [place] % (Auto) 4.0, Eos % (Auto) 0.1, Baso % (Auto) 0.4, Neut # (Auto) 10.3 H, Lymph # (Auto) 2.5, [place] # (Auto) 0.5, Eos # (Auto) 0.0, Baso # (Auto) 0.1, Sodium 141, Potassium 4.2, Chloride 101, Carbon Dioxide 27, Anion Gap 17.2 H, BUN 24 H, Creatinine 1.60 H D, Estimated Creat Clear 36, Estimated GFR 41 L, Est GFR ( Amer) 50 L D, Glucose 165 H, Calcium 9.8, Magnesium 2.0, Total Bilirubin 1.7 H, AST 70 H, ALT 60, Alkaline Phosphatase 113, Total Protein 9.5 H, Albumin 5.3 H D, Globulin 4.2 H, Albumin/Globulin Ratio 1.3, Triglycerides 269 H, Cholesterol 197, LDL Cholesterol Direct 80.23 L, VLDL Cholesterol 54 H, HDL Cholesterol 34 L, Cholesterol/HDL Ratio 5.8 H 11/15/24 06:46: POC Glucose 149 H I & O for Last 24 hours: Intake & Output 11/12/24 11/13/24 11/14/24 11/15/24 23:59 23:59 23:59 23:59 Output Total 1500 / 1500 500 / 500 Balance -1500 / -1500 -500 / -500 Weight 154 lb 170 lb 14.4 oz Constitutional Constitutional: no acute distress Comments: confused *Routine HEENT Exam Eye: Present PERRL *Routine Respiratory Exam Respiratory: Present CTA bilaterally; Absent accessory muscle use, wheezes or crackles *Routine Cardiovascular Exam Cardiovascular: Present RRR, Normal S1 and Normal S2; Absent murmur, gallop or rubs *Routine Abdominal Exam Abdominal: Present soft; Absent tenderness *Routine Extremities Exam Extremities: Present pulses intact; Absent cyanosis or edema *Routine Skin Exam Skin: Present intact; Absent erythema or wounds *Routine Neurological Exam Neurological: Present alert and altered mental status Routine Psychiatric Exam Psychiatric: Present cooperative Meds Home Medications and Allergies Home Medications ?Medication ?Instructions ?Recorded ?Confirmed ?Type atorvastatin 40 mg tablet 20 mg PO HS 11/14/24 11/14/24 History donepezil 10 mg tablet 10 mg PO HS 11/14/24 11/14/24 History ezetimibe 10 mg tablet 10 mg PO DAILY 11/14/24 11/14/24 History aspirin 81 mg tablet 81 mg PO DAILY 11/15/24 11/15/24 History doxepin 10 mg capsule 10 mg PO HS 11/15/24 11/15/24 History metoprolol succinate 25 mg 12.5 mg PO BID 11/15/24 11/15/24 History tablet,extended release 24 hr (Toprol XL) nitroglycerin 0.4 mg sublingual 0.4 mg sublingual Q5M PRN cp 11/15/24 11/15/24 History tablet tamsulosin 0.4 mg capsule 0.4 mg PO DAILY 11/15/24 11/15/24 History New Prescriptions to Start Prescriptions: Allergies Allergy/AdvReac Type Severity Reaction Status Date / Time No Known Allergies Allergy Unverified 05/25/17 14:17 Assessment and Plan *Assessment and plan (1) CABG (coronary artery bypass graft) planned: Status: Chronic Category: Medical Code(s): Z78.9 - Other specified health status (2) CAD (coronary artery disease): Status: Acute Category: Medical Code(s): I25.10 - Atherosclerotic heart disease of [place] coronary artery without angina pectoris (3) Presence of Watchman left atrial appendage closure device: Status: Acute Category: Medical Code(s): Z95.818 - Presence of other cardiac implants and grafts (4) Paroxysmal atrial fibrillation: Status: Acute Category: Medical Code(s): I48.0 - Paroxysmal atrial fibrillation (5) ICD (implantable cardioverter-defibrillator) in place: Status: Acute Category: Medical Code(s): Z95.810 - Presence of automatic (implantable) cardiac defibrillator (6) Altered mental status: Status: Acute Category: Medical Code(s): R41.82 - Altered mental status, unspecified Plan CAD, NV - History of CABG and stenting unknown dates - Patient not on any antiplatelet or anticoagulant therapy at home-unclear if this is oversight or due to intolerance - Questionable presentation with chest discomfort but complicated by the fact that patient is poor historian. He is in no distress and denies chest pain at this time - EKG shows V paced and ventricular ectopy - 11/15: Check 2D echo, Continue statin and Lovenox. Add aspirin and beta-mai Atrial fibrillation - Noted on EKG here - No OAC, chart indicates prior JOSEFINA closure - 11/15: Add Toprol XL, interrogate pacemaker Ventricular ectopy - Frequent PVCs here - Will interrogate pacemaker - 11/15: Add Toprol XL daily, interrogate pacemaker SSS s/p PPM - details unclear - CXR shows single lead ICD - 11/15: will try to ascertain pediatric medical assistant and interrogate HFpEF, possibly HFrEF? - LAWSON on arrival, ICD in place, probnp 4k - CTA chest - no edema or effufions, no peripheral edema on exam - 11/15: interrogate device, check 2D ECHO, monitor volume status AMS - unknown baseline, prior CVA? - CT Head shows no acute findings - 11/15: consider MRI Htn - 150s today - 11/15: add Toprol XL 25, monitor closely CV Summary: Patient appears relatively stable but we are data deficient and he is too altered to contribute. Need pacemaker interrogation, echo, more history from family. I have called both numbers for the and the daughter without response. ADDENDUM: Patient more alert this afternoon and his and 2 daughters are present in bedside providing additional history. They report his confusion is episodic and occurring for several years. He is still usually able to ambulate freely, play cards, interact with the family etc. This afternoon he is able to provide more history. Patient had emergent CABG in January 2023. Also had PAF with left atrial appendage closure soon after that but not due to any history of bleeding. Family is unclear why he had the left atrial appendage closure. Typically does well without chest pain or shortness of breath. He does take ASA, BB, Statin at home. Over the past several days has had episodes of nausea and vomiting associated with high blood pressure which is why he came to the emergency room. At this time patient is asymptomatic. 2D echo reveals normal BiV function. Interrogation of his device indicates 98% RV pacing but no events noted. I had a long discussion with the patient and his family that with advanced age and prior CABG it is very common for mild elevation in troponin especially with nausea and vomiting and high blood pressure but we also cannot completely exclude worsening underlying ischemia. He denies typical angina and his normal echo and resolved symptoms are reassuring. I offered inpatient heart cath versus discharge home to follow-up with his usual bottle machine operator in [place] versus trying to facilitate transfer to his bottle machine operator in [place]. Patient ambulated in the [place] symptom-free and family feels comfortable with discharge home today with conservative medical management and close follow-up with his usual bottle machine operator outpatient. CV DC Meds: Continue aspirin 81 mg 1 p.o. daily Continue metoprolol 12.5 mg 1 p.o. daily Continue atorvastatin 20 mg 1 p.o. nightly Continue Zetia 10 mg 1 p.o. daily Add Plavix with loading dose here followed by subsequent 75 mg p.o. daily Add Imdur 60 mg p.o. daily *Patient needs prompt follow-up with his bottle machine operator within 1 week. The family notes their cousin is a bottle machine operator and has treated him previously. I offered to speak with him on the phone and provided my cell phone but I have not at this point received a phone call.
[2024-11-15 12:00] VITALS: PULSE 70
[2024-11-15] MEDS: METOPROLOL SUCCINATE XL 25MG TABLET 25 MG PO (12:13)
[2024-11-15] MEDS: ASPIRIN EC 81MG TABLET 81 MG PO (12:13)
--- NOTE | 2024-11-15 14:47 | EXP.DC.SUM ---
General Admission date:: 11/14/24 Discharge date: 11/15/24 HPI HPI HPI: Mr. Kauffman is an 89-year-old male with history of CABG, CAD, hypertension. Concern for some mild cognitive impairment and family. Patient presented to the ER via EMS due to complaint of chest pain radiating to his back. Initially left-sided was nonradiating but patient is a poor historian and his symptoms change. Described the pain as pressure-like. Denies any shortness of breath worse than baseline. States he is very active, does gardening. Did have an episode of some nausea and vomiting. Denies any diarrhea or blood in his stool. Workup in the ER, found to be hypertensive with systolics in the 180s. Labs with normal white count. Kidney function appears to be baseline with BUN 22, creatinine 1.3. Initial troponin detectable at 0.05. BNP elevated at 4100. Chest imaging obtained that shows some pulmonary congestion. EKG obtained with no STEMI. Medicine consulted for admission and further management. Patient complains of having some nausea and vomiting prior to coming in. Received Zofran in the ED, felt better. Stable on room air. Family helped supplement history in the ED. Not present at bedside upon arrival to the floor. Hospital Course Hospital Course Hospital Course: 89-year-old male with history of CABG and CAD who presents with chest pain. Waxing and waning. Workup in the ED with detectable troponin. Discussed case with ER physician, request admission for serial troponins and cardiology eval. I agreed to admit for further care. Patient did well during admission. Pain resolved. No further repeat episodes. Pacemaker was evaluated. Cardiology recommend discharge home with close follow-up with his nurse practitioner and # contact. Problems addressed as follows: UnStable angina NSTEMI CAD history of CABG Hypertension - Initial troponin 0.05. EKG per my review with no STEMI. Serial troponins remained flat. Was monitored on telemetry. Cardiology was consulted. Patient had a heart score of 6. BNP elevated at 4100. For cardiology evaluation, able to list the patient had had a CABG in January 2023. Also had paroxysmal A-fib with left atrial appendage closure soon after. No known history of bleeding issues with anticoagulation however. Currently takes aspirin, beta-mai, statin at home. Over the past several days has had episodes of nausea and vomiting associated with high blood pressure which is why he came to the emergency room. At this time patient is asymptomatic. 2D echo reveals normal BiV function. Interrogation of his device indicates 98% RV pacing but no events noted. I had a long discussion with the patient and his family that with advanced age and prior CABG it is very common for mild elevation in troponin especially with nausea and vomiting and high blood pressure but we also cannot completely exclude worsening underlying ischemia. He denies typical angina and his normal echo and resolved symptoms are reassuring. I offered inpatient heart cath versus discharge home to follow-up with his usual nurse practitioner in [place] versus trying to facilitate transfer to his nurse practitioner in [place]. Patient ambulated in the [place] symptom-free and family feels comfortable with discharge home today with conservative medical management and close follow-up with his usual nurse practitioner outpatient. Recommend prompt follow-up within the next week with his nurse practitioner at home in [facility]. Continue cardiovascular meds as follows: Continue aspirin 81 mg 1 p.o. daily Continue metoprolol 12.5 mg 1 p.o. daily Continue atorvastatin 20 mg 1 p.o. nightly Continue Zetia 10 mg 1 p.o. daily Add Plavix with loading dose here followed by subsequent 75 mg p.o. daily Add Imdur 60 mg p.o. daily Continue home donepezil 10 mg nightly for mild cognitive impairment Total time spent on discharge 32 minutes in counseling, documentation, chart review, and direct care with patient. Exam Data for Last 24 hours Vital signs and Labs for Last 24 Hours: Temp Pulse Resp BP Pulse Ox O2 Del Method 97.5 F L 80 16 151/79 H 94 L Room Air 11/15/24 04:00 11/15/24 08:00 11/15/24 04:00 11/15/24 04:00 11/15/24 04:00 11/15/24 07:00 Laboratory Results - last 24 hr 11/14/24 14:27: PT 10.6, INR 0.95, D-Dimer 0.92 H, Sodium 136, Potassium 5.0, Chloride 107, Carbon Dioxide 23, Anion Gap 11.0, BUN 22 H, Creatinine 1.30 H, Estimated Creat Clear 45, Estimated GFR 52 L, Est GFR ( Amer) 63, Glucose 146 H, Lactate 1.6, Calcium 9.0, Magnesium 2.0, Total Bilirubin 1.3, AST 66 H, ALT 51, Alkaline Phosphatase 118, Troponin I 0.05 H, NT-Pro-B Natriuret Pep 4150 H, Total Protein 8.0, Albumin 4.7, Globulin 3.3 H, Albumin/Globulin Ratio 1.4, Lipase 223 11/14/24 16:35: Urine Color Yellow, Urine Appearance Clear, Urine pH 6.0, Ur Specific [place] 1.010, Urine Protein Trace, Urine Glucose (UA) Negative, Urine Ketones Negative, Urine Blood Negative, Urine Nitrate Negative, Urine Bilirubin Negative, Urine Urobilinogen 0.2, Ur Leukocyte Esterase Negative, Urine RBC 5-10, Urine WBC 5-10, Ur Squamous Epith Cells 3-5, Urine Bacteria Trace, Urine Mucus 1+ 11/14/24 17:27: Troponin I 0.06 H 11/14/24 20:51: Troponin I 0.06 H, HCV Ab LILLIAM w/Rflx PCR Qn Negative, HIV Ag/Ab Combo Qual Negative 11/15/24 03:25: Troponin I 0.08 H 11/15/24 06:20: WBC 13.5 H D, RBC 4.98, Hgb 16.4, Hct 49.9, MCV 100.2 H, MCH 32.9 H, MCHC 32.9, RDW 13.9, Plt Count 186, MPV 9.4, Neut % (Auto) 76.7, Lymph % (Auto) 18.4, Wolfe % (Auto) 4.0, Eos % (Auto) 0.1, Baso % (Auto) 0.4, Neut # (Auto) 10.3 H, Lymph # (Auto) 2.5, Wolfe # (Auto) 0.5, Eos # (Auto) 0.0, Baso # (Auto) 0.1, Sodium 141, Potassium 4.2, Chloride 101, Carbon Dioxide 27, Anion Gap 17.2 H, BUN 24 H, Creatinine 1.60 H D, Estimated Creat Clear 36, Estimated GFR 41 L, Est GFR ( Amer) 50 L D, Glucose 165 H, Calcium 9.8, Magnesium 2.0, Total Bilirubin 1.7 H, AST 70 H, ALT 60, Alkaline Phosphatase 113, Total Protein 9.5 H, Albumin 5.3 H D, Globulin 4.2 H, Albumin/Globulin Ratio 1.3, Triglycerides 269 H, Cholesterol 197, LDL Cholesterol Direct 80.23 L, VLDL Cholesterol 54 H, HDL Cholesterol 34 L, Cholesterol/HDL Ratio 5.8 H 11/15/24 06:46: POC Glucose 149 H I & O for Last 24 hours: Intake & Output 11/12/24 11/13/24 11/14/24 11/15/24 23:59 23:59 23:59 23:59 Intake Total 240 / 240 Output Total 1500 / 1500 500 / 500 Balance -1500 / -1500 -260 / -260 Weight 69.853 kg 77.519 kg Constitutional Constitutional: no acute distress, average body habitus and cooperative *Routine HEENT Exam Head: Present normocephalic Eye: Present EOMI and PERRL ENT: Present mucous membranes moist *Routine Neck Exam Neck: Present supple; Absent lymphadenopathy Routine Chest/Breast/Axilla Exam Comments: Well-healed sternotomy scar *Routine Respiratory Exam Respiratory: Present CTA bilaterally; Absent rhonchi or wheezes *Routine Cardiovascular Exam Cardiovascular: Present RRR *Routine Abdominal Exam Abdominal: Present soft and normoactive bowel sounds; Absent tenderness *Routine Rectal Exam Patient deferred: visual exam *Routine Exam Patient deferred: penile exam *Routine Extremities Exam Extremities: Absent cyanosis, clubbing or edema *Routine Skin Exam Skin: Present warm; Absent rash *Routine Neurological Exam Neurological: Present alert and moving all extremities; Absent altered mental status Comments: oriented to self and family at bedside along with location; Poor historian however Results Data Completed and Pending Labs on day of discharge: Labs from last 24 hours 11/15/24 11/15/24 11/15/24 06:46 06:20 03:25 WBC 13.5 H D RBC 4.98 Hgb 16.4 Hct 49.9 MCV 100.2 H MCH 32.9 H MCHC 32.9 RDW 13.9 Plt Count 186 MPV 9.4 Neut % (Auto) 76.7 Lymph % (Auto) 18.4 Wolfe % (Auto) 4.0 Eos % (Auto) 0.1 Baso % (Auto) 0.4 Neut # (Auto) 10.3 H Lymph # (Auto) 2.5 Wolfe # (Auto) 0.5 Eos # (Auto) 0.0 Baso # (Auto) 0.1 PT INR D-Dimer Sodium 141 Potassium 4.2 Chloride 101 Carbon Dioxide 27 Anion Gap 17.2 H BUN 24 H Creatinine 1.60 H D Estimated Creat Clear 36 Estimated GFR 41 L Est GFR ( Amer) 50 L D Glucose 165 H POC Glucose 149 H Lactate Calcium 9.8 Magnesium 2.0 Total Bilirubin 1.7 H AST 70 H ALT 60 Alkaline Phosphatase 113 Troponin I 0.08 H NT-Pro-B Natriuret Pep Total Protein 9.5 H Albumin 5.3 H D Globulin 4.2 H Albumin/Globulin Ratio 1.3 Triglycerides 269 H Cholesterol 197 LDL Cholesterol Direct 80.23 L VLDL Cholesterol 54 H HDL Cholesterol 34 L Cholesterol/HDL Ratio 5.8 H Lipase Urine Color Urine Appearance Urine pH Ur Specific [place] Urine Protein Urine Glucose (UA) Urine Ketones Urine Blood Urine Nitrate Urine Bilirubin Urine Urobilinogen Ur Leukocyte Esterase Urine RBC Urine WBC Ur Squamous Epith Cells Urine Bacteria Urine Mucus HCV Ab LILLIAM w/Rflx PCR Qn HIV Ag/Ab Combo Qual 11/14/24 11/14/24 11/14/24 20:51 17:27 16:35 WBC RBC Hgb Hct MCV MCH MCHC RDW Plt Count MPV Neut % (Auto) Lymph % (Auto) Wolfe % (Auto) Eos % (Auto) Baso % (Auto) Neut # (Auto) Lymph # (Auto) Wolfe # (Auto) Eos # (Auto) Baso # (Auto) PT INR D-Dimer Sodium Potassium Chloride Carbon Dioxide Anion Gap BUN Creatinine Estimated Creat Clear Estimated GFR Est GFR ( Amer) Glucose POC Glucose Lactate Calcium Magnesium Total Bilirubin AST ALT Alkaline Phosphatase Troponin I 0.06 H 0.06 H NT-Pro-B Natriuret Pep Total Protein Albumin Globulin Albumin/Globulin Ratio Triglycerides Cholesterol LDL Cholesterol Direct VLDL Cholesterol HDL Cholesterol Cholesterol/HDL Ratio Lipase Urine Color Yellow Urine Appearance Clear Urine pH 6.0 Ur Specific [place] 1.010 Urine Protein Trace Urine Glucose (UA) Negative Urine Ketones Negative Urine Blood Negative Urine Nitrate Negative Urine Bilirubin Negative Urine Urobilinogen 0.2 Ur Leukocyte Esterase Negative Urine RBC 5-10 Urine WBC 5-10 Ur Squamous Epith Cells 3-5 Urine Bacteria Trace Urine Mucus 1+ HCV Ab LILLIAM w/Rflx PCR Qn Negative HIV Ag/Ab Combo Qual Negative 11/14/24 14:27 WBC RBC Hgb Hct MCV MCH MCHC RDW Plt Count MPV Neut % (Auto) Lymph % (Auto) Wolfe % (Auto) Eos % (Auto) Baso % (Auto) Neut # (Auto) Lymph # (Auto) Wolfe # (Auto) Eos # (Auto) Baso # (Auto) PT 10.6 INR 0.95 D-Dimer 0.92 H Sodium 136 Potassium 5.0 Chloride 107 Carbon Dioxide 23 Anion Gap 11.0 BUN 22 H Creatinine 1.30 H Estimated Creat Clear 45 Estimated GFR 52 L Est GFR ( Amer) 63 Glucose 146 H POC Glucose Lactate 1.6 Calcium 9.0 Magnesium 2.0 Total Bilirubin 1.3 AST 66 H ALT 51 Alkaline Phosphatase 118 Troponin I 0.05 H NT-Pro-B Natriuret Pep 4150 H Total Protein 8.0 Albumin 4.7 Globulin 3.3 H Albumin/Globulin Ratio 1.4 Triglycerides Cholesterol LDL Cholesterol Direct VLDL Cholesterol HDL Cholesterol Cholesterol/HDL Ratio Lipase 223 Urine Color Urine Appearance Urine pH Ur Specific [place] Urine Protein Urine Glucose (UA) Urine Ketones Urine Blood Urine Nitrate Urine Bilirubin Urine Urobilinogen Ur Leukocyte Esterase Urine RBC Urine WBC Ur Squamous Epith Cells Urine Bacteria Urine Mucus HCV Ab LILLIAM w/Rflx PCR Qn HIV Ag/Ab Combo Qual DS: Diagnosis Discharge Diagnosis (1) CABG (coronary artery bypass graft) planned: Status: Inactive Code(s): Z78.9 - Other specified health status (2) CAD (coronary artery disease): Status: Acute Code(s): I25.10 - Atherosclerotic heart disease of [place] coronary artery without angina pectoris (3) Presence of Watchman left atrial appendage closure device: Status: Acute Code(s): Z95.818 - Presence of other cardiac implants and grafts (4) Paroxysmal atrial fibrillation: Status: Acute Code(s): I48.0 - Paroxysmal atrial fibrillation (5) ICD (implantable cardioverter-defibrillator) in place: Status: Acute Code(s): Z95.810 - Presence of automatic (implantable) cardiac defibrillator (6) Altered mental status: Status: Resolved Code(s): R41.82 - Altered mental status, unspecified Meds Home Medications and Allergies Home Medications ?Medication ?Instructions ?Recorded ?Confirmed ?Type atorvastatin 40 mg tablet 20 mg PO HS 11/14/24 11/14/24 History donepezil 10 mg tablet 10 mg PO HS 11/14/24 11/14/24 History ezetimibe 10 mg tablet 10 mg PO DAILY 11/14/24 11/14/24 History aspirin 81 mg tablet 81 mg PO DAILY 11/15/24 11/15/24 History clopidogrel 75 mg tablet 75 mg PO DAILY 30 days #30 tabs 11/15/24 Rx doxepin 10 mg capsule 10 mg PO HS 11/15/24 11/15/24 History isosorbide mononitrate 60 mg 60 mg PO DAILY 30 days #30 tabs 11/15/24 Rx tablet,extended release 24 hr metoprolol succinate 25 mg 12.5 mg PO BID 11/15/24 11/15/24 History tablet,extended release 24 hr (Toprol XL) nitroglycerin 0.4 mg sublingual 0.4 mg sublingual Q5M PRN cp 11/15/24 11/15/24 History tablet tamsulosin 0.4 mg capsule 0.4 mg PO DAILY 11/15/24 11/15/24 History New Prescriptions to Start Prescriptions: Aidan Rain isosorbide mononitrate Aidan Chi Allergies Allergy/AdvReac Type Severity Reaction Status Date / Time No Known Allergies Allergy Unverified 05/25/17 14:17 Discharge Plan Disposition Patient Disposition: Home, Self-Care Condition: Good Follow up Plan Follow up with: Provider,Referral, MD [Primary Care Provider, Medical] - Enter time for follow up Prescriptions/Medication Reconciliation: New clopidogrel 75 mg Tablet 75 mg PO DAILY 30 Days Qty: 30 0RF isosorbide mononitrate 60 mg Tablet Extended Release 24 Hr 60 mg PO DAILY 30 Days Qty: 30 0RF Continued atorvastatin 40 mg tablet 20 mg PO HS donepezil 10 mg tablet 10 mg PO HS ezetimibe 10 mg tablet 10 mg PO DAILY Patient Comments: TAKE 1 TABLET BY MOUTH EVERY DAY doxepin 10 mg capsule 10 mg PO HS Patient Comments: TAKE 1 CAPSULE BY MOUTH AT BEDTIME FOR SLEEP tamsulosin 0.4 mg Capsule 0.4 mg PO DAILY nitroglycerin 0.4 mg Tablet, Sublingual 0.4 mg SUBLINGUAL Q5M PRN (Reason: cp) Rx Instructions: do not exceed 3 doses per episode aspirin 81 mg Tablet 81 mg PO DAILY metoprolol succinate [Toprol XL] 25 mg Tablet Extended Release 24 Hr 12.5 mg PO BID Problem Reconciliation Problems Reviewed?: Yes Patient Discharge Instructions ACTIVITY: Continue current activity DIET: continue same diet Patient Instructions: DI for Chest Pain Print Language: Slovak Providers Primary Care Provider: Provider,Referral Admit Provider: Aidan Chi Attending Provider: Aidan Chi
--- NOTE | 2024-11-15 18:25 | CA_ITS ---
APPROVED REPORT EXAM: Comprehensive 2D, Doppler, and color-flow Echocardiogram Plant Controls Specialist: Lakisha Tracy CRT Ht: 5 ft 10 in Wt: 174lbs BSA: 1.97 BP: 178/86 mmHg Indications: Chest Pain, Congestive Heart Failure 2D Dimensions LA Volume 48.90 mL LA Volume Index 24.20 mL/m2 (M/F) 16-34 M-Mode Dimensions RVDd 3.17 cm (0.9-2.6) LA Diam 4.39 cm (1.9-4.0) LVDd 5.10 cm (3.5-5.7) LVDs 3.95 cm (3.5-5.7) IVSd 1.57 cm (0.6-1.1) PWd 1.15 cm (0.6-1.1) EF (Teich) 45.20% FS 22.50% EDV (Teich) 123.80 mL TAPSE 0.85 (<1.7) ESV (Teich) 67.90 mL LV Diastology E Decel Time 150 (160-240 msec) E/A Ratio 6.18 MED A' 5.80 cm/s LAT A' 2.70 cm/s Aortic Valve AO Peak GR. 8.80 mmHg Mitral Valve MV E Max Chris. 99.0 (40-130 cm/s) MV A Velocity 16.0 (40-130 cm/s) E/A Ratio 6.18 MV PHT 44.0 ms Pulmonary Valve PV Peak Velocity 237.0 (50-150 cm/s) Tricuspid Valve TR P. Velocity 313.00 cm/s RAP Estimate 10.00 mmHg RVSP 49.20 mmHg Left Ventricle The left ventricle is normal size. The left ventricular systolic function is normal. The left ventricular ejection fraction is within the normal range. There is increased LV wall thickness The septum is asynchronous. Diastolic function is indeterminate LVEF is 55%. Right Ventricle The right ventricle is mildly dilated. The right ventricular systolic function is normal. Atria The left atrium is mildly dilated. The right atrium is mildly dilated. There is no Doppler evidence of interatrial shunt. The aortic valve opens well. Aortic Valve There is no aortic valvular stenosis. No aortic regurgitation is present. Mitral Valve The mitral valve is normal in structure. No evidence of mitral valve stenosis. Mild mitral regurgitation. Tricuspid Valve Tricuspid valve is grossly normal in structure and function. Mild tricuspid regurgitation. RVSP is 35-40 mmHg. Pulmonic Valve The pulmonary valve is normal in structure. Mild pulmonic regurgitation. Great Vessels The aortic root is normal in size. IVC is normal in size and collapses >50% with inspiration. Pericardium There is no pericardial effusion. Other Information Study Quality: Fair Conclusion Normal biventricular systolic function. Mild RV dilation. Mild biatrial dilation. Mild MR, mild TR, mild PI. RVSP 35-40 mmHg. Electronically signed by : Joanie Morales MD 11/15/2024 12:19:02
--- NOTE | 2024-11-16 11:23 | SW/DCPLANNER ---
Spoke with patient on the phone. Patient stated that he is doing well. Patient stated that he has called his primary care provider and scheduled an upcoming appointment. Patient stated that he had his new medicine transferred to where he lives at. Patient stated that he has no concerns or questions at this time. Charles Broderick
== END 2024-11-15 15:41 | disposition home or self-care (01) ==
LOC: ER 17:48 → 2ND 18:28
PROVIDERS: Internal Medicine; Physician Assistant; Admitting Provider Internal Medicine Adolescent Medicine; Emergency Provider Emergency Medicine; Visit Provider Internal Medicine Adolescent Medicine
DX: R07.9 Chest pain, unspecified (principal); I25.10 Atherosclerotic heart disease of native coronary artery without angina pectoris; I48.0 Paroxysmal atrial fibrillation; I11.0 Hypertensive heart disease with heart failure; I50.30 Unspecified diastolic (congestive) heart failure; R41.82 Altered mental status, unspecified; R11.2 Nausea with vomiting, unspecified; I45.10 Unspecified right bundle-branch block; E78.5 Hyperlipidemia, unspecified; K80.20 Calculus of gallbladder without cholecystitis without obstruction; I49.3 Ventricular premature depolarization; Z95.818 Presence of other cardiac implants and grafts; Z95.5 Presence of coronary angioplasty implant and graft; Z95.810 Presence of automatic (implantable) cardiac defibrillator; Z79.82 Long term (current) use of aspirin; Z79.899 Other long term (current) drug therapy
CPT/HCPCS: 96374; 96375; 96376; 36415; 70450; 71045; 71275; 74174; 80053; 80061; 81001; 82962; 83605; 83690; 83735; 83880; 84484; 85025; 85378; 85610; 86803; 87389; 93005; 93306; G0378; J1650; J1938; J2270; J2405; Q9967